=== PATIENT | female | born 1975 | race Caucasian/White ===

== ENCOUNTER → 2017-06-28 10:25 | Outpatient (CLI) | payer MEDICAID, SELFPAY ==
[2017-06-28 12:48] LABS: ALB/GLOB Ratio 0.8 RATIO (0.9-2.4); AST(SGOT) 20 U/L (15-37); Alanine Aminotransfer ALT/SGPT 25 U/L (12-78); Albumin, Serum 3.7 g/dL (3.4-5.0); Alkaline Phosphatase 152 U/L (45-117); Anion Gap 7 (5-15); BUN 11 mg/dL (7-18); BUN/Creat Ratio 14.8 RATIO (10-20); Calcium,Total 9.8 mg/dL (8.5-10.1); Chloride 100 mmol/L (98-107); Creatinine, Serum 0.74 mg/dL (0.55-1.02); EST Glomerular Filtration Rate 91 mL/min (>60); Est Glom Filt Rate - Afr Amer 110 mL/min (>60); Globulin 4.5 g/dL (2.2-4.2); Glucose 82 mg/dL (70-110); Potassium 3.6 mmol/L (3.5-5.1); Protein, Total 8.2 g/dL (6.4-8.2); Sodium Level 136 mmol/L (136-145)
[2017-06-28 19:49] LABS: T4 Free Direct 0.87 ng/dL (0.76-1.46); Thyroid Stim Hormone (TSH) 0.61 uIU/mL (0.358-3.74)
--- OUTSIDE RECORDS SUMMARY | 2017-08-31 11:10 | XMS RPT_ITS ---
:1975 Author Organization OHIP Support Name Relationship Address Phone LADRACH, LOUREE Unavailable [address] + [place] [address] [employer] Unavailable [address] + [place] [address] LADRACH, LOUREE Unavailable [address] + [place] [address] [employer] Unavailable [address] + [place] [address] LADRACH, LOUREE Unavailable [address] + [place] [address] [employer] Unavailable [address] + [place] [address] LADRACH, LOUREE Unavailable [address] + [place] [address] [employer] Unavailable [address] + [place] [address] LADRACH, LOUREE Unavailable [address] + [place] [address] [employer] Unavailable [address] + [place] [address] LADRACH, LOUREE Unavailable [address] + [place] [address] [employer] Unavailable [address] + [place] [address] LADRACH, LOUREE Unavailable [address] + [place] [address] [employer] Unavailable [address] + [place] [address] LADRACH, LOUREE Unavailable [address] + [place] [address] [employer] Unavailable [address] + [place] [address] LADRACH, LOUREE Unavailable [address] + [place] [address] [employer] Unavailable [address] + [place] [address] LADRACH, LOUREE Unavailable [address] + [place] [address] [employer] Unavailable [address] + [place] [address] LADRACH, LOUREE Unavailable [address] [facility] [facility] [address] + [place] [address] [employer] Unavailable [address] + [place] [address] LADRACH, LOUREE Unavailable [address] [facility] [facility] [facility] [address] + [place] [address] [employer] Unavailable . +. [place] [address] LADRACH, LOUREE Unavailable [address] [facility] [address] + [place] [address] [employer] Unavailable . +. [place] [address] LADRACH, LOUREE Unavailable [address] [facility] [place] [address] + [place] [address] [employer] Unavailable [address] + [place] [address] LADRACH, LOUREE Unavailable [address] [facility] [place] [address] + [place] [address] [employer] Unavailable . +. [place] [address] LADRACH, LOUREE Unavailable [address] [facility] [place] + [place] [address] [employer] Unavailable [address] + [place] [address] LADRACH, LOUREE Unavailable [address] [facility] [place] [address] [address] + [place] [address] [employer] Unavailable . +. [place] [address] CARMELO LARSENUREE Unavailable [address] + [place] [address] [employer] Unavailable . +. [place] [address] ELIRACARMELO SIDHUUREE Unavailable [address] + [place] [address] [employer] Unavailable . +. [place] [address] Care Team Providers Name Role Phone Iker Scruggs Attending Unavailable Primay Care Physicia, No Primary Care Unavailable Amos Bernardo Attending Unavailable Primay Care Physicia, No Primary Care Unavailable Primay Care Physicia, No Primary Care Unavailable White, Marcy Admitting Unavailable White, Marcy Attending Unavailable Dilip Osorio D.O. Consulting Unavailable Primay Care Physicia, No Primary Care Unavailable Italo Price Attending Unavailable White, Marcy Attending Unavailable White, Marcy Attending Unavailable Davis, Kash INSPECTOR MISSILE-C Attending Unavailable Primay Care Physicia, No Referring Unavailable Primay Care Physicia, No Primary Care Unavailable Davis, Kash INSPECTOR MISSILE-C Attending Unavailable Davis, Kash INSPECTOR MISSILE-C Primary Care Unavailable Davis, Kash INSPECTOR MISSILE-C Attending Unavailable Davis, Kash INSPECTOR MISSILE-C Referring Unavailable Davis, Kash INSPECTOR MISSILE-C Primary Care Unavailable Davis, Kash INSPECTOR MISSILE-C Attending Unavailable Davis, Kash INSPECTOR MISSILE-C Primary Care Unavailable Davis, Kash INSPECTOR MISSILE-C Attending Unavailable Davis, Kash INSPECTOR MISSILE-C Primary Care Unavailable Oswaldoghe, Efewongbe Consulting Unavailable Rachele, Efewongbe Attending Unavailable Davis, Kash INSPECTOR MISSILE-C Referring Unavailable Davis, Kash INSPECTOR MISSILE-C Primary Care Unavailable Moo [place] Attending Unavailable White, Marcy Referring Unavailable Davis, Kash INSPECTOR MISSILE-C Attending Unavailable Davis, Kash INSPECTOR MISSILE-C Referring Unavailable Davis, Kash INSPECTOR MISSILE-C Primary Care Unavailable Davis, Kash INSPECTOR MISSILE-C Primary Care Unavailable Gracie Sandoval Attending Unavailable Davis, Kash INSPECTOR MISSILE-C Attending Unavailable Davis, Kash INSPECTOR MISSILE-C Referring Unavailable Davis, Kash INSPECTOR MISSILE-C Primary Care Unavailable Davis, Kash INSPECTOR MISSILE-C Attending Unavailable Davis, Kash INSPECTOR MISSILE-C Referring Unavailable Mohinder Nye Attending Unavailable Mohinder Nye Referring Unavailable Davis, Kahs INSPECTOR MISSILE-C Primary Care Unavailable Davis, Kash INSPECTOR MISSILE-C Attending Unavailable Davis, Kash INSPECTOR MISSILE-C Referring Unavailable PROBLEMS PROBLEMS DATE TYPE CONDITION / CODE ATTENDING STATUS SOURCE 08/27/2017 Unknown M54.12 - Mohinder Nye Active [place] Radiculopathy, Community cervical region / Hospital M54.12(ICD-10) Repository 08/10/2017 Unknown H92.02 - Otalgia, left Jaime, Gracie Active [place] ear / H92.02(ICD-10) [facility] Repository 07/30/2017 Unknown L65.9 - Nonscarring Oleghe, Active [place] hair loss, unspecified [facility] / L65.9(ICD-10) Hospital Repository 07/30/2017 Unknown F41.8 - Other Oleghe, Active [place] specified anxiety [facility] disorders / Hospital F41.8(ICD-10) Repository 07/30/2017 Unknown I10 - Essential Oleghe, Active [place] (primary) hypertension [facility] / I10(ICD-10) Hospital Repository 07/30/2017 Unknown L30.9 - Dermatitis, Oleghe, Active [place] unspecified / [facility] L30.9(ICD-10) Hospital Repository 08/31/2017 Unknown R74.0 - Nonspecific Davis, Kash Active [place] elevation of levels of INSPECTOR MISSILE-C Community transaminase and Hospital lactic acid Repository dehydrogenase [LDH] / R74.0(ICD-10) 06/14/2017 Unknown J02.9 - Acute Davis, Kash Active [place] pharyngitis, [facility] MISSI[facility]-C Community unspecified / Hospital J02.9(ICD-10) Repository 06/14/2017 Unknown R68.89 - Other general Davis, Kash Active [place] symptoms and signs / INSPECTOR MISSILE-C Community R68.89(ICD-10) Hospital Repository 06/14/2017 Unknown R30.0 - Dysuria / Davis, Kash Active [place] R30.0(ICD-10) INSPECTOR MISSILE-C [facility] Repository 06/14/2017 Unknown N30.00 - Acute Davis, Kash Active [place] cystitis without INSPECTOR MISSILE-C Community hematuria / Hospital N30.00(ICD-10) Repository 07/18/2017 Unknown R94.31 - Abnormal Moodispaw, Active [place] electrocardiogram [facility] [ECG] [EKG] / Hospital R94.31(ICD-10) Repository 04/18/2017 Unknown MIGRAINE, UNSP, NOT Scruggs, Iker Active [place] INTRACTABLE, WITHOUT Community STATUS MIGRAINOSUS / Hospital G43.909(ICD-10) Repository 04/18/2017 Unknown NAUSEA WITH VOMITING, Scruggs, Iker Active [place] UNSPECIFIED / Community R11.2(ICD-10) Hospital Repository 04/18/2017 Unknown DEHYDRATION / Scruggs, Iker Active [place] E86.0(ICD-10) [facility] Repository PROCEDURES PROCEDURES No Procedure Records FoundRESULTS RESULTS CERV SPINE 4 OR 5 Observed: 08/27/2017 Status: F Source: [place] VIEWS 2:45 PM [facility] RE[facility]ITORY [place] [facility] HOSPITALImaging [id number] [place] [address]Ronj Spine 4 or 5 ViewsMR#: [id number] Acct: [id number]: NGUYEN MULLINS Rep #: [id number]: 1975 F 41 From: Murray BrasherCP: Kash Davis NP Status: REG CLIStudy: Cerv Spine 4 or 5 Views Date of Exam: 08/27/17Exam# [id number] Ordering Dr: Aidee NyeTUDY: X-RAY - CERVICAL SPINEREASON FOR EXAM: Female, 41 years old. Neck painTECHNIQUE: Lateral view(s) of the cervical spine were obtained.COMPARISON : None FINDINGS:Normal anterior atlantoaxial articulation. Normal odontoid process.Normal cervical lordosis. Normal vertebral bodies and endplates. Normaldisc space heights. Normal visualized intervertebral neuroforamina.The soft tissue structures are unremarkable. 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 INTERNAL MEDICINE Observed: 08/14/2017 Status: F Source: [place] OFFICE VISIT 5:37 PM [facility] Internal [id number] [facility] [address] [place] [address] [id number] VISITDate of Service: 08/14/17MR#: [id number] Acct: [id number]: NGUYEN MULLINS Rep #: [id number]: 1975 Provider: Kash Davis NPAge/Sex: 41/F [place] [facility] [place].BIMStatus: SignedIntakeVital Signs08/14/17 Height 5 ft 2 inIntakeVisit Reasons: Ear drum rupturedChief Complaint: left ear painIs patient in pain?: Yes (ear pain) Pain scale (1-10): 7Allergiesvalacyclovir [From Valtrex] Allergy ( Verified 08/10/17 13:09)HivesMedicationsblood pressure test kit-medium cuff See Dose Instructions .ROUTE .MEDSUPPLY #1 ea 06/01/17 [RxConfirmed 06/01/17]acyclovir 400 mg tablet 400 mg PO TID #30 tab 06/14/17 [Rx Confirmed 06/14/17]hydrocortisone 2.5 % topical ointment 1 applic TOPICAL QHS #28.35 g 06/28/17 [Rx Urigqyize79/04/18]buspirone 5 mg tablet 5 mg PO QDAY PRN #30 tab 07/27/17 [Rx Confirmed 07/27/17]sertraline 50 mg tablet 50 mg PO QDAY #90 tab 07/27/17 [Rx Confirmed 07/27/17]trazodone 50 mg tablet 50 mg PO QHS PRN #30 tab 07/27/17 [Rx Confirmed 07/27/17]Amox/Clavulanate Tablet [Augmentin Tablet] 875 mg PO Q12H # 6 tab 08/10/17 [Rx]Hydrocodone Bitart/Apap 5-325 [Mullen 5MG-325MG] 1 tab PO Q6H PRN PRN 3 Days #12 tab 08/10/17[Rx]Ofloxacin 0.3% [Floxin 0.3% Otic] 10 drp OTIC DAILY 10 Days #1 bottle 08/10/17 [Rx]amoxicillin 875 mg-potassium clavulanate 125 mg tablet 1 tab PO BID #14 tab 08/10/17 [RxConfirmed 08/10/17]fluticasone 50 mcg/actuation nasal spray,suspension 2 spray INTRANASAL QDAY #1 device 08/10/17[Rx Confirmed 08/10/17]ibuprofen 600 mg tablet 600 mg PO BID PRN #30 tab 08/10/17 [Rx Confirmed 08/10/17]tramadol 50 mg tablet 50 mg PO Q8H PRN #15 tab 08/14/17 [Rx Confirmed 08/14/17]PFSHMedical History Seasonal allergies (Chronic)UTI (urinary tract infection) (Chronic)Surgical History ( Reviewed 08/14/17 @ 17:26 by RUBIN Albright)cesarian times 2 (Acute)Family History ( Reviewed 08/14/17 @ 17:26 by RUBIN Albright)Father HypertensionAlcoholismGrandfather AlcoholismColon cancerMother HypertensionDepressionBrother DepressionGrandmother DiabetesColon cancerUncle CancerSocial HistorySmoking Status: Current some day smokerhow long ago did patient quit smokinalcohol intake: former year quit: 2017details: Is going through rehab for alcohol abuse at 89.substance use type: marijuanawhat type of physical activity do you participate in: yogafrequency: 1-2 times per weekHPIHPIChief Complaint: left ear painDetails: NGUYEN MULLINS, is a 41 F who presents to the office today for an acute visit ofleft ear pain. The pt presented to the ED after being seen last sunday and was diagnosed withperforated ear drum left side. She was also referred to ENT which she has not followed up yet.She states that her ear pain as a 10 out of 10 pain and that she has been taking ibuprofen andTylenol with no relief. She does state that she was given Mullen in the emergency departmentand this helped with her pain. She states that it is so painful she is unable to work. Shestates that is having a lot of bloody and yellow drainage from her left ear canal. She doesstate that she is using the eardrops and the Augmentin appropriately. She is requesting a workexcuse for today and tomorrow. She denies any other alleviating or aggravating symptoms.The patient otherwise denies any fever, chills, , shortness of breath, chest pain or pressure,palpitations, orthopnea, lower extremity edema, syncope or presyncopal episodes.ROSConstConstitutional: No weight change, body ache, chills, fatigue, sleep problems, fever(s), changein appetite, snoring, weakness, frequent falls, headache(s) or excessive sweatingEyesEyes: No change in vision, eye pain, light sensitivity or blurry visionENTENT: Positive for ear pain, ear discharge and ear pressure;no headache (s), abnormal hearing, tinnitus, nasal congestion, sore throat or neck painRespRespiratory: No snoring, cough, shortness of breath or wheezingCardioCardiology: No excessive sweating, chest pain at rest, chest pain with exertion, shortness ofbreath, dyspnea on exertion, palpitations, orthopnea or lightheadednessGastroGI: No abdominal pain, change in bowel habits, constipation, diarrhea, vomiting,nausea/dyspepsia or crampingMuscMusculoskeletal: No neck pain, abnormal walking, joint pain, back pain, limited range ofmotion, numbness or tinglingSkinSkin: No redness, dry skin, itching, lesions, wounds or rashNeuroNeurology: No weakness, frequent falls, headache(s), abnormal hearing, abnormal walking,numbness, tingling, abnormal speech, dizziness or memory lossPsychPsychiatric: No change in appetite, No memory loss, No anxiety, No depression, No Thoughts ofharming yourself/OthersEndoEndocrine: No fatigue, excessive sweating, cold intolerance, increased thirst/drinking, heatintolerance, flushing or increased hungerAller/ImmAllergy/Immunologic: No wheezing, itchy eyes, hives or seasonal allergy symptomsHema/LympHematologic/Lymphatic: No easy bleeding, easy bruising or enlarged lymph nodesExamConstGeneral: cooperative, no acute distress, ill appearing acutelyNutritional Appearance: thinOrientation: alert, awake, oriented [id number]: atraumatic, normocephalicEars: TM normal on the right, TM abnormal perforated with bloody discharge on the left andwith purulent discharge on the leftNose: mucous membranes and turbinates abnormal (Edematous)Face and sinus: normal facial examMouth: oral mucosae normalThroat: postnasal drainage, normal tonsilsNeckNeck mass: NoLymphatic: lymphadenopathy bilateral anterior cervical : soft and tenderRespEffort AND Inspection: normal respiratory effort, able to speak in complete sentencesAuscultation: Bilateral: Clear to AuscultationCardioRate: regular rateRhythm: regular rhythmHeart Sounds: S1 normal, S2 normalGIPalpation: soft, no hepatosplenomegalySkinRashes: rashes notedOther: Maculopapular rash extending around the anterior neck region and shoulder.NeuroGeneral: alert, awake, oriented x3, CN's II-XI intact bilaterallyExtremGeneral: no clubbing, cyanosis or edemaPsychAppearance: grossly normalMental Status: mental status grossly normalAssessment AND PlanProblems1. Acute otitis media of left ear with perforated tympanic membrane H66.92; H72.92PlanPatient to continue with ibuprofen and Tylenol for pain relief. Discussed with her that Icannot refill her Mullen. Did give her a 5 day prescription of tramadol. She will continue herAugmentin and ofloxacin eardrops. She was also referred to ENT for follow-up and management.A work excuse was given for today and tomorrow. Patient educated on red flag symptoms thatrequire urgent medical attention. Patient verbalized understanding.Emy disclaimerOrdersReferrals:MedicationsNew:CodingLevel of Care CodeOff vis,est, level 3DiagnosesAcute otitis media of left ear with perforated tympanic membrane H66.92; H72. 1737 <Electronically signed by Kash CONKLIN>Date Kash TANGCCosigner Signature: Date (if applicable)CC: EMERGENCY DEPARTMENT Observed: 08/11/2017 Status: F Source: [place] SUMMARY 12:28 AM [facility] [id number] [place] [address]Lgqkkhfni Department Sqqhcor97/16/18 1543MR#: [id number] Acct: [id number]: NGUYEN MULLINS Rep #: [id number]: 1975 41 From: Gracie Sandoval MDPCP: Kash Davis NP Status: DEP ER- ER Visit SummaryDate of Service: 08/10/17Chief Complaint: Left ear pain and bleedingHistory of Present Illness: The patient is a 41 F who presents for 1 day of left ear pain thatis now more severe and bleeding. Patient states she has had upper respiratory infectionsymptoms, including cough, left-sided sore throat and congestion for 1 week. She woke up thismorning with her left ear throbbing. She was seen by her doctor and diagnosed with an earinfection, and prescribed Augmentin. She was waiting for the prescription to be filled whenher ear suddenly started bleeding and the pain increased. She has been having drainage of hersymptoms. She denies fever. She has a history of multiple ear infections as a child.Denies any medical history.Physical Examination:Vital signs: afebrile, hemodynamically stable, no hypoxia on room airGeneral: well nourished , well developed, in no distress towel held to the left earSkin: warm, dry, no rash, no pallorHEENT: normocephalic and atraumatic; PERRL, EOMI, moist mucous membranes , no posteriororopharyngeal exudate, swelling or erythema. No oral lesions. Right TM with normalappearance. Left TM has a perforation in the superior medial region with levels behind it,small amount of serosanguineous fluid in the external canal. No pain with movement of thetragus. No mastoid tenderness. Tender periauricular and anterior cervical lymphadenopathy.No meningismus.Cardiovascular: regular rate and rhythmRespiratory: No increased work of breathingMSK: Moves all extremities, no deformities, normal strengthNeuro: Awake and alert, oriented 4. No facial droopTest Results: []Emergency Department Course and Treatment: Patient's examination is consistent with a tympanicmembrane perforation. She does have some bloody exudate in the exterior canal. She has nomastoid tenderness that would be concerning for mastoiditis. No meningeal signs. Patient willtake the Augmentin that her doctor has already prescribed. Ofloxacin eardrops were added toher regimen. Patient is only prescribed a course of 7 days of her Augmentin [facility]. She will be given a prescription for anextra 3 days in case she is unable to get her doctor to extend the prescription for free. Heis in severe pain and thus was given a Mullen while in the emergency department and wasprescribed a small prescription of Mullen for severe pain, especially at bedtime. She willcontinue the ibuprofen as prescribed by her doctor. Return precautions given. Follow-up givento an mobility specialist. Patient discharged home.Treatment Plan: []Disposition: []Impression: Left tympanic membrane perforation, left acute otitis mediaThis note was generated with [employer] dictation software. It may contain incorrect words,spelling, and punctuation that were not noted in review of the chart prior to signingED Disposition- Plan for ED Patient:Chief Complaint: Ear ProblemPrescriptions:Hydrocodone Bitart/Apap 5-325 [Mullen 5MG-325MG] 1 tab PO Q6H PRN PRN 3 Days #12 tabPRN Reason: PainAmox/Clavulanate Tablet [Augmentin Tablet] 875 mg PO Q12H #6 tabOfloxacin 0.3% [Floxin 0.3% Otic] 10 drp OTIC DAILY 10 Days #1 bottleReferrals:Kash Davis, INSPECTOR MISSILE-C [Primary Care Provider] -What to do if you have ProblemsFor any increased pain, shortness of breath, bleeding, nausea or vomiting, chest pain, or anyunexpected problems, contact your Primary Care Provider. Call [facility] ([phone])or report to the closest Emergency Room.Call 911 if necessary.08/11/17 0028 <Electronically signed by Gracie Sandoval MD>Date Gracie Sandoval MDCosigner Signature (If Indicated): Date CC: Kash Davis INSPECTOR MISSILE DISCHARGE INSTRUCTION Observed: 08/11/2017 Status: F Source: [place] 12:18 AM [facility] [id number] [place] [address]Jvybunplj Ugmidjbhthe30/16/18 1547MR#: [id number] Acct: [id number]: NGUYEN MULLINS Rep #: [id number]: 1975 41 From: Gracie Sandoval MDPCP: Kash Davis NP Status: DEP ERED Disposition- Plan for ED Patient:Disposition: Home or Assisted LivingChief Complaint: Ear ProblemInstructions: ED Otitis Media Acute Adult, ED Rupture Eardrum InfecPrescriptions:Hydrocodone Bitart/Apap 5-325 [Mullen 5MG- 325MG] 1 tab PO Q6H PRN PRN 3 Days #12 tabPRN Reason: PainAmox/Clavulanate Tablet [ Augmentin Tablet] 875 mg PO Q12H #6 tabOfloxacin 0.3% [Floxin 0.3% Otic] 10 drp OTIC DAILY 10 Days #1 bottleReferrals:Kash Davis NP-C [Primary Care Provider] -Bandar Suarez MD [STAFF PHYSICIAN] - 3-5 Days if not improvingAdditional Instructions:Please take the Augmentin for 10 days, and contact your doctor to extend your for prescription.If you are unable to do so, you have been written an additional 3 days. Please also use theeardrops as prescribed. Follow-up with the ear nose throat doctor on this paperwork,especially if you are not improving in 3 days. If you have any worsening of your condition orany new concerns, please come back to the emergency department for another evaluation.What to do if you have ProblemsFor any increased pain, shortness of breath, bleeding, nausea or vomiting, chest pain, or anyunexpected problems, contact your Primary Care Provider. Call [facility] ([phone])or report to the closest Emergency Room.Call 911 if necessary.08/11/17 0018 <Electronically signed by Gracie Sandoval MD>Date [place]acie Sandoval [facility] [place] (If Indicated): Date CC: Kash Davis NP INTERNAL MEDICINE Observed: 08/10/2017 Status: F Source: [place] OFFICE VISIT 11:42 AM [facility] Internal [address] [place] [address] [phone] VISITDate of Service: 08/10/17MR#: [id number] Acct: [id number]: NGUYEN MULLINS Rep #: [id number]: 1975 Provider: Kash Davis NPAge/Sex: 41/F Location: [facility] [place].BIMStatus: SignedIntakeVital Signs08/10/17 Height 5 ft 2 inIntakeVisit Reasons: EARACHEChief Complaint: left ear painIs patient in pain?: Yes (left ear pain) Pain scale (1-10): 8Allergiesvalacyclovir [From Valtrex] Allergy ( Verified 05/28/17 09:25)HivesMedicationsblood pressure test kit-medium cuff See Dose Instructions .ROUTE .MEDSUPPLY #1 ea 06/01/17 [RxConfirmed 06/01/17]acyclovir 400 mg tablet 400 mg PO TID #30 tab 06/14/17 [Rx Confirmed 06/14/17]hydrocortisone 2.5 % topical ointment 1 applic TOPICAL QHS #28.35 g 06/28/17 [Rx Bpxcpvwuo42/04/18]buspirone 5 mg tablet 5 mg PO QDAY PRN #30 tab 07/27/17 [Rx Confirmed 07/27/17]sertraline 50 mg tablet 50 mg PO QDAY #90 tab 07/27/17 [Rx Confirmed 07/27/17]trazodone 50 mg tablet 50 mg PO QHS PRN #30 tab 07/27/17 [Rx Confirmed 07/27/17]amoxicillin 875 mg-potassium clavulanate 125 mg tablet 1 tab PO BID #14 tab 08/10/17 [RxConfirmed 08/10/17]fluticasone 50 mcg/actuation nasal spray,suspension 2 spray INTRANASAL QDAY #1 device 08/10/17[Rx Confirmed 08/10/17]ibuprofen 600 mg tablet 600 mg PO BID PRN #30 tab 08/10/17 [Rx Confirmed 08/10/17]PFSHMedical History Seasonal allergies (Chronic)UTI (urinary tract infection) (Chronic)Surgical History ( Reviewed 08/10/17 @ 11:18 by RUBIN Albright)cesarian times 2 (Acute)Family History ( Reviewed 08/10/17 @ 11:18 by RUBIN Albright)Father HypertensionAlcoholismGrandfather AlcoholismColon cancerMother HypertensionDepressionBrother DepressionGrandmother DiabetesColon cancerUncle CancerSocial HistorySmoking Status: Never smokerhow long ago did patient quit smokinalcohol intake: former year quit: 2017details: Is going through rehab for alcohol abuse at 89.substance use type: marijuanawhat type of physical activity do you participate in: yogafrequency: 1-2 times per weekHPIHPIChief Complaint: left ear painDetails: NGUYEN BERGANAN, is a 41 F who presents to the office today for an acute visit ofleft ear pain. She states that over the past week she has been dealing with upper respiratorysymptoms of nonproductive cough, cold-like symptoms with nasal congestion and yellow nasaldischarge, and most recently developed sharp stabbing 8/10 ear pain that began this morning.She does state that her and her children have been sick recently with similar symptoms.She has tried taking some kbqm-fjo-fhewegy flu combinations with mild relief. She did takesome qtxg-whe-payuqxe Aleve which helped some with the ear pain today as well. She denies anyother alleviating or aggravating symptoms. She does note that she still has the rash that wasaddressed at her previous office visit, however has not been utilizing the hydrocortisone creamroutinely.The patient otherwise denies any fever, chills, , shortness of breath, chest pain or pressure,palpitations, orthopnea, lower extremity edema, syncope or presyncopal episodes.ROSConstConstitutional: No weight change, body ache, chills, fatigue, sleep problems, fever(s), changein appetite, snoring, weakness, frequent falls, headache(s) or excessive sweatingEyesEyes: No change in vision, eye pain, light sensitivity or blurry visionENTENT: Positive for ear pain (left ear), nasal congestion, sore throat and other (jaw pain onleft side);no headache(s), abnormal hearing, tinnitus or neck painRespRespiratory: Positive for cough Cough: Yes productive;no snoring, shortness of breath or wheezingCardioCardiology: Positive for chest pain at rest (Due to coughing);no excessive sweating, chest pain with exertion, shortness of breath, dyspnea on exertion,palpitations, orthopnea or lightheadednessGastroGI: Positive for vomiting (When ear pain became severe) and nausea/dyspepsia;no abdominal pain, change in bowel habits, constipation, diarrhea or crampingMuscMusculoskeletal: Positive for tingling (left arm chronic chronic);no neck pain, abnormal walking, joint pain , back pain, limited range of motion or numbnessSkinSkin: Positive for rash (Right and left shoulder);no redness, dry skin, itching, lesions or woundsNeuroNeurology: Positive for tingling (left arm chronic chronic);no weakness, frequent falls, headache(s ), abnormal hearing, abnormal walking, numbness,abnormal speech, dizziness or memory lossPsychPsychiatric: No change in appetite, No memory loss, No anxiety, No depression, No Thoughts ofharming yourself/OthersEndoEndocrine: Positive for other (jaw pain on left side);no fatigue, excessive sweating, cold intolerance, increased thirst/drinking, heat intolerance,flushing or increased hungerAller/ImmAllergy/Immunologic: No wheezing, itchy eyes, hives or seasonal allergy symptomsHema/LympHematologic/Lymphatic: No easy bleeding, easy bruising or enlarged lymph nodesExamConstGeneral: cooperative, no acute distress, ill appearing acutelyNutritional Appearance: thinOrientation: alert, awake, oriented [id number]: atraumatic, normocephalicEars: TM normal on the right, TM abnormal erythematous on the left, bulging on the left andwith fluid behind the TM on the left; Negative for not perforatedNose: mucous membranes and turbinates abnormal (Edematous)Face and sinus: normal facial examMouth: oral mucosae normalThroat: postnasal drainage, normal tonsilsNeckNeck mass: NoLymphatic: lymphadenopathy bilateral anterior cervical : soft and tenderRespEffort AND Inspection: normal respiratory effort, able to speak in complete sentencesAuscultation: Bilateral: Clear to AuscultationCardioRate: regular rateRhythm: regular rhythmHeart Sounds: S1 normal, S2 normalGIPalpation: soft, no hepatosplenomegalySkinRashes: rashes notedOther: Maculopapular rash extending around the anterior neck region and shoulder.NeuroGeneral: alert, awake, oriented x3, CN's II-XI intact bilaterallyExtremGeneral: no clubbing, cyanosis or edemaPsychAppearance: grossly normalMental Status: mental status grossly normalAssessment AND Plan1. Acute otitis media with effusion of left ear H65.192PlanThe patient does have obvious acute otitis media left ear on exam. Will treat with Augmentintwice daily for 7 days. Instructed patient that since she gets frequent yeast infections sheshould take a probiotic such as Culturelle will consider Diflucan if a yeast of infectiondevelops. Discussed supportive therapy as well. Discussed routinely taking her fluticasonedaily and ibuprofen Rx was called in for ear pain as well. Discussed taking this with food toprevent GI upset. Discussed red flag symptoms that require urgent medical attention.2. URI (upper respiratory infection) J06.9PlanPlan as above. On a side note the patient did bring up her rash that she has in the bilateralshoulders and has not been using her hydrocortisone cream, instructed her to use this routinelyfor a week and if no improvement will refer to dermatology.Emy disclaimerPlan DetailOther MedicationsNew:Refilled:fluticasone 50 mcg/actuation (Flonase Allergy Relief) adminis2 sprays Intranasal QDAYter into each nostrilFollow UpAs previously scheduled or sooner if neededCodingLevel of Care CodeOff vis,est,level 3DiagnosesAcute otitis media with effusion of left ear H65.192URI (upper respiratory infection) J06.902/ 1142 < Electronically signed by Kash TANGC>Date Kash Davis NP-CCosigner Signature: Date (if applicable)CC: INTERNAL MEDICINE Observed: 06/29/2017 Status: F Source: [place] OFFICE VISIT 5:19 PM [facility] Internal [address] [place] [address] [phone] VISITDate of Service: 06/28/17MR#: [id number] Acct: [id number]: NGUYEN MULLINS Rep #: [id number]: 1975 Provider: Bakari [place]/Sex: 41/F Location: [facility] [place].BIMStatus: SignedIntakeVital Signs06/28/17 Height 5 ft 2 in06/28/17 Weight: 109 lb06/28/17 Body Mass Index (BMI) 19.901 Blood Pressure 144/ Blood Pressure Location Rt brachialIntakeVisit Reasons: 4 wk f/uChief Complaint: follow-up visitIs patient in pain?: NoAllergiesvalacyclovir [From Valtrex] Allergy (Verified 05/28/17 09:25)HivesMedicationsblood pressure test kit-medium cuff See Dose Instructions .ROUTE .MEDSUPPLY #1 ea 06/01/17 [RxConfirmed 06/01/17]buspirone 5 mg tablet 5 mg PO QDAY PRN #30 tab 06/01/17 [Rx Confirmed 06/01/17]acyclovir 400 mg tablet 400 mg PO TID #30 tab 06/14/17 [Rx Confirmed 06/14/17]fluticasone 50 mcg/actuation nasal spray,suspension 2 spray INTRANASAL QDAY #1 device 06/14/17[Rx Confirmed 06/14/17]hydrocortisone 2.5 % topical ointment 1 applic TOPICAL QHS #28.35 g [Rx Akicjrxdw35/04/18]sertraline 50 mg tablet 50 mg PO QDAY #90 tab 06/28/17 [ Rx Confirmed 06/28/17]trazodone 50 mg tablet 50 mg PO QHS PRN #30 tab 06/28/17 [Rx Confirmed 06/28/17]PFSHMedical HistoryGenital herpes (Chronic)Elevated random blood glucose level (Acute)Insomnia (Chronic)Generalized anxiety disorder with panic attacks (Chronic)Anxiety and depression (Chronic)Alcohol abuse (Chronic) History of marijuana use (Chronic)Hypertension (Chronic)PTSD (post-traumatic stress disorder) (Chronic)Migraine headache (Chronic)Seasonal allergies (Chronic)UTI (urinary tract infection) (Chronic)Surgical Historycesarian times 2 (Acute)Family HistoryFather HypertensionAlcoholismGrandfather AlcoholismColon cancerMother HypertensionDepressionBrother DepressionGrandmother DiabetesColon cancerUncle CancerSocial HistorySmoking Status: Never smokerhow long ago did patient quit smokinalcohol intake: former year quit: 2017details: Is going through rehab for alcohol abuse at 89.substance use type: marijuanawhat type of physical activity do you participate in: yogafrequency: 1-2 times per weekHPI4 wk f/u:Chief Complaint: follow-up visitDetails: NGUYEN MULLINS, is a 41yo F who presents to the office today for follow up.She was seen at her last visit for management of depression and anxiety and at that time wasstarted on Zoloft 50 mg daily. Patient has done well with this dose. She reports pain muchresolution of his symptoms. She is currently also on trazodone 50 mg nightly as needed forsleep. She states that she has tried lifestyle modification alone which has not helped. Shehas had problems for several years. Taking 100 mg of trazodone at night helps her sleepbetter.Blood pressure in the office related to be elevated at 144/73 mmHg. Repeat blood pressure smg132/80 mmHg. She was noted to have elevated blood pressure at her initial visit at this timeit was thought to be due to her anxiety. She has a significant family history of hypertensionin both her parents. She has really not tried any dietary/lifestyle modification since herinitial visit however, she states that she takes her blood pressure at home and typically runswithin normal. She denies chest pain, shortness of breath or leg swelling.She is also concerned about thinning/ hair loss which has been ongoing. Stated above she deniespalpitations, change in the bowel habit, or heat/ cold intolerance. She denies any priorhistory of thyroid disease.She reports bilateral shoulder itching which has been ongoing for a couple of weeks. Shedenies any known precipitating factor however symptom is typically worse at night.ROSConstConstitutional: No weight change, body ache, chills, fatigue, sleep problems, fever(s), changein appetite, snoring, weakness, frequent falls, headache(s) or excessive sweatingEyesEyes: No change in vision, eye pain, light sensitivity or blurry visionENTENT: No headache(s), abnormal hearing, ear pain, tinnitus, nasal congestion, sore throat orneck painRespRespiratory: No snoring, cough, shortness of breath or wheezingCardioCardiology: No excessive sweating, chest pain at rest, chest pain with exertion, shortness ofbreath, dyspnea on exertion , palpitations, orthopnea or lightheadednessGastroGI: No abdominal pain, change in bowel habits, constipation, diarrhea, vomiting,nausea/dyspepsia or crampingMuscMusculoskeletal: No neck pain, abnormal walking, joint pain, back pain, limited range ofmotion, numbness or tinglingSkinSkin: No redness, dry skin, lesions, wounds or rashNeuroNeurology: No weakness, frequent falls, headache(s), abnormal hearing, abnormal walking,numbness, tingling, abnormal speech, dizziness or memory lossPsychPsychiatric: No change in appetite, No memory loss, No anxiety, No depression, No Thoughts ofharming yourself/OthersEndoEndocrine: No fatigue, excessive sweating, cold intolerance, increased thirst/drinking, heatintolerance, flushing or increased hungerAller/ImmAllergy/Immunologic: No wheezing, hives or seasonal allergy symptomsHema/LympHematologic/Lymphatic: No easy bleeding, easy bruising or enlarged lymph nodesExamConstGeneral: cooperative, no acute distressOrientation: alert, awake, oriented [id number]: atraumatic, normocephalicRespEffort AND Inspection: normal respiratory effort, able to speak in complete sentencesAuscultation: Bilateral : Clear to AuscultationCardioRate: regular rateRhythm: regular rhythmHeart Sounds: S1 normal, S2 normalGIPalpation: soft, no hepatosplenomegalySkinOther: Maculopapular rash extending around the anterior neck region and shoulder.NeuroGeneral: alert, awake, oriented x3, CN's II-XI intact bilaterallyExtremGeneral: no clubbing, cyanosis or edemaPsychAppearance: grossly normalMental Status: mental status grossly normalAssessment AND Plan1. Anxiety and depression F41.8PlanIs said to be very well controlled on Zoloft. She states that she has hardly had to use theBuSpar.Continue Zoloft 50 mg daily.Follow-up in 2 months.2. Essential hypertension W47GujmIhaxn pressure in office today was 144/73 mmHg. Repeat blood pressure of 140/80 mmHg.Patient with significant family history of hypertension in both parents.She really has not done any lifestyle modifications since initial diagnosis. Lifestylemodification again encouraged which would include exercise, low sodium and a diet rich infruits and vegetables.Continue blood pressure checks at home. Patient states that her blood pressure readings athome are within normal.Follow-up in 2 months. If blood pressure still significantly elevated, will start onpharmacological management.3. Hair loss L65.9PlanOngoing.No symptoms/history suggestive of thyroid dysfunction.We will however check a thyroid function.Continue biotin supplements.Follow-up the results.OrdersOrders:4. Dermatitis L30.9PlanPossibly contact.Advised to monitor for possible precipitating/aggravating factors.Hydrocortisone 2.5% to the anterior neck area nightly for 2 weeks.This note was generated with Your[employer] software. It may contain incorrect words,spelling, and punctuation that were not noted in checking the note before signing.Plan DetailOther MedicationsNew:Refilled:Follow Up2 MonthsCodingLevel of Care CodeOff vis,est,level 4DiagnosesAnxiety and depression F41.8Essential hypertension W41Fdgkisnwnwsl type: essential hypertensionHair loss L65.9Dermatitis L30.90 /11/09 1719 <Electronically signed by Kely Hopper MD>Date Kely Hopper MDCosigner Signature: Date (if applicable)CC: COMPREHENSIVE METABOLIC Collected: 06/28/2017 Status: F Source: [place] WISDOM 10:28 AM [facility] REPOSITORY TYPE CODE TESTS RESULT OUT OF RANGE REFERENCE UNITS LAB L501.0100 Normal 70-110 mg/dL GLU 82 LAB L501.1000 Normal 7-18 mg/dL BUN 11 LAB L501.1100 Normal 0.55-1.02 mg/dL 0.74 CREAT,SERUM Result Comment: The validity of the calculated GFR AND GFRAA in patients over70 years has not been determined. Clinical correlation isessential. LAB L501.1110 Normal >60 mL/min EST GFR 91 Result Comment: Non- GFR Calc LAB L501.1115 Normal >60 mL/min EST GFR - 110 AA Result Comment: GFR Calc LAB L501.1300 Normal 10-20 RATIO BUN/CRE 14.8 LAB L501.1500 Normal 6.4-8.2 g/dL T PROT 8.2 LAB L501.1800 Normal 3.4-5.0 g/dL ALB 3.7 Result Comment: Please note revised Albumin AND Globulin reference rangeeffective 2017. LAB L501.1950 High 2.2-4.2 g/dL GLOB 4.5 LAB L501.2000 Low 0.9-2.4 RATIO A/G 0.8 LAB L501.2200 Normal 8.5-10.1 mg/dL CA 9.8 LAB L501.4100 Normal 15-37 U/L AST 20 LAB L501.4305 High 45-117 U/L ALK P 152 LAB L501.4405 Normal 12-78 U/L ALT 25 LAB L501.4600 Normal 0.20-1.00 mg/dL T BILI 0.70 LAB L501.5300 Normal 136-145 mmol/L NA 136 LAB L501.5600 Normal 3.5-5.1 mmol/L K 3.6 LAB L501.5900 Normal 98-107 mmol/L CL 100 LAB L501.6100 Normal 21.0-32.0 mmol/L CO2 29.0 LAB L501.6200 Normal 5-15 GAP 7 Performed By: #### L500.4050, L501.9520, L506.0400 ####[facility] [address] [place], [address] THYROID STIM HORMONE Collected: 06/28/2017 Status: F Source: [place] (TSH) 10:28 AM [facility] REPOSITORY TYPE CODE TESTS RESULT OUT OF RANGE REFERENCE UNITS LAB L501.9520 Normal 0.358-3.74 uIU/mL TSH 0.61 Performed By: #### L500.4050, L501.9520, L506.0400 ####[facility] [address] [place], [address] T4 FREE DIRECT Collected: 06/28/2017 Status: F Source: [place] 10:28 AM [facility] REPOSITORY TYPE CODE TESTS RESULT OUT OF RANGE REFERENCE UNITS LAB L506.0400 Normal 0.76-1.46 ng/dL T4 FREE 0.87 DIRECT Performed By: #### L500.4050, L501.9520, L506.0400 ####[facility] [address] [place], [address] URINALYSIS, COMPLETE Collected: 06/14/2017 Status: F Source: [place] 4:07 PM [facility] REPOSITORY Order Comment: How was Urine Obtained? ASBESTOS SIDING INSTALLER TO SPECIFY TYPE CODE TESTS RESULT OUT OF RANGE REFERENCE UNITS LAB L400.3000 Normal Yellow COLOR Yellow LAB L400.3050 Normal Clear CLARITY Sl. Cloudy LAB L400.3200 Normal Normal mg/dl GLUCOSE, UR Normal LAB L400.3300 High Negative mg/dL BILIRUBIN 1 URINE Result Comment: COLOR OF URINE MAY AFFECT DIPSTICK RESULTS. LAB L400.3400 High Negative mg/dl KETONE UR 5 LAB L400.3465 Normal 1.002-1.030 SP.GR. 1.010 DIPSTX LAB L400.3550 Normal 5.0 - 8.0 pH UR 6.0 LAB L400.3600 Normal Negative mg/dl PROT DIPSTX Negative LAB L400.3700 High Normal mg/dl UROBILI 1 LAB L400.3750 Normal Negative NITRITE UR Negative LAB L400.3780 High Negative /ul OCCULT 10 BLOOD-UR LAB L400.3800 High Negative /ul LEUK 500 ESTERASE LAB L400.4050 Normal 0-5 /hpf WBC 25-50 SEEN LAB L400.4100 Normal 0-5 /hpf RBC-UA 0-5 SEEN LAB L400.4150 Normal 5-10 /hpf SQUAM EPI 5-10 SEEN LAB L400.4300 Normal None Seen /hpf BACTERIA 1+ LAB L400.4350 Normal <or=2+ /hpf MUCUS, 0 SEEN URINE LAB L400.4700 Normal <or=2+ /hpf CA OX 1+ CRYSTAL Performed By: #### L400.0001, M100.010 ####[facility] [address] [facility] [place], [place], [address] Observed: 06/14/2017 Status: F Source: YUMIKO GARCÍA, R/O STREP A 4:07 PM [facility] REPOSITORY NISH CultureNo Group A Beta Streptococcus isolated. * This cultures intended use is to screen for Beta Streptococcus A only. All other pathogens and potential pathogens will not be screened for or reported. If a complete workup of all potential pathogens is indicated an order for a routine throat culture is required. Performed By: #### L400.0001, M100.010 ####[facility] [address] [facility] [place], [place], [address] Observed: 06/14/2017 Status: F Source: [place] CULTURE, URINE 4:07 PM [facility] REPOSITORY Urine CultureORGANISM 1: Presumptive E. coliColony Count <1000 Presumptive E. coli: REACTION Amoxacillin/Clavulanic Acid $ 4 S Ampicillin $ 8 S Ampicillin/Sulbactam $ 4 S Cefazolin $ <=4 S Cefepime $ <= 1 S Ceftriaxone $ <=1 S Ciprofloxacin $ <=0.25 S ESBL - Ertapenim $$$ <=0.5 S Gentamicin $ <=1 S Imipenem *NF <=0.25 S Levofloxacin $ <=0.12 S Nitrofurantoin $ <=16 S Piperacillin/Tazobactam $$ <=4 S Tobramycin $ <=1 S Trimethoprim/Sulfametho $ <=20 S(NF) indicates non-formulary drug at [facility]. Approval by Infectious Disease Specialist required before non-formulary drugs may be ordered and/or dispensed. Performed By: #### M100.0650 ####[facility] [address] [place], [address] INTERNAL MEDICINE Observed: 06/14/2017 Status: F Source: [place] OFFICE VISIT 3:48 PM [facility] Internal [address] [place] [address] [phone] VISITDate of Service: 06/14/17MR#: [id number] Acct: [id number]: NGUYEN MULLINS Rep #: [id number]: 1975 Provider: Kash Davis NPAge/Sex: 41/F Location[place] [facility] [place].BIMStatus: SignedIntakeVital Signs06/14/17 Height 5 ft 2 in06/14/17 Weight: 107 lb06/14/17 Body Mass Index (BMI) 19.512 Blood Pressure 114/ Blood Pressure Location Lt brachialIntakeVisit Reasons: sore throat, feverChief Complaint: fever, body aches, vomiting, sore throatIs patient in pain?: Yes (sore throat) Pain scale (1-10): 5Allergiesvalacyclovir [From Valtrex] Allergy (Verified 05/28/17 09:25)HivesMedicationsblood pressure test kit-medium cuff See Dose Instructions .ROUTE .MEDSUPPLY #1 ea 06/01/17 [RxConfirmed 06/01/17]buspirone 5 mg tablet 5 mg PO QDAY PRN #30 tab 06/01/17 [Rx Confirmed 06/01/17]sertraline 50 mg tablet 50 mg PO QDAY #30 tab 06/01/17 [Rx Confirmed 06/01/17]trazodone 50 mg tablet 50 mg PO QHS PRN #30 tab 06/01/17 [Rx Confirmed 06/01/17]acyclovir 400 mg tablet 400 mg PO TID # 30 tab 06/14/17 [Rx Confirmed 06/14/17]amoxicillin 875 mg-potassium clavulanate 125 mg tablet 1 tab PO BID #10 tab 06/14/17 [RxConfirmed 06/14/17]fluticasone 50 mcg/actuation nasal spray,suspension 2 spray INTRANASAL QDAY #1 device 06/14/17 [Rx Confirmed 06/14/17]PFSHMedical History Elevated random blood glucose level (Acute)Insomnia (Chronic)Generalized anxiety disorder with panic attacks (Chronic)Anxiety and depression (Chronic) Alcohol abuse (Chronic)History of marijuana use (Chronic)Hypertension (Chronic)PTSD (post-traumatic stress disorder) (Chronic)Migraine headache (Chronic)Seasonal allergies (Chronic)UTI (urinary tract infection) (Chronic)Surgical History ( Reviewed 06/14/17 @ 10:52 by Daily Stephens)cesarian times 2 (Acute)Family History ( Reviewed 06/14/17 @ 10:52 by Daily Stephens)Father HypertensionAlcoholismGrandfather AlcoholismColon cancerMother HypertensionDepressionBrother DepressionGrandmother DiabetesColon cancerUncle CancerSocial HistorySmoking Status: Never smokerhow long ago did patient quit smokinalcohol intake: former year quit: 2017details: Is going through rehab for alcohol abuse at 89.substance use type: marijuanawhat type of physical activity do you participate in: yogafrequency: 1-2 times per weekHPIsore throat, fever:Chief Complaint: fever, sore throat, body achesDetails: NGUYEN MULLINS, is a 41 F who presents to the office today for an acute visit ofbilateral ear pain, fever, sore throat, body aches, nausea, nasal congestion , and dysuria. Rejioes have a past medical history which is significant for that of alcohol abuse, migraines,PTSD, anxiety, depression, hypertension, frequent UTIs, prior use of cannabis, and alcoholwithdrawal.The patient states that her symptoms of fever, sore throat, body aches, nausea, nasalcongestion, and ear pain began this past Sunday night. She noted chills and subjective feversand headaches as well. She states that her symptoms have been progressively worsening and thatcarola was exposed to sick contacts at home. She has tried taking Tylenol and ibuprofen for thebody aches with mild relief. She is concerned that she may have strep due to her throat beingred with white patches. She also notes that she has a flareup of her genital herpes at thistime due to her being sick and would like a refill of her acyclovir 400 mg.She notes that in regards to her recent UTI, her symptoms never really entirely resolved andshyonathan continues to have symptoms of burning with urination, urgency, and frequency. She didcomplete the entire course of Keflex and tolerated this well. She denies any other associatedor alleviating symptoms.She states that she has been doing well and remaining free from alcohol since her previoushospital stay.She otherwise denies any shortness of breath, chest pain or pressure, syncope or presyncopalepisodes.ROSConstConstitutional: Positive for body ache, chills and fever(s);no weight change, fatigue, sleep problems, change in appetite, snoring , weakness, frequentfalls, headache(s) or excessive sweatingEyesEyes: Positive for light sensitivity;no change in vision, eye pain or blurry visionENTENT: Positive for ear pain, nasal congestion and sore throat;no headache(s), abnormal hearing, tinnitus or neck painRespRespiratory: No snoring, cough, shortness of breath or wheezingCardioCardiology: No excessive sweating, chest pain at rest, chest pain with exertion, shortness ofbreath, dyspnea on exertion, palpitations, orthopnea or lightheadednessGastroGI: Positive for vomiting (x1) and nausea/dyspepsia;no abdominal pain, change in bowel habits, constipation, diarrhea or crampingGUGenitourinary-Female: Positive for urinary frequency, burning urination, urinary urgency andurinary hesitancyMuscMusculoskeletal: Positive for other ( all over boday aches);no neck pain, abnormal walking, joint pain, back pain, limited range of motion, numbness ortinglingSkinSkin: No redness, dry skin, itching, lesions, wounds or rashNeuroNeurology: No weakness, frequent falls, headache(s), abnormal hearing, abnormal walking,numbness, tingling, abnormal speech, dizziness or memory lossPsychPsychiatric: No change in appetite, No memory loss, No anxiety, No depression, No Thoughts ofharming yourself/OthersEndoEndocrine: No fatigue, excessive sweating, cold intolerance, increased thirst/drinking, heatintolerance, flushing or increased hungerAller/ImmAllergy/Immunologic: No wheezing, itchy eyes, hives or seasonal allergy symptomsHema/LympHematologic/Lymphatic: No easy bleeding, easy bruising or enlarged lymph nodesExamConstGeneral: ill appearing acutelyNutritional Appearance: thinOrientation: alert, oriented z7Wbtmjawrqov: mental status not alteredHENMTHead: normal to inspectionEars: hearing grossly normal bilaterally , TM abnormal with fluid behind the TM bilaterally,bulging bilaterally and wth effusion serous bilaterally; Negative for not erythematousNose: mucous membranes and turbinates abnormal, nasal discharge clear bilaterallyFace and sinus: normal facial exam, sinuses nontender, no tendernessThroat: posterior oropharynx abnormal erythemaEyesGeneral: appearance normal, both eyes and all related structuresNeckNeck: normal visual inspection, no lymphadenopathyRespEffort AND Inspection: normal respiratory effort, able to speak in complete sentences, normalrespiratory pattern, symmetric chest movement, no audible wheezes, no coughAuscultation: Bilateral: Clear to AuscultationCardioPalpation: normal PMIRate: regular rateHeart Sounds: S1 normal, S2 normal, normal S1 and S2, no click, no gallops, no murmurs, no rubsNeuroGeneral: alert, awake, oriented x3, CN's II-XI intact bilaterallySpeech: speech normalGait: normal gaitMotor: muscle tone normal throughoutExtremGeneral: normal to inspection, normal gait, no edema, no pedal edemaPsychAppearance: grossly normalMental Status: mental status grossly normalAffect: normal affectAttitude: cooperativeThought Process: normalResultsBMSRAPIDSTREPAOffice Rapid Strep A Negative Last Edit by RUBIN Albright on 06/14/17 13:05BMSFLUABOffice Flu A AND B Negative FLU A AND B Last Edit by RUBIN Albright on 06/14/17 13:06Assessment AND Plan1. Influenza with upper respiratory symptoms J11.1PlanThe patient's symptoms are consistent with that of influenza, though rapid strep, flu a and Btest was negative. Discussed supportive measures that would be taken and supportive measuresfor her sore throat, body aches, and nasal congestion. Placed patient back on her Flonase forher allergic rhinitis and instructed on the use of a daily antihistamine. Educated on handhygiene and increasing fluids. Educated on red flag symptoms that require urgent medicalattention.2. Acute cystitis N30.00PlanThe patient continues to have UTI -like symptoms, was previously treated with Keflex. Willtreat with Augmentin and repeat UA with culture. Discussed with patient on the Augmentin wellcover any bacteria that is causing her upper respiratory symptoms as well, though suspect thatit is viral. If symptoms persist, may need referral to urology. low suspicion forpyelonephritis at this time.OrdersOrders:3. Alcohol abuse F10.10PlanPatient is doing well abstaining from alcohol at this time per self-report.4. Genital herpes A60.00PlanThe patient does have a flareup of her genital herpes per her self-report. Will refill heracyclovir as previously prescribed.Emy disclaimerPlan DetailOther OrdersOrders:Other MedicationsNew:Follow UpAs previously scheduledCodingLevel of Care CodeOff vis,est,level 3DiagnosesInfluenza with upper respiratory symptoms J11.1Acute cystitis N30.00Alcohol abuse F10.10Genital herpes A60. 1548 <Electronically signed by Kash CONKLIN>Date Mark Davis INSPECTOR MISSILE-CCosigner Signature: Date (if applicable)CC: 12 LEAD ELECTROCARDIOGRAM Observed: 06/08/2017 Status: F Source: [place] 3:24 PM [facility] REPOSITORY [facility]ITAL[facility] Ltckpxjs[address] [place] [address] Lead EKG107/29/16 1352MR#: [id number] Acct: [id number]: NGUYEN MULLINS Rep #: [id number]: 1975 41 From: Moo Grissom MDAttending Dr: Marcy Pavon Status: DIS INOrdering Dr: Marcy Pavon L Date: 05/28/17Location: MS2 Sex: F CAdmitted: 05/28/17Test Reason : ADMISSIONBlood Pressure : / mmHGVent. Rate : 122 BPM Atrial Rate : 122 BPMP-R Int : 134 ms QRS Dur : 070 msQT Int : 326 ms P-R-T Axes : 060 078 056 degreesQTc Int : 464 msSinus tachycardiaNonspecific T wave abnormalityAbnormal ECGConfirmed by MOO GRISSOM MD ([id number]), technical editor MOISES BRAVO ([id number]) on 06/08/2017 3:23:54 PMReferred By: YISEL Confirmed By:MOO [place] MD06/08/17 1523Date Moo [place] MDCC: No Primary Care Physician Signed OFFICE VISIT REPORT Observed: 06/01/2017 Status: F Source: [place] 2:14 PM [facility] REPOSITORY [facility] [place] [place] [address]SEBTAI VISITDate of Service: 06/01/17#: [id number] Acct: [id number]: NGUYEN MULLINS Rep #: [id number]: 1975 Provider: Kash Davis NPAge/Sex: 41/F [place] [facility] [place].BIMStatus: SignedIntakeVital Signs06/01/17 Height 5 ft 2 in06/01/17 Weight: 107 lb06/01/17 Body Mass Index (BMI) 19.512 Blood Pressure 139/ Blood Pressure Location Rt brachialIntakeVisit Reasons: EST CAREChief Complaint: AnxietyIs patient in pain?: NoAllergiesvalacyclovir [From Valtrex] Allergy (Verified 05/28/17 09:25)HivesMedicationsblood pressure test kit-medium cuff See Dose Instructions .ROUTE .MEDSUPPLY #1 ea 06/01/17 [ RxConfirmed 06/01/17]buspirone 5 mg tablet 5 mg PO QDAY PRN #30 tab 06/01/17 [Rx Confirmed 06/01/17]sertraline 50 mg tablet 50 mg PO QDAY #30 tab 06/01/17 [Rx Confirmed 06/01/17]trazodone 50 mg tablet 50 mg PO QHS PRN #30 tab 06/01/17 [Rx Confirmed 06/01/17]Is last menstrual period known: Yes (05/24/2017)PFSHMedical History Elevated random blood glucose level (Acute)Insomnia (Chronic)Generalized anxiety disorder with panic attacks (Chronic)Anxiety and depression (Chronic)Alcohol abuse (Chronic)History of marijuana use (Chronic)Hypertension (Chronic)PTSD (post-traumatic stress disorder) (Chronic)Migraine headache (Chronic)Seasonal allergies (Chronic)UTI (urinary tract infection) (Chronic)Surgical History cesarian times 2 (Acute)Family History Father HypertensionAlcoholismGrandfather AlcoholismColon cancerMother HypertensionDepressionBrother DepressionGrandmother DiabetesColon cancerUncle CancerSocial HistorySmoking Status: Never smokerhow long ago did patient quit smokinalcohol intake: former year quit: 2017details: Is going through rehab for alcohol abuse at 89.substance use type: marijuanawhat type of physical activity do you participate in: yogafrequency: 1-2 times per weekQuestionnaireDepression Screen PHQ-2/9PHQ-2Over the last 2 weeks, how often have you been bothered by any of the following problems?1. Little interest or pleasure in doing things: several days2. Feeling down, depressed, or hopeless: several daysTotal score: 2If score is 2 or greater, continue3. Trouble falling or staying asleep, or sleeping too much: nearly every day4. Feeling tired or having little energy: more than half the days5. Poor appetite or overeating: nearly every day6. Feeling bad about yourself - or that you are a failure or have let yourself and your familydown: several days7. Trouble concentrating on things, such as reading the newspaper or watching television: morethan half the days8. Moving or speaking so slowly that other people could have noticed? - Or the opposite - beingso fidgety or restless that you have been moving around a lot more than usual: not at all9. Thoughts that you would be better off or of hurting yourself in some way: not at allTotal score: 13If you checked off any problems, how difficult have these problems made it for you to do yourwork, take care of things at home, or get along with other people?: very difficultSource: Developed by Drs. Rowdy De Paz, Ashtyn Olson, Josemanuel Herrera and colleagues, with an educational arian from [employer].Scoring:Total Score Depression Severity Action1-4 Minimal depression No action needed5-9 Mild depression Repeat PHQ-9 at follow up10-14 Moderate depression Make tx plan, consider counseling, fup, prescriptionHPIEST CARE:Chief Complaint: AnxietyDetails: NGUYEN MULLINS, is a 41 F who presents to the office today for a hospital follow- upand with the acute complaint of anxiety and depression. She does have a past medical historywhich is significant for that of alcohol abuse, migraines, PTSD, anxiety , depression,hypertension, frequent UTIs, prior use of cannabis, and alcohol withdrawal.The patient presented to [facility] and was admitted from 10/09 taldilu40/5/17 for EtOH withdrawal/detox. She was originally admitted on MedSurg part of the [facility] protocol and due to her worsening hallucinations was transferred to ICU in case of aneed for Precedex. She improved on the Librium and was transitioned back to [facility] on05/29/2017 where she then signed out AMA. She presents to the office today and states that carolaharicha had no alcohol consumption since 05/27/2017. She states that she has been doing well sinceleaving the hospital, however she does note that she has been very anxious. She does not wishto be on any benzodiazepine medications because she states that she was going to counselingbefore and was placed her on benzodiazepines and she became addicted to them. She notes thatshe is depressed as well but denies any thoughts of harming self or others. She scored a 12 onthe PHQ 9 which indicates moderate depression. She was treated in the past with Paxil but hasbeen off of this for quite some time. She also complains of insomnia and states that she wason trazodone as needed for this as well. She is willing to be on a daily maintenance therapyfor her anxiety and depression, however she wishes to have something for breakthrough panicattacks that she can take sparingly on a as needed basis.She does note that she usually has 3-4 UTIs a year and that she is currently having someurinary symptoms of urinary frequency. She notes that she has a history of borderlinehypertension and that there have been episodes where her blood pressure was elevated with 170ssystolic over 100s diastolic. However she states that she thinks this was due in part toanxiety. She states that she has never been on blood pressure medications in the past. Shedenies any fever, chills, nausea, vomiting, chest pain or pressure, palpitations, syncope orpresyncopal episodes.ROSConstConstitutional: Positive for sleep problems (trouble falling asleep and staying asleep);no anorexia, body ache, chills, fever(s), decreased energy, malaise, night sweats, weightchange, weakness, frequent falls, fatigue, excessive sweating, abnormal sleep pattern, changein appetite, headache(s) or snoringEyesEyes: No blurry vision, change in vision, double vision, discharge, dry eyes, bulging eyes,floaters, eye pain, light sensitivity, spots in vision, tunnel vision or visual disturbancesENTENT: Positive for nasal congestion;no ear pain, ear discharge, ear pressure, hearing loss, tinnitus, dizziness/vertigo, balanceproblems, nosebleed/epistaxis, nasal obstruction, nose pain, sinus pressure, sinus pain, nasaldischarge, post nasal drip, facial pain, dental pain, dry mouth, bad breath, hoarseness, mouthlesions, mouth pain, sore throat, abnormal hearing, headache(s ), lip swelling, throat swelling,tongue swelling, difficulty swallowing or neck painRespRespiratory: No cough, change in phlegm color, chest congestion, excessive phlegm production,hemoptysis, pain on inspiration, shortness of breath, pain with cough, stridor, snoring orwheezingCardioCardiology: No chest pain at rest, chest pain with exertion, leg pain with exertion, shortnessof breath, dyspnea on exertion, generalized swelling, irregular heart rhythm, lightheadedness,orthopnea, radiating jaw, neck or arm pain, fast heart rate, slow heart rate, palpitations orexcessive sweatingGastroGI: No abdominal pain, belching, bloating, change in bowel habits , change in stool character,coffee ground emesis, constipation, cramping, diarrhea, heartburn, feeling full early,excessive flatus, incontinent of stools, Vomiting blood/hematemesis, blood in stool, loosestools, Black,tarry stools, nausea/ dyspepsia, pain with swallowing, vomiting or difficultyswallowingGUGenitourinary: Positive for urinary urgency;no difficulty urinating, burning urination, painful urination, urinary incontinence, urinaryfrequency, urinary hesitancy, urinary retention, blood in urine, Frequent nighttime urination/nocturia, post void dribbling, suprapubic fullness, side pain, sexual problems, genitallesions, genital itching, hot flashes, abnormal periods, abnormal vaginal bleeding, absentperiod, painful periods, light periods, heavy periods, difficulty getting , painfulintercourse, pelvic pain, vaginal dryness or vaginal odorMuscMusculoskeletal: No joint pain, back pain, deformity, joint swelling, limited range of motion,loss of height, muscle cramps, decreased muscle mass, body aches, neck pain, radiating paininto limb, stiffness, muscle weakness, abnormal walking, numbness or tinglingSkinSkin: No acne, hair loss, change in hair, nail changes, boil, change in skin color, dry skin,redness, excessive hair growth, yellowing of the skin, lesions, rash, skin pain, skin ulcer,sores , skin swelling, wounds or itchingBreastBreast: No change in breast shape, breast lump , breast pain, breast skin changes, breastswelling, nipple discharge or otherNeuroNeurology: No abnormal movements, abnormal speech, unsteady gait/ balance, dizziness, lack ofcoordination, loss of vision, restless legs, fainting, tremor (s), visual disturbances,weakness, frequent falls, behavioral changes, confusion, memory loss, abnormal hearing,headache(s), abnormal walking, numbness or tinglingPsychPsychiatric: No lack of enjoyment, Positive for anxiety, Positive for depression, No difficultyconcentrating, No hopelessness, No irritability, No mood swings, Positive for panic attacks(occasionally), No paranoia, No Thoughts of harming yourself/Others, No hallucinations, Noabnormal sleep pattern, No change in appetite, No behavioral changes, No confusion, No memorylossEndoEndocrine: No change in body appearance, cold intolerance, flushing, heat intolerance,increased thirst/ drinking, increased hunger, increased urination, fatigue or excessive sweatingAller/ImmAllergy/Immunologic: No food intolerance, seasonal allergy symptoms, hives, itchy eyes, lipswelling, throat swelling, tongue swelling or wheezingHema/LympHematologic/Lymphatic: No easy bleeding, easy bruising or enlarged lymph nodesExamConstGeneral: cooperative, comfortable, no acute distress, anxiousNutritional Appearance: average body habitusOrientation: alert, oriented x3, oriented to person, oriented to place, oriented to timeLimitations: mental status not alteredHENMTHead: normal to inspection, atraumaticEars: hearing grossly normal bilaterallyNose: external nose normalFace and sinus: normal facial examMouth: oral mucosae normal, moist mucous membranesTeeth and gingiva: dentition normalThroat : posterior oropharynx normalEyesGeneral: appearance normal, both eyes and all related structuresPupils: PERRLNeckNeck: normal visual inspection, no lymphadenopathyRespEffort AND Inspection: normal respiratory effort, able to speak in complete sentences, normalrespiratory pattern, symmetric chest movement, no cough, respiratory effort not decreased, noaudible wheezesAuscultation: Bilateral: Clear to AuscultationCardioPalpation: normal PMIRhythm: regular rhythmHeart Sounds: S1 normal, S2 normalGIInspection: normal to inspectionAuscultation: normal bowel soundsPercussion: normal to percussionPalpation: soft, no hepatosplenomegalyGUGeneral: No CVA tendernessMuscMusculoskeletal: No muscle weakness, joint tenderness or decreased ROMSkinGeneral: no rashes or lesions noted, turgor normal, skin not dryLesions: lesions notedRashes: rash notedNeuroGeneral : alert, awake, oriented x3, CN's II-XI intact bilaterallyExtremGeneral: full ROM , no clubbing, cyanosis or edema, no pedal edemaPsychAppearance: grossly normalMental Status: mental status grossly normalAffect: anxious affectAttitude: cooperativeThought Process: normalAssessment AND Plan1. Generalized anxiety disorder with panic attacks F41.1; F41.0PlanThe patient does have a history of anxiety attacks and is currently not on any medicationtherapy. She does not wish to be on any benzodiazepines due to the addictive nature and herpast history. Will start patient on sertraline 50 mg daily and per her request trial of BuSparas needed. Discussed red flag symptoms specifically thoughts of harming self or others andthat this would be a need for urgent medical attention. Patient verbalized understanding.MedicationsNew:2. Anxiety and depression F41.8PlanPlan as above. No current thoughts of harming self or others, PHQ 9 score demonstratedmoderate depression. She will continue following up with her psychiatrist at the [address] [place] [address] well3. Primary insomnia F51.01; F51.01PlanEducated patient on sleep hygiene including eliminating alcohol and caffeine from her diet.She states in the past she is tolerating trazodone on an as-needed basis. Will restart patienton trazodone.4. Elevated random blood glucose level R73.09PlanShe did have an elevated random blood glucose level and ketones in her urine. May have beensecondary to her acute alcohol withdrawal. Will however check an A1c given her family historyof diabetes mellitus.OrdersOrders:5. Essential hypertension D94IrazQyunl pressure slightly elevated today at 139/98. The patient states that it is due to heruncontrolled anxiety at this time and that usually her blood pressure is normal with a fewexceptions. Prescription given for blood pressure cuff and instructed patient to check herblood pressure daily and call us with a log in 2 weeks.MedicationsNew:6. Alcohol abuse F10.107. Dysuria R30.0PlanPatient does have symptoms of dysuria. She states she has not been on any antibiotics for UTIsrecently but does note that she has frequent UTIs. If recurrence continues may need a referralto urology. If positive for nitrites, will treat with appropriate antibiotic choice.This note was generated with [employer] dictation software. It may contain incorrect words,spelling, and punctuation that were not noted in checking the note before signing.OrdersOrders:Plan DetailOther OrdersOrders:Referrals:Other MedicationsNew:Follow Up4 Weeks (october)CodingLevel of Care CodeOff vis,est,level 4DiagnosesGeneralized anxiety disorder with panic attacks F41.1; F41.0Anxiety and depression F41.8Primary insomnia F51.01; F51.01Insomnia type: primaryElevated random blood glucose level R73.09Essential hypertension E43Nmayemzpcekf type: essential hypertensionAlcohol abuse F10.10Dysuria R30.012/02/08 1414 <Electronically signed by Kash CONKLIN>Date Kash CARROLLosigner Signature: Date (if applicable)CC: HEMOGLOBIN A1C Collected: 06/01/2017 Status: F Source: [place] 11:55 AM [facility] REPOSITORY TYPE CODE TESTS RESULT OUT OF RANGE REFERENCE UNITS LAB L501.9985 Normal 4.2-6.3 % HGB 4.5 A1C Performed By: #### L501.9985, L400.0001 ####[facility] [address] [facility] [address] [place], [place], [id number] URINALYSIS, COMPLETE Collected: 06/01/2017 Status: F Source: [place] 11:55 AM [facility] REPOSITORY Order Comment: How was Urine Obtained? CLEAN CATCH TYPE CODE TESTS RESULT OUT OF RANGE REFERENCE UNITS LAB L400.3000 Normal Yellow COLOR Yellow LAB L400.3050 Normal Clear CLARITY Sl. Cloudy LAB L400.3200 Normal Normal mg/dl GLUCOSE, UR Normal LAB L400.3300 Normal Negative mg/dL BILIRUBIN Negative URINE LAB L400.3400 Normal Negative mg/dl KETONE UR Negative LAB L400.3465 Normal 1.002-1.030 SP.GR. 1.020 DIPSTX LAB L400.3550 Normal 5.0 - 8.0 pH UR 6.0 LAB L400.3600 High Negative mg/dl PROT DIPSTX 15 LAB L400.3700 High Normal mg/dl UROBILI 1 LAB L400.3750 High Negative NITRITE UR Positive LAB L400.3780 High Negative /ul OCCULT 25 BLOOD-UR LAB L400.3800 High Negative /ul LEUK 500 ESTERASE LAB L400.4050 Normal 0-5 /hpf WBC 25-50 SEEN LAB L400.4100 Normal 0-5 /hpf RBC-UA 0-5 SEEN LAB L400.4150 Normal 5-10 /hpf SQUAM EPI 0-5 SEEN LAB L400.4300 Normal None Seen /hpf BACTERIA 1+ LAB L400.4350 Normal <or=2+ /hpf MUCUS, 0 SEEN URINE LAB L400.4700 Normal <or=2+ /hpf CA OX 2+ CRYSTAL Performed By: #### L501.9985, L400.0001 ####[facility] [address] [facility] [address] [place], [place], [address] DISCHARGE SUMMARY Observed: 05/30/2017 Status: F Source: [place] 6:36 AM [facility] REPOSITORY [facility]ITALMedical Records [address] [place], [place] [address]Bgucairgz Yexissf81/05/17 2200MR#: [id number] Acct: [id number]: NGUYEN MULLINS Rep #: [id number]: 1975 41 From: Marcy CooperP: Care Physician, No Primary Status: DIS IN YLocation: MS2 [id number] Date and DiagnosisDate of Admission: 05/28/17Date of Discharge: 05/29/17- Primary Discharge Diagnosis(1) Acute EtOH Withdrawal(2) Hypertension(3) Migraine Headaches(4) Moderately Protein-Calorie Malnutrition(5) Anxiety and Depression/PTSD- Secondary Discharge DiagnosisChronic ProblemsAnxiety and depression (Chronic)Alcohol abuse (Chronic)History of marijuana use (Chronic)Hypertension (Chronic)PTSD (post- traumatic stress disorder) (Chronic)Migraine headache (Chronic)Hospital Course and TreatmentOperations: NoneProcedures: NoneSummary of Care Provided:The patient is a 41 y/o F w/ PMHx: Migraine Headaches, PTSD/Anxiety and Depression,Hypertension, Hx Frequent UTIs, EOH Abuse, Prior Hx Cannabis usage who presented to the [facility] on w/ noted acute EtOH withdrawal, onset starting 05/27/17 evening following last EtOHintake 05/27/17 3:30 pm with onset of acute EtOH withdrawal symptoms. Admitted to [facility], obtained routine labs including CBC, CMP, urine for drug screen , EtOH level, routineEKG, mag and phos with supplementation potassium, phos given levels. Patient initiated andcontinued on [facility] service protocol with taper course of ativan initially. She hadworsened withdrawal symptoms with hallucinations thus transitioned to librium off ativan, d/cseroquel regimen in case medication etiology in addition. Worsened hallucinations thus givenconcern for worsened EtOH withdrawal, discussed with Dr. Osorio, ICU and transitioned to the ICUin case of precedex needs. She however improved on continued librium and was then transitionedback to NV noted to be completely lucid and appropriate. Once she was transitioned back to [facility] then against medical advise left AMA.Home Medications:Medications to take at DischargeNK [NK] 05/27/17Primary Care Physician:Care Physician,No Primary [Primary Care Provider] -Disposition: Against Medical AdviceMinutes spent on discharge:: 35Patient Condition:: FairMeaningful Use InfoMeaningful Use Diagnoses (Choose all that apply): None applicableCode VisitInpatient E AND M: [id number] Disch Hosp05/30/17 0636 <Electronically signed by Marcy Pavon >Date Marcy Fisher WhiteCosigner Signature (if applicable): Date CC: No Primary Care Physician; Marcy Pavon Signed CBC W/DIFF, AUTOMATED Collected: 05/29/2017 Status: F Source: [place] 5:56 PM [facility] REPOSITORY TYPE CODE TESTS RESULT OUT OF RANGE REFERENCE UNITS LAB L100.1000 Low 4.4-11.0 K/mm3 WBC 3.3 LAB L100.1200 Low 4.2-5.4 M/mm3 RBC 3.55 LAB L100.1300 Normal 12.0-15.0 g/dl HGB 12.0 LAB L100.1400 Low 37-47 % HCT 36.3 LAB L100.1500 High 81-99 fL MCV 102.3 LAB L100.1600 High 27.0-32.0 pg MCH 33.8 LAB L100.1700 Normal 32-36 g/gl MCHC 33.1 LAB L100.1810 Normal 11.6-14.6 % RDW 12.4 CV LAB L100.1820 High 35.1-43.9 fl RDW 46.4 SD LAB L100.1900 Normal 150-450 K/mm3 PLT 187 LAB L100.2000 Normal 6.2-12.0 fl MPV 9.7 LAB L100.2100 Normal 47-70 % NEUT% 49.8 LAB L100.2200 Normal 19-41 % LY% 33.4 LAB L100.2300 High 0-10 % MONO% 14.4 LAB L100.2400 Normal 0-5 % EO% 1.5 LAB L100.2500 Normal 0-1 % BASO% 0.6 LAB L100.2550 Normal 0.0-0.9 % IM 0.300 GRAN % Result Comment: IG% - Immature Granulocytes (promyelocytes, myelocytes andmetamyelocytes) > 1% indicates that a LEFT SHIFT is Present. LAB L100.2620 Low 2.0-7.7 X10 3/uL Absolute Neut 1.6 LAB L100.2720 Normal 0.83-4.51 X10 3/ul Absolute Lymph 1.09 Performed By: #### L100.0100 ####[facility] [address] [place], [place], [address] COMPREHENSIVE METABOLIC Collected: 05/29/2017 Status: F Source: [facility] 5:56 PM [facility] REPOSITORY TYPE CODE TESTS RESULT OUT OF RANGE REFERENCE UNITS LAB L501.0100 High 70-110 mg/dL GLU 155 Result Comment: Fasting Glucose result greater than or equal to 126 mg/ dLsuggests DIABETES MELLITUS per A.D.A. criteria. LAB L501.1000 Normal 7-18 mg/dL BUN 8 LAB L501.1100 Normal 0.55-1.02 mg/dL CREAT,SERUM 0.78 Result Comment: The validity of the calculated GFR AND GFRAA in patients over70 years has not been determined. Clinical correlation isessential. LAB L501.1110 Normal >60 mL/min EST GFR 86 Result Comment: Non- GFR Calc LAB L501.1115 Normal >60 mL/min EST GFR - 104 AA Result Comment: GFR Calc LAB L501.1255 Normal ml/min Estimated 72.82 CRCL LAB L501.1300 Normal 10-20 RATIO BUN/CRE 10.3 LAB L501.1500 Normal 6.4-8. g/dL T PROT 7.1 2 LAB L501.1800 Low 3.4-5. g/dL ALB 3.3 0 Result Comment: Please note revised Albumin AND Globulin reference rangeeffective 2017. LAB L501.1950 Normal 2.2-4.2 g/dL GLOB 3.8 LAB L501.2000 Normal 0.9-2.4 RATIO A/G 0.9 LAB L501.2200 Normal 8.5-10.1 mg/dL CA 8.5 LAB L501.4100 High 15-37 U/L AST 73 Result Comment: Slight Hemolysis, Result may be falsely increased. LAB L501.4305 Normal 45-117 U/L ALK P 74 LAB L501.4405 Normal 12-78 U/L ALT 36 LAB L501.4600 Normal 0.20-1.00 mg/dL T BILI 0.60 LAB L501.5300 Normal 136-145 mmol/L NA 139 LAB L501.5600 Low 3.5-5.1 mmol/L K 3.4 Result Comment: Slight Hemolysis, Result may be falsely increased. LAB L501.5900 Normal 98-107 mmol/L CL 102 LAB L501.6100 Normal 21.0-32.0 mmol/L CO2 25.0 LAB L501.6200 Normal 5-15 GAP 12 Performed By: #### L500.4050 ####[facility] [address] [place], [address] M R STAPH AUREUS Collected: 05/29/2017 Status: F Source: [place] DNA BY PCR 5:50 PM [facility] REPOSITORY TYPE CODE TESTS RESULT OUT OF RANGE REFERENCE UNITS LAB L8200.1100 Normal Negative MRSA Negative RESULT Performed By: #### L8200.1000 ####[facility] [address] [place], [address] EMERGENCY DEPARTMENT Observed: 05/28/2017 Status: F Source: [place] SUMMARY 6:06 PM [facility] REPOSITORY [facility] [address] [place], [place] [address]Yjtgarobu Department Joksffr29/04/17 1047MR#: [id number] Acct: [id number]: NGUYEN MULLINS Rep #: [id number]: 1975 41 From: Ashley Fletcher MDPCP: Care Physician, No Primary Status: ADM IN- ER Visit SummaryDate of Service: 05/28/17Chief Complaint: DetoxHistory of Present Illness: The patient is a 41 F who [facility]. Reportedly her last alcohol intake was yesterday at 1 PM. Patient was broughtto the ER to start treatment while they were awaiting insurance approval. Patient does reportnausea and vomiting.Physical Examination: Blood pressure is 154/122, temperature 97.3, heart rate 137, respiratoryrate 18, pulse ox 97% on room air.Patient sitting upright in bed, alert, uncomfortable, but no acute distress.Head and neck examination is grossly unremarkable.Heart is tachycardic and regular.Lungs are clear.Abdomen is soft and nontender. She is hypoactive but present bowel sounds.Patient has a slight tremor noted to her hands. She does appear anxious.Test Results: CBC and chemistry studies are significant for potassium of 3.4 and anion gap of17. LFTs revealed direct bili of 0.34, AST 146. Lipase is normal. test isnegative.Emergency Department Course and Treatment: Patient is given IV fluids, Zofran, and Ativan. [facility] who presented to the emergency room to evaluate her. I amadvised by executive secretary the patient has been accepted and they have already spoken withhospitalist.Treatment Plan: []Disposition: AdmitImpression: Alcohol withdrawalThis note was generated with [employer] dictation software. It may contain incorrect words,spelling, and punctuation that were not noted in review of the chart prior to signingED Disposition- Plan for ED Patient:Chief Complaint: Subst AbuseReferrals:Care Physician,No Primary [Primary Care Provider] -What to do if you have ProblemsFor any increased pain, shortness of breath, bleeding, nausea or vomiting, chest pain, or anyunexpected problems, contact your Primary Care Provider. Call [facility] ([phone])or report to the closest Emergency Room.Call 911 if necessary.05/28/17 5933 <Electronically signed by Ashley Fletcher MD&gt ;Date Ashley Fletcher MDCosigner Signature (If Indicated): Date ___CC: No Primary Care Physician HISTORY AND PHYSICAL Observed: 05/28/2017 Status: F Source: [place] EXAM 1:05 PM [facility] REPOSITORY [facility] [address] [place] [address]Bpvijao and Psvetsfm22/04/17 1011MR#: [id number] Acct: [id number]: NGUYEN MULLINS Rep #: [id number]: 1975 41 From: Marcy PavonPCP: Care Physician, No Primary Status: ADM IN YLocation: MS2 [id number] List(1) Anxiety and depressionStatus: Chronic(2) Alcohol abuseStatus: Chronic(3) History of marijuana useStatus: Chronic(4) HypertensionStatus: ChronicQualifiers:Hypertension type: essential hypertension Qualified Code(s): I10 - Essential (primary) hypertension(5) PTSD (post-traumatic stress disorder)Status: Chronic(6) Migraine headacheStatus : ChronicQualifiers:Migraine type: unspecified Status migrainosus presence: without status migrainosusIntractability: not intractable Qualified Code(s): G43.909 - Migraine, unspecified, notintractable, without status migrainosusHistory of Present IllnessDate of Admission: 05/28/17Chief Complaint: Acute EtOH WithdrawalThe patient is a 41 y/o F w/ PMHx: Migraine Headaches, PTSD/Anxiety and Depression, Hypertension, Hx Frequent UTIs, EOH Abuse (normal 6-7 glasses wine/day), Prior Hx Cannabisusage who presents to the [facility] 05/28[facility] w/ noted acute EtOH withdrawal, onset starting 05/27/17evening following last EtOH intake 05/27/17 3:30 pm with onset of nausea, tremors, agitation,tactile disturbances. Patient interested in attaining sober status. She denies ever having beenin an acute alcohol withdrawal program. She denies any history of alcohol withdrawal includinghistory of delirium tremens. He currently lives with her fianc as well as her daughter. Shestates her fianc does not drink and has no history of alcohol abuse nor illicit substanceabuse. Her daughter is 6 years old.Past Medical HistoryPast Medical History (Chronic Problems):Chronic ProblemsAnxiety and depression (Chronic)Alcohol abuse (Chronic)History of marijuana use (Chronic)Hypertension (Chronic)PTSD (post- traumatic stress disorder) (Chronic)Migraine headache (Chronic)Allergiesvalacyclovir [ From Valtrex] Allergy (Verified 05/28/17 09:25)HivesHome Medications:Ambulatory OrdersMedication Instructions RecordedNK [NK] 05/27/17Surgical History: - - x 2.Psychiatric History: Anxiety, Depression, Post traumatic stressGYN History: No pertinent OLIVE GROWER historyLives: Spouse/ Significant Other - Lives with hollie and 6 year old daughter.Smoking Status: Never smokerTobacco Use: Non- smokerAlcohol: Heavy - 6-7 glasses of wine daily.Drugs: None - Notes prior hx cannabis usage.- *Family History MaternalHistory Items: Hypertension PaternalHistory Items: HypertensionReview of SystemsConstitutional: Reports: Weakness, Fatigue. Denies: Chills, Fever, Weight ChangeHEENT: Denies: Head Aches, Sinus Congestion, Sinus DrainageCardiovascular: Denies: Chest Pain, PalpitationsRespiratory: Denies: Cough, Shortness of breath at rest, Sputum productionGastrointestinal: Reports: Nausea. Denies: Abdominal Pain, VomitingGenitourinary: Denies: DysuriaMusculoskeletal: Denies: Joint Pain, Joint TendernessSkin: Denies: Rash, WoundsNeurological: Reports: Tremor. Denies: Focal weakness, Numbness, TinglingPsychiatric: Reports: Anxiety, Depression. Denies: Homicidal Ideations, Suicidal IdeationsHematologic/ Lymphatic: Denies: Easy Bruising, Easy BleedingVTE Information - Inpt OnlyVTE Present on Admission: NoVTE Mechan Device Prophylaxis: NoneVTE Pharm Prophylaxis ordered?: NoReason prophylaxis not ordered:: Treatment Not Indicated - Low risk.Subjective:Seated upright in bed, mildly agitated, tremors present.Objective:Physical Examination:General: awake, alert, oriented x 3 and cooperative, seated upright in bed, fatigued, mildlyagitated, tremors present.Skin: normal color, turgor, no icterus, cyanosis.HEENT: AT/NC, EOMI, PERRLA, dry MM, no carotid bruits or JVD noted.Lungs: CTA bilaterally, moderate effort, moderate decrease BL bases, no rales, ronchi orwheezing.Heart: Mildly tachycardic with regular rhythm; no gallop, rub audible.Abdomen: soft, thin habitus, NTTP, ND, normal BS , + HM.Extremities: no cyanosis, clubbing, or edema.Neurological: patient awake, alert, oriented x 3; cognitive function intact; pupils equallyreactive to light and accomodation; cranial nerves II-XII grossly normal, moving all 4extremities, no focal deficits, strength moderately to severely globally decreased secondary toacute presentation.Psychiatric: affect appears mildly agitated, flat, no acute evidence of depressive or anxietyfeelings.- Physical ExamVital SignsTemp Pulse Resp BP Pulse Ox97.3 F L 137 H 18 154/122 H 09:25 05/28/17 09:25 05/28/17 09:25 09:25 05/28/17 09:25Oxygen Delivery Method Room AirWeight: 98 lb 5.219 ozBody Mass Index (BMI) 17.9Laboratory Tests Past 24 HrsWBC PendingAssessment/PlanThe patient is a 41 y/o F w/ PMHx: Migraine Headaches, PTSD/Anxiety and Depression,Hypertension, Hx Frequent UTIs, EOH Abuse, Prior Hx Cannabis usage who presents to the [facility] on[facility]/28[facility]17 w/ noted acute EtOH withdrawal , onset starting 05/27/17 evening following last EtOHintake 05/27/17 3:30 pm with onset of acute EtOH withdrawal symptoms.(1) Acute EtOH Withdrawal: Will admit to [facility] on telemetry, obtain routine labs including CBC,CMP, urine for drug screen, EtOH level, routine EKG and will initiate and continue on [facility] service protocol with taper course of ativan, as needed Seroquel, Catapres, Bentyl,Vistaril, IV fluids, IV antiemetics, Tylenol as needed for pain. Once patient clinicallyimproved and completion of taper nearing will plan [facility] assistance for transition to nextlevel of rehabilitation care. Mag, phos pending. Maintain on CIWA protocol. Maintain on MVI,thiamine, folic acid.(2) Hypertension: Not on regimen, BP above goal, given age and no intent for , willadd low dose ACEI, PRN hydralazine. Plan repeat BMP within 1 week upon discharge with PCP.(3) Migraine Headaches: Stable , not on chronic regimen, PRN tylenol.(4) Moderately Protein-Calorie Malnutrition: Evidenced per habitus, BMI, poor intake history,weight loss. Will consult nutrition. Supplements added.(5) Anxiety and Depression/PTSD: Not on regimen, denies SI, eager for sobriety, has familysupport, finance without substance abuse hx. Encourage outpatient therapy and consideration ofSSRI/SNRI.(6) DVT Prophylaxis: Low risk, encouraged ambulation.Code VisitInpatient E AND M: 97489 Init Hosp L305/28/17 1305 <Electronically signed by Marcy Pavon >Date Marcy PavonCosigner Signature: Date (if applicable)CC: No Primary Care Physician; Marcy Pavon Signed MAGNESIUM Collected: 05/28/2017 Status: F Source: [place] 12:25 PM [facility] REPOSITORY TYPE CODE TESTS RESULT OUT OF RANGE REFERENCE UNITS LAB L501.5200 Normal 1.8-2.4 mg/dL MG 1.9 Performed By: #### L501.5200 ####[facility] [address] [place], [place], [id number] PHOSPHORUS Collected: 05/28/2017 Status: F Source: [place] 12:25 PM [facility] REPOSITORY TYPE CODE TESTS RESULT OUT OF RANGE REFERENCE UNITS LAB L501.2300 Low 2.5-4.9 mg/dL PHOS 2.2 Performed By: #### L501.2300 ####[facility] [address] [place], [place], [id number] ALCOHOL, BLOOD Collected: 05/28/2017 Status: F Source: [place] (MEDICAL)-SERUM 12:25 PM [facility] REPOSITORY TYPE CODE TESTS RESULT OUT OF RANGE REFERENCE UNITS LAB L501.9100 Normal mg/dL SERUM 7.0 ETOH Result Comment: The serum:whole blood ethanol ratio is approximately 1.14and varies slightly with hematocrit.Medical Alcohol reference interval and critical value innon-tolerant individuals; 50 - 100 Impairment 100 Intoxication 100 - 250 Severe Poisoning 250 - 400 Deep/possible fatal coma Performed By: #### L501.9100 ####[facility] [address] [place], [address] URINE DRUG SCREEN Collected: 05/28/2017 Status: F Source: [place] (VISTA) 10:30 AM [facility] REPOSITORY TYPE CODE TESTS RESULT OUT OF RANGE REFERENCE UNITS LAB L505.0075 Normal TO BE CONFIRMED Result Comment: CONFIRMATORY TESTING FOR ALL POSITIVE URINE DRUG SCREENRESULTS WILL ONLY BE SENT OUT UPON PHYSICIAN ORDER.VISTA Urine Drug Screen methods provide only preliminaryanalytical test results. A more specific alternate chemicalmethod must be used in order to obtain a confirmedanalytical result. Gas chromatography/mass spectrometery(GC/MS) is the preferred confirmatory method. Clinicalconsideration and professional judgement should be appliedto any drug of abuse test result, particularly whenpreliminary positive results are used.URINE TCA TESTING MUST BE ORDERED SEPARATELY. USE TESTMNEMONIC: UTCA LAB L505.5005 Normal VISTA UDS PH 6 LAB L505.5015 Normal <1000 AMPHETAMINES NEGATIVE ng/mL LAB L505.5025 Normal < 200 BARBITIURATES NEGATIVE ng/mL LAB L505.5035 Normal < 200 BENZODIAZIPINE NEGATIVE ng/mL LAB L505.5045 Normal < 300 COCAINE NEGATIVE ng/mL LAB L505.5055 Normal < 500 ECSTACY NEGATIVE ng/mL LAB L505.5065 Normal < 300 METHADONE NEGATIVE ng/mL LAB L505.5075 Normal < 300 OPIATES NEGATIVE ng/mL LAB L505.5085 Normal < 25 PCP NEGATIVE ng/mL LAB L505.5095 Normal < 50 THC NEGATIVE ng/mL Performed By: #### L505.5000 ####[facility] [address] [place], [address] CBC W/DIFF, AUTOMATED Collected: 05/28/2017 Status: F Source: [place] 10:01 AM [facility] REPOSITORY TYPE CODE TESTS RESULT OUT OF RANGE REFERENCE UNITS LAB L100.1000 Normal 4.4-11.0 K/mm3 WBC 5.1 LAB L100.1200 Low 4.2-5.4 M/mm3 RBC 4.17 LAB L100.1300 Normal 12.0-15.0 g/dl HGB 14.3 LAB L100.1400 Normal 37-47 % HCT 42.0 LAB L100.1500 High 81-99 fL MCV 100.7 LAB L100.1600 High 27.0-32.0 pg MCH 34.3 LAB L100.1700 Normal 32-36 g/gl MCHC 34.0 LAB L100.1810 Normal 11.6-14.6 % RDW 12.8 CV LAB L100.1820 High 35.1-43.9 fl RDW 46.5 SD LAB L100.1900 Normal 150-450 K/mm3 PLT 213 LAB L100.2000 Normal 6.2-12.0 fl MPV 9.0 LAB L100.2100 High 47-70 % NEUT% 77.9 LAB L100.2200 Low 19-41 % LY% 13.6 LAB L100.2300 Normal 0-10 % MONO% 7.7 LAB L100.2400 Normal 0-5 % EO% 0.0 LAB L100.2500 Normal 0-1 % BASO% 0.8 LAB L100.2550 Normal 0.0-0.9 % IM 0.000 GRAN % Result Comment: IG% - Immature Granulocytes (promyelocytes, myelocytes andmetamyelocytes) > 1% indicates that a LEFT SHIFT is Present. LAB L100.2620 Normal 2.0-7.7 X10 3/uL Absolute Neut 3.9 LAB L100.2720 Low 0.83-4.51 X10 3/ul Absolute Lymph 0.69 Performed By: #### L100.0100 ####[facility] [address] [place], [address] BASIC METABOLIC Collected: 05/28/2017 Status: F Source: [place] PROFILE (BMP) 10:01 AM [facility] REPOSITORY TYPE CODE TESTS RESULT OUT OF RANGE REFERENCE UNITS LAB L501.0100 Normal 70-110 mg/dL GLU 83 LAB L501.1000 Normal 7-18 mg/dL BUN 13 LAB L501.1100 Normal 0.55-1.02 mg/dL 0.56 CREAT,SERUM Result Comment: The validity of the calculated GFR AND GFRAA in patients over70 years has not been determined. Clinical correlation isessential. LAB L501.1110 Normal >60 mL/min EST GFR 127 Result Comment: Non- GFR Calc LAB L501.1115 Normal >60 mL/min EST GFR - 153 AA Result Comment: GFR Calc LAB L501.1255 Normal ml/min Estimated 93.08 CRCL LAB L501.1300 High 10-20 RATIO BUN/CRE 23.3 LAB L501.2200 Normal 8.5-10 mg/dL CA 8.7 .1 LAB L501.5300 Normal 136-14 mmol/L NA 138 5 LAB L501.5600 Low 3.5-5. mmol/L K 3.4 1 LAB L501.5900 Normal 98-107 mmol/L CL 101 LAB L501.6100 Low 21.0-3 mmol/L CO2 20.0 2.0 LAB L501.6200 High 5-15 GAP 17 Performed By: #### L500.2500, L500.3400, L501.2450 ####[facility] [address] [place], [place], [id number] LIVER PROFILE Collected: 05/28/2017 Status: F Source: [place] 10:01 AM [facility] REPOSITORY TYPE CODE TESTS RESULT OUT OF RANGE REFERENCE UNITS LAB L501.1500 High 6.4-8.2 g/dL T 8.4 PROT LAB L501.1800 Normal 3.4-5.0 g/dL ALB 4.1 Result Comment: Please note revised Albumin AND Globulin reference rangeeffective 2017. LAB L501.1950 High 2.2-4.2 g/dL GLOB 4.3 LAB L501.4100 High 15-37 U/L AST 146 LAB L501.4305 Normal 45-117 U/L ALK P 92 LAB L501.4405 Normal 12-78 U/L ALT 43 LAB L501.4600 Normal 0.20-1.00 mg/dL T BILI 1.00 LAB L501.4700 High 0.00-0.30 mg/dL D BILI 0.34 Performed By: #### L500.2500, L500.3400, L501.2450 ####[facility] [address] [place], [address] LIPASE Collected: 05/28/2017 Status: F Source: [place] 10:[address] [facility] TYPE CODE TESTS RESULT OUT OF RANGE REFERENCE UNITS LAB L501.2450 Normal 73-393 U/L LIPASE 146 Performed By: #### L500.2500, L500.3400, L501.2450 ####[facility] [address] [place], [address] ,SERUM,HCG QUALI. Collected: Status: F Source: [place] 05/28/2017 10:01 AM [facility] REPOSITORY TYPE CODE TESTS RESULT OUT OF REFERENCE UNITS RANGE LAB L700.6700 Normal =>Qualitati mIU/mL HCG Qual < 1 ve triggr LAB L700.7000 Normal 0-9 Nonpreg Negative HCGSQUAL NEGATIVE Performed By: #### L700.6800 ####[facility] [address] [place], [address] EMERGENCY DEPARTMENT Observed: 04/20/2017 Status: F Source: [place] SUMMARY 7:02 AM [facility] [address] [facility] [place], [place] [address]Sygpbfwks Department Xhddflr83/25/17 0847MR#: [id number] Acct: [id number]: NGUYEN MULLINS Rep #: [id number]: 1975 41 From: Amos Bernardo DOPCP: Care Physician,No Primary Status: DEP ER- ER Visit SummaryDate of Service: 04/18/17Chief Complaint: HeadacheHistory of Present Illness: The patient is a 41 F who presents with a 3 day history of amigraine. Patient states that she has a history of migraines beginning in high school whenshe used Imitrex. Her migraines went away for a while states that they seem to have come back.Typically she is able to get them to abort by taking Aleve or Excedrin. However when she getsexcessive nausea vomiting she is unable to keep the medicines down and the migraines continues.Patient states she has had decreased urination due to the vomiting and been unable to keepanything down. She states that on Sunday morning she awoke from sleep with a headache.Described as bifrontal and throbbing. This is the same description as she had in October of thisyear. The patient does not have a primary care physician. She notes that she recently gotover being sick with what sounds like a viral URI. She denies any neck pain. She denies anyarm or leg symptoms. No difficulty speaking.Physical Examination: Afebrile 97.7 triage heart rate 121 blood pressure 153/95 pulse ox 97% onroom air respirations 24Gen: Well-nourished well- developedHead: Normocephalic atraumaticEyes: Perrl EOMIENT: TMs clear rhinorrhea moist mucous membranesNeck: Supple no lymphadenopathy no JVD nontenderCVS: Regular rate rhythm no murmurs normal S1-M2Tblqvznfsqd: No distress clear to auscultation bilaterally chest nontenderAbdomen: Soft nontender nondistended normal bowel sounds no massesBack : NontenderExtremity: Nontender no edemaSkin: Normal color no rashNeuro: alert orientated 3 CN II-XII intact normal strength sensation reflexes gait cerebellarPsych: Normal affect normal moodTest Results: []Emergency Department Course and Treatment: IV was established and the patient received IVfluids. She also received Toradol, Benadryl, and Compazine. Patient was reassessed at 0950hours. She states that she is feeling significantly better. Heart rate is down to 97. We aregoing to give a second liter of fluids as the patient has not had much intake over thepreceding 2 days. Patient will have Phenergan as a prescription for home use.Disposition: HomeImpression:1. Migraine headaches2. DehydrationED Disposition- Plan for ED Patient:Disposition: Home or Assisted LivingChief Complaint: HeadacheInstructions: ED Headache MigrainePrescriptions:ProMETHAzine [ Phenergan] 25 mg PO Q6H PRN PRN #15 tabletPRN Reason: NauseaReferrals:Kely Hopper MD [ STAFF PHYSICIAN] - (call to establish primary care physician)NOT,DEFINED [NON-STAFF ] -What to do if you have ProblemsFor any increased pain, shortness of breath, bleeding , nausea or vomiting, chest pain, or anyunexpected problems, contact your Primary Care Provider. Call [facility] ([phone])or report to the closest Emergency Room.Call 911 if necessary.04/20/17 0702 <Electronically signed by Amos Bernardo DO>Date Amos Bernardo DOCosigner Signature (If Indicated): Date CC: No Primary Care Physician EMERGENCY DEPARTMENT Observed: 11/18/2016 Status: F Source: [place] SUMMARY 2:11 PM [facility] REPOSITORY [facility] [address] [place], [place] [address]Murheaijl Department SummaryMR#: [id number] Acct: [id number]: NGUYEN MULLINS Rep #: [id number]: 1975 41 From: Iker Scruggs MDPCP: Care Physician,No Primary Status: DEP ERDATE OF SERVICE: 11/18/2016HISTORY OF PRESENT ILLNESS:A 41-year-old woman with history of migraine headaches. She was on Imitrex. She is nolonger on Imitrex. She presents with bilateral throbbing headache with visual disturbanceand nausea. She denies any fever, chills, night sweats. She denies any trouble withspeech or swallowing. She denies any paresthesia, anesthesia, or motor weakness. Shedenies trouble with balance. She has no other complaints. Please read written note.PAST MEDICAL HISTORY:Migraine headaches.PHYSICAL EXAMINATION:GENERAL: The patient has a depressed affect.HEENT: Unremarkable. Funduscopic exam reveals normal cup to disk ratio and nopapilledema. Venous pulsations are noted bilateral.NECK: Supple. There are no carotid bruits.LUNGS: Clear to auscultation.HEART: Regular without murmur, gallop or rub.ABDOMEN: Soft, nontender.NEUROLOGIC: She is alert and oriented x3. Motor is 5/5. Sensation is intact. DTRs aresymmetric with no clonus or Babinski sign. Cranial nerves II-XII are intact. Cerebellartesting is normal. Gait was observed and normal.EMERGENCY DEPARTMENT COURSE:The patient was medicated with 10 mg of Reglan, 25 mg of Benadryl and 30 mg of Toradol.She also received 1 liter of normal saline wide open because of the amount of emesis shehad. She was reassessed at 2041. She states she feels markedly better.IMPRESSION:1. Acute migraine headache.2. Nausea and vomiting with dehydration, mild.TALIA Noble C: Jazmín .T: NTSJOB: [id number]/27/17 1411 <Electronically signed by Iker Scruggs MD> Date Iker MELGARosigner Signature (If Indicated): Date CC: No Primary Care Physician Date Dictated: 11/18/16 1246Date Transcribed: 11/18/16 1246Transcriptionist:Signed DISCHARGE INSTRUCTION Observed: 11/18/2016 Status: F Source: [place] 12:47 PM [facility] REPOSITORY [facility] [address] [place], [place] [address]Iyxbygoqn Eyzgcpbtmqi69/27/17 1247MR#: [id number] Acct: [id number]: NGUYEN MULLINS Rep #: [id number]: 1975 41 From: Iker Scruggs MDPCP: Status: PRE ERED Disposition- Plan for ED Patient:Disposition: Home or Assisted LivingChief Complaint: HeadacheInstructions: ED Headache MigraineReferrals:Marifer Noyola [NON-STAFF] - As NeededWhat to do if you have ProblemsFor any increased pain, shortness of breath, bleeding, nausea or vomiting, chest pain, or anyunexpected problems, contact your Primary Care Provider. Call [facility] ([phone])or report to the closest Emergency Room.Call 911 if necessary.11/18/16 1667 <Electronically signed by Iker Scruggs MD>Date Iker Scruggs MDCosigner Signature (If Indicated): Date CC: ALLERGIES ALLERGIES DATE TYPE / CODE NAME / CODE REACTION SEVERITY SOURCE 08/10/2017 Drug valacyclovir Hives Unknown [facility] Allergy/4160 /[id number]( [place] [address](SNOMED RXNORM) Repository CT) 04/18/2017 Drug valacyclovir Hives [facility] Allergy/4160 /[id number]( [place] [address](SNOMED RXNORM) Repository [place]) ENCOUNTERS ENCOUNTERS ADMIT/DISCHARGE ACCOUNT ADMITTING ENCOUNTER LOCATION SOURCE NUMBER CLASS 08/31/2017 [id number] Ambulatory BMSBuilding:B [place] 5 MS.[facility] Repository 08/27/2017 [id number] Ambulatory [place] 1 [facility] ing:RAD Repository 08/14/2017 [id number] Ambulatory BMSBuilding:B [place] 9 MS.[facility] Repository 08/14/2017/ [id number] Ambulatory BMSBuilding:B [place] 8 9 MS.[facility] Repository 08/10/2017/ [id number] Emergency [place] 8 1 [facility] ing:ED Repository 08/10/2017/ [id number] Ambulatory BMSBuilding:B [place] 8 3 MS.[facility] Repository 06/28/2017/ [id number] Ambulatory BMSBuilding:B [place] 8 3 MS.[facility] Repository 06/28/2017 [id number] Ambulatory [place] 4 [facility] ing:MTLAB Repository 06/14/2017 [id number] Ambulatory [place] 4 [facility] ing:LABSPEC Repository 06/14/2017/ [id number] Ambulatory BMSBuilding:B [place] 7 2 MS.[facility] Repository 06/01/2017 [id number] Ambulatory [place] 2 [facility] ing:MTLAB Repository 06/01/2017/ [id number] Ambulatory BMSBuilding:B [place] 7 8 MS.[facility] Repository 05/28/2017/ [id number] Marcy Pavon Inpatient [place] 7 1 Encounter [facility] ing:LP8Rafb: Repository [id number]: 1 05/28/2017 [id number] Ambulatory BMSBuilding:B [place] 4 [facility] Repository 05/28/2017 [id number] Ambulatory BMSBuilding:B [place] 5 [facility] Repository 05/28/2017/ [id number] Ambulatory BMSBuilding:W [place] 7 1 [facility] Repository 05/27/2017/ [id number] Emergency [place] 7 3 [facility] ing:ED Repository 04/18/2017/ [id number] Emergency [place] 3 [facility] ing:ED Repository 11/18/2016/ [id number] Emergency [place] 7 2 [facility] ing:ED Repository PAYERS PAYERS ENCOUNTER GUARANTOR PAYER SUBSCRIBER SOURCE 08/31/2017 NGUYEN J Primary NGUYEN J [place] [id number] [facility] BUCHANANDOB: [facility] Number: [id number] [place] [id number] Repository 33538Qpl: (330) Date:2017-06-28 [phone] () 08/31/2017 Secondary NOT GIVENUNK [place] Insurance:SELF PAY [facility] Number: Effective Repository Date:2017-06-28 08/27/2017 NGUYEN J Primary NGUYEN J [place] [id number] Insurance:CARESOURCEP BUCHANANDOB: [facility] Number: [id number] [place], [place] [id number] Repository [address]Xel: (330) Date:2017-08-27P O [phone] () [address]ATTN: [place] [address]BS: 08/27/2017 Secondary NOT GIVENUNK [place] Insurance:SELF PAY [facility] Number: Effective Repository Date:2017-08-27 08/14/2017 NGUYEN J Primary NGUYEN J [place] [id number] Insurance:CARESOURCEP BUCHANANDOB: [facility] Number: [id number] [place] [id number] Repository [address]Rsc: (330) Date:2017-08-13P O [phone] () [address]ATTN: [place] [address]BS: 08/14/2017 Secondary NOT GIVENUNK [place] Insurance:SELF PAY [facility] Number: Effective Repository Date:2017-08-13 08/14/2017 NGUYEN J Primary NGUYEN J [place] [id number] Insurance:CARESOURCEP [facility]: [facility] Number: [id number] [place], [place] [id number] Repository [address]Lfo: (330) Date:2017-08-14P O [phone] () [address]ATTN: [place] [address]GT: 08/14/2017 Secondary NOT GIVENUNK [place] Insurance:SELF PAY [facility] Number: Effective Repository Date:2017-08-14 08/10/2017 NGUYEN J Primary NGUYEN J [place] [id number] Insurance:CARESOURCPENDING SALE TO NOV[facility] HEALTHNDOB: [facility] Number: [id number] [place], [place] [id number] Repository [address]Lvo: (330) Date:2017-08-10P O [phone] () [address]ATTN: [place] [address]HD: 08/10/2017 Secondary NOT GIVENUNK [place] Insurance:SELF PAY [facility] Number: Effective Repository Date:2017-08-10 08/10/2017 NGUYEN J Primary NGUYEN J [place] [id number] Insurance:MEDICAIDPol BUCHANANDOB: [facility] Number: [id number] [place] [id number] Repository [address]Yns: (330) Date:2017-08-10 [phone] () 08/10/2017 Secondary NOT GIVENUNK [place] Insurance:SELF PAY [facility] Number: Effective Repository Date:2017-08-10 06/28/2017 NGUYEN J Primary NGUYEN J [place] [id number] Insurance:CARESOURCEP [facility]: [facility] Number: [id number] [place], [place] [id number] Repository [address]Xwj: (330) Date:2017-06-08P O [phone] () [address]ATTN: [place] [address]EG: 06/28/2017 Secondary NOT GIVENUNK [place] Insurance:SELF PAY [facility] Number: Effective Repository Date:2017-06-08 06/28/2017 NGUYEN J Primary NGUYEN J [place] [id number] Insurance:[facility]: [facility] Number: [id number] [place] [id number] Repository [address]Nyk: (330) Date:2017-06-28P O [phone] () [address]ATTN: [place] [address]WD: 06/28/2017 Secondary NOT GIVENUNK [place] Insurance:SELF PAY [facility] Number: Effective Repository Date:2017-06-28 06/14/2017 NGUYEN J Primary NGUYEN J [place] [id number] [facility] Number: [id number] [place] [id number] Repository [address]Dpq: (330) Date:2017-06-14 [phone] () 06/14/2017 Secondary NOT GIVENUNK [place] Insurance:SELF PAY [facility] Number: Effective Repository Date:2017-06-14 06/14/2017 NGUYEN J Primary NGUYEN J [place] [id number] Insurance:[facility]: [facility] Number: [id number] [place] [id number] Repository [address]Xdz: (330) Date:2017-06-14 [phone] () 06/14/2017 Secondary NOT GIVENUNK [place] Insurance:SELF PAY [facility] Number: Effective Repository Date:2017-06-14 06/01/2017 NGUYEN J Primary GNUYEN J [place] [id number] Insurance:[facility]: [facility] Number: [id number] [place], [place] [id number] Repository [address]Szf: (330) Date:2017-06-01 [phone] () 06/01/2017 Secondary NOT GIVENUNK [place] Insurance:SELF PAY [facility] Number: Effective Repository Date:2017-06-01 06/01/2017 NGUYEN J Primary NGUYEN J [place] [id number] Insurance:[facility]: [facility] Number: [id number] [place], [place] [id number] Repository 33[address]Phq: (330) Date:2017-05-30 [phone] () 06/01/2017 Secondary NOT GIVENUNK [place] Insurance:SELF PAY [facility] Number: Effective Repository Date:2017-05-30 05/28/2017 NGUYEN J Primary NGUYEN J [place] [id number] Insurance:MEDICAIDPol [facility]: [facility] ic Number: [id number] [place], [place] [id number] Repository [address]Efc: (330) Date:2017-05-28 [phone] () 05/28/2017 Secondary NOT GIVENUNK [place] Insurance:SELF PAY [facility] Number: Effective Repository Date:2017-05-28 05/28/2017 NGUYEN J Primary NGUYEN J [place] [id number] Insurance:[facility]ID[facility]: [facility] Number: [id number] [place] [id number] Repository [address]Cwo: (330) Date:2017-05-28 [phone] () 05/28/2017 Secondary NOT GIVENUNK [place] Insurance:SELF PAY [facility] Number: Effective Repository Date:2017-05-28 05/28/2017 NGUYEN J Primary NGUYEN J [place] [id number] Insurance:MEDICAIDPol [facility]: [facility] ic Number: [id number] [place] [id number] Repository [address]Atv: (330) Date:2017-05-28 [phone] () 05/28/2017 Secondary NOT GIVENUNK [place] Insurance:SELF PAY [facility] Number: Effective Repository Date:2017-05-28 05/28/2017 NGUYEN J Primary NGUYEN J [place] [id number] Insurance:MEDICAIDPol [facility]: [facility] ic Number: [id number] [place], [place] [id number] Repository [address]Wnw: (330) Date:2017-05-28 [phone] () 05/28/2017 Secondary NOT GIVENUNK [place] Insurance:SELF PAY [facility] Number: Effective Repository Date:2017-05-28 05/27/2017 Nguyen J Primary NOT GIVENUNK [place] [id number] Insurance:SELF [place] [facility] [place] Number: Effective Repository [address]Erd: (330) Date:2017-05-27 [phone] (HP) 04/18/2017 NGUYEN J Primary NGUYEN J [place] [id number] Insurance:SELF PAY BUCHANANDOB: [facility] [id number] [place] Number: Repository [address]Eym: 330 [id number] [phone] () Date: 11/18/2016 NGUYEN J Primary NGUYEN J [place] [id number] Insurance:SELF PAY BUCHANANDOB: [facility] [id number] [facility] Hospital, [place] Number: Repository [address]Wdm: ([phone]) [id number] [phone] () Date:
== END ==
PROVIDERS: Family Provider Nurse Practitioner Family; PCP Nurse Practitioner Family; Visit Provider Nurse Practitioner Family
DX: L65.9 Nonscarring hair loss, unspecified (principal)
CPT/HCPCS: 36415; 80053; 84439; 84443

== ENCOUNTER 2017-08-10 13:07 | Emergency (ER) | payer MEDICAID, SELFPAY ==
[2017-08-10 13:09] VITALS: BP 132/72; PULSE 92; RESP 18; TEMP 37.1; BMI 21.0
--- NOTE | 2017-08-10 15:43 | ED.VISSUMM ---
- ER Visit Summary Date of Service: 08/10/17 Chief Complaint: Left ear pain and bleeding History of Present Illness: The patient is a 41 F who presents for 1 day of left ear pain that is now more severe and bleeding. Patient states she has had upper respiratory infection symptoms, including cough, left-sided sore throat and congestion for 1 week. She woke up this morning with her left ear throbbing. She was seen by her doctor and diagnosed with an ear infection, and prescribed Augmentin. She was waiting for the prescription to be filled when her ear suddenly started bleeding and the pain increased. She has been having drainage of her symptoms. She denies fever. She has a history of multiple ear infections as a child. Denies any medical history. Physical Examination: Vital signs: afebrile, hemodynamically stable, no hypoxia on room air General: well nourished, well developed, in no distress towel held to the left ear Skin: warm, dry, no rash, no pallor HEENT: normocephalic and atraumatic; PERRL, EOMI, moist mucous membranes, no posterior oropharyngeal exudate, swelling or erythema. No oral lesions. Right TM with normal appearance. Left TM has a perforation in the superior medial region with levels behind it, small amount of serosanguineous fluid in the external canal. No pain with movement of the tragus. No mastoid tenderness. Tender periauricular and anterior cervical lymphadenopathy. No meningismus. Cardiovascular: regular rate and rhythm Respiratory: No increased work of breathing MSK: Moves all extremities, no deformities, normal strength Neuro: Awake and alert, oriented ?4. No facial droop Test Results: [] Emergency Department Course and Treatment: Patient's examination is consistent with a tympanic membrane perforation. She does have some bloody exudate in the exterior canal. She has no mastoid tenderness that would be concerning for mastoiditis. No meningeal signs. Patient will take the Augmentin that her doctor has already prescribed. Ofloxacin eardrops were added to her regimen. Patient is only prescribed a course of 7 days of her Augmentin and will call her doctor to see if the prescription can be extended. She will be given a prescription for an extra 3 days in case she is unable to get her doctor to extend the prescription for free. He is in severe pain and thus was given a [place] while in the emergency department and was prescribed a small prescription of [place] for severe pain, especially at bedtime. She will continue the ibuprofen as prescribed by her doctor. Return precautions given. Follow-up given to an video conference specialist. Patient discharged home. Treatment Plan: [] Disposition: [] Impression: Left tympanic membrane perforation, left acute otitis media This note was generated with pic5 dictation software. It may contain incorrect words, spelling, and punctuation that were not noted in review of the chart prior to signing ED Disposition - Plan for ED Patient: Chief Complaint: Ear Problem Prescriptions: Hydrocodone Bitart/Apap 5-325 [[place] 5MG-325MG] 1 tab PO Q6H PRN PRN 3 Days #12 tab PRN Reason: Pain Amox/Clavulanate Tablet [Augmentin Tablet] 875 mg PO Q12H #6 tab Ofloxacin 0.3% [Floxin 0.3% Otic] 10 drp OTIC DAILY 10 Days #1 bottle Referrals: Kash Davis, INTERNAL CONTROL SPECIALIST-C [Primary Care Provider] -
--- NOTE | 2017-08-10 15:47 | ED.DCSUM_ITS ---
- ER Visit Summary Date of Service: 08/10/17 Chief Complaint: Left ear pain and bleeding History of Present Illness: The patient is a 41 F who presents for 1 day of left ear pain that is now more severe and bleeding. Patient states she has had upper respiratory infection symptoms, including cough, left-sided sore throat and congestion for 1 week. She woke up this morning with her left ear throbbing. She was seen by her doctor and diagnosed with an ear infection, and prescribed Augmentin. She was waiting for the prescription to be filled when her ear suddenly started bleeding and the pain increased. She has been having drainage of her symptoms. She denies fever. She has a history of multiple ear infections as a child. Denies any medical history. Physical Examination: Vital signs: afebrile, hemodynamically stable, no hypoxia on room air General: well nourished, well developed, in no distress towel held to the left ear Skin: warm, dry, no rash, no pallor HEENT: normocephalic and atraumatic; PERRL, EOMI, moist mucous membranes, no posterior oropharyngeal exudate, swelling or erythema. No oral lesions. Right TM with normal appearance. Left TM has a perforation in the superior medial region with levels behind it, small amount of serosanguineous fluid in the external canal. No pain with movement of the tragus. No mastoid tenderness. Tender periauricular and anterior cervical lymphadenopathy. No meningismus. Cardiovascular: regular rate and rhythm Respiratory: No increased work of breathing MSK: Moves all extremities, no deformities, normal strength Neuro: Awake and alert, oriented ?4. No facial droop Test Results: [] Emergency Department Course and Treatment: Patient's examination is consistent with a tympanic membrane perforation. She does have some bloody exudate in the exterior canal. She has no mastoid tenderness that would be concerning for mastoiditis. No meningeal signs. Patient will take the Augmentin that her doctor has already prescribed. Ofloxacin eardrops were added to her regimen. Patient is only prescribed a course of 7 days of her Augmentin and will call her doctor to see if the prescription can be extended. She will be given a prescription for an extra 3 days in case she is unable to get her doctor to extend the prescription for free. He is in severe pain and thus was given a [place] while in the emergency department and was prescribed a small prescription of [place] for severe pain, especially at bedtime. She will continue the ibuprofen as prescribed by her doctor. Return precautions given. Follow-up given to an perinatal instructor. Patient discharged home. Treatment Plan: [] Disposition: [] Impression: Left tympanic membrane perforation, left acute otitis media This note was generated with Weblance dictation software. It may contain incorrect words, spelling, and punctuation that were not noted in review of the chart prior to signing ED Disposition - Plan for ED Patient: Chief Complaint: Ear Problem Prescriptions: Hydrocodone Bitart/Apap 5-325 [[place] 5MG-325MG] 1 tab PO Q6H PRN PRN 3 Days #12 tab PRN Reason: Pain Amox/Clavulanate Tablet [Augmentin Tablet] 875 mg PO Q12H #6 tab Ofloxacin 0.3% [Floxin 0.3% Otic] 10 drp OTIC DAILY 10 Days #1 bottle Referrals: Kash Davis, TRANSITION OF CARE SPECIALIST-C [Primary Care Provider] -
--- NOTE | 2017-08-10 15:47 | ED.DEP ---
ED Disposition - Plan for ED Patient: Disposition: Home or Assisted Living Chief Complaint: Ear Problem Instructions: ED Otitis Media Acute Adult, ED Rupture Eardrum Infec Prescriptions: Hydrocodone Bitart/Apap 5-325 [[place] 5MG-325MG] 1 tab PO Q6H PRN PRN 3 Days #12 tab PRN Reason: Pain Amox/Clavulanate Tablet [Augmentin Tablet] 875 mg PO Q12H #6 tab Ofloxacin 0.3% [Floxin 0.3% Otic] 10 drp OTIC DAILY 10 Days #1 bottle Referrals: Kash Davis, HOLLOW HANDLE BENCH WORKER-C [Primary Care Provider] - Bandar Suarez MD [STAFF PHYSICIAN] - 3-5 Days if not improving Additional Instructions: Please take the Augmentin for 10 days, and contact your doctor to extend your for prescription. If you are unable to do so, you have been written an additional 3 days. Please also use the eardrops as prescribed. Follow-up with the ear nose throat doctor on this paperwork, especially if you are not improving in 3 days. If you have any worsening of your condition or any new concerns, please come back to the emergency department for another evaluation.
--- NOTE | 2017-08-10 15:50 | DCINST.ED_ITS ---
ED Disposition - Plan for ED Patient: Disposition: Home or Assisted Living Chief Complaint: Ear Problem Instructions: ED Otitis Media Acute Adult, ED Rupture Eardrum Infec Prescriptions: Hydrocodone Bitart/Apap 5-325 [[place] 5MG-325MG] 1 tab PO Q6H PRN PRN 3 Days #12 tab PRN Reason: Pain Amox/Clavulanate Tablet [Augmentin Tablet] 875 mg PO Q12H #6 tab Ofloxacin 0.3% [Floxin 0.3% Otic] 10 drp OTIC DAILY 10 Days #1 bottle Referrals: Kash Davis, BUSINESS TECHNOLOGY ANALYST-C [Primary Care Provider] - Bandar Suarez MD [STAFF PHYSICIAN] - 3-5 Days if not improving Additional Instructions: Please take the Augmentin for 10 days, and contact your doctor to extend your for prescription. If you are unable to do so, you have been written an additional 3 days. Please also use the eardrops as prescribed. Follow-up with the ear nose throat doctor on this paperwork, especially if you are not improving in 3 days. If you have any worsening of your condition or any new concerns, please come back to the emergency department for another evaluation.
[2017-08-10] MEDS: HYDROcodone Bitartrate/Apap 5/325 Tablet PO (15:57)
[2017-08-10 16:05] VITALS: PULSE 65; RESP 17
== END 2017-08-10 16:06 | disposition home or self-care (01) ==
PROVIDERS: Emergency Provider Emergency Medicine; Family Provider Nurse Practitioner Family; PCP Nurse Practitioner Family
DX: H72.92 Unspecified perforation of tympanic membrane, left ear (principal); H66.92 Otitis media, unspecified, left ear
CPT/HCPCS: 99282

== ENCOUNTER → 2017-08-27 14:43 | Outpatient (CLI) | payer MEDICAID, SELFPAY ==
--- NOTE | 2017-08-27 14:45 | RAD_ITS ---
STUDY: X-RAY - CERVICAL SPINE REASON FOR EXAM: Female, 41 years old. Neck pain TECHNIQUE: Lateral view(s) of the cervical spine were obtained. COMPARISON: None FINDINGS: Normal anterior atlantoaxial articulation. Normal odontoid process. Normal cervical lordosis. Normal vertebral bodies and endplates. Normal disc space heights. Normal visualized intervertebral neuroforamina. The soft tissue structures are unremarkable. RAD/Cerv Spine 4 or 5 Views IMPRESSION: Unremarkable lateral view cervical spine. Electronically Signed: Murray De DO at 23:51 EST , Service support ,
== END ==
PROVIDERS: Family Provider Nurse Practitioner Family; PCP Nurse Practitioner Family; Visit Provider Chiropractor
DX: M54.12 Radiculopathy, cervical region (principal)
CPT/HCPCS: 72050

== ENCOUNTER → 2017-10-04 09:50 | Outpatient (CLI) | payer MEDICAID, SELFPAY ==
[2017-10-04 13:02] LABS: Estradiol 121.4 pg/mL; Follicle Stimulating Hormone 32.9 mIU/mL
== END ==
PROVIDERS: Family Provider Nurse Practitioner Family; PCP Nurse Practitioner Family; Visit Provider Nurse Practitioner Women's Health
DX: Z12.4 Encounter for screening for malignant neoplasm of cervix (principal)
CPT/HCPCS: 36415; 82670; 83001; 88175; 97161; G0145

== ENCOUNTER 2017-10-04 13:00 | Outpatient (RCR) | payer MEDICAID, SELFPAY ==
--- NOTE | 2017-10-04 14:06 | HP.PTEVAL_ITS ---
Patient's Visit Information YVONNE MULLINS is a 42 year old F referred to Physical Therapy by Mohinder Nye with a diagnosis of Neck pain with radiculopathy. Date of Evaluation: 10/04/17 Physical Therapist: Jeronimo Roman, PT, - Visit Plan Frequency: 2-3x /Week Duration: 3 Weeks Plan: Postural edu, c/s retractions, DTR, mobs and distractions, MH, and HEP. May trial Tx if needed. - Subjective Subjective: Pt reports she has had pain and numbness in L UE for several months now. Pt reports she wakes up with a stiff and sore neck ofter. Pt reports she has diff with driving at times secondary to pain. Pt notes she gets headaches too as a result of her pain. Pt notes she has a Hx of migraines as well. Pt reports her L hand will fall asleep on occasion. No PMHx of L arm discomfort over the years. Pt reports she is just getting really tired of waking up in the morning feeling like she is 80 years old. Pt reports sleep diff secondary to pain. Pt reports she only uses one pillow to sleep with. Pt reports she might need an MRI, but has PT first. 4/10 at rest, 8/10 at worst (waking up in the morning - Pain neck pain Pain Intensity (Out of 10): 4 Pain Intensity Range: 8 - Objective Neuro: B UE sensation is WNL to light touch. B Bicepital reflex= 2/3. MMT: B UE 's 5/5 throughout. C/S ROM: Pt is very limited with R rot, L SB, retraction, and extension. all other movements WNL. repeated movements: repeated protraction in sitting 10x3 decreased PT's pain; repeated retraction in sitting 3x10 made pt feel better overall. Special testing: pos compression and distraction test. - Goals Goal 1:: Decrease neck pain x 50% to aid with sleep Goal Time Frame: 4-6 Weeks Goal 2:: Increase C/s ROM x 1 grade to aid with driving Goal Time Frame: 4-6 Weeks Goal 3:: Decrease F and I of L UE radiculopathy x 50% to aid with IADL's Goal Time Frame: 4-6 Weeks Goal 4:: I with HEP Goal Time Frame: 4-6 Weeks - Rehabilitation Potential Physical Therapy Diagnosis: Neck pain, L UE radiculopathy, and limited c/s ROM secondary cervical spine disc derangement Rehabilitation Potential: Good - Anticipated Interventions Patient/Client Instruction: Educate patient on: Condition, Plan of Care For the Purpose of:: To improve self management Therapeutic Exercise to Include: Strength training, Endurance training, Body mechanics, Postural training, Active ROM, Scapular Strength/Stabilization For the Purpose of:: To decrease pain, To increase ROM, To improve muscle performance and motor function Manual Therapy Techniques to Include: Soft tissue mobilization For the Purpose of:: To decrease pain Thank you for the opportunity to evaluate your patient. For Medicare and Medicare HMO plans, please review the plan of care and approve it. It will need to be FAXED BACK to us at [phone] for Medicare purposes. Please let me know if there are questions or concerns regarding this plan of care. Physician Signature: Date:
--- NOTE | 2017-11-12 14:45 | HP.PT.NRP ---
HP - Discharge Summary (1) - Patient Information YVONNE MULLINS was seen in my office for initial evaluation on 10/04/17. The following Plan of Care was established for this patient: Initial Frequency: 2-3x /Week Initial Duration: 3 Weeks - Anticipated Interventions Patient/Client Instruction: Educate patient on: Condition, Plan of Care For the Purpose of:: To improve self management Therapeutic Exercise to Include: Strength training, Endurance training, Body mechanics, Postural training, Active ROM, Scapular Strength/Stabilization For the Purpose of:: To decrease pain, To increase ROM, To improve muscle performance and motor function Manual Therapy Techniques to Include: Soft tissue mobilization For the Purpose of:: To decrease pain This patient was last seen in our office . Pertinent comments regarding their Physical therapy will appear below: Pt was last scheduled for PT on the date of 10/12/17. Pt did not return after that visit through todays date, and is therefore discontinued at this time At this point I will be discontinuing this patient from physical therapy. I would be happy to see this patient again in the future if found appropriate by the physician. Thank you! Jeronimo Roman, PT,
== END 2017-10-04 19:00 | disposition home or self-care (01) ==
LOC: PT 13:00
PROVIDERS: Family Provider Nurse Practitioner Family; PCP Nurse Practitioner Family; Visit Provider Chiropractor
DX: M54.12 Radiculopathy, cervical region (principal)
CPT/HCPCS: 97161

== ENCOUNTER → 2017-10-04 18:45 | Outpatient (CLI) | payer MEDICAID, SELFPAY ==
[2017-10-10 18:28] LABS: HPV APTIMA, High Risk Negative (Negative)
== END ==
PROVIDERS: Visit Provider Nurse Practitioner Women's Health
DX: Z12.4 Encounter for screening for malignant neoplasm of cervix (principal)
CPT/HCPCS: 88175; G0145

== ENCOUNTER → 2017-10-12 12:37 | Outpatient (CLI) | payer MEDICAID, SELFPAY ==
--- NOTE | 2017-10-12 12:38 | US_ITS ---
STUDY: ULTRASOUND OF THE FEMALE PELVIS - COMPLETE REASON FOR EXAM: Female, 42 years old. Enlarged uterus. Oligomenorrhea. LMP: September 28, 2017. TECHNIQUE: Transvaginal TECHNICAL QUALITY: Adequate. COMPARISON: None. FINDINGS: The uterus is anteverted and is in a midline position. The uterus measures 9.0 cm x 4.9 cm x 4.4 cm. Normal uterine cervix. The endometrium measures 6.0 mm in thickness, and is hyperechoic. There is no demonstrated endometrial mass. 2 fibroids are seen. The larger measures 1.4 size by 1.9 cm x 1.8 cm. I.U.D. - The patient does not have an I.U.D. The right ovary is visualized. The right ovary measures 2.8 cm x 2.6 cm x 1.7 cm. There is no right ovarian cyst or ovarian mass. There is no visualized right adnexal mass or complex lesion. There is normal arterial and normal venous vascularity. The left ovary is visualized. The left ovary measures 2.2 cm x 2.3 cm x 1.6 cm. A dominant follicle measuring 1.1 cm x 1.1 cm x 1.2 cm seen within the left ovary. There is no visualized left adnexal mass or complex lesion. There is normal arterial and normal venous vascularity. There is no fluid in the cul-de-sac. The pre void volume of the bladder was 98 ml. Polycystic ovary disease: No. US/Transvaginal Non- IMPRESSION: Fibroid uterus. Dominant follicle in the left ovary. Electronically Signed: Ole Thrasher MD at 14:09 EDT Tel [phone], Service support ,
--- NOTE | 2017-10-12 12:38 | US_ITS ---
STUDY: ULTRASOUND OF THE FEMALE PELVIS - COMPLETE REASON FOR EXAM: Female, 42 years old. Enlarged uterus. Oligomenorrhea. LMP: September 28, 2017. TECHNIQUE: Transvaginal TECHNICAL QUALITY: Adequate. COMPARISON: None. FINDINGS: The uterus is anteverted and is in a midline position. The uterus measures 9.0 cm x 4.9 cm x 4.4 cm. Normal uterine cervix. The endometrium measures 6.0 mm in thickness, and is hyperechoic. There is no demonstrated endometrial mass. 2 fibroids are seen. The larger measures 1.4 size by 1.9 cm x 1.8 cm. I.U.D. - The patient does not have an I.U.D. The right ovary is visualized. The right ovary measures 2.8 cm x 2.6 cm x 1.7 cm. There is no right ovarian cyst or ovarian mass. There is no visualized right adnexal mass or complex lesion. There is normal arterial and normal venous vascularity. The left ovary is visualized. The left ovary measures 2.2 cm x 2.3 cm x 1.6 cm. A dominant follicle measuring 1.1 cm x 1.1 cm x 1.2 cm seen within the left ovary. There is no visualized left adnexal mass or complex lesion. There is normal arterial and normal venous vascularity. There is no fluid in the cul-de-sac. The pre void volume of the bladder was 98 ml. Polycystic ovary disease: No. US/Pelvic (Non ) IMPRESSION: Fibroid uterus. Dominant follicle in the left ovary. Electronically Signed: Ole Thrasher MD at 14:09 EDT Tel [phone], Service support ,
== END ==
PROVIDERS: Family Provider Nurse Practitioner Family; PCP Nurse Practitioner Family; Visit Provider Nurse Practitioner Women's Health
DX: N91.5 Oligomenorrhea, unspecified (principal); N85.2 Hypertrophy of uterus
CPT/HCPCS: 76830; 76856; 93976

== ENCOUNTER → 2018-06-21 14:27 | Outpatient (CLI) | payer MEDICAID, SELFPAY ==
[2018-06-21 12:33] VITALS: BMI 21.0
[2018-06-21 15:05] LABS: Mucous, Urine 0 SEEN /hpf (<or=2+); Red Blood Cells-Urine 0 SEEN /hpf (0-5)
[2018-06-21 15:53] LABS: Color, Urine Yellow (Yellow); Glucose, Dipstick Normal (Normal); Ketone-Dipstick Negative (Negative); Leukocyte Esterase-Dipstick 100 /ul (Negative); Nitrite-Dipstick Negative (Negative); Occult Blood-Urine Negative /ul (Negative); Protein-Dipstick Negative (Negative); Urine Bilirubin Dipstick Negative (Negative); Urine Clarity Clear (Clear); Urine Urobilinogen Normal (Normal)
[2018-06-21 16:26] LABS: Bacteria RARE /hpf (None Seen); Squamous Epithelial Cells - UA 0-5 SEEN /hpf (5-10); White Blood Cells 5-10 SEEN /hpf (0-5)
== END ==
PROVIDERS: Family Provider Internal Medicine; PCP Internal Medicine; Referring Provider Physician Assistant Surgical; Visit Provider Physician Assistant Surgical
DX: R30.0 Dysuria (principal)
CPT/HCPCS: 81001; 87086; 87088; 87186

== ENCOUNTER → 2018-07-12 15:37 | Outpatient (CLI) | payer MEDICAID, SELFPAY ==
[2018-07-11 15:56] VITALS: BMI 21.0
[2018-07-12 15:53] LABS: Mucous, Urine 0 SEEN /hpf (<or=2+)
[2018-07-12 16:28] LABS: Color, Urine Yellow (Yellow); Glucose, Dipstick Normal (Normal); Ketone-Dipstick 15 mg/dl (Negative); Leukocyte Esterase-Dipstick 500 /ul (Negative); Nitrite-Dipstick Positive (Negative); Occult Blood-Urine 50 /ul (Negative); Protein-Dipstick 15 mg/dl (Negative); Urine Bilirubin Dipstick Negative (Negative); Urine Clarity Cloudy (Clear); Urine Urobilinogen Normal (Normal)
[2018-07-12 16:57] LABS: Bacteria 4+ /hpf (None Seen); Red Blood Cells-Urine 5-10 SEEN /hpf (0-5); Squamous Epithelial Cells - UA 5-10 SEEN /hpf (5-10); White Blood Cells 25-50 SEEN /hpf (0-5)
[2018-07-12 16:59] LABS: Calcium Oxalate Crystals Ur 2+ /hpf (<or=2+)
--- OUTSIDE RECORDS SUMMARY | 2018-09-16 05:31 | XMS RPT_ITS ---
:1975 Author Organization OHIP Support Name Relationship Address Phone DICKS Unavailable [address] [phone] [address] [place] [address] LADRACH, LOUREE Unavailable [address] + [place] [address] DICKS Unavailable [address] [phone] [address] [place] [address] LADRACH, LOUREE Unavailable [address] + [place] [address] DICKS Unavailable [address] [phone] [address] [place] [address] LADRACH, LOUREE Unavailable [address] + [place] [address] DICKS Unavailable [address] [phone] [address] [place] [address] LADRACH, LOUREE Unavailable [address] [facility] + [place] [address] DICKS Unavailable [address] [phone] [address] [place] [address] LADRACH, LOUREE Unavailable [address] + [place] [address] DICKS Unavailable [address] [phone] [address] [place] [address] LADRACH, LOUREE Unavailable [address] + [place] [address] DICKS Unavailable [address] [phone] [address] [place] [address] LADRACH, LOUREE Unavailable [address] + [place] [address] DICKS Unavailable [address] [phone] [address] [place] [address] LADRACH, LOUREE Unavailable [address] + [place] [address] DICKS Unavailable [address] [phone] [address] [place] [address] LADRACH, LOUREE Unavailable [address] + [place] [address] DICKS Unavailable [address] [phone] [address] [place] [address] LADRACH, LOUREE Unavailable [address] + [place] [address] DICKS Unavailable [address] [phone] [address] [place] [address] LADRACH, LOUREE Unavailable [address] + [place] [address] DICKS Unavailable [address] [phone] [address] [place] [address] LADRACH, LOUREE Unavailable [address] + [place] [address] DICKS Unavailable [address] [phone] [address] [place] [address] LADRACH, LOUREE Unavailable [address] + [place] [address] DICKS Unavailable [address] [phone] [address] [place] [address] LADRACH, LOUREE Unavailable [address] + [place] [address] DICKS Unavailable [address] [phone] [address] [place] [address] LADRACH, LOUREE Unavailable [address] + [place] [address] DICKS Unavailable [address] [phone] [address] [place] [address] LADRACH, LOUREE Unavailable [address] + [place] [address] DICKS Unavailable [address] [phone] [address] [place] [address] LADRACH, LOUREE Unavailable [address] + [place] [address] DICKS Unavailable [address] [phone] [address] [place] [address] LADRACH, LOUREE Unavailable [address] [facility] + [place] [address] DICKS Unavailable [address] [phone] [address] [place] [address] LADRACH, LOUREE Unavailable [address] [facility] + [place] [address] LADRACH, LOUREE Unavailable [address] + [place] [address] [employer] Unavailable [address] + [place] [address] LADRACH, LOUREE Unavailable [address] + [place] [address] [employer] Unavailable [address] + [place] [address] LADRACH, LOUREE Unavailable [address] + [place] [address] [employer] Unavailable [address] + [place] [address] LADRACH, LOUREE Unavailable [address] + [place] [address] [employer] Unavailable [address] + [place] [address] LADRACH, LOUREE Unavailable [address] [address] + [place] [address] [employer] Unavailable [address] + [place] [address] LADRACH, LOUREE Unavailable [address] + [place] [address] [employer] Unavailable [address] + [place] [address] LADRACH, LOUREE Unavailable [address] + [place] [address] [employer] Unavailable [address] + [place] [address] SUZIE LOUREE Unavailable [address] + [place] [address] [employer] Unavailable [address] + [place] [address] Care Team Providers Name Role Phone Jose Wolf Attending Unavailable Oleghe, Efewongbe Referring Unavailable Jose Wolf Attending Unavailable Jose Wolf Referring Unavailable Oleghe, Efewongbe Primary Care Unavailable DavisKash [employer] Consulting Unavailable Robi Chamberlain Attending Unavailable Oleghe, Efewongbe Referring Unavailable Robi Chamberlain Attending Unavailable Robi Chamberlain Referring Unavailable Oleghe, Efewongbe Primary Care Unavailable Oleghe, Efewongbe Primary Care Unavailable White, Marcy Admitting Unavailable White, Marcy Referring Unavailable Paintsil, Kent Attending Unavailable White, Marcy Admitting Unavailable White, Marcy Attending Unavailable White, Marcy Referring Unavailable Oleghe, Efewongbe Primary Care Unavailable White, Marcy Consulting Unavailable White, Marcy Admitting Unavailable Paintsil, Kent Attending Unavailable White, Marcy Referring Unavailable Oleghe, Efewongbe Primary Care Unavailable Paintsil, Kent Consulting Unavailable White, Marcy Admitting Unavailable Paintsil, Kent Attending Unavailable White, Marcy Referring Unavailable Oleghe, Efewongbe Primary Care Unavailable Paintsil, Kent Consulting Unavailable DavisKash [employer] Attending Unavailable DavisKash [employer] Referring Unavailable Davis, Kash [employer] Primary Care Unavailable DavisKash [employer] Primary Care Unavailable Gracie Sandoval Attending Unavailable Davis, Kash [employer] Attending Unavailable Davis, Kash [employer] Referring Unavailable Davis, Kash [employer] Primary Care Unavailable Davis, Kash [employer] Attending Unavailable Davis, Kash [employer] Referring Unavailable Mohinder Nye Attending Unavailable Mohinder Nye Referring Unavailable Davis, Kash [employer] Primary Care Unavailable Davis, Kash [employer] Attending Unavailable Davis, Kash [employer] Referring Unavailable Davis, Kash [employer] Attending Unavailable Davis, Kash [employer] Referring Unavailable Davis, Kash [employer] Primary Care Unavailable Mohinder Nye Attending Unavailable Parris, Davionward Referring Unavailable Davis, Kash [employer] Primary Care Unavailable Melany, Gina Attending Unavailable Davis, Kash [employer] Referring Unavailable Davis, Kash [employer] Primary Care Unavailable Davis, Kash [employer] Primary Care Unavailable Melany, Gina Attending Unavailable RafanthonyMontserrat Referring Unavailable Melany, Gina Attending Unavailable Melany, Gina Attending Unavailable Davis, Kash [employer] Primary Care Unavailable Davis, Kash [employer] Attending Unavailable Davis, Kash [employer] Primary Care Unavailable Oleghe, Efewongbe Referring Unavailable Davis, Kash [employer] Attending Unavailable Oleghe, Efewongbe Referring Unavailable Davis, Kash [employer] Primary Care Unavailable Vasquez Peres Attending Unavailable Davis, Kash [employer] Referring Unavailable Davis, Kash [employer] Primary Care Unavailable Davis, Kash [employer] Attending Unavailable Oleghe, Efewongbe Referring Unavailable Davis, Kash [employer] Primary Care Unavailable Oleghe, Efewongbe Attending Unavailable Oleghe, Efewongbe Referring Unavailable Robi Chamberlain Attending Unavailable Oleghe, Efewongbe Referring Unavailable Davis, Kash [employer] Primary Care Unavailable Davis, Kash [employer] Attending Unavailable Oleghe, Efewongbe Referring Unavailable Davis, Kash [employer] Primary Care Unavailable PROBLEMS PROBLEMS DATE TYPE CONDITION / CODE ATTENDING STATUS SOURCE 07/11/2018 Unknown R30.0 - Dysuria / Robi Chamberlain Active [facility] R30.0(ICD-10) [facility] Repository 06/21/2018 Unknown A60.00 - Herpesviral Luciano, Jose Active [place] infection of Community urogenital system, Hospital unspecified / Repository A60.00(ICD-10) 03/13/2018 Unknown 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, Kash Active [facility] postherpetic nervous [employer] Community system involvement / Hospital B02.29(ICD-10) Repository 01/17/2018 Unknown 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, Kash Active [facility] bowel syndrome with [employer] [facility] Community diarrhea / Hospital K58.0(ICD-10) Repository 12/04/2017 Unknown F41.1 - Generalized Davis, Kash Active [place] anxiety disorder / [facility] [facility] Community F41.1(ICD-10) Hospital Repository 10/05/2017 Unknown N91.5 - [place], Molly Active [facility] Oligomenorrhea, Community unspecified / Hospital N91.5(ICD-10) Repository 10/05/2017 Unknown Z12.4 - Encounter Silver CreekGina douglass Active [facility] for screening for Community malignant neoplasm Hospital of cervix / Repository Z12.4(ICD-10) 2017 Unknown Z12.31 - Encounter Silver CreekGina Active [facility] for screening Community mammogram for Hospital malignant neoplasm Repository of breast / Z12.31(ICD-10) 2017 Unknown N85.2 - Hypertrophy Melany, Gina Active [facility] of uterus / Community N85.2(ICD-10) Hospital Repository 09/07/2017 Unknown L30.9 - Dermatitis, Kash Davis Active [facility] unspecified / [facility] [facility] Community L30.9(ICD-10) Hospital Repository 08/27/2017 Unknown M54.12 - Parris, Edward Active [facility] Radiculopathy, Community cervical region / Hospital M54.12(ICD-10) Repository 08/10/2017 Unknown H92.02 - Otalgia, Jaime, Gracie Active [facility] left ear / Community H92.02(ICD-10) Hospital Repository 09/04/2017 Unknown H65.192 - Other Davis, Kash Active [place] acute nonsuppurative [employer] Community otitis media, left Hospital ear / Repository H65.192(ICD-10) 09/04/2017 Unknown J06.9 - Acute upper DavisKash Active [place] respiratory [employer] Community infection, Hospital unspecified / Repository J06.9(ICD-10) PROCEDURES PROCEDURES No Procedure Records FoundRESULTS RESULTS DISCHARGE SUMMARY Observed: 07/16/2018 Status: F Source: [place] 9:49 AM [facility] Medical Records Department [address] [place] [address] Discharge Summary 07/16/18817 MR#: [id number] Acct: [id number] Name: NGUYEN MULLINS Rep #: [id number] : 1975 42 From: Juli Jimenez MD PCP: Kely Hopper MD Status: ADM IN Y Location: MS3 [id number] Discharge Date and Diagnosis - Problem List Patient Problems: Active and Suspected Problems (Last Reviewed 07/11/18 @ 15:56 by Maryanne Menezes) Gastroenteritis (Acute) Date of Admission: 07/14/18 Date of Discharge: 07/16/18 - Primary Discharge Diagnosis Active and Suspected Problems (Last Reviewed 07/11/18 @ 15:56 by Maryanne Menezes) Acute E. coli UTI, failed outpatient therapy Gastroenteritis (Acute), resolved Hypokalemia - Secondary Discharge Diagnosis Chronic Problems (Last Reviewed 07/11/18 @ 15:56 by Maryanne Menezes) Genital herpes (Chronic) Insomnia (Chronic) Generalized anxiety disorder with panic attacks (Chronic) Anxiety and depression (Chronic) Alcohol abuse (Chronic) History of marijuana use (Chronic) Hypertension (Chronic) PTSD (post-traumatic stress disorder) (Chronic) Migraine headache (Chronic) Hospital Course and Treatment Imaging Results: Clinical Impression(s) from Imaging Studies Gallbladder Ultrasound 07/14/18 17:06 IMPRESSION: There is a 5 mm nonobstructing stone in the lower pole of the right kidney. Otherwise, unremarkable study. Electronically Signed: Kristie Landa MD at 20:17 EST Tel , Service support , Abdomen/Pelvis CT 07/14/18 17:10 IMPRESSION: 1. Trace free fluid, otherwise no acute process. 2. A 2 cm uterine fibroid. Electronically Signed: Kristie Landa MD at 18:56 EST Tel , Service support , Renal Ultrasound 07/15/18 12:39 IMPRESSION: 1. Nonobstructing bilateral nephrolithiasis. No hydronephrosis. 2. Incompletely distended, but unremarkable urinary bladder. 3. Incidental note of 1.5 cm cystic structure along the endometrium of the uterus as well as 2.8 cm left ovarian cyst or pair of cysts. Electronically Signed: Richmond Munguia MD at 15:54 EST , Service support , None Operations: None Procedures: None Summary of Care Provided: 42 y/o female with h/o E. coli UTI, former alcoholic, nicotine dependence, anxiety/depression who comes in with complains of dysuria and flank pain. Patient had recently treated for E. coli at urgent care. 1. Acute E. coli UTI, failed outpatient therapy, no signs of sepsis on admission, managed on IV ceftriaxone, discharged on cefdinir. 2. Acute gastroenteritis, resolved. 3. Elevated LFTs, acute on chronic, repeat blood work showed improvement, hepatitis panel was pending at discharge 4. Anxiety/depression/PTSD, on trazodone 5. History of alcohol abuse, sober, advised to abstain 6. Nicotine dependence, advised to quit, managed on replacement here. [] Patient Problems: Active and Suspected Problems (Last Reviewed 07/11/18 @ 15:56 by Maryanne Menezes) Gastroenteritis (Acute) Subjective: Patient was seen and examined. [place] improved. Dysuria is improved. No more abdominal pain, dizziness, SOB. - Physical Exam Vital Signs Temp Pulse Resp BP Pulse Ox 97.5 F L 62 14 96/58 L 99 07/16/18 04:37 07/16/18 04:37 07/16/18 04:37 07/16/18 04:37 07/16/18 04:37 Oxygen Delivery Method Room Air Weight: 50.6 kg Body Mass Index (BMI) 20.4 Intake and Output for Last 24 Hours Intake Total 2588 / 2588 2067 / 2067 Output Total 2475 / 2475 4200 / 4200 Balance 113 / 113 -2133 / -2133 Microbiology Past 72 Hours 07/14/18 22:40 Respiratory Panel (PCR) - Final Mucosa - Nasopharyngeal Laboratory Tests Past 24 Hrs WBC 4.1 L RBC 4.26 Hgb 12.8 Hct 37.5 MCV 88.0 MCH 30.0 MCHC 34.1 RDW 13.1 RDW Differential 41.3 Discharge Diet: No Restrictions Discharge Activity: Return to Normal Activity Home Medications: Medications to take at Discharge trazodone 50 mg tablet 50 mg PO QHS PRN #90 tab 12/04/17 Acetaminophen [Tylenol Tablet] 650 mg PO Q6H PRN PRN tablet 07/16/18 Cefdinir [Omnicef [equiv]] 300 mg PO Q12H #14 capsule 07/16/18 Phenazopyridine HCl [Pyridium] 200 mg PO TID #6 tablet 07/16/18 Following Prescrptions Were Given to Patient: Cefdinir [Omnicef [equiv]] 300 mg PO Q12H #14 capsule Phenazopyridine HCl [Pyridium] 200 mg PO TID #6 tablet Primary Care Physician: Kely Hopper MD [Primary Care Provider] - Please follow up with your Primary Care Physician in: within 1-2 weeks Disposition: Home Minutes spent on discharge:: 40 Patient Condition:: Stable Medical Necessity - Tobacco Use Smoking Status: Former smoker Tobacco Use: Non-smoker, Vapor Meaningful Use Info Meaningful Use Diagnoses (Choose all that apply): None applicable Code Visit Inpatient E AND M: 51932 Disch Hosp 07/16/18 0949 <Electronically signed by Juli Jimenez MD> Date Juli Jimenez MD Cosigner Signature (if applicable): Date CC: Juli Jimenez MD; Kely Hopper MD Signed DISCHARGE INSTRUCTION Observed: 07/16/2018 Status: F Source: [place] 8:42 [facility] Medical Records Department [address] [place] [address] Instructions for Home/Discharge Instructions 07/16/18 0812 MR#: [id number] Acct: [id number] Name: NGUYEN MULLINS Rep #: [id number] : 1975 42 From: Juli Jimenez MD PCP: Kely Hopper MD Status: ADM IN ADDENDUM by Juli Jimenez MD on 07/16/18 at 0842 Follow-up with your primary care doctor within 3 days for repeat kidney function test to follow-up on low blood potassium in the hospital. 07/16/18 0842 Date Juli Jimenez MD cc: Kely Hopper MD * Signed - Discharge Diagnoses Current Active Problems: Current Active and Chronic Problems (Last Reviewed 07/11/18 @ 15:56 by Maryanne Menezes) Gastroenteritis (Acute) Reason(s) for Visit for Discharge Instructions: Abdominal pain You will use the following diet at home:: Regular Your food should be the consistency of: Regular Your liquids should be the consistency of: Regular/Thin Discharge Activity: Return to Normal Activity Additional Instructions: Continue to hydrate yourself. Complete your antibiotics. Follow-up with your PCP within 1-2 weeks. Allergies/Adverse Reactions: Allergies valacyclovir [From Valtrex] Allergy (Verified 07/11/18 15:56) Hives Medications to take at Discharge trazodone 50 mg tablet 50 mg PO QHS PRN #90 tab 12/04/17 Acetaminophen [Tylenol Tablet] 650 mg PO Q6H PRN PRN tablet 07/16/18 Cefdinir [Omnicef [equiv]] 300 mg PO Q12H #14 capsule 07/16/18 Phenazopyridine HCl [Pyridium] 200 mg PO TID #6 tablet 07/16/18 The following prescriptions were given: Cefdinir [Omnicef [equiv]] 300 mg PO Q12H #14 capsule Phenazopyridine HCl [Pyridium] 200 mg PO TID #6 tablet Primary Care Physician: Kely Hopper MD [Primary Care Provider] - Please follow up with your Primary Care Physician in: within 1-2 weeks Test Results: Test results from this visit will be discussed in further detail at your follow-up appointment, if applicable. Proposed Discharge Date: 07/16/18 07/16/18813 <Electronically signed by Juli Jimenez MD> Date Juli Jimenez MD CC: Kely Hopper MD Signed CBC W/DIFF, AUTOMATED Collected: 07/16/2018 Status: F Source: [place] 5:06 AM [facility] REPOSITORY TYPE CODE TESTS RESULT OUT OF RANGE REFERENCE UNITS LAB L100.1000 4.4-11.0 K/mm3 Low WBC 4.1 LAB L100.1200 4.2-5.4 M/mm3 Normal RBC 4.26 LAB L100.1300 12.0-15.0 g/dl Normal HGB 12.8 LAB L100.1400 37-47 % Normal HCT 37.5 LAB L100.1500 81-99 fL Normal MCV 88.0 LAB L100.1600 27.0-32.0 pg Normal MCH 30.0 LAB L100.1700 32-36 g/gl Normal MCHC 34.1 LAB L100.1810 11.6-14.6 % Normal RDW CV 13.1 LAB L100.1820 35.1-43.9 fl Normal RDW SD 41.3 LAB L100.1900 150-450 K/mm3 Normal PLT 181 LAB L100.2000 6.2-12.0 fl Normal MPV 11.1 LAB L100.2100 47-70 % Low NEUT% 36.7 LAB L100.2200 19-41 % High LY% 43.6 LAB L100.2300 0-10 % High MONO% 15.3 LAB L100.2400 0-5 % Normal EO% 3.9 LAB L100.2500 0-1 % Normal BASO% 0.5 LAB L100.2550 0.0-0.9 % Normal IM GRAN % 0.000 Result Comment: IG% - Immature Granulocytes (promyelocytes, myelocytes and metamyelocytes) > 1% indicates that a LEFT SHIFT is Present. LAB L100.2620 2.0-7.7 X10 3/uL Low Absolute Neut 1.5 LAB L100.2720 0.83-4.51 X10 3/ul Normal Absolute Lymph 1.80 Performed By: #### L100.0100 #### [facility] [address] [place], [place], [id number] BASIC METABOLIC Collected: 07/16/2018 Status: F Source: [place] PROFILE (BMP) 5:06 AM [facility] REPOSITORY TYPE CODE TESTS RESULT OUT OF RANGE REFERENCE UNITS LAB L501.0100 74-106 mg/dL Normal GLU 90 Result Comment: Please note revised GLUCOSE reference range effective 2017. LAB L501.1000 7-18 mg/dL Low BUN 3 LAB L501.1100 0.55-1.02 mg/dL Low CREAT,SERUM 0.46 Result Comment: The validity of the calculated GFR AND GFRAA in patients over 70 years has not been determined. Clinical correlation is essential. LAB L501.1110 >60 mL/min Normal EST GFR 158 Result Comment: Non- GFR Calc LAB L501.1115 >60 mL/min Normal EST GFR - AA 191 Result Comment: GFR Calc LAB L501.1255 ml/min Normal Estimated CRCL 126.01 LAB L501.1300 10-20 RATIO Low BUN/CRE 6.5 LAB L501.2200 8.5-10 mg/dL Low .1 CA 8.0 LAB L501.5300 136-14 mmol/L 5 NA Normal 142 LAB L501.5600 3.5-5. mmol/L Low 1 K 3.2 LAB L501.5900 98-107 mmol/L High CL 109 LAB L501.6100 21.0-3 mmol/L 2.0 CO2 Normal 25.0 LAB L501.6200 5-15 GAP Normal 8 Performed By: #### L500.2500 #### [facility] [address] [place], [place], [address] LIVER PROFILE Collected: 07/16/2018 Status: F Source: [place] 5:06 AM [facility] REPOSITORY Order Comment: Comments: as add on test Comments: as add on test TYPE CODE TESTS RESULT OUT OF RANGE REFERENCE UNITS LAB L501.1500 6.4-8.2 g/dL Low T PROT 5.8 LAB L501.1800 3.2-5.0 g/dL Low ALB 2.5 LAB L501.1950 2.2-4.2 g/dL Normal GLOB 3.3 LAB L501.4100 15-37 U/L High AST 85 LAB L501.4305 45-117 U/L High ALK P 193 LAB L501.4405 13-56 U/L High ALT 215 LAB L501.4600 0.20-1.00 mg/dL Normal T BILI 0.40 LAB L501.4700 0.00-0.30 mg/dL Normal D BILI 0.22 Performed By: #### L500.3400, L501.5200 #### [facility] [address] [place], [address] MAGNESIUM Collected: 07/16/2018 Status: F Source: [place] 5:06 AM [facility] REPOSITORY Order Comment: Comments: as add on test Comments: as add on test TYPE CODE TESTS RESULT OUT OF RANGE REFERENCE UNITS LAB L501.5200 1.6-2.6 mg/dL Low MG 1.5 Performed By: #### L500.3400, L501.5200 #### [facility] [address] [place], [address] KIDNEY AND BLADDER Observed: 07/15/2018 Status: F Source: [place] 12:40 PM [facility] REPOSITORY [facility] Imaging Services [address] [place] [address] Kidney and Bladder MR#: [id number] Acct: [id number] Name: NGUYEN MULLINS Rep #: [id number] : 1975 F 42 From: Kenroy Munguia MD PCP: Kely Hopper MD Status: ADM IN Study: Kidney and Bladder Date of Exam: 07/15/18 Exam# [id number] Ordering Dr: Juli Jimenez MD STUDY: RENAL ULTRASOUND - COMPLETE REASON FOR EXAM: Female, 42 years old. Recurrent UTIs. History of nephrolithiasis. TECHNIQUE: Ultrasound evaluation of the kidneys was performed with real-time and static gross-scale imaging. COMPARISON: Right upper quadrant ultrasound and CT abdomen pelvis July 14, 2018. FINDINGS: RIGHT KIDNEY: Normal location of the right kidney, which is normal in size. The right kidney measures 11.7 x 6.1 x 4.9 cm. There is a normal cortex of the right kidney. The renal cortex measures 1.7 cm. There is no right renal mass or cyst. 3 nonobstructing 3 mm stones were noted, one at the upper pole and 2 at the lower pole. There is no right hydronephrosis. DISTAL RIGHT URETER: There is non-visualization of the distal right ureter. There is no demonstrated right ureterovesical junction calculus. There is a visualized right ureteral jet. LEFT KIDNEY: Normal location of the left kidney, which is normal in size. The left kidney measures 10.8 x 5.4 x 5.9 cm. There is a normal cortex of the left kidney. The renal cortex measures 1.7 cm. There is no left renal mass or cyst. A pair of nonobstructing stones are identified. One of the mid pole is 4 mm, while one at the lower pole a 6 mm. There is no left hydronephrosis. DISTAL LEFT URETER: There is non-visualization of the distal left ureter. There is no demonstrated left ureterovesical junction calculus. There is a visualized left ureteral jet. BLADDER: The distended urinary bladder has a volume of 80 ml. The empty urinary bladder has a volume of 4.8 ml. There is a normal 2 mm wall thickness of the distended urinary bladder. There is no demonstrated mass within the urinary bladder. There are no demonstrated bladder calculi. UTERUS AND ADNEXA: 1.1 x 1.5 x 1.2 cm cystic lesion noted on the posterior endometrial margin of the uterus. A 1.6 x 2.8 x 1.8 cm bilobed, partially septated cyst or pair of cysts also seen in the left ovary. US/Kidney and Bladder IMPRESSION: 1. Nonobstructing bilateral nephrolithiasis. No hydronephrosis. 2. Incompletely distended, but unremarkable urinary bladder. 3. Incidental note of 1.5 cm cystic structure along the endometrium of the uterus as well as 2.8 cm left ovarian cyst or pair of cysts. Electronically Signed: Richmond Munguia MD at 15:54 EST , Service support , CC: Juli Jimenez MD; Kely Hopper MD Infant Babysitter: Signed COMPREHENSIVE METABOLIC Collected: 07/15/2018 Status: F Source: [place] PROFIL 5:16 AM [facility] REPOSITORY TYPE CODE TESTS RESULT OUT OF RANGE REFERENCE UNITS LAB L501.0100 74-106 mg/dL Normal GLU 83 Result Comment: Please note revised GLUCOSE reference range effective 2017. LAB L501.1000 7-18 mg/dL Low BUN 6 LAB L501.1100 0.55-1.02 mg/dL Low CREAT,SERUM 0.39 Result Comment: The validity of the calculated GFR AND GFRAA in patients over 70 years has not been determined. Clinical correlation is essential. LAB L501.1110 >60 mL/min Normal EST GFR 189 Result Comment: Non- GFR Calc LAB L501.1115 >60 mL/min Normal EST GFR - AA 228 Result Comment: GFR Calc LAB L501.1255 ml/min Normal Estimated CRCL 148.62 LAB L501.1300 10-20 RATIO BUN/CRE Normal 15.2 LAB L501.1500 6.4-8. g/dL Low 2 T PROT 5.6 LAB L501.1800 3.2-5. g/dL Low 0 ALB 2.5 LAB L501.1950 2.2-4. g/dL 2 GLOB Normal 3.1 LAB L501.2000 0.9-2. RATIO Low 4 A/G 0.8 LAB L501.2200 8.5-10 mg/dL Low .1 CA 7.7 LAB L501.4100 15-37 U/L High AST 149 LAB L501.4305 45-117 U/L High ALK P 139 LAB L501.4405 13-56 U/L High ALT 289 LAB L501.4600 0.20-1 mg/dL .00 T BILI Normal 0.80 LAB L501.5300 136-14 mmol/L 5 NA Normal 139 LAB L501.5600 3.5-5. mmol/L Low 1 K 3.2 LAB L501.5900 98-107 mmol/L CL Normal 106 LAB L501.6100 21.0-3 mmol/L 2.0 CO2 Normal 24.0 LAB L501.6200 5-15 GAP Normal 9 Performed By: #### L500.4050 #### [facility] [address] [place], [address] CBC W/DIFF, AUTOMATED Collected: 07/15/2018 Status: F Source: [place] 5:16 AM [facility] REPOSITORY TYPE CODE TESTS RESULT OUT OF RANGE REFERENCE UNITS LAB L100.1000 4.4-11.0 K/mm3 Low WBC 3.8 LAB L100.1200 4.2-5.4 M/mm3 Low RBC 3.98 LAB L100.1300 12.0-15.0 g/dl Normal HGB 12.0 LAB L100.1400 37-47 % Low HCT 35.2 LAB L100.1500 81-99 fL Normal MCV 88.4 LAB L100.1600 27.0-32.0 pg Normal MCH 30.2 LAB L100.1700 32-36 g/gl Normal MCHC 34.1 LAB L100.1810 11.6-14.6 % Normal RDW CV 12.9 LAB L100.1820 35.1-43.9 fl Normal RDW SD 40.5 LAB L100.1900 150-450 K/mm3 Low PLT 128 LAB L100.2000 6.2-12.0 fl Normal MPV 11.1 LAB L100.2100 47-70 % High NEUT% 81.7 LAB L100.2200 19-41 % Low LY% 10.3 LAB L100.2300 0-10 % Normal MONO% 6.1 LAB L100.2400 0-5 % Normal EO% 1.3 LAB L100.2500 0-1 % Normal BASO% 0.3 LAB L100.2550 0.0-0.9 % Normal IM GRAN % 0.300 Result Comment: IG% - Immature Granulocytes (promyelocytes, myelocytes and metamyelocytes) > 1% indicates that a LEFT SHIFT is Present. LAB L100.2620 2.0-7.7 X10 3/uL Normal Absolute Neut 3.1 LAB L100.2720 0.83-4.51 X10 3/ul Low Absolute Lymph 0.39 Performed By: #### L100.0100 #### [facility] [address] [place], [place], [id number] HEPATITIS ABC PROFILE Collected: 07/15/2018 Status: F Source: [place] 5:16 AM [facility] REPOSITORY TYPE CODE TESTS RESULT OUT OF RANGE REFERENCE UNITS LAB L3100.0200 Negative Normal HEP A Negative IgM 6734 LAB L3100.0300 Negative Normal HEP A Negative AB,T.6726 LAB L3100.0400 Negative Normal HB Negative SURF AG LAB L3100.0440 Negative Normal HB Negative CORE [id number] LAB L3100.0460 Negative Normal HEP B Negative CORE,TOT LAB L3100.0510 . Normal Hep B Non Reactive Fernanda AB Result Comment: Non Reactive: Inconsistent with immunity, less than 10 mIU/mL Reactive: Consistent with immunity, greater than 9.9 mIU/mL LAB L3100.0750 0.0-0.9 s/co ratio Normal HCV Ab 0.1 LAB L3100.0765 . Normal COMMENT Comment Result Comment: Non reactive HCV antibody screen is consistent with no HCV infection, unless recent infection is suspected or other evidence exists to indicate HCV infection. Performed at: [facility] [id number] Data Communications Engineer: Ilan Choi PhD, Phone: [phone] Performed By: #### L3000.0700 #### [facility] (refer to report for specific site) refer to report for address and phone number Observed: 07/14/2018 Status: F Source: [place] RESPIRATORY PANEL 10:40 PM [facility] MOLECULAR REPOSITORY RP PANEL ADENOVIRUS Not Detected HUMAN METAPHNEUMO Not Detected INFLUENZA A Not Detected INFLUENZA A (SUBTYPE H1) Not Detected INFLUENZA A (SUBTYPE H3) Not Detected INFLUENZA B Not Detected PARAINFLUENZA 1 Not Detected PARAINFLUENZA 2 Not Detected PARAINFLUENZA 3 Not Detected PARAINFLUENZA 4 Not Detected RHINOVIRUS Not Detected RSV A Not Detected RSV B Not Detected NAAT METHOD Testing was performed using nucleic acid amplification Performed By: #### M100.638 #### [facility] [place], [place], [address] MAGNESIUM Collected: 07/14/2018 Status: F Source: [place] 9:50 PM [facility] REPOSITORY TYPE CODE TESTS RESULT OUT OF RANGE REFERENCE UNITS LAB L501.5200 1.6-2.6 mg/dL Normal MG 1.8 Performed By: #### L501.5200 #### [facility] [address] [place], [place], [address] PROTHROMBIN TIME W/INR Collected: 07/14/2018 Status: F Source: [place] 9:50 PM [facility] REPOSITORY TYPE CODE TESTS RESULT OUT OF RANGE REFERENCE UNITS LAB L300.4150 11.7-14.9 SECONDS High PROTIME 15.5 LAB L300.4200 Normal INR 1.2 Performed By: #### L300.3900, L300.4310 #### [facility] [address] [facility] [place], [address] PARTIAL THROMBOPLAST Collected: 07/14/2018 Status: F Source: [place] TIME 9:50 PM [facility] REPOSITORY TYPE CODE TESTS RESULT OUT OF RANGE REFERENCE UNITS LAB L300.4310 24.1-36.2 Seconds Normal PTT 34.6 Performed By: #### L300.3900, L300.4310 #### [facility] [address] [facility] [place], [address] EMERGENCY DEPARTMENT Observed: 07/14/2018 Status: F Source: [place] SUMMARY 9:21 PM [facility] REPOSITORY [facility] Medical Records Department [address] [place] [address] Emergency Department Summary 07/14/18 1616 MR#: [id number] Acct: [id number] Name: NGUYEN MULLINS Rep #: [id number] : 1975 42 From: Cuate Naranjo MD PCP: Kely Hopper MD Status: ADM IN - ER Visit Summary Date of Service: 07/14/18 Chief Complaint: Dysuria, fever, back pain History of Present Illness: The patient is a 42 F presents to the emergency department symptoms of pyelonephritis. Patient states she started with urinary frequency and urgency about 5 days ago. 3 days ago, she went to urgent care. She was diagnosed with urinary tract infection. She was started on Macrobid. She states that she was taking it, he began to have worsening right-sided back pain, fever, chills, and vomiting. States her symptoms had improved yesterday, but then returned again today. She does describe some generalized malaise. She has no history of immunosuppression. She denies any vaginal bleeding or discharge. She is otherwise been in her normal state of health. Physical Examination: Vital signs reviewed General: Well-nourished, well-developed Head: Normocephalic, atraumatic Eyes: Pupils equal and reactive, extraocular muscles intact Neck, supple, no lymphadenopathy Heart: Regular rate and rhythm Respiratory: No distress, clear bilaterally Abdomen: Soft, nontender, nondistended, no peritoneal signs Back: Mild right CVA tenderness Extremities: Nontender, no edema, no cords Skin: Normal color no rash Neuro: Alert and oriented, no focal or lateralizing deficits Test Results: [] Emergency Department Course and Treatment: The patient symptoms did seem most consistent with pyelonephritis. She was having back pain, nausea, vomiting, and fever. I did review her culture and it was E. coli that was pansensitive. My suspicion is that this may been partially treated by the Macrobid if she was already having symptoms of pyelonephritis. IV was established. Patient given fluids, antiemetics, and Rocephin. Blood counts were unremarkable. However, the patient's LFTs are markedly elevated. She really does not have any significant abdominal tenderness. I obtained a CT which shows no evidence of obstruction. I obtained right after quadrant ultrasound. This is also unremarkable. I am unsure of the acute etiology of her elevation of LFTs. The patient does have a history of alcohol abuse, but she been sober for a year now. With her pyelonephritis, I am going to admit her for IV antibiotics and symptom control. I do feel that her LFTs will likely monitor and if not improving, potentially proceed with a HIDA scan. The patient is comfortable with this plan of care. Treatment Plan: [] Disposition: Admission Impression: 1. Pyelonephritis 2. Elevation of the LFTs. This note was generated with Friend[employer] dictation software. It may contain incorrect words, spelling, and punctuation that were not noted in review of the chart prior to signing ED Disposition - Plan for ED Patient: Chief Complaint: Complaint Referrals: Kely Hopper MD [Primary Care Provider] - What to do if you have Problems For any increased pain, shortness of breath, bleeding, nausea or vomiting, chest pain, or any unexpected problems, contact your Primary Care Provider. Call [facility] ([phone]) or report to the closest Emergency Room. Call 911 if necessary. 07/14/182120 <Electronically signed by uCate Naranjo MD> Date Cuate Forresterignleticia Signature (If Indicated): Date CC: Kely Hopper MD HISTORY AND PHYSICAL Observed: 07/14/2018 Status: F Source: [place] EXAM 9:19 PM [facility] REPOSITORY [facility] Medical Records Department [address] [place] [address] History and Physical 07/14/182039 MR#: [id number] Acct: [id number] Name: NGUYEN MULLINS Rep #: [id number] : 1975 42 From: Marcy Pavon PCP: Kely Hopper MD Status: ADM IN Location: [facility] NG246-1 Problem List (1) Urinary tract infection with hematuria Status: Acute Qualifiers: Urinary tract infection type: acute cystitis Qualified Code(s): N30.01 - Acute cystitis with hematuria (2) Gastroenteritis Status: Acute (3) Left flank pain Status: Acute (4) Genital herpes Status: Chronic Qualifiers: Herpes simplex infection site: unspecified site of urogenital system Qualified Code(s): A60.00 - Herpesviral infection of urogenital system, unspecified (5) Generalized anxiety disorder with panic attacks Status: Chronic (6) Anxiety and depression Status: Chronic (7) Alcohol abuse Status: Chronic (8) History of marijuana use Status: Chronic (9) Hypertension Status: Chronic Qualifiers: Hypertension type: essential hypertension Qualified Code(s): I10 - Essential (primary) hypertension (10) PTSD (post-traumatic stress disorder) Status: Chronic (11) Migraine headache Status: Chronic Qualifiers: Migraine type: unspecified Status migrainosus presence: without status migrainosus Intractability: not intractable Qualified Code(s): G43.909 - Migraine, unspecified, not intractable, without status migrainosus History of Present Illness Date of Admission: 07/14/18 Chief Complaint: Recent UTI, Flank Pain, N/V/D/F/C The patient is a 42 y/o F w/ PMHx: Recovering Alcoholic (Sober x 1 year), History of Tobacco use now Vaping usage, History prior Elevated LFTs, Anxiety and Depression, Gential Herpes who presents to the [facility] ED on 07/14/18 with history of onset dysuria and mild R flank discomfort as well as suprapubic TTP on the prior Sunday with evaluation at the next day with initiation on Macrobid w/ UCx w/ >100,000 E. Coli with then onset starting on Sunday nausea, emesis, fever, chills, abdominal generalized cramping as well as diarrhea with ill contact (children with GI 24 hour illness with similar symptoms) noting that diarrhea on day of ED presentation improved w/ only 2 episodes in addition to generalized headache, throbbing and ongoing worsening BL, R>L flank pain prompting ED evaluation. Work-up in the ED included T 99.3, heart rate 82, BP 121/74, respiratory rate 17, 99% on room air, CBC with W BC 4, hemoglobin 15.2, platelet 161 without marked shift, CMP with glucose 109, total bili 1.30, AST/ALT 1 483/563, alk phos 207, lipase 67, urinalysis with specific gravity 1.020, protein 100, ketones 15, occult blood 50, nitrite negative, leukocyte esterase 100, RBC 5-10, WBC 5-10, squamous epithelial cells 5-10, 0 bacteria, CT abdomen pelvis with trace free fluid otherwise no acute process with a 2 cm uterine fibroid, gallbladder ultrasound with a 5 mm nonobstructing stone in the lower pole of the right kidney otherwise unremarkable study including a normal distended gallbladder with the wall measuring 2 mm with negative sonographic Hart sign and no pericholecystic fluid or gallstones present with common bile duct 4 mm. In the ED patient administered normal saline, Zofran, morphine, Toradol, Rocephin. Past Medical History Past Medical History (Chronic Problems): Chronic Problems (Last Reviewed 07/11/18 @ 15:56 by Maryanne Menezes) Genital herpes (Chronic) Insomnia (Chronic) Generalized anxiety disorder with panic attacks (Chronic) Anxiety and depression (Chronic) Alcohol abuse (Chronic) History of marijuana use (Chronic) Hypertension (Chronic) PTSD (post-traumatic stress disorder) (Chronic) Migraine headache (Chronic) Medical History: Medical History (Last Reviewed 07/11/18 @ 15:56 by Maryanne Menezes) Shingles (Acute) B02.9 History of marijuana use (Chronic) Z87.898 Anxiety F41.9 Back pain M54.9 Depression F32.9 Genital herpes A60.00 History of alcohol abuse Z87.898 History of marijuana use Z87.898 Insomnia G47.00 Migraine G43.909 PTSD (post-traumatic stress disorder) F43.10 history marijuana abuse Hypertension I10 Seasonal allergies J30.2 UTI (urinary tract infection) N39.0 Allergies valacyclovir [From Valtrex] Allergy (Verified 07/11/18 15:56) Hives Home Medications: Ambulatory Orders Medication Instructions Recorded trazodone 50 mg tablet 50 mg PO QHS PRN #90 tab 18 Surgical History: Surgical History (Last Reviewed 07/11/18 @ 15:56 by Maryanne Menezes) History of exploratory laparotomy Z98.890 cesarian times 2 Surgical History: - - Ex Lap, x 2. Psychiatric History: Anxiety, Depression, Post traumatic stress REWRITER History: No pertinent REWRITER history Lives: Spouse/ Significant Other Smoking Status: Former smoker Tobacco Use: Vapor - Uses vapor now, prior cigarette tobacco usage with 1 pack/day cigarettes until 8 years ago at which point patient discontinued this and transition to vapor she notes is amenable, mild. Alcohol: Sober - Sober x 1 year, notes prior was heavy wine drinker. Drugs: Marijuana - *Family History Maternal Family History: Family History (Last Reviewed 07/11/18 @ 15:56 by Maryanne Menezes) Father Hypertension Alcoholism Grandfather Alcoholism Colon cancer Mother Hypertension Depression Brother Depression Grandmother Diabetes Colon cancer Uncle Cancer History Items: Hypertension Paternal Family History: Family History (Last Reviewed 07/11/18 @ 15:56 by Maryanne Menezes) Father Hypertension Alcoholism Grandfather Alcoholism Colon cancer Mother Hypertension Depression Brother Depression Grandmother Diabetes Colon cancer Uncle Cancer History Items: Hypertension Review of Systems Constitutional: Reports: Anorexia, Chills, Fever, Malaise, Weakness, Fatigue. Denies: Weight Change HEENT: Reports: Head Aches. Denies: Sinus Congestion, Sinus Drainage Cardiovascular: Denies: Chest Pain, Palpitations Respiratory: Denies: Cough, Shortness of breath at rest, Sputum production Gastrointestinal: Reports: Abdominal Pain, Diarrhea, Nausea, Vomiting Genitourinary: Reports: Dysuria Musculoskeletal: Reports: Joint Pain, Muscle pain. Denies: Joint Tenderness Skin: Denies: Rash, Wounds Neurological: Denies: Numbness, Tingling, Focal weakness Psychiatric: Reports: Anxiety, Depression. Denies: Homicidal Ideations, Suicidal Ideations Hematologic/ Lymphatic: Denies: Easy Bruising, Easy Bleeding VTE Information - Inpt Only VTE Present on Admission: No VTE Mechan Device Prophylaxis: SCD's VTE Pharm Prophylaxis ordered?: Yes Patient Problems: Active and Suspected Problems (Last Reviewed 07/11/18 @ 15:56 by Maryanne Menezes) Gastroenteritis (Acute) Subjective: Seated upright in the ED bed, fatigued, NAD. Objective: Physical Examination: General: awake, alert, oriented x 3 and cooperative, seated upright in the ED bed in no apparent distress. Skin: normal color, turgor, no icterus, cyanosis. HEENT: AT/NC, EOMI, PERRLA, dry MM, no carotid bruits or JVD noted. Lungs: CTA bilaterally, moderate effort, mild decrease BL bases, no rales, ronchi or wheezing. Heart: Regular rate and rhythm; no gallop, rub audible. Abdomen: soft, mild generalized discomfort, no rebound or guarding including RUQ, mildly distended, hyperactive BS, R>L flank discomfort w/ palpation, no HSM. Extremities: no cyanosis, clubbing, or edema. Neurological: patient awake, alert, oriented x 3; cognitive function intact; pupils equally reactive to light and accomodation; cranial nerves II-XII grossly normal, moving all 4 extremities, no focal deficits, strength moderately globally decreased secondary to acute presentation. Psychiatric: affect appears fatigued, no acute evidence of depressive or anxiety feelings. - Physical Exam Vital Signs Temp Pulse Resp BP Pulse Ox 99.3 F H 79 16 127/73 H 98 07/14/18 18:21 07/14/18 18:21 07/14/18 18:21 07/14/18 18:21 07/14/18 18:21 Oxygen Delivery Method Room Air Weight: 112 lb Body Mass Index (BMI) 20.5 Laboratory Tests Past 24 Hrs WBC 4.0 L RBC 5.02 Hgb 15.2 H WBC RBC Hgb Hct MCV MCH MCHC Assessment/Plan All Active Problems (Last Reviewed 07/11/18 @ 15:56 by Maryanne Menezes) Gastroenteritis (Acute) Urinary tract infection with hematuria (Acute) Left flank pain (Acute) Shingles (Acute) Shingles (Acute) Elevated random blood glucose level (Acute) The patient is a 42 y/o F w/ PMHx: Recovering Alcoholic (Sober x 1 year), History of Tobacco use now Vaping usage, History prior Elevated LFTs, Anxiety and Depression, Gential Herpes who presents to the [facility] ED on 07/14/18 with history of onset dysuria and mild R flank discomfort as well as suprapubic TTP on the prior Sunday with evaluation at the next day with initiation on Macrobid w/ UCx w/ >100,000 E. Coli with then onset starting on Sunday nausea, emesis, fever, chills, abdominal generalized cramping as well as diarrhea, generalized headache, throbbing and ongoing worsening BL, R>L flank pain. (1) Acute Suspected E. Coli Pyelonephritis: Will admit to [facility] UA upon ED evaluation not severe appearing but recent UA notable with E. Coli > 100,000 CFU from 3 days prior from UC evaluation, continue IVFs, monitor I/Os, continue IV Rocephin. (2) N/V/D, ? Viral Gastroenteritis versus sxs associated w/ #1: Will continue aggressive hydration, maintained on IV rocephin for noted concurrent suspected early pyelonephritis that was treated outpatient w/ macrobid as noted, if recurrent loose stools would obtain stool cultures, anti-emetics, pain regimen PRN. (3) Elevated LFTs, Acute on Chronic: GBUS not severe appearing, will obtain hepatitis panel, hydrate aggressively, likely elevation acute on chronic secondary to acute viral illness #2, repeat CMP in AM. (4) Anxiety and Depression/PTSD: Continue home regimen trazodone, denies being on sertraline any longer, would benefit from SSRI/SNRI re-addition if sxs ongoing. (5) History of EtOH Abuse: Sober x 1 year, denies any concurrent IVDA history, does use cannabis. (6) Tobacco Abuse: Encouraged cessation, inpatient consultation per RT, NR if desired. (7) GERD: PPI. (8) DVT Prophylaxis: SCDs, lovenox. Code Visit Inpatient E AND M: [id number] Init Hosp L3 07/14/182118 <Electronically signed by Marcy Pavon > Date Marcy Pavon Cosigner Signature: Date (if applicable) CC: Marcy Pavon; Kely Hopper MD Signed ABDOMEN/PELVIS W IV CONT Observed: 07/14/2018 Status: F Source: [facility] 5:11 PM [facility] REPOSITORY [facility] Imaging Services [address] [place] [address] Abdomen/Pelvis W IV Cont ONLY MR#: [id number] Acct: [id number] Name: NGUYEN MULLINS Rep #: [id number] : 1975 F 42 From: Kristie Landa MD PCP: Kely Hopper MD Status: REG ER Study: Abdomen/Pelvis W IV Cont ONLY Date of Exam: 07/14/18 Exam# [id number] Ordering Dr: Cuate Naranjo MD STUDY: CT ABDOMEN AND PELVIS WITH CONTRAST REASON FOR EXAM: Female, 42 years old. UTI, abdominal pain. RADIATION DOSAGE (If Supplied By Facility): CTDIvol = ( 10.02 ) mGy, DLP = ( 311.11 ) mGycm TECHNIQUE: Transaxial images were obtained from the dome of the diaphragm to the symphysis pubis without oral contrast. 100ML ml of Isovue 300 contrast was administered. Sagittal and coronal images were reconstructed. Individualized dose optimization techniques were used for this CT. COMPARISON: None. FINDINGS: Lung bases are clear. Visualized heart is normal. The liver is unremarkable. The gallbladder is unremarkable. The spleen and pancreas are unremarkable. The adrenal glands are normal. The kidneys are unremarkable. No stones or hydronephrosis. The aorta is normal in caliber. There is trace free fluid in the cul-de-sac. There is no free air or organized collection. No bowel obstruction or inflammatory change. Normal appendix. Urinary bladder is unremarkable. The uterus is anteverted. There is a 2 cm lesion in the posterior fundus, probable fibroid. There is a 2.7 cm septated left ovarian cyst versus 2 adjacent cysts. Normal abdominal wall. Normal osseous structures. CT/Abdomen/Pelvis W IV Cont ONLY IMPRESSION: 1. Trace free fluid, otherwise no acute process. 2. A 2 cm uterine fibroid. Electronically Signed: Kristie Landa MD at 18:56 EST Tel , Service support , CC: Kely Hopper MD; Cuate Naranjo MD Infant Babysitter: Signed GALLBLADDER Observed: 07/14/2018 Status: F Source: [place] 5:06 PM [facility] REPOSITORY [facility] Imaging Services [address] [place] [address] Gallbladder MR#: [id number] Acct: [id number] Name: NGUYEN MULLINS Rep #: [id number] : 1975 F 42 From: Kristie Landa MD PCP: Kely Hopper MD Status: REG ER Study: Gallbladder Date of Exam: 07/14/18 Exam# [id number] Ordering Dr: Cuate Naranjo MD STUDY: ABDOMINAL ULTRASOUND - RIGHT UPPER QUADRANT REASON FOR VISIT: Female, 42 years old. Right upper quadrant pain, chronic UTIs. TECHNIQUE: Ultrasound evaluation of the right upper quadrant was performed with real-time and static jose-scale imaging. TECHNICAL QUALITY: Adequate. COMPARISON: CT abdomen 07/14/2018. FINDINGS: Liver: The liver measures 17.5 cm. There is normal echogenicity of the liver. The bile ducts are within normal limits. There is hepatic color flow. The direction of portal flow is hepatopetal. There is no demonstrated mass lesion. Gallbladder: Normal distended gallbladder. The gallbladder wall measures 2 mm. There is a negative sonographic Hart's sign. There is no pericholecystic fluid. There are no gallstones. Common Bile Duct (C.B.D.): The common bile duct measures 4 mm. Pancreas: Normal size of the head, body and tail of the pancreas. There is normal echogenicity of the pancreas. There is no demonstrated pancreatic mass or cyst. Right Kidney: Normal size of the right kidney. The right kidney measures 11.6 x 4.2 x 4.8 cm. Normal renal cortex. The right cortex measures 1.2 cm. There is no demonstrated renal mass or cyst. There is no right hydronephrosis. There is a 5 x 2 mm shadowing stone in the lower pole of the right kidney. US/Gallbladder IMPRESSION: There is a 5 mm nonobstructing stone in the lower pole of the right kidney. Otherwise, unremarkable study. Electronically Signed: Kristie Landa MD at 20:17 EST Tel , Service support , CC: Kely Hopper MD; Cuate Naranjo MD Infant Babysitter: Signed CBC W/DIFF, AUTOMATED Collected: 07/14/2018 Status: F Source: [place] 4:35 PM [facility] REPOSITORY TYPE CODE TESTS RESULT OUT OF RANGE REFERENCE UNITS LAB L100.1000 4.4-11.0 K/mm3 Low WBC 4.0 LAB L100.1200 4.2-5.4 M/mm3 Normal RBC 5.02 LAB L100.1300 12.0-15.0 g/dl High HGB 15.2 LAB L100.1400 37-47 % Normal HCT 44.9 LAB L100.1500 81-99 fL Normal MCV 89.4 LAB L100.1600 27.0-32.0 pg Normal MCH 30.3 LAB L100.1700 32-36 g/gl Normal MCHC 33.9 LAB L100.1810 11.6-14.6 % Normal RDW CV 13.1 LAB L100.1820 35.1-43.9 fl Normal RDW SD 43.2 LAB L100.1900 150-450 K/mm3 Normal PLT 161 LAB L100.2000 6.2-12.0 fl Normal MPV 10.8 LAB L100.2100 47-70 % High NEUT% 85.4 LAB L100.2200 19-41 % Low LY% 7.0 LAB L100.2300 0-10 % Normal MONO% 7.0 LAB L100.2400 0-5 % Normal EO% 0.3 LAB L100.2500 0-1 % Normal BASO% 0.0 LAB L100.2550 0.0-0.9 % Normal IM GRAN % 0.300 Result Comment: IG% - Immature Granulocytes (promyelocytes, myelocytes and metamyelocytes) > 1% indicates that a LEFT SHIFT is Present. LAB L100.2620 2.0-7.7 X10 3/uL Normal Absolute Neut 3.4 LAB L100.2720 0.83-4.51 X10 3/ul Low Absolute Lymph 0.28 LAB L100.4500 Normal SMEAR COMMENT SCANNED Result Comment: LYMPHOPENIA NOTED Performed By: #### L100.0100 #### [facility] [address] [place], [place], [address] COMPREHENSIVE METABOLIC Collected: 07/14/2018 Status: F Source: [facility] 4:35 PM [facility] REPOSITORY TYPE CODE TESTS RESULT OUT OF RANGE REFERENCE UNITS LAB L501.0100 74-106 mg/dL High GLU 109 Result Comment: Fasting Glucose result from 100 to 125 mg/dL suggests IMPAIRED HOMEOSTASIS per A.D.A. criteria. Please note revised GLUCOSE reference range effective 2017. LAB L501.1000 7-18 mg/dL Normal BUN 9 LAB L501.1100 0.55-1.02 mg/dL Normal CREAT,SERUM 0.70 Result Comment: The validity of the calculated GFR AND GFRAA in patients over 70 years has not been determined. Clinical correlation is essential. LAB L501.1110 >60 mL/min Normal EST GFR 97 Result Comment: Non- GFR Calc LAB L501.1115 >60 mL/min Normal EST GFR - AA 117 Result Comment: GFR Calc LAB L501.1255 ml/min Normal Estimated CRCL 82.80 LAB L501.1300 10-20 RATIO Normal BUN/CRE 12.8 LAB L501.1500 6.4-8. g/dL Normal 2 T PROT 7.4 LAB L501.1800 3.2-5. g/dL Normal 0 ALB 3.5 LAB L501.1950 2.2-4. g/dL Normal 2 GLOB 3.9 LAB L501.2000 0.9-2. RATIO Normal 4 A/G 0.9 LAB L501.2200 8.5-10 mg/dL Normal .1 CA 8.9 LAB L501.4100 15-37 U/L High AST 483 LAB L501.4305 45-117 U/L High ALK P 207 LAB L501.4405 13-56 U/L High ALT 563 LAB L501.4600 0.20-1 mg/dL High .00 T BILI 1.30 LAB L501.5300 136-14 mmol/L Normal 5 NA 139 LAB L501.5600 3.5-5. mmol/L Normal 1 K 3.7 LAB L501.5900 98-107 mmol/L Normal CL 103 LAB L501.6100 21.0-3 mmol/L Normal 2.0 CO2 28.0 LAB L501.6200 5-15 Normal GAP 8 Performed By: #### L500.4050 #### [facility] [address] [place], [place], [address] URINALYSIS, COMPLETE Collected: 07/14/2018 Status: F Source: [facility] 4:35 PM [facility] REPOSITORY Order Comment: Order Date: 07/14/18 COLOR OF URINE MAY AFFECT DIPSTICK RESULTS. How was Urine Obtained? CLEAN CATCH TYPE CODE TESTS RESULT OUT OF RANGE REFERENCE UNITS LAB L400.3000 Yellow COLOR Normal Lisa LAB L400.3050 Clear Normal CLARITY Sl. Cloudy LAB L400.3200 Normal mg/dl Normal GLUCOSE, UR Normal LAB L400.3300 Negative mg/dL High BILIRUBIN URINE 3 Result Comment: COLOR OF URINE MAY AFFECT DIPSTICK RESULTS. LAB L400.3400 Negative mg/dl High KETONE UR 15 LAB L400.3465 1.002-1.030 Normal SP.GR. DIPSTX 1.020 LAB L400.3550 5.0 - 8.0 pH Normal UR 5.0 LAB L400.3600 Negative mg/dl High PROT DIPSTX 100 LAB L400.3700 Normal mg/dl High UROBILI 8 LAB L400.3750 Negative Normal NITRITE UR Negative LAB L400.3780 Negative /ul High OCCULT 50 BLOOD-UR LAB L400.3800 Negative /ul High LEUK ESTERASE 100 LAB L400.4050 0-5 /hpf Normal WBC 5-10 SEEN LAB L400.4100 0-5 /hpf Normal RBC-UA 5-10 SEEN LAB L400.4150 5-10 /hpf Normal SQUAM EPI 5-10 SEEN LAB L400.4300 None Seen /hpf Normal BACTERIA 0 SEEN LAB L400.4350 <or=2+ /hpf Normal MUCUS, URINE 1+ Performed By: #### L400.0001 #### [facility] [address] [place], [address] LIPASE Collected: 07/14/2018 Status: F Source: [place] 4:35 PM [facility] REPOSITORY TYPE CODE TESTS RESULT OUT OF REFERENCE UNITS RANGE LAB L501.2450 73-393 U/L Low LIPASE 67 Performed By: #### L501.2450 #### [facility] [address] [place], [address] ,URINE Collected: 07/14/2018 Status: F Source: [place] 4:35 PM [facility] REPOSITORY Order Comment: Order Date: 07/14/18 TYPE CODE TESTS RESULT OUT OF REFERENCE UNITS RANGE LAB L400.8000 Negative Normal HCGUQUAL Negative Result Comment: Very dilute urine specimens, as indicated by a low specific gravity, may not contain indirect sales representative levels of hCG. If is still suspected, a first morning urine specimen should be collected 48 hours later and tested. Performed By: #### L400.7600 #### [facility] [address] [place], [address] Observed: 07/14/2018 Status: F Source: [facility] URINE CULTURE 4:02 PM [facility] REPOSITORY Sp. Request/Comment: - Specimen received in preservative Culture Result - No growth (<1,000 CFU/ml) Performed By: #### URCUL #### [facility] [address] [place], [place] [address] PROGRESS Observed: 07/14/2018 Status: COMPLETED Source: [facility] 4:01 PM [facility] REPOSITORY HNO ID: [id number] Author: Diaz (Parts Administrator) Service: (none) Author Type: Nurse Practitioner Type: Progress Notes Filed: 07/14/2018 4:05 PM Note Text: Subjective HPI HPI Nguyen Mullins is a 42 year old female who presents today for CC of nausea, vomiting, fever, urinary frequency/burning. This started 2 days ago. Has tried otc medication without relief. Risk factors hx of pyelonephritis with hospital admission. .Patient presents with: UTI Vomiting Fever PAST MEDICAL HISTORY Diagnosis Date - Adjustment disorder with depressed mood - Headache(784.0) tension vs migraine PAST SURGICAL HISTORY Procedure Laterality Date - DELIVERY ONLY , low cervical - DELIVERY ONLY 05/12/11 , low transverse - L'SCOPE DX W/WO BRUSHINGS/WASHINGS Laparoscopy ALLERGIES Maxalt [Rizatriptan Benzoate]; Valtrex [Valacyclovir Hcl] MEDICATIONS traZODone (DESYREL) 50 mg tablet Take 50 mg by mouth daily at bedtime. etonogestrel/ethinyl estradiol (NUVARING VAGINAL) Use vaginally. acyclovir (ZOVIRAX) 400 mg tablet Take 1 tablet by mouth three times daily. For 5 days as needed for symptoms of an outbreak ivermectin (STROMECTOL) 3 mg tab 9mg by mouth now, then repeat 9 mg in 14 days ALPRAZolam (XANAX) 0.5 mg tablet Take 1 tablet by mouth at bedtime as needed. methylPREDNISolone (MEDROL, BRONWYN,) 4 mg Dose-Pack Take as directed cyclobenzaprine (FLEXERIL) 10 mg tablet Take 1 tablet by mouth every 8 hours as needed for Muscle Spasm. HYDROcodone-acetaminophen (NORCO) 5-325 mg per tablet Take 1 tablet by mouth every 6 hours as needed. FAMILY HISTORY Problem Relation Age of Onset - Alcohol/Drug Maternal Grandfather - Alcohol/Drug Paternal Grandfather - Colon Cancer Maternal Grandmother Maternal Greatgrandmother - Alzheimer's Disease Maternal Grandmother - Psychiatry Maternal Grandfather SCHIZOPHRENIA - Heart Maternal Grandfather Social History Substance Use Topics - Smoking status: Former Smoker Packs/day: 0.50 Years: 10.00 Types: Cigarettes Quit date: 07/04/2008 - Smokeless tobacco: Never Used Comment: one ciagrette every couple of days - Alcohol use Yes Comment: couple of drinks on weekends,NOT WHILE Review of Systems Constitutional: Positive for fever and malaise/fatigue. Gastrointestinal: Negative for abdominal pain, blood in stool, constipation, diarrhea, heartburn, melena, nausea and vomiting. Genitourinary: Positive for dysuria, frequency and urgency. Negative for flank pain and hematuria. Objective Blood pressure 130/80, pulse 74, temperature 37.3 ?C (99.1 ?F), temperature source Tympanic, resp. rate 14, weight 50.8 kg (112 lb). Physical Exam Constitutional: She is oriented to person, place, and time. Non-toxic appearance. She has a sickly appearance. She appears distressed (d/t feeling ill. is tearful). HENT: Head: Normocephalic and atraumatic. Pulmonary/Chest: Effort normal. No accessory muscle usage. No respiratory distress. Neurological: She is alert and oriented to person, place, and time. Skin: She is not diaphoretic. ASSESSMENT/PLAN: 1. Dysuria - ICD9: 788.1, ICD10: R30.0 (primary diagnosis) acute - UA positive for daphney esterase, hematuria and proteinuria - Send urine for culture - Patient education for prevention given - UA DIP, URINE (POC) - URINE CULTURE 2. Vomiting without nausea, intractability of vomiting not specified, unspecified vomiting type - ICD9: 787.03, ICD10: R11.11 Concerns for pyelonephritis I recommend ER evaluation/treatment Report called to [facility] Patient spouse to drive pov ZEINA Li Observed: 07/14/2018 Status: COMPLETED Source: [facility] 3:45 PM [facility] REPOSITORY Office Visit (WSTR) NGUYEN MULLINS ([id number]) 1975 F Date Time Provider Department 07/14/18 3:45 PM DIAZ HUDSON (FRED) [facility] During your visit today, we recorded the following information about you: Temperature Pulse Respiration Blood pressure 99.1 degrees 74/minute 14/minute 130/80 Weight 50.8 kg Diaz Hudson APRN.FRED 07/14/2018 4:05 PM Signed Subjective HPI HPI Nguyen Mullins is a 42 year old female who presents today for CC of nausea, vomiting, fever, urinary frequency/burning. This started 2 days ago. Has tried otc medication without relief. Risk factors hx of pyelonephritis with hospital admission. .Patient presents with: UTI Vomiting Fever PAST MEDICAL HISTORY Diagnosis Date - Adjustment disorder with depressed mood - Headache(784.0) tension vs migraine PAST SURGICAL HISTORY Procedure Laterality Date - DELIVERY ONLY , low cervical - DELIVERY ONLY 05/12/11 , low transverse - L'SCOPE DX W/WO BRUSHINGS/WASHINGS Laparoscopy ALLERGIES Maxalt [Rizatriptan Benzoate]; Valtrex [Valacyclovir Hcl] MEDICATIONS traZODone (DESYREL) 50 mg tablet Take 50 mg by mouth daily at bedtime. etonogestrel/ethinyl estradiol (NUVARING VAGINAL) Use vaginally. acyclovir (ZOVIRAX) 400 mg tablet Take 1 tablet by mouth three times daily. For 5 days as needed for symptoms of an outbreak ivermectin (STROMECTOL) 3 mg tab 9mg by mouth now, then repeat 9 mg in 14 days ALPRAZolam (XANAX) 0.5 mg tablet Take 1 tablet by mouth at bedtime as needed. methylPREDNISolone (MEDROL, BRONWYN,) 4 mg Dose-Pack Take as directed cyclobenzaprine (FLEXERIL) 10 mg tablet Take 1 tablet by mouth every 8 hours as needed for Muscle Spasm. HYDROcodone-acetaminophen (NORCO) 5-325 mg per tablet Take 1 tablet by mouth every 6 hours as needed. FAMILY HISTORY Problem Relation Age of Onset - Alcohol/Drug Maternal Grandfather - Alcohol/Drug Paternal Grandfather - Colon Cancer Maternal Grandmother Maternal Greatgrandmother - Alzheimer's Disease Maternal Grandmother - Psychiatry Maternal Grandfather SCHIZOPHRENIA - Heart Maternal Grandfather Social History Substance Use Topics - Smoking status: Former Smoker Packs/day: 0.50 Years: 10.00 Types: Cigarettes Quit date: 07/04/2008 - Smokeless tobacco: Never Used Comment: one ciagrette every couple of days - Alcohol use Yes Comment: couple of drinks on weekends,NOT WHILE Review of Systems Constitutional: Positive for fever and malaise/fatigue. Gastrointestinal: Negative for abdominal pain, blood in stool, constipation, diarrhea, heartburn, melena, nausea and vomiting. Genitourinary: Positive for dysuria, frequency and urgency. Negative for flank pain and hematuria. Objective Blood pressure 130/80, pulse 74, temperature 37.3 ?C (99.1 ?F), temperature source Tympanic, resp. rate 14, weight 50.8 kg (112 lb). Physical Exam Constitutional: She is oriented to person, place, and time. Non-toxic appearance. She has a sickly appearance. She appears distressed (d/t feeling ill. is tearful). HENT: Head: Normocephalic and atraumatic. Pulmonary/Chest: Effort normal. No accessory muscle usage. No respiratory distress. Neurological: She is alert and oriented to person, place, and time. Skin: She is not diaphoretic. ASSESSMENT/PLAN: 1. Dysuria - ICD9: 788.1, ICD10: R30.0 (primary diagnosis) acute - UA positive for daphney esterase, hematuria and proteinuria - Send urine for culture - Patient education for prevention given - UA DIP, URINE (POC) - URINE CULTURE 2. Vomiting without nausea, intractability of vomiting not specified, unspecified vomiting type - ICD9: 787.03, ICD10: R11.11 Concerns for pyelonephritis I recommend ER evaluation/treatment Report called to [facility] Patient spouse to drive pov Diaz Hudson APRN.NURSE STAFF Referring Provider: SELF [200] Allergies As of Date: 07/14/2018 Noted Allergy Reaction MAXALT (RIZATRIPTAN BENZOATE) 02/15/2011 12 - Shortness of Breath Comments: Like panic attack VALTREX (VALACYCLOVIR HCL) 04/03/2005 4 - Hives Date Reviewed: 07/14/2018 Reviewed by: Diaz (Fred) - Fully Assessed Reason for Visit: UTI [116] Vomiting [120] Fever [47] Primary Visit Diagnosis:Dysuria [R30.0] Other Visit Diagnosis:Vomiting without nausea, intractability of vomiting not specified, unspecified vomiting type [R11.11] Order(s):UA DIP, URINE (POC) [[id number]] Order #: [id number]. #:[id number] URINE CULTURE [SQURCUL] Order #: [id number] Prescriptions as of 07/14/2018 Sig: TRAZODONE 50 MG TABLET Take 50 mg by mouth daily at * NUVARING VAGINAL Use vaginally. ACYCLOVIR 400 MG TABLET Take 1 tablet by mouth three * IVERMECTIN 3 MG TABLET 9mg by mouth now, then repeat* Patient not taking: Reported on 07/14/2018 ALPRAZOLAM 0.5 MG TABLET Take 1 tablet by mouth at bed* Patient not taking: Reported on 07/14/2018 METHYLPREDNISOLONE 4 MG TABLE* Take as directed Patient not taking: Reported on 07/14/2018 CYCLOBENZAPRINE 10 MG TABLET Take 1 tablet by mouth every * Patient not taking: Reported on 07/14/2018 HYDROCODONE 5 MG-ACETAMINOPHE* Take 1 tablet by mouth every * Patient not taking: Reported on 07/14/2018 Problem List As Of Date 07/14/2018 Noted Resolved NONSUPP OTITIS MEDIA NOS [H65.90] INVALID FOR*07/02/2007 PANIC DISORDER WITHOUT AGORAPHOBIA [F41.0] INVALID FOR* FLU W RESP MANIFEST NEC [J11.1] INVALID FOR* MIGRAINE NOS INTRACTABLE [G43.919] INVALID FOR* ADJUSTMENT DISORDER WITH DEPRESSED MOOD [F43.21]INVALID FOR* NONSUPP OTITIS MEDIA NOS [H65.90] INVALID FOR* ADVANCED MATERNAL AGE:MULTIPARA[659.63] [O09.52*INVALID FOR* Supervision of other high-risk [O09.8*INVALID FOR* Previous section [Z98.891] INVALID FOR* Encounter Status:Closed by DIAZ HUDSON CNP on 07/14/18 URINALYSIS, COMPLETE Collected: 07/12/2018 Status: F Source: [facility] 3:52 PM [facility] REPOSITORY Order Comment: How was Urine Obtained? CLEAN CATCH TYPE CODE TESTS RESULT OUT OF RANGE REFERENCE UNITS LAB L400.3000 Yellow COLOR Normal Yellow LAB L400.3050 Clear Normal CLARITY Cloudy LAB L400.3200 Normal mg/dl Normal GLUCOSE, UR Normal LAB L400.3300 Negative mg/dL Normal BILIRUBIN URINE Negative LAB L400.3400 Negative mg/dl High 15 KETONE UR LAB L400.3465 1.002-1.030 Normal SP.GR. DIPSTX 1.020 LAB L400.3550 5.0 - 8.0 pH UR Normal 6.0 LAB L400.3600 Negative mg/dl High PROT 15 DIPSTX LAB L400.3700 Normal mg/dl Normal UROBILI Normal LAB L400.3750 Negative High NITRITE UR Positive LAB L400.3780 Negative /ul High 50 OCCULT BLOOD-UR LAB L400.3800 Negative /ul High LEUK ESTERASE 500 LAB L400.4050 0-5 /hpf WBC Normal 25-50 SEEN LAB L400.4100 0-5 /hpf Normal RBC-UA 5-10 SEEN LAB L400.4150 5-10 /hpf SQUAM Normal EPI 5-10 SEEN LAB L400.4300 None Seen /hpf 4+ Normal BACTERIA LAB L400.4350 <or=2+ /hpf 0 Normal MUCUS, URINE SEEN LAB L400.4700 <or=2+ /hpf CA OX 2+ Normal CRYSTAL Performed By: #### L400.0001 #### [facility] [address] [place], [address] Observed: 07/12/2018 Status: F Source: [place] CULTURE, URINE 3:52 PM [facility] REPOSITORY Urine Culture ORGANISM 1: Presumptive E. coli [place] Count >100,000 Presumptive E. coli: REACTION Ampicillin $ 8 S Ampicillin/Sulbactam $ 4 S Cefazolin $ <=4 S Cefepime $ <=0.12 S Ceftazidime *NF <=1 S Ceftriaxone $ <=0.25 S Ciprofloxacin $ <=0.25 S Ertapenim $$$ <=0.12 S ESBL NEG Gentamicin $ <=1 S Imipenem *NF <=0.25 S Levofloxacin $ <=0.12 S Nitrofurantoin $ <=16 S Piperacillin/Tazobactam $$ <=4 S Tobramycin $ <=1 S Trimethoprim/Sulfametho $ <=20 S (NF) indicates non-formulary drug at [facility]. Approval by Infectious Disease Specialist required before non-formulary drugs may be ordered and/or dispensed. Performed By: #### M100.0650 #### [facility] [address] [place] [place], [address] URGENT CARE VISIT Observed: 07/11/2018 Status: F Source: [facility] REPORT 4:25 PM [facility] REPOSITORY [facility] [address] [place] [address] [address] [place] [address] OFFICE VISIT Date of Service: 07/11/18 MR#: [id number] Acct: [id number] Name: MULLINSNGUYEN PETERSON Scooter Rep #: [id number] : 1975 Provider: Robi FUNG Age/Sex: 42/F Location: [facility] Status: Signed Intake Vital Signs07/11/18 Body Mass Index (BMI) 21.0 07/11/18 Height 5 ft 2 in 07/11/18 Weight: 115 lb 07/11/18 Body Mass Index (BMI) 21.0 07/11/18 Blood Pressure 118/74 Intake Visit Reasons: BLADDER INFECTION Chief Complaint: dysuria Accompanied by: SELF Is patient in pain?: No Allergies valacyclovir [From Valtrex] Allergy (Verified 07/11/18 15:56) Hives Medications fluticasone 50 mcg/actuation nasal spray,suspension 2 spray INTRANASAL QDAY #1 device 11/08/17 [Rx Confirmed 07/11/18] loratadine 10 mg tablet 10 mg PO QDAY PRN #90 tab 11/08/17 [Rx Confirmed 07/11/18] sertraline 100 mg tablet 100 mg PO QDAY #90 tab 11/08/17 [Rx Confirmed 07/11/18] buspirone 5 mg tablet 5 mg PO QDAY PRN #90 tab 12/04/17 [Rx Confirmed 07/11/18] omeprazole 20 mg tablet,delayed release 20 mg PO QDAY #30 tab 12/04/17 [Rx Confirmed 07/11/18] trazodone 50 mg tablet 50 mg PO QHS PRN #90 tab 12/04/17 [Rx Confirmed 07/11/18] dicyclomine 20 mg tablet 20 mg PO TID #90 tab 01/17/18 [Rx Confirmed 07/11/18] gabapentin 100 mg capsule 100 mg PO TID cap 03/13/18 [History Confirmed 07/11/18] gabapentin 300 mg capsule 300 mg PO TID #90 cap 03/13/18 [Rx Confirmed 07/11/18] acyclovir 800 mg tablet 800 mg PO Q4H #30 tab 06/21/18 [Rx Confirmed 07/11/18] sumatriptan 25 mg tablet 25 mg PO Q2H PRN #7 tab 06/28/18 [Rx Confirmed 07/11/18] nitrofurantoin monohydrate/macrocrystals 100 mg capsule 100 mg PO BID #10 cap 07/11/18 [Rx Confirmed 07/11/18] PFSH Medical History Shingles (Acute) History of marijuana use (Chronic) Anxiety (Acute) Back pain (Acute) Depression (Acute) Genital herpes (Acute) History of alcohol abuse (Acute) History of marijuana use (Acute) Insomnia (Acute) Migraine (Acute) PTSD (post-traumatic stress disorder) (Acute) history marijuana abuse (Acute) Hypertension (Chronic) Seasonal allergies (Chronic) UTI (urinary tract infection) (Chronic) Surgical History History of exploratory laparotomy (Acute) cesarian times 2 (Acute) Family History Father Hypertension Alcoholism Grandfather Alcoholism Colon cancer Mother Hypertension Depression Brother Depression Grandmother Diabetes Colon cancer Uncle Cancer Social History Smoking Status: Former smoker how long ago did patient quit smokin alcohol intake: former year quit: 2016 details: Currently in outpatient counseling substance use type: marijuana caffeine: Yes what type of physical activity do you participate in: yoga frequency: 1-2 times per week seatbelt use: always do you feel safe at home: Yes additional social history: Patient is engaged- [employer] Patient works at [employer] [facility] [employer] [facility] HPI Chief Complaint: dysuria Details: NGUYEN MULLINS, is a 42 F who presents to the office today for evaluation of recurring dysuria and lower abdominal discomfort and mild low back pain. No complaints of fever, chills, nausea/vomiting, sweats, vaginal/urethral discharge, changes in bowel color or character, chest pressure/shortness of breath. No hdud-qay-qchehif products tried to assist with symptoms. No other associated symptoms and no other alleviating or aggravating factors. ROS Const Constitutional: No other (ROS negative x10 other than as noted above) Exam Const General: cooperative, healthy appearing, no acute distress, comfortable Nutritional Appearance: average body habitus Orientation: alert, awake, oriented x3 HENMT Head: normal to inspection Ears: hearing grossly normal bilaterally, external ears normal Nose: external nose normal Eyes General: appearance normal, both eyes and all related structures Neck Neck: normal visual inspection, full ROM Lymphatic: no lymphadenopathy noted Chest Chest palpation AND inspection: normal inspection of the chest Resp Effort AND Inspection: normal respiratory effort, able to speak in complete sentences, symmetric chest movement, no cough Auscultation: Bilateral: Clear to Auscultation Cardio Palpation: normal PMI Rate: regular rate Rhythm: regular rhythm Heart Sounds: S1 normal, S2 normal, no gallops, no murmurs, no rubs Pulses: radial pulses present GI Inspection: normal to inspection Palpation: soft, no hepatosplenomegaly, not firm, no guarding, tender suprapubicly; Negative for not at McBurney's point, Hart's sign negative, with no rebound tenderness or not in the epigastrum General: No CVA tenderness, other (See urinalysis dip and urine hCG results) Skin General: no rashes or lesions noted Extrem General: normal to inspection Psych Appearance: grossly normal Mental Status: mental status grossly normal Mood: congruent mood Affect: normal affect Speech and Movement: speech and movement normal Attitude: cooperative Thought Process: normal Thought Content: normal Judgment: judgment good Results BMSUA Office Urine Color YELLOW Last Edit by Maryanne Menezes on 07/11/18 15:59 Assessment AND Plan Plan Macrobid as prescribed today; patient notes she is prone to vaginal Lisa and was informed she may call in for prescription to address such symptoms should they develop without being reevaluated. Urine dip and urine hCG results reviewed with patient in office today; urine sent out for culture and sensitivity. Appropriate hygiene care reinforced. Clear fluid, rest, Advil/Tylenol as needed for symptomatic relief. Follow-up with PCP or obstetrics/director of dance in 3-5 days should symptoms not improve, emergency department sooner should symptoms worsen or any other concerns develop. Patient states acknowledging understanding all the above. This note was generated with Friend[employer] dictation software. It may contain incorrect words, spelling, and punctuation that were not noted in checking the note before signing. Orders Orders: Medications New: nitrofurantoin monohyd/m-cryst 100 mg (Macrobid) must [id number] mg PO BID 10 caps 0RF ster with a meal/food Coding Level of Care Code Off vis,est,level 3 07/11/18 7885 <Electronically signed by Robi FUNG> Date Robi FUNG Cosigner Signature: Date (if applicable) CC: URGENT CARE VISIT Observed: 06/21/2018 Status: F Source: [place] REPORT 6:32 PM [facility] REPOSITORY [facility] [address] [place] [address] OFFICE VISIT Date of Service: 06/21/18 MR#: [id number] Acct: [id number] Name: NGUYEN MULLINS Rep #: [id number] : 1975 Provider: Jose FUNG Age/Sex: 42/F Location: [facility] Status: Signed Intake Vital Signs06/21/18 Height 5 ft 2 in Intake Visit Reasons: KIDNEY INFECTION Chief Complaint: Kidney pain Rapid Outsole Stitcher Required: No Accompanied by: Self Is patient in pain?: Yes Allergies valacyclovir [From Valtrex] Allergy (Verified 06/21/18 12:33) Hives Medications fluticasone 50 mcg/actuation nasal spray,suspension 2 spray INTRANASAL QDAY #1 device 11/08/17 [Rx Confirmed 03/13/18] loratadine 10 mg tablet 10 mg PO QDAY PRN #90 tab 11/08/17 [Rx Confirmed 03/13/18] sertraline 100 mg tablet 100 mg PO QDAY #90 tab 11/08/17 [Rx Confirmed 03/13/18] buspirone 5 mg tablet 5 mg PO QDAY PRN #90 tab 12/04/17 [Rx Confirmed 03/13/18] omeprazole 20 mg tablet,delayed release 20 mg PO QDAY #30 tab 12/04/17 [Rx Confirmed 03/13/18] trazodone 50 mg tablet 50 mg PO QHS PRN #90 tab 12/04/17 [Rx Confirmed 03/07/18] dicyclomine 20 mg tablet 20 mg PO TID #90 tab 01/17/18 [Rx Confirmed 03/13/18] sumatriptan 25 mg tablet 25 mg PO Q2H PRN #7 tab 01/17/18 [Rx Confirmed 03/07/18] gabapentin 100 mg capsule 100 mg PO TID cap 03/13/18 [History] gabapentin 300 mg capsule 300 mg PO TID #90 cap 03/13/18 [Rx Confirmed 03/13/18] acyclovir 800 mg tablet 800 mg PO Q4H #30 tab 06/21/18 [Rx Confirmed 06/21/18] PFSH Medical History Shingles (Acute) History of marijuana use (Chronic) Anxiety (Acute) Back pain (Acute) Depression (Acute) Genital herpes (Acute) History of alcohol abuse (Acute) History of marijuana use (Acute) Insomnia (Acute) Migraine (Acute) PTSD (post-traumatic stress disorder) (Acute) history marijuana abuse (Acute) Hypertension (Chronic) Seasonal allergies (Chronic) UTI (urinary tract infection) (Chronic) Surgical History History of exploratory laparotomy (Acute) cesarian times 2 (Acute) Family History Father Hypertension Alcoholism Grandfather Alcoholism Colon cancer Mother Hypertension Depression Brother Depression Grandmother Diabetes Colon cancer Uncle Cancer Social History Smoking Status: Former smoker how long ago did patient quit smokin alcohol intake: former year quit: 2016 details: Currently in outpatient counseling substance use type: marijuana caffeine: Yes what type of physical activity do you participate in: yoga frequency: 1-2 times per week seatbelt use: always do you feel safe at home: Yes additional social history: Patient is engaged- [employer] over [employer] Patient works at [employer] [facility] HPI Chief Complaint: Kidney pain Details: NGUYEN MULLINS, is a 42 F who presents to the office today for complaint of intermittent left-sided flank pain for the past 24 hours. Patient states that last night while at work she noticed an immediate sharp left-sided pain which did eventually subside and then this morning she had return of the pain but it had moved lower down her left flank. She states that the pain as to the point that has caused some nausea however denies vomiting. Patient does states she has a history of UTIs and is concerned for 1 currently although she denies any dysuria or urinary frequency. She also states a history of kidney stones on the same side. Secondarily she is complaining of genital herpes outbreak and currently has no acyclovir which she has used in the past with good results. She states that the infection always started around the same time as the flank pain. She has had no hematuria or loss of bowel/bladder control. No fever, chills, sweats. No vomiting, diarrhea. No other associated symptoms or alleviating/aggravating factors. ROS Const Constitutional: No body ache, chills or fever(s) Resp Respiratory: No shortness of breath Cardio Cardiology: No lightheadedness, palpitations or irregular heart rhythm Gastro GI: No abdominal pain Genitourinary-Female: Positive for genital lesions and side pain; no burning urination, painful urination, pelvic pain, painful intercourse, urinary frequency, blood in urine or urinary incontinence Neuro Neurology: No confusion or behavioral changes Psych Psychiatric: No confusion, No behavioral changes Exam Const General: cooperative, healthy appearing Resp Effort AND Inspection: normal respiratory effort Auscultation: Bilateral: Clear to Auscultation Cardio Rate: regular rate Rhythm: regular rhythm GI Inspection: normal to inspection Auscultation: normal bowel sounds Palpation: soft, no hepatosplenomegaly General: No CVA tenderness Psych Appearance: grossly normal Mental Status: mental status grossly normal Results [facility] Office Urine Color Yellow Last Edit by Narcisa Ricks on 06/21/18 12:39 Office Urine Clarity Clear Last Edit by Narcisa Ricks on 06/21/18 12:39 Assessment AND Plan Problems 1. Herpes simplex infection of genitourinary system A60.00 2. Left flank pain R10.9 Status Acute Plan Acyclovir as prescribed today for HSV outbreak. Patient advised her left sided flank pain is likely due to recurrence of kidney stone as her UA is unremarkable with no signs of potential UTI. Advised patient we will send the urine off for culture and advise her of any positive findings. Encouraged to get plenty of rest, drink lots of clear liquids, and use Tylenol or Ibuprofen (unless contraindicated) for fever and comfort. Patient also educated on other symptomatic management techniques. To be seen in 7-10 days if no improvement; sooner if worsening of symptoms. Patient advised of potential red flags including but not limited to signs of infection and when appropriate to report to the ED. Patient verbalized understanding and agreement with all the above. 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 CLEAN CATCH TYPE CODE TESTS RESULT OUT OF RANGE REFERENCE UNITS LAB L400.3000 Yellow COLOR Normal Yellow LAB L400.3050 Clear Normal CLARITY Clear LAB L400.3200 Normal mg/dl Normal GLUCOSE, UR Normal LAB L400.3300 Negative mg/dL Normal BILIRUBIN URINE Negative LAB L400.3400 Negative mg/dl Normal KETONE UR Negative LAB L400.3465 1.002-1.030 Normal SP.GR. DIPSTX 1.010 LAB L400.3550 5.0 - 8.0 pH UR Normal 7.0 LAB L400.3600 Negative mg/dl PROT Normal DIPSTX Negative LAB L400.3700 Normal mg/dl Normal UROBILI Normal LAB L400.3750 Negative Normal NITRITE UR Negative LAB L400.3780 Negative /ul Normal OCCULT BLOOD-UR Negative LAB L400.3800 Negative /ul High LEUK ESTERASE 100 LAB L400.4050 0-5 /hpf WBC Normal 5-10 SEEN LAB L400.4100 0-5 /hpf 0 Normal RBC-UA SEEN LAB L400.4150 5-10 /hpf SQUAM Normal EPI 0-5 SEEN LAB L400.4300 None Seen /hpf Normal BACTERIA RARE LAB L400.4350 <or=2+ /hpf 0 Normal MUCUS, URINE SEEN Performed By: #### L400.0001 #### [facility] [address] [place], [place], [id number] Observed: 06/21/2018 Status: F Source: DARDEN CULTURE, URINE 3:03 PM [facility] REPOSITORY Urine Culture ORGANISM 1: Presumptive E. coli Milton Count >100,000 Presumptive E. coli: REACTION Amoxacillin/Clavulanic Acid $ <=2 S Ampicillin $ 4 S Ampicillin/Sulbactam $ <=2 S Cefazolin $ <=4 S Cefepime $ <=1 S Ceftriaxone $ <=1 S Ciprofloxacin $ <=0.25 S ESBL - Ertapenim $$$ <=0.5 S Gentamicin $ <=1 S Imipenem *NF <=0.25 S Levofloxacin $ <=0.12 S Nitrofurantoin $ <=16 S Piperacillin/Tazobactam $$ <=4 S Tobramycin $ <=1 S Trimethoprim/Sulfametho $ <=20 S (NF) indicates non-formulary drug at [facility]. Approval by Infectious Disease Specialist required before non-formulary drugs may be ordered and/or dispensed. Performed By: #### M100.0650 #### [facility] [address] [place], [place], [id number] [employer] OFFICE VISIT Observed: 06/12/2018 Status: F Source: YUMIKO REPORT 3:06 PM [facility] REPOSITORY [facility] [address] [place] [address] OFFICE VISIT Date of Service: 10/04/17 MR#: [id number] Acct: [id number] Name: NGUYEN MULLINS Rep #: [id number] : 1975 Provider: LYNN Mosley Age/Sex: 42/F Location: [facility] Status: Signed with Addenda ADDENDUM by LYNN Mosley on 06/12/18 at 1506 Addendum entered and electronically signed by RUBIN Mccray 06/12/18 15:06: Rectal exam was deferred. No masses palpated Assessment AND Plan Problems 1. Encounter for gynecological examination with abnormal finding Z01.411 2. Secondary oligomenorrhea N91.4 3. Pap smear for cervical cancer screening Z12.4 4. Encounter for screening mammogram for malignant neoplasm of breast Z12.31 Plan - RUBIN Mccray Completed breast and pelvic exam Reviewed diet and exercise Pap thin prep pap with HPV Mammogram ordered Contraception Discussed use, benefits, risks and side effects of nuvaring. Instruct on start with next menses and reviewed use of condoms. Written information given. 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 Required: No Is patient in pain?: Yes Pain scale (1-10): 4 Allergies valacyclovir [From Valtrex] Allergy (Verified 10/04/17 09:03) Hives Medications blood pressure test kit-medium cuff See Dose Instructions .ROUTE .MEDSUPPLY #1 ea 06/01/17 [Rx Confirmed 10/04/17] acyclovir 400 mg tablet 400 mg PO TID #30 tab 06/14/17 [Rx Confirmed 10/04/17] buspirone 5 mg tablet 5 mg PO QDAY PRN #30 tab 07/27/17 [Rx Confirmed 10/04/17] sertraline 50 mg tablet 50 mg PO QDAY #90 tab 07/27/17 [Rx Confirmed 10/04/17] trazodone 50 mg tablet 50 mg PO QHS PRN #30 tab 07/27/17 [Rx Confirmed 10/04/17] fluticasone 50 mcg/actuation nasal spray,suspension 2 spray INTRANASAL QDAY #1 device 08/10/17 [Rx Confirmed 10/04/17] meloxicam 7.5 mg tablet 7.5 mg PO QDAY #30 tab 09/07/17 [Rx Confirmed 10/04/17] sumatriptan 25 mg tablet 25 mg PO Q2H PRN #7 tab 09/07/17 [Rx Confirmed 10/04/17] etonogestrel-ethinyl estradiol 0.12 mg -0.015 mg/24 hr vaginal ring 1 vag ring VAGINAL ONCE 21 Days #1 ea 10/04/17 [Rx Confirmed 10/04/17] Is last menstrual period known: No Post menopausal: No Patient : No : No PFSH Medical History Anxiety (Acute) Back pain (Acute) Depression (Acute) Genital herpes (Acute) Insomnia (Acute) Seasonal allergies (Chronic) UTI (urinary tract infection) (Chronic) Surgical History History of exploratory laparotomy (Acute) cesarian times 2 (Acute) Family History Father Hypertension Alcoholism Grandfather Alcoholism Colon cancer Mother Hypertension Depression Brother Depression Grandmother Diabetes Colon cancer Uncle Cancer Social History Smoking Status: Current some day smoker how long ago did patient quit smokin alcohol intake: former year quit: 2016 details: Currently in outpatient counseling substance use type: marijuana caffeine: Yes what type of physical activity do you participate in: yoga frequency: 1-2 times per week seatbelt use: always do you feel safe at home: Yes additional social history: Patient is engaged- [employer]Work over [employer] Patient works at [employer] Pregancy History 4 Elective abortions Hx Para 2 Spontaneous abortions Past Pregnancies Del. DatName GA/WeeksOutcome Route [facility] LgAnesthesDel LocaProviderFOB e ht en ia tn Unknown [place]- 1996 Unknown Tasha- 2010 HPI Annual (REWRITER): Details: NGUYEN MULLINS is a 42 year old who presents for annual exam. Menses irregular and light. Requesting labs since only has menses every 2-3 months and spotting only for 2 days. Had spotting last week. Same sexual partner X 10 years. Would like to restart Nuvaring Last PAP: unsure History of abnormal PAP: no Last mammogram: none ROS Const Constitutional: Reports fatigue GI GI: Denies abdominal pain, change in bowel habits or change in stools : Reports as per HPI Exam Const General: cooperative, healthy appearing, no acute distress, well developed Orientation: alert, oriented to person, oriented to place HENMT Head: normal to inspection Neck Neck: normal visual inspection Thyroid: thyroid normal Lymphatic: no lymphadenopathy noted Chest Breast inspection: normal inspection of the breasts, normal inspection of the axillae Breast palpation: normal palpation of the breasts, normal palpation of the axillae, no axillary lymphadenopathy Resp Effort AND Inspection: normal respiratory effort GI Palpation: soft, nontender, no masses Rectal Exam: mass, deferred External Female Exam: normal external appearance, normal appearance of the urethra Urethra: normal appearance of the urethra, normal palpation Speculum Exam - Vagina: normal appearance of the vagina, normal vaginal discharge Speculum Exam - Cervix: normal appearance of the cervix, other (pap collected) Bimanual Exam- Vagina AND Uterus: normal bimanual exam, uterine shape normal, uterus non-tender, uterus enlarged (upper normal limits) Bimanual Exam- Adnexa, other: normal adnexae, no adnexal masses, adnexae non-tender, pelvic support normal Pelvic Support: normal Neuro General: alert, oriented x3 Psych Affect: normal affect Assessment AND Plan Problems 1. Encounter for gynecological examination with abnormal finding Z01.411 2. Secondary oligomenorrhea N91.4 3. Pap smear for cervical cancer screening Z12.4 4. Encounter for screening mammogram for malignant neoplasm of breast Z12.31 Plan Completed breast and pelvic exam Reviewed diet and exercise Pap thin prep pap with HPV Mammogram ordered Contraception Discussed use, benefits, risks and side effects of nuvaring. Instruct on start with next menses and reviewed use of condoms. Written information given. Ultrasound Labs Call results RTO 1 year, prn with problems Gina Mosley NURSE STAFF Orders Orders: Medications New: etonogestrel-ethinyl estradiol 0.12-0.015 mg/24 hr (NuvaR1 vag ring Vaginal ONCE 3 weeks ing) Coding Level of Care Code Off vis,est,prev 40-64yrs Diagnoses Encounter for gynecological examination with abnormal finding Z01.411 Gynecological examination findings: abnormal findings PRESENT Secondary oligomenorrhea N91.4 Oligomenorrhea type: secondary Pap smear for cervical cancer screening Z12.4 Encounter for screening mammogram for malignant neoplasm of breast Z12.31 10/04/17 1054 <Electronically signed by Gina CONKLIN> Date Gina CONKLIN Cosigner Signature: Date (if applicable) CC: URGENT CARE VISIT Observed: 03/20/2018 Status: F Source: YUMIKO REPORT 5:49 PM [facility] REPOSITORY [facility] [address] [place] [address] [address] [place] [address] OFFICE VISIT Date of Service: 03/07/18 MR#: [id number] Acct: [id number] Name: NGUYEN MULLINS Rep #: [id number] : 1975 Provider: Robi FUNG Age/Sex: 42/F Location: [facility] Status: Signed with Addenda ADDENDUM by Robi FUNG on 03/20/18 at 9188 Addendum entered and electronically signed by [employer]ON [employer] 03/20/18 17:49: Dx - shingles HPI Details: NGUYEN MULLINS, is a 42 F who presents to the office today for Assessment AND Plan Plan - [employer] Acyclovir as prescribed today. Advil/Tylenol as needed for symptomatic relief. Twice daily wound care as instructed today strongly reinforced appropriate handwashing keeping site covered to prevent exposure to others. Follow-up with PCP in 5-7 days should symptoms not improved, sooner should symptoms worsen or any other concerns develop. Patient states acknowledging understanding all the above. This note was generated with [employer] software. It may contain incorrect words, spelling, and punctuation that were not noted in checking the note before signing. Medications New: 03/20/18 1749 <Electronically signed by Robi FUNG> Date Robi Chamberlain cc: * Signed Intake Vital Signs03/07/18 Height 5 ft 2 in 03/07/18 Weight: 112 lb 03/07/18 Body Mass Index (BMI) 20.5 03/07/18 Blood Pressure 116/70 Intake Visit Reasons: RASH ON BACK Chief Complaint: ? shingles Accompanied by: self Is patient in pain?: Yes Pain scale (1-10): 5 Allergies valacyclovir [From Valtrex] Allergy (Verified 01/17/18 10:08) Hives Medications blood pressure test kit-medium cuff See Dose Instructions .ROUTE .MEDSUPPLY #1 ea 06/01/17 [Rx Confirmed 03/07/18] etonogestrel-ethinyl estradiol 0.12 mg -0.015 mg/24 hr vaginal ring 1 vag ring VAGINAL ONCE 21 Days #1 ea 10/04/17 [Rx Confirmed 03/07/18] fluticasone 50 mcg/actuation nasal spray,suspension 2 spray INTRANASAL QDAY #1 device 11/08/17 [Rx Confirmed 03/07/18] loratadine 10 mg tablet 10 mg PO QDAY PRN #90 tab 11/08/17 [Rx Confirmed 03/07/18] meloxicam 7.5 mg tablet 7.5 mg PO QDAY #30 tab 11/08/17 [Rx Confirmed 03/07/18] sertraline 100 mg tablet 100 mg PO QDAY #90 tab 11/08/17 [Rx Confirmed 03/07/18] buspirone 5 mg tablet 5 mg PO QDAY PRN #90 tab 12/04/17 [Rx Confirmed 03/07/18] omeprazole 20 mg tablet,delayed release 20 mg PO QDAY #30 tab 12/04/17 [Rx Confirmed 03/07/18] trazodone 50 mg tablet 50 mg PO QHS PRN #90 tab 12/04/17 [Rx Confirmed 03/07/18] dicyclomine 20 mg tablet 20 mg PO TID #90 tab 01/17/18 [Rx Confirmed 03/07/18] sumatriptan 25 mg tablet 25 mg PO Q2H PRN #7 tab 01/17/18 [Rx Confirmed 03/07/18] acyclovir 800 mg tablet 800 mg PO Q4H 7 Days #35 tab 03/07/18 [Rx Confirmed 03/07/18] PFSH Medical History History of marijuana use (Chronic) Anxiety (Acute) Back pain (Acute) Depression (Acute) Genital herpes (Acute) History of alcohol abuse (Acute) History of marijuana use (Acute) Insomnia (Acute) Migraine (Acute) PTSD (post-traumatic stress disorder) (Acute) history marijuana abuse (Acute) Hypertension (Chronic) Seasonal allergies (Chronic) UTI (urinary tract infection) (Chronic) Surgical History History of exploratory laparotomy (Acute) cesarian times 2 (Acute) Family History Father Hypertension Alcoholism Grandfather Alcoholism Colon cancer Mother Hypertension Depression Brother Depression Grandmother Diabetes Colon cancer Uncle Cancer Social History Smoking Status: Former smoker how long ago did patient quit smokin alcohol intake: former year quit: 2016 details: Currently in outpatient counseling substance use type: marijuana caffeine: Yes what type of physical activity do you participate in: yoga frequency: 1-2 times per week seatbelt use: always do you feel safe at home: Yes additional social history: Patient is engaged- [employer] over [employer] Patient works at [employer] HPI HPI Chief Complaint: ? shingles Details: NGUYEN MULLINS, is a 42 F who presents to the office today for initial evaluation painful rash just left of lumbar spine. Patient notes symptoms began approximately 5-6 days ago stating noticing pain beginning around the same time as the rash develop. She has been top applying topical Neosporin and Band-Aids the same without improvement symptoms. Patient is concerned she may have obtained shingles, noting she had had chickenpox as a child. Patient describes her pain as 5 6/10 aching burning pain to the same region. She knows having been under a lot of emotional stress over the last several weeks, more so than usual. Past medical history is significant for oral history of genital herpes for which she has had treated on occasion with acyclovir; she cannot safely take valacyclovir as she has had allergic response to this in the past. ROS Const Constitutional: No other (ROS negative 10 other than as noted above.) Exam Const General: cooperative, healthy appearing, no acute distress Nutritional Appearance: average body habitus Orientation: alert, awake, oriented x3 HENMT Head: normal to inspection Ears: hearing grossly normal bilaterally, external ears normal Nose: external nose normal Neck Neck: normal visual inspection, full ROM, no lymphadenopathy, no meningeal signs, supple Neck mass: No Thyroid: thyroid normal Lymphatic: no lymphadenopathy noted Chest Chest palpation AND inspection: normal inspection of the chest Resp Effort AND Inspection: normal respiratory effort, able to speak in complete sentences, symmetric chest movement, no cough Auscultation: Bilateral: Clear to Auscultation Cardio Palpation: normal PMI Rate: regular rate Rhythm: regular rhythm Heart Sounds: S1 normal, S2 normal, no gallops, no murmurs, no rubs Pulses: radial pulses present GI Inspection: normal to inspection Skin Lesions: no lesions Rashes: rashes noted (Vesicular rash in cluster formation left of lumbar spine) Neuro General: alert, awake, oriented x3, gait normal Cognition: normal cognition Speech: speech normal Gait: normal gait Motor: muscle tone normal throughout Sensory Exam: no sensory deficits noted Psych Appearance: grossly normal Mental Status: mental status grossly normal Mood: congruent mood Affect: normal affect Speech and Movement: speech and movement normal Attitude: cooperative Thought Process: normal Thought Content: normal Judgment: judgment good Assessment AND Plan Plan Acyclovir as prescribed today. Advil/Tylenol as needed for symptomatic relief. Twice daily wound care as instructed today strongly reinforced appropriate handwashing keeping site covered to prevent exposure to others. Follow-up with PCP in 5-7 days should symptoms not improved, sooner should symptoms worsen or any other concerns develop. Patient states acknowledging understanding all the above. This note was generated with FriendFeed dictation software. It may contain incorrect words, spelling, and punctuation that were not noted in checking the note before signing. Medications New: Coding Level of Care Code Off vis,est,level 3 03/07/18 1505 <Electronically signed by Robi FUNG> Date Robi FUNG Cosigner Signature: Date (if applicable) CC: INTERNAL MEDICINE Observed: 03/14/2018 Status: F Source: YUMIKO OFFICE VISIT 11:18 AM [facility] [address] [place] [address] [address] [place] [address] OFFICE VISIT Date of Service: 03/13/18 MR#: [id number] Acct: [id number] Name: NGUYEN MULLINS Rep #: [id number] : 1975 Provider: Kash Davis NP Age/Sex: 42/F Location: [facility] Status: Signed Intake Vital Signs03/13/18 Height 5 ft 2 in 03/13/18 Weight: 115 lb 03/13/18 Body Mass Index (BMI) 21.0 03/13/18 Blood Pressure 127/79 Intake Visit Reasons: 6 WK FU Chief Complaint: 6 WK FU - shingles Is patient in pain?: Yes (Shingles - back AND Lt side) Pain scale (1-10): 8 Allergies valacyclovir [From Valtrex] Allergy (Verified 03/13/18 11:15) Hives Medications etonogestrel-ethinyl estradiol 0.12 mg -0.015 mg/24 hr vaginal ring 1 vag ring VAGINAL ONCE 21 Days #1 ea 10/04/17 [Rx Confirmed 03/13/18] fluticasone 50 mcg/actuation nasal spray,suspension 2 spray INTRANASAL QDAY #1 device 11/08/17 [Rx Confirmed 03/13/18] loratadine 10 mg tablet 10 mg PO QDAY PRN #90 tab 11/08/17 [Rx Confirmed 03/13/18] sertraline 100 mg tablet 100 mg PO QDAY #90 tab 11/08/17 [Rx Confirmed 03/13/18] buspirone 5 mg tablet 5 mg PO QDAY PRN #90 tab 12/04/17 [Rx Confirmed 03/13/18] omeprazole 20 mg tablet,delayed release 20 mg PO QDAY #30 tab 12/04/17 [Rx Confirmed 03/13/18] trazodone 50 mg tablet 50 mg PO QHS PRN #90 tab 12/04/17 [Rx Confirmed 03/07/18] dicyclomine 20 mg tablet 20 mg PO TID #90 tab 01/17/18 [Rx Confirmed 03/13/18] sumatriptan 25 mg tablet 25 mg PO Q2H PRN #7 tab 01/17/18 [Rx Confirmed 03/07/18] acyclovir 800 mg tablet 800 mg PO Q4H 3 Days #18 tab 03/13/18 [Rx Confirmed 03/13/18] gabapentin 100 mg capsule 100 mg PO TID cap 03/13/18 [History] gabapentin 300 mg capsule 300 mg PO TID #90 cap 03/13/18 [Rx Confirmed 03/13/18] PFS Medical History Shingles (Acute) History of marijuana use (Chronic) Anxiety (Acute) Back pain (Acute) Depression (Acute) Genital herpes (Acute) History of alcohol abuse (Acute) History of marijuana use (Acute) Insomnia (Acute) Migraine (Acute) PTSD (post-traumatic stress disorder) (Acute) history marijuana abuse (Acute) Hypertension (Chronic) Seasonal allergies (Chronic) UTI (urinary tract infection) (Chronic) Surgical History History of exploratory laparotomy (Acute) cesarian times 2 (Acute) Family History Father Hypertension Alcoholism Grandfather Alcoholism Colon cancer Mother Hypertension Depression Brother Depression Grandmother Diabetes Colon cancer Uncle Cancer Social History Smoking Status: Former smoker how long ago did patient quit smokin alcohol intake: former year quit: 2016 details: Currently in outpatient counseling substance use type: marijuana caffeine: Yes what type of physical activity do you participate in: yoga frequency: 1-2 times per week seatbelt use: always do you feel safe at home: Yes additional social history: Patient is engaged- [employer]Work over [employer] Patient works at [employer] [facility] HPI Chief Complaint: 6 WK FU - shingles Details: NGUYEN MULLINS, is a 42 F who presents to the office today for a follow-up of her shingles. She has a past medical history as listed above. The patient was seen last week in the urgent care and was diagnosed with shingles. She was started on acyclovir 5 times a day times 7 days. She states since then her pain from the shingles has been increasingly worsening. She was placed on 100 mg of gabapentin and self adjusted herself to taking 300 mg daily and states that it is still not providing much relief. She has been taking Tylenol and ibuprofen as well and has been using calamine lotion and covering the blisters on her left lower back. She does state that the blisters have just now started to dry up. She denies any signs of secondary infection at this time. She is requesting a work excuse as well. He otherwise denies any fever, chills, nausea, vomiting, shortness of breath, chest pain or pressure, syncope or presyncopal episodes. ROS Const Constitutional: Positive for headache(s) (Since started with shingles); no chills, fatigue, fever(s), frequent falls, malaise, weakness, sleep problems or change in appetite Eyes Eyes: No blurry vision, change in vision, double vision, discharge or visual disturbances ENT ENT: Positive for headache(s) (Since started with shingles); no abnormal hearing, ear pain, ear pressure, tinnitus or dizziness/vertigo Resp Respiratory: No cough, shortness of breath or wheezing Cardio Cardiology: No chest pain at rest, chest pain with exertion, shortness of breath, dyspnea on exertion, generalized swelling, irregular heart rhythm, lightheadedness, orthopnea, fast heart rate or palpitations Gastro GI: No abdominal pain, change in bowel habits, constipation, diarrhea, nausea/dyspepsia or vomiting Genitourinary-Female: No difficulty urinating, burning urination, painful urination, urinary incontinence, urinary frequency, urinary urgency, urinary hesitancy, urinary retention, Frequent nighttime urination/ nocturia, sexual problems, genital lesions, abnormal vaginal bleeding, pelvic pain, vaginal dryness, vaginal odor or Vaginal Itching Musc Musculoskeletal: Positive for back pain (Due to shingles); no joint pain, joint swelling, limited range of motion, muscle weakness, numbness or tingling Skin Skin: Positive for rash; no change in skin color, itching or wounds Breast Breast: No breast lump or breast pain Neuro Neurology: Positive for headache(s) (Since started with shingles); no frequent falls, weakness, abnormal hearing, numbness, tingling, unsteady gait/balance, dizziness, loss of vision, memory loss or visual disturbances Psych Psychiatric: No memory loss, No anxiety, No change in appetite, No depression, No Thoughts of harming yourself/Others Endo Endocrine: No fatigue, heat intolerance, increased thirst/drinking, increased hunger or increased urination Aller/Imm Allergy/Immunologic: No wheezing, itchy eyes or seasonal allergy symptoms Aldair/Lymp Hematologic/Lymphatic: No easy bleeding, easy bruising or enlarged lymph nodes Exam Const General: cooperative, comfortable, no acute distress Nutritional Appearance: average body habitus, well nourished Orientation: alert, oriented x3 Limitations: mental status not altered Resp Effort AND Inspection: normal respiratory effort, able to speak in complete sentences, normal respiratory pattern, symmetric chest movement, no audible wheezes, no cough Auscultation: Bilateral: Clear to Auscultation Cardio Palpation: normal PMI Rate: regular rate Heart Sounds: S1 normal, S2 normal, normal S1 and S2, no click, no gallops, no murmurs, no rubs Musc Musculoskeletal: No muscle weakness Skin Other: Vesicular clustered rash on left mid to left lower back in different stages of healing, most areas are dried up, no signs of surrounding infection, no purulent drainage, erythema, or warmth. Neuro General: alert, awake, oriented x3, CN's II-XI intact bilaterally Speech: speech normal Gait: normal gait Motor: muscle tone normal throughout Extrem General: normal to inspection, normal gait, no edema, no pedal edema Psych Appearance: grossly normal Mental Status: mental status grossly normal Affect: normal affect Attitude: cooperative Thought Process: normal Assessment AND Plan Problems 1. Shingles B02.9 Plan Patient is having postherpetic pain from her shingles. Will add 3 more days of acyclovir and will increase her gabapentin to 300 mg 3 times a day to see if this helps with her postherpetic pain. Discussed red flag symptoms requiring urgent medical attention. Patient to reschedule her routine appointment to 4 weeks from now. WOrk note given. Medications New: gabapentin After two weeks taper to twice a day for a week then [id number] mg PO TID B02.9 e nightly afterwards then stop Changed: Plan Detail Follow Up 4 Weeks Coding Level of Care Code Off vis,est,level 3 Diagnoses Shingles B02.9 Herpes zoster complications: with nervous system involvement 03/14/18 1118 <Electronically signed by Kash CONKLIN> Date Kash CONKLIN Cosigner Signature: Date (if applicable) CC: INTERNAL MEDICINE Observed: 01/17/2018 Status: F Source: [facility] OFFICE VISIT 11:45 AM [facility] [address] [place] [address] OFFICE VISIT Date of Service: 01/17/18 MR#: [id number] Acct: [id number] Name: NGUYEN MULLINS Rep #: [id number] : 1975 Provider: Kash Davis NP Age/Sex: 42/F Location: [facility] Status: Signed Intake Vital Signs01/17/18 Height 5 ft 2 in 01/17/18 Weight: 112 lb Intake Visit Reasons: Irritable bowel syndrome Chief Complaint: stomach problems Rapid Outsole Stitcher Required: No Is patient in pain?: No Allergies valacyclovir [From Valtrex] Allergy (Verified 01/17/18 10:08) Hives Medications blood pressure test kit-medium cuff See Dose Instructions .ROUTE .MEDSUPPLY #1 ea 06/01/17 [Rx Confirmed 01/17/18] acyclovir 400 mg tablet 400 mg PO TID #30 tab 06/14/17 [Rx Confirmed 01/17/18] etonogestrel-ethinyl estradiol 0.12 mg -0.015 mg/24 hr vaginal ring 1 vag ring VAGINAL ONCE 21 Days #1 ea 10/04/17 [Rx Confirmed 01/17/18] fluticasone 50 mcg/actuation nasal spray,suspension 2 spray INTRANASAL QDAY #1 device 11/08/17 [Rx Confirmed 01/17/18] loratadine 10 mg tablet 10 mg PO QDAY PRN #90 tab 11/08/17 [Rx Confirmed 01/17/18] meloxicam 7.5 mg tablet 7.5 mg PO QDAY #30 tab 11/08/17 [Rx Confirmed 01/17/18] sertraline 100 mg tablet 100 mg PO QDAY #90 tab 11/08/17 [Rx Confirmed 01/17/18] buspirone 5 mg tablet 5 mg PO QDAY PRN #90 tab 12/04/17 [Rx Confirmed 01/17/18] omeprazole 20 mg tablet,delayed release 20 mg PO QDAY #30 tab 12/04/17 [Rx Confirmed 01/17/18] trazodone 50 mg tablet 50 mg PO QHS PRN #90 tab 12/04/17 [Rx Confirmed 01/17/18] dicyclomine 20 mg tablet 20 mg PO TID #90 tab 01/17/18 [Rx Confirmed 01/17/18] sumatriptan 25 mg tablet 25 mg PO Q2H PRN #7 tab 01/17/18 [Rx Confirmed 01/17/18] Nurse's Note: pt. states she believes she is experiencing symptoms of IBS. She says it gets worse with stress and is constantly having liquid stools.She says her body feels wore out from it. [facility] Medical History History of marijuana use (Chronic) Anxiety (Acute) Back pain (Acute) Depression (Acute) Genital herpes (Acute) History of alcohol abuse (Acute) History of marijuana use (Acute) Insomnia (Acute) Migraine (Acute) PTSD (post-traumatic stress disorder) (Acute) history marijuana abuse (Acute) Hypertension (Chronic) Seasonal allergies (Chronic) UTI (urinary tract infection) (Chronic) Surgical History History of exploratory laparotomy (Acute) cesarian times 2 (Acute) Family History Father Hypertension Alcoholism Grandfather Alcoholism Colon cancer Mother Hypertension Depression Brother Depression Grandmother Diabetes Colon cancer Uncle Cancer Social History Smoking Status: Former smoker how long ago did patient quit smokin alcohol intake: former year quit: 2016 details: Currently in outpatient counseling substance use type: marijuana caffeine: Yes what type of physical activity do you participate in: yoga frequency: 1-2 times per week seatbelt use: always do you feel safe at home: Yes additional social history: Patient is engaged- [employer]-Work over [employer] Patient works at [employer] [facility] Chief Complaint: stomach problems Details: NGUYEN MULLINS, is a 42 F who presents to the office today for an acute visit of ongoing stomach problems. She has a past medical history is also above. The patient states that her epigastric pain and burning in her throat has entirely resolved since starting the PPI. She was seen by general surgery who recommended an EGD if this problem persists and also recommended a colonoscopy to assess for IBD if her lower abdominal cramping and diarrhea continued. The patient states that her main complaint right now is her continuous diarrhea and abdominal bloating and cramping. She states that she has 3-4 episodes of diarrhea per day and that stress makes it worse. She associates cramping and bloating with this as well. She denies any other aggravating or alleviating symptoms. The patient otherwise denies any fever, chills, nausea, vomiting, shortness of breath, chest pain or pressure, palpitations, orthopnea, lower extremity edema, syncope or presyncopal episodes. ROS Const Constitutional: No excessive sweating, fatigue, weakness, frequent falls or change in appetite Eyes Eyes: No blurry vision, change in vision, double vision or discharge ENT ENT: No difficulty swallowing, other or abnormal hearing Resp Respiratory: No cough, wheezing or shortness of breath Cardio Cardiology: No excessive sweating, chest pain at rest, chest pain with exertion or shortness of breath Gastro GI: Positive for loose stools (liquid and frequent), change in bowel habits, abdominal pain, change in stool character (liquid once), constipation, cramping, diarrhea and bloating; no belching, coffee ground emesis, heartburn, difficulty swallowing, feeling full early, excessive flatus, incontinent of stools, Vomiting blood/hematemesis, blood in stool, Black,tarry stools, nausea/dyspepsia, pain with swallowing, vomiting or other Musc Musculoskeletal: No joint pain, back pain, limited range of motion, joint swelling, muscle weakness, tingling or numbness Skin Skin: No change in skin color, wounds, rash or itching Neuro Neurology: No tingling, numbness, weakness, abnormal hearing, unsteady gait/balance, dizziness, frequent falls, loss of vision or memory loss Psych Psychiatric: No memory loss, No change in appetite, No anxiety, No depression, No Thoughts of harming yourself/Others Endo Endocrine: Positive for increased thirst/drinking; no change in body appearance, cold intolerance, excessive sweating, fatigue, flushing, heat intolerance, increased hunger, increased urination or other Aller/Imm Allergy/Immunologic: No wheezing, itchy eyes or seasonal allergy symptoms Aldair/Lymp Hematologic/Lymphatic: No easy bleeding, easy bruising or enlarged lymph nodes Exam Const General: cooperative, comfortable, no acute distress Nutritional Appearance: average body habitus, well nourished Orientation: alert, oriented x3 Limitations: mental status not altered [facility] Head: normal to inspection Ears: hearing grossly normal bilaterally Nose: external nose normal Resp Effort AND Inspection: normal respiratory effort, able to speak in complete sentences, normal respiratory pattern, symmetric chest movement, no audible wheezes, no cough Auscultation: Bilateral: Clear to Auscultation Cardio Palpation: normal PMI Rate: regular rate Heart Sounds: S1 normal, S2 normal, normal S1 and S2, no click, no gallops, no murmurs, no rubs GI Inspection: distended (slightly softly distended) Auscultation: normal bowel sounds Percussion: normal to percussion Palpation: soft, no hepatosplenomegaly, nontender Musc Musculoskeletal: No muscle weakness Skin General: no rashes or lesions noted, elasticity normal, turgor normal Lesions: no lesions Rashes: no rashes Neuro General: alert, awake, oriented x3, CN's II-XI intact bilaterally Speech: speech normal Gait: normal gait Motor: muscle tone normal throughout Extrem General: normal to inspection, normal gait, no edema, no pedal edema Psych Appearance: grossly normal Mental Status: mental status grossly normal Affect: normal affect Attitude: cooperative Thought Process: normal Assessment AND Plan 1. Irritable bowel syndrome with diarrhea K58.0 Plan Patient symptoms are consistent with irritable bowel syndrome with diarrhea. Will treat conservatively at this time and discussed increasing her fiber intake to help with the loose stools and diarrhea. Discussed the possibility of utilizing fiber supplementation and discussed how to properly introduce fiber into the diet. Patient verbalized understanding. Even the patient's amount of cramping and abdominal pain, will treat with dicyclomine 20 mg 3 times daily. Instructed on the use and potential side effects. I did also review general surgeon's note who recommended colonoscopy if GI symptoms continue, instructed patient to follow-up with general surgery at this time. Patient to follow- up in 6 weeks or sooner if needed. Dragon disclaimer Plan Detail Other Medications New: Refilled: Follow Up 6 Weeks Coding Level of Care Code Off vis,est,level 3 Diagnoses Irritable bowel syndrome with diarrhea K58.0 Irritable bowel syndrome type: with diarrhea 01/17/18 1145 <Electronically signed by Kash CONKLIN> Date Kash CONKLIN Cosigner Signature: Date (if applicable) CC: SURGERY VISIT REPORT Observed: 12/25/2017 Status: F Source: [facility] 10:31 AM [facility] REPOSITORY [facility] [address] [place] [address] [address] [place] [address] OFFICE VISIT Date of Service: 12/24/17 MR#: [id number] Acct: [id number] Name: NGUYEN MULLINS Rep #: [id number] : 1975 Provider: Vasquez Peres MD Age/Sex: 42/F Location: [facility] Status: Signed Intake Vital Signs12/24/17 Height 5 ft 2 in 12/24/17 Weight: 114 lb Intake Visit Reasons: Gastroesophageal reflux disease (GERD) Chief Complaint: stomach problems Rapid Outsole Stitcher Required: No Is patient in pain?: No Allergies valacyclovir [From Valtrex] Allergy (Verified 12/24/17 11:22) Hives Medications blood pressure test kit-medium cuff See Dose Instructions .ROUTE .MEDSUPPLY #1 ea 06/01/17 [Rx Confirmed 12/24/17] acyclovir 400 mg tablet 400 mg PO TID #30 tab 06/14/17 [Rx Confirmed 12/24/17] etonogestrel-ethinyl estradiol 0.12 mg -0.015 mg/24 hr vaginal ring 1 vag ring VAGINAL ONCE 21 Days #1 ea 10/04/17 [Rx Confirmed 12/24/17] fluticasone 50 mcg/actuation nasal spray,suspension 2 spray INTRANASAL QDAY #1 device 11/08/17 [Rx Confirmed 12/24/17] loratadine 10 mg tablet 10 mg PO QDAY PRN #90 tab 11/08/17 [Rx Confirmed 12/24/17] meloxicam 7.5 mg tablet 7.5 mg PO QDAY #30 tab 11/08/17 [Rx Confirmed 12/24/17] sertraline 100 mg tablet 100 mg PO QDAY #90 tab 11/08/17 [Rx Confirmed 12/24/17] sumatriptan 25 mg tablet 25 mg PO Q2H PRN #7 tab 11/08/17 [Rx Confirmed 12/24/17] buspirone 5 mg tablet 5 mg PO QDAY PRN #90 tab 12/04/17 [Rx Confirmed 12/24/17] omeprazole 20 mg tablet,delayed release 20 mg PO QDAY #30 tab 12/04/17 [Rx Confirmed 12/24/17] trazodone 50 mg tablet 50 mg PO QHS PRN #90 tab 12/04/17 [Rx Confirmed 12/24/17] PFSH Medical History History of marijuana use (Chronic) Anxiety (Acute) Back pain (Acute) Depression (Acute) Genital herpes (Acute) History of alcohol abuse (Acute) History of marijuana use (Acute) Insomnia (Acute) Migraine (Acute) PTSD (post-traumatic stress disorder) (Acute) history marijuana abuse (Acute) Hypertension (Chronic) Seasonal allergies (Chronic) UTI (urinary tract infection) (Chronic) Surgical History History of exploratory laparotomy (Acute) cesarian times 2 (Acute) Family History Father Hypertension Alcoholism Grandfather Alcoholism Colon cancer Mother Hypertension Depression Brother Depression Grandmother Diabetes Colon cancer Uncle Cancer Social History Smoking Status: Former smoker how long ago did patient quit smokin alcohol intake: former year quit: 2016 details: Currently in outpatient counseling substance use type: marijuana caffeine: Yes what type of physical activity do you participate in: yoga frequency: 1-2 times per week seatbelt use: always do you feel safe at home: Yes additional social history: Patient is engaged- [employer]-Work over [employer] Patient works at [employer] HPI HPI HPI: NGUYEN MULLINS, is a 42 F who presents to the office today for epigastric pain and diarrhea. She reports the pain in the epigastric region that radiates up her esophagus. The patient reports that she has been on a PPI for 2 weeks and it is improving. She has a history of chronic drinking and reports that she has had diarrhea for years. She says there is no blood in her diarrhea. She does have some abdominal bloating. She has decreased her use of Mobic since this is occurred. ROS General General: No weight change, appetite, fatigue, colon cancer, breast cancer or weakness HEENT HEENT: No difficulty swallowing, eye injury, eye surgery, swollen glands or hoarseness Endo Endocrine: No thyroid disease, diabetes mellitus, thyroid cancer, Hair loss, heat intolerance or cold intolerance Skin Skin: No rash or changing moles Breast Breast: No left breast lump, right breast lump, nipple discharge, breast pain, abnormal mammogram, abnormal US or breast enlargement Musc Musculoskeletal: Yes back problems; no arthritis, rheumatoid arthritis, gout or joint pain Cardio Cardiovascular: No murmur, pacemaker, heart disease, atrial fibrillation, high blood pressure, heart attack, heart stent, palpitations, shortness of breat with exertion or chest pain Psych Psychiatric: Yes anxiety; no depression or hearing voices Resp Respiratory: No shortness of breath, No sleep apnea, No cough, No COPD, No asthma, No emphysema, No wheezing Gastro Gastrointestinal: Yes abdominal pain, Yes nausea or vomiting, Yes diarrhea, No constipation, No blood in stool, Yes acid reflux, No hemorrhoids, Yes ulcers, No gallbladder problem, No black,tarry stools Aldair Hematologic: No blood thinners, No blood disorders, No bleeding, No anemia, No blood clots Neuro Neurologic: No system reviewed and no additional complaints, except as docu, No as per HPI, No abnormal walking, No abnormal hearing, No abnormal movements, No abnormal speech, No behavioral changes, No burning sensations, No confusion, No seizure-like activity, No unsteadiness, No dizziness, No localized weakness, No frequent falls, No headache(s), No lack of coordination, No loss of vision, No memory loss, Yes numbness, No other visual disturbances, No radiating pain, No restless legs, No sensory deficit, No fainting, Yes tingling, No tremor(s), No weakness, No other Exam Const General: cooperative, comfortable Orientation: alert, oriented x3 Chest Chest palpation AND inspection: normal inspection of the chest Breast Palpation: No nipple discharge Resp Effort AND Inspection: normal respiratory effort Auscultation: clear to auscultation bilaterally Cardio Rate: regular rate Rhythm: regular rhythm Heart Sounds: no murmurs GI Inspection: non-distended, normal to inspection Palpation: soft, nontender Assessment AND Plan 1. Gastroesophageal reflux disease, esophagitis presence not specified K21.9 Plan 1. The patient has been having GERD. I recommend that she continue PPI therapy for at least 6 weeks. If this does not resolve and improve the epigastric pain I will perform an EGD to check for peptic ulcer disease. 2. Diarrhea, unspecified type R19.7 Plan 1. The patient also has chronic diarrhea and abdominal pain and bloating. There is a possibility of inflammatory bowel disease. If this also continues past the 6 week point I will offer her a colonoscopy to check for inflammation. 2. I explained endoscopy in detail to the patient. I explained the risks including but not limited to stroke or heart attack with anesthesia, perforation of the GI tract, bleeding, infection. I explained that any of these could necessitate further emergency surgery. The patient understands and all questions were answered sufficiently. The patient wishes to proceed with procedure. Vasquez Peres MD Pager: [facility] [address] [place] [address], [address] [place] [address] Office: Coding Level of Care Code Off vis,new,level 3 Diagnoses Gastroesophageal reflux disease, esophagitis presence not specified K21.9 Esophagitis presence: esophagitis presence not specified Diarrhea, unspecified type R19.7 Diarrhea type: unspecified type 12/25/17 1031 <Electronically signed by Vasquez Peres MD> Date Vasquez Peres MD Cosigner Signature: Date (if applicable) CC: Kash Davis NP INTERNAL MEDICINE Observed: 12/04/2017 Status: F Source: [facility] OFFICE VISIT 3:46 PM [facility] [address] [place] [address] [address] [place] [address] OFFICE VISIT Date of Service: 12/04/17 MR#: [id number] Acct: [id number] Name: NGUYEN MULLINS Rep #: [id number] : 1975 Provider: Kash Davis NP Age/Sex: 42/F Location: [facility] Status: Signed Intake Vital Signs12/04/17 Height 5 ft 2 in 12/04/17 Weight: 116 lb 12/04/17 Body Mass Index (BMI) 21.2 12/04/17 Blood Pressure 106/66 Intake Visit Reasons: stomach prob Chief Complaint: stomach problems Is patient in pain?: Yes (5) Allergies valacyclovir [From Valtrex] Allergy (Verified 12/04/17 14:39) Hives Medications blood pressure test kit-medium cuff See Dose Instructions .ROUTE .MEDSUPPLY #1 ea 06/01/17 [Rx Confirmed 12/04/17] acyclovir 400 mg tablet 400 mg PO TID #30 tab 06/14/17 [Rx Confirmed 12/04/17] etonogestrel-ethinyl estradiol 0.12 mg -0.015 mg/24 hr vaginal ring 1 vag ring VAGINAL ONCE 21 Days #1 ea 10/04/17 [Rx Confirmed 12/04/17] fluticasone 50 mcg/actuation nasal spray,suspension 2 spray INTRANASAL QDAY #1 device 11/08/17 [Rx Confirmed 12/04/17] loratadine 10 mg tablet 10 mg PO QDAY PRN #90 tab 11/08/17 [Rx Confirmed 12/04/17] meloxicam 7.5 mg tablet 7.5 mg PO QDAY #30 tab 11/08/17 [Rx Confirmed 12/04/17] sertraline 100 mg tablet 100 mg PO QDAY #90 tab 11/08/17 [Rx Confirmed 12/04/17] sumatriptan 25 mg tablet 25 mg PO Q2H PRN #7 tab 11/08/17 [Rx Confirmed 12/04/17] buspirone 5 mg tablet 5 mg PO QDAY PRN #90 tab 12/04/17 [Rx Confirmed 12/04/17] omeprazole 20 mg tablet,delayed release 20 mg PO QDAY #30 tab 12/04/17 [Rx Confirmed 12/04/17] trazodone 50 mg tablet 50 mg PO QHS PRN #90 tab 12/04/17 [Rx Confirmed 12/04/17] PFSH Medical History Anxiety (Acute) Back pain (Acute) Depression (Acute) Genital herpes (Acute) Insomnia (Acute) Seasonal allergies (Chronic) UTI (urinary tract infection) (Chronic) Surgical History History of exploratory laparotomy (Acute) cesarian times 2 (Acute) Family History Father Hypertension Alcoholism Grandfather Alcoholism Colon cancer Mother Hypertension Depression Brother Depression Grandmother Diabetes Colon cancer Uncle Cancer Social History Smoking Status: Former smoker how long ago did patient quit smokin alcohol intake: former year quit: 2017 details: Currently in outpatient counseling substance use type: marijuana caffeine: Yes what type of physical activity do you participate in: yoga frequency: 1-2 times per week seatbelt use: always do you feel safe at home: Yes additional social history: Patient is engaged- [employer]Work over [employer] Patient works at [employer] [facility] Chief Complaint: stomach problems Details: NGUYEN MULLINS, is a 42 F who presents to the office today for an acute complaint of stomach problems. She has a past medical history as listed above. The patient states that she has had worsening stomach problems in the past couple weeks. She states that her abdominal pain worsens after eating and after drinking coffee. She does state that she has a history of blood in her stool that occurred when she is dealing with her problems from her alcoholism. However the patient notes that she continues to refrain from alcohol at this time. She states that she has occasional abdominal pain and bloating and nausea as well. She does note intermittent diarrhea also. She states that she has taken [id number] Zantac without relief much relief. She currently denies any blood in the urine, hematemesis, blood in the stool, or black tarry stool. She wonders if she should get an EGD done given her previous history of alcohol abuse. She denies any other aggravating or relieving symptoms. The patient otherwise denies any fever, chills, vomiting, shortness of breath, chest pain or pressure, palpitations, orthopnea, lower extremity edema, syncope or presyncopal episodes. ROS Const Constitutional: No chills, fatigue, fever(s), frequent falls, malaise, weakness, sleep problems or change in appetite Eyes Eyes: No blurry vision, change in vision, double vision, discharge or visual disturbances ENT ENT: No abnormal hearing, ear pain, ear pressure, tinnitus or dizziness/vertigo Resp Respiratory: No cough, shortness of breath or wheezing Cardio Cardiology: No chest pain at rest, chest pain with exertion, shortness of breath, dyspnea on exertion, generalized swelling, irregular heart rhythm, lightheadedness, orthopnea, fast heart rate or palpitations Gastro GI: Positive for abdominal pain, diarrhea, nausea/dyspepsia, bloating and cramping; no change in bowel habits, constipation or vomiting Genitourinary-Female: No difficulty urinating, burning urination, painful urination, urinary incontinence, urinary frequency, urinary urgency, urinary hesitancy, urinary retention, Frequent nighttime urination/ nocturia, sexual problems, genital lesions, abnormal vaginal bleeding, pelvic pain, vaginal dryness, vaginal odor or Vaginal Itching Musc Musculoskeletal: No joint pain, back pain, joint swelling, limited range of motion, muscle weakness, numbness or tingling Skin Skin: No change in skin color, itching, rash or wounds Breast Breast: No breast lump or breast pain Neuro Neurology: No frequent falls, weakness, abnormal hearing, numbness, tingling, unsteady gait/balance, dizziness, loss of vision, memory loss or visual disturbances Psych Psychiatric: No memory loss, No anxiety, No change in appetite, No depression, No Thoughts of harming yourself/Others Endo Endocrine: No fatigue, heat intolerance, increased thirst/drinking, increased hunger or increased urination Aller/Imm Allergy/Immunologic: No wheezing, itchy eyes or seasonal allergy symptoms Aldair/Lymp Hematologic/Lymphatic: No easy bleeding, easy bruising or enlarged lymph nodes Exam Const General: cooperative, comfortable, no acute distress Nutritional Appearance: average body habitus, well nourished Orientation: alert, oriented x3 Limitations: mental status not altered Resp Effort AND Inspection: normal respiratory effort, able to speak in complete sentences, normal respiratory pattern, symmetric chest movement, no audible wheezes, no cough Auscultation: Bilateral: Clear to Auscultation Cardio Palpation: normal PMI Rate: regular rate Heart Sounds: S1 normal, S2 normal, normal S1 and S2, no click, no gallops, no murmurs, no rubs GI Inspection: normal to inspection Auscultation: normal bowel sounds Percussion: normal to percussion Palpation: soft, no hepatosplenomegaly, tender in the epigastrum and in the LUQ Musc Musculoskeletal: No muscle weakness Skin General: no rashes or lesions noted, elasticity normal, turgor normal Lesions: no lesions Rashes: no rashes Neuro General: alert, awake, oriented x3, CN's II-XI intact bilaterally Speech: speech normal Gait: normal gait Motor: muscle tone normal throughout Extrem General: normal to inspection, normal gait, no edema, no pedal edema Psych Appearance: grossly normal Mental Status: mental status grossly normal Affect: normal affect Attitude: cooperative Thought Process: normal Assessment AND Plan Problems 1. Epigastric pain R10.13 2. GERD (gastroesophageal reflux disease) K21.9 Plan Patient symptoms are somewhat consistent with that of GERD, however given her variety of symptoms including abdominal bloating and occasional diarrhea differentials to consider include IBS as well. Patient is concerned about the potential for stomach ulcers given her history of alcoholism. Will trial the patient on omeprazole 20 mg daily. Currently denies any blood in her stool. Does have epigastric tenderness on exam. Will refer to general surgery for evaluation. Discussed red flag symptoms that require urgent medical attention. Patient to follow-up with our office as previously scheduled or sooner if needed. Dragon disclaimer Orders Referrals: Medications New: Refilled: Plan Detail Follow Up As previously scheduled or sooner if needed Coding Level of Care Code Off vis,est,level 3 Diagnoses Epigastric pain R10.13 GERD (gastroesophageal reflux disease) K21.9 12/04/17 1546 <Electronically signed by Kash CONKLIN> Date Kash CONKLIN Cosigner Signature: Date (if applicable) CC: INTERNAL MEDICINE Observed: 11/13/2017 Status: F Source: [place] OFFICE VISIT 9:12 AM [facility] [address] [place] [address] [address] [place] [address] OFFICE VISIT Date of Service: 11/08/17 MR#: [id number] Acct: [id number] Name: NGUYEN MULLINS Rep #: [id number] : 1975 Provider: Kash Davis NP Age/Sex: 42/F Location: [facility] [place] Status: Signed Intake Vital Signs11/08/17 Height 5 ft 2 in 11/08/17 Weight: 113 lb 11/08/17 Body Mass Index (BMI) 20.6 11/08/17 Blood Pressure 110/72 Intake Visit Reasons: 2 MO F/U Chief Complaint: 2 mo F/U - Migraine meds Is patient in pain?: No Allergies valacyclovir [From Valtrex] Allergy (Verified 11/08/17 09:19) Hives Medications blood pressure test kit-medium cuff See Dose Instructions .ROUTE .MEDSUPPLY #1 ea 06/01/17 [Rx Confirmed 10/04/17] acyclovir 400 mg tablet 400 mg PO TID #30 tab 06/14/17 [Rx Confirmed 11/08/17] buspirone 5 mg tablet 5 mg PO QDAY PRN #30 tab 07/27/17 [Rx Confirmed 11/08/17] etonogestrel-ethinyl estradiol 0.12 mg -0.015 mg/24 hr vaginal ring 1 vag ring VAGINAL ONCE 21 Days #1 ea 10/04/17 [Rx Confirmed 11/08/17] fluticasone 50 mcg/actuation nasal spray,suspension 2 spray INTRANASAL QDAY #1 device 11/08/17 [Rx Confirmed 11/08/17] loratadine 10 mg tablet 10 mg PO QDAY PRN #90 tab 11/08/17 [Rx Confirmed 11/08/17] meloxicam 7.5 mg tablet 7.5 mg PO QDAY #30 tab 11/08/17 [Rx Confirmed 11/08/17] sertraline 100 mg tablet 100 mg PO QDAY #90 tab 11/08/17 [Rx Confirmed 11/08/17] sumatriptan 25 mg tablet 25 mg PO Q2H PRN #7 tab 11/08/17 [Rx Confirmed 11/08/17] trazodone 50 mg tablet 50 mg PO QHS PRN #30 tab 11/08/17 [Rx Confirmed 11/08/17] PFSH Medical History Anxiety (Acute) Back pain (Acute) Depression (Acute) Genital herpes (Acute) Insomnia (Acute) Seasonal allergies (Chronic) UTI (urinary tract infection) (Chronic) Surgical History History of exploratory laparotomy (Acute) cesarian times 2 (Acute) Family History Father Hypertension Alcoholism Grandfather Alcoholism Colon cancer Mother Hypertension Depression Brother Depression Grandmother Diabetes Colon cancer Uncle Cancer Social History Smoking Status: Current some day smoker how long ago did patient quit smokin alcohol intake: former year quit: 2017 details: Currently in outpatient counseling substance use type: marijuana caffeine: Yes what type of physical activity do you participate in: yoga frequency: 1-2 times per week seatbelt use: always do you feel safe at home: Yes additional social history: Patient is engaged- [employer]-Work over [employer] Patient works at [employer] [facility] HPI Chief Complaint: 2 mo F/U - Migraine meds Details: NGUYEN MULLINS, is a 42 F who presents to the office today for follow-up of her migraines and neck pain. She has a past medical history as listed above. The patient is also requesting medication refills. She states that she takes Imitrex for her migraines and that the 7 that was prescribed to her in August have lasted her until now. She states that her migraines have not increased in frequency and that the Imitrex does well for her. Regarding her neck pain. She states that she has seen physical therapy, however needs to schedule a follow-up with them. She states that the physical therapy is helping her neck pain. She does note that she will be following up with ENT regarding her deviated septum. She does state that due to home stressors, she has felt more anxious and overwhelmed lately and wonders if an increase in sertraline would be appropriate. The patient otherwise denies any fever, chills, nausea, vomiting, shortness of breath, chest pain or pressure, palpitations, orthopnea, lower extremity edema, syncope or presyncopal episodes. ROS Const Constitutional: Positive for headache(s) (Migraines - really bad); no chills, fatigue, fever(s), frequent falls, malaise, weakness, sleep problems or change in appetite Eyes Eyes: No blurry vision, change in vision, double vision, discharge or visual disturbances ENT ENT: Positive for headache(s) (Migraines - really bad); no abnormal hearing, ear pain, ear pressure, tinnitus or dizziness/vertigo Resp Respiratory: No cough, shortness of breath or wheezing Cardio Cardiology: No chest pain at rest, chest pain with exertion, shortness of breath, dyspnea on exertion, generalized swelling, irregular heart rhythm, lightheadedness, orthopnea, fast heart rate or palpitations Gastro GI: No abdominal pain, change in bowel habits, constipation, diarrhea, nausea/dyspepsia or vomiting Genitourinary-Female: No difficulty urinating, burning urination, painful urination, urinary incontinence, urinary frequency, urinary urgency, urinary hesitancy, urinary retention, Frequent nighttime urination/ nocturia, sexual problems, genital lesions, abnormal vaginal bleeding, pelvic pain, vaginal dryness, vaginal odor or Vaginal Itching Musc Musculoskeletal: No joint pain, back pain, joint swelling, limited range of motion, muscle weakness, numbness or tingling Skin Skin: No change in skin color, itching, rash or wounds Breast Breast: No breast lump or breast pain Neuro Neurology: Positive for headache(s) (Migraines - really bad); no frequent falls, weakness, abnormal hearing, numbness, tingling, unsteady gait/balance, dizziness, loss of vision, memory loss or visual disturbances Psych Psychiatric: No memory loss, No anxiety, No change in appetite, No depression, No Thoughts of harming yourself/Others Endo Endocrine: No fatigue, heat intolerance, increased thirst/drinking, increased hunger or increased urination Aller/Imm Allergy/Immunologic: Positive for seasonal allergy symptoms; no wheezing or itchy eyes Aldair/Lymp Hematologic/Lymphatic: No easy bleeding, easy bruising or enlarged lymph nodes Exam Const General: cooperative, comfortable, no acute distress Nutritional Appearance: average body habitus, well nourished Orientation: alert, oriented x3 Limitations: mental status not altered HENFL Ears: hearing grossly normal bilaterally, TM normal on the right, TM normal on the left, other (Small amount of clear fluid bilaterally) Resp Effort AND Inspection: normal respiratory effort, able to speak in complete sentences, normal respiratory pattern, symmetric chest movement, no audible wheezes, no cough Auscultation: Bilateral: Clear to Auscultation Cardio Palpation: normal PMI Rate: regular rate Heart Sounds: S1 normal, S2 normal, normal S1 and S2, no click, no gallops, no murmurs, no rubs Musc Musculoskeletal: No muscle weakness Skin General: no rashes or lesions noted, elasticity normal, turgor normal Lesions: no lesions Rashes: no rashes Neuro General: alert, awake, oriented x3, CN's II-XI intact bilaterally Speech: speech normal Gait: normal gait Motor: muscle tone normal throughout Extrem General: normal to inspection, normal gait, no edema, no pedal edema Psych Appearance: grossly normal Mental Status: mental status grossly normal Affect: normal affect Attitude: cooperative Thought Process: normal Assessment AND Plan 1. Anxiety and depression F41.9; F32.9 Plan Patient's anxiety is not well controlled due to her current stressors. Will increase her sertraline from 50 mg to 100 mg daily. Discussed red leg symptoms that require urgent medical attention. Patient currently denies any thoughts of harming self or others. Patient will follow-up in 4-6 weeks due to medication adjustments. 2. Alcohol abuse F10.10 Plan Patient continues to do well refraining from alcohol, will continue with total abstinence at this time. 3. Migraine without status migrainosus, not intractable, unspecified migraine type G43.909 Plan Patient's migraines are being treated with her Imitrex and [id number] Tylenol and ibuprofen. We will continue to follow in the future. If worsens, may need a referral to neurology 4. Seasonal allergies J30.2 Plan Patient does have seasonal allergies, following up with ENT for deviated septum. Will continue with her Flonase therapy and will also call in [facility] for her to take on a as needed basis. 5. Cervical radiculopathy, chronic M54.12 Plan Patient will continue following up with physical therapy and seeing the chiropractor on an as-needed basis. Patient notes improvement since previous office visit. Dragon disclaimer Plan Detail Other Medications New: Refilled: Discontinued: Follow Up 6 weeks follow-up anxiety Coding Level of Care Code Off vis,est,level 3 Diagnoses Anxiety and depression F41.9; F32.9 Alcohol abuse F10.10 Migraine without status migrainosus, not intractable, unspecified migraine type G43.909 Intractability: not intractable Migraine type: unspecified Status migrainosus presence: without status migrainosus Seasonal allergies J30.2 Cervical radiculopathy, chronic M54.12 11/13/17 0912 <Electronically signed by Kash CONKLIN> Date Kash CONKLIN Cosigner Signature: Date (if applicable) CC: TRANSVAGINAL Observed: 10/12/2017 Status: F Source: [place] NON- 12:38 PM [facility] REPOSITORY [facility] Imaging Services [address] [place] [address] Transvaginal Non- MR#: [id number] Acct: [id number] Name: NGUYEN MULLINS Rep #: [id number] : 1975 F 42 From: Ole Thrasher MD PCP: Kash Davis NP Status: REG CLI Study: Transvaginal Non- Date of Exam: 10/12/17 Exam# [id number] Ordering Dr: Gina Mosley STUDY: ULTRASOUND OF THE FEMALE PELVIS - COMPLETE REASON FOR EXAM: Female, 42 years old. Enlarged uterus. Oligomenorrhea. LMP: September 28, 2017. TECHNIQUE: Transvaginal TECHNICAL QUALITY: Adequate. COMPARISON: None. FINDINGS: The uterus is anteverted and is in a midline position. The uterus measures 9.0 cm x 4.9 cm x 4.4 cm. Normal uterine cervix. The endometrium measures 6.0 mm in thickness, and is hyperechoic. There is no demonstrated endometrial mass. 2 fibroids are seen. The larger measures 1.4 size by 1.9 cm x 1.8 cm. I.U.D. - The patient does not have an I.U.D. The right ovary is visualized. The right ovary measures 2.8 cm x 2.6 cm x 1.7 cm. There is no right ovarian cyst or ovarian mass. There is no visualized right adnexal mass or complex lesion. There is normal arterial and normal venous vascularity. The left ovary is visualized. The left ovary measures 2.2 cm x 2.3 cm x 1.6 cm. A dominant follicle measuring 1.1 cm x 1.1 cm x 1.2 cm seen within the left ovary. There is no visualized left adnexal mass or complex lesion. There is normal arterial and normal venous vascularity. There is no fluid in the cul-de-sac. The pre void volume of the bladder was 98 ml. Polycystic ovary disease: No. US/Transvaginal Non- IMPRESSION: Fibroid uterus. Dominant follicle in the left ovary. Electronically Signed: Ole Thrasher MD at 14:09 EDT Tel [phone], Service support , CC: LYNN Mosley; Kash Davis NP Infant Babysitter: Signed PELVIC (NON ) Observed: 10/12/2017 Status: F Source: [place] 12:38 PM [facility] REPOSITORY [facility] Imaging Services [address] [place] [id number] Pelvic (Non ) MR#: [id number] Acct: [id number] Name: NGUYEN MULLINS Rep #: [id number] : 1975 F 42 From: Ole Thrasher MD PCP: Kash Davis NP Status: REG CLI Study: Pelvic (Non ) Date of Exam: 10/12/17 Exam# [id number] Ordering Dr: Gina Mosley [employer] HELPER-C STUDY: ULTRASOUND OF THE FEMALE PELVIS - COMPLETE REASON FOR EXAM: Female, 42 years old. Enlarged uterus. Oligomenorrhea. LMP: September 28, 2017. TECHNIQUE: Transvaginal TECHNICAL QUALITY: Adequate. COMPARISON: None. FINDINGS: The uterus is anteverted and is in a midline position. The uterus measures 9.0 cm x 4.9 cm x 4.4 cm. Normal uterine cervix. The endometrium measures 6.0 mm in thickness, and is hyperechoic. There is no demonstrated endometrial mass. 2 fibroids are seen. The larger measures 1.4 size by 1.9 cm x 1.8 cm. I.U.D. - The patient does not have an I.U.D. The right ovary is visualized. The right ovary measures 2.8 cm x 2.6 cm x 1.7 cm. There is no right ovarian cyst or ovarian mass. There is no visualized right adnexal mass or complex lesion. There is normal arterial and normal venous vascularity. The left ovary is visualized. The left ovary measures 2.2 cm x 2.3 cm x 1.6 cm. A dominant follicle measuring 1.1 cm x 1.1 cm x 1.2 cm seen within the left ovary. There is no visualized left adnexal mass or complex lesion. There is normal arterial and normal venous vascularity. There is no fluid in the cul-de-sac. The pre void volume of the bladder was 98 ml. Polycystic ovary disease: No. US/Pelvic (Non ) IMPRESSION: Fibroid uterus. Dominant follicle in the left ovary. Electronically Signed: Ole Thrasher MD at 14:09 EDT Tel [phone], Service support , CC: LYNN Mosley; Kash Davis NP Infant Babysitter: Signed INITAL EVALUATION (1) Observed: 2017 Status: F Source: [place] - PT 2:06 PM [facility] REPOSITORY [facility] [place], [place] [address] Fax REHABILITATION SERVICES INITIAL EVALUATION MR#: [id number] Acct: [id number] Name: NGUYEN MULLINS Rep #: [id number] : 1975 42 From: Jeronimo Roman PT, ATC Referring DrMargie: Mohinder Nye Status: REG R Insurance: [facility] SELF PAY INSURANCE Patient's Visit Information NGUYEN MULLINS is a 42 year old F referred to Physical Therapy by Mohinder Nye with a diagnosis of Neck pain with radiculopathy. Date of Evaluation: 10/04/17 Physical Therapist: Jeronimo Roman, PT, - Visit Plan Frequency: 2-3x /Week Duration: 3 Weeks Plan: Postural edu, c/s retractions, DTR, mobs and distractions, MH, and HEP. May trial Tx if needed. - Subjective Subjective: Pt reports she has had pain and numbness in L UE for several months now. Pt reports she wakes up with a stiff and sore neck ofter. Pt reports she has diff with driving at times secondary to pain. Pt notes she gets headaches too as a result of her pain. Pt notes she has a Hx of migraines as well. Pt reports her L hand will fall asleep on occasion. No PMHx of L arm discomfort over the years. Pt reports she is just getting really tired of waking up in the morning feeling like she is 80 years old. Pt reports sleep diff secondary to pain. Pt reports she only uses one pillow to sleep with. Pt reports she might need an MRI, but has PT first. 4/10 at rest, 8/10 at worst (waking up in the morning - Pain neck pain Pain Intensity (Out of 10): 4 Pain Intensity Range: 8 - Objective Neuro: B UE sensation is WNL to light touch. B Bicepital reflex= 2/3. MMT: B UE's 5/5 throughout. C/S ROM: Pt is very limited with R rot, L SB, retraction, and extension. all other movements WNL. repeated movements: repeated protraction in sitting 10x3 decreased PT's pain; repeated retraction in sitting 3x10 made pt feel better overall. Special testing: pos compression and distraction test. - Goals Goal 1:: Decrease neck pain x 50% to aid with sleep Goal Time Frame: 4-6 Weeks Goal 2:: Increase C/s ROM x 1 grade to aid with driving Goal Time Frame: 4-6 Weeks Goal 3:: Decrease F and I of L UE radiculopathy x 50% to aid with IADL's Goal Time Frame: 4-6 Weeks Goal 4:: I with HEP Goal Time Frame: 4-6 Weeks - Rehabilitation Potential Physical Therapy Diagnosis: Neck pain, L UE radiculopathy, and limited c/s ROM secondary cervical spine disc derangement Rehabilitation Potential: Good - Anticipated Interventions Patient/Client Instruction: Educate patient on: Condition, Plan of Care For the Purpose of:: To improve self management Therapeutic Exercise to Include: Strength training, Endurance training, Body mechanics, Postural training, Active ROM, Scapular Strength/Stabilization For the Purpose of:: To decrease pain, To increase ROM, To improve muscle performance and motor function Manual Therapy Techniques to Include: Soft tissue mobilization For the Purpose of:: To decrease pain Thank you for the opportunity to evaluate your patient. For Medicare and Medicare HMO plans, please review the plan of care and approve it. It will need to be FAXED BACK to us at [phone] for Medicare purposes. Please let me know if there are questions or concerns regarding this plan of care. Physician Signature: Date: <Electronically signed by Jeronimo Roman PT, ATC> 10/04/17 1406 CC: Mohinder Nye; Kash Davis [employer] Signed For Medicare only, by signing this I certify the plan of care. Physicians Signature Date FOLLICLE STIMULATING Collected: 2017 Status: F Source: [place] HORMONE 9:52 AM [facility] REPOSITORY TYPE CODE TESTS RESULT OUT OF RANGE REFERENCE UNITS LAB L3100.5125 mIU/mL Normal FSH 32.9 Result Comment: NORMAL REFERENCE RANGES FEMALE FOLLICULAR 2.3 - 12.6 mIU/mL MID-CYCLE PEAK 5.2 - 17.5 mIU/mL LUTEAL 1.7 - 12.9 mIU/mL POST-MENOPAUSAL ON MHT 5.9 - 72.8 mIU/mL NOT ON MHT 12.7 - 132.2 mlU/mL MALE 0.7 - 10.8 mIU/mL NEW TEST METHOD AND REFERENCE RANGES NOVEMBER 13, 2011 Performed By: #### L3100.5125, L3300.1750 #### [facility] [address] [place], [address] ESTRADIOL Collected: 2017 Status: F Source: [place] 9:52 AM [facility] REPOSITORY TYPE CODE TESTS RESULT OUT OF RANGE REFERENCE UNITS LAB L3300.1750 pg/mL Normal ESTRADIOL 121.4 Result Comment: NORMAL REFERENCE RANGES FEMALE FOLLICULAR 21.4 - 164.8 pg/mL MID-CYCLE PEAK 49.9 - 367.2 pg/mL LUTEAL 40.2 - 259.0 pg/mL POST-MENOPAUSAL ON MHT <11.0 - 462.1 pg/mL NOT ON MHT <11.0 - 58.3 pg/mL MALE <11.0 - 52.5 pg/mL NOTE: [facility] HAS CONFIRMED THE DRUG FULVETRANT (FASLODEX) MAY CAUSE FALSELY ELEVATED ESTRADIOL RESULTS WHEN USING THIS TEST METHOD. IF PATIENT IS TAKING FULVESTRANT AN ALTERNATIVE METHOD SHOULD BE USED TO DETERMINE ESTRADIOL CONCENTRATION. Performed By: #### L3100.5125, L3300.1750 #### [facility] [address] [place], [address] PAP IG HPV 16/18,45 Collected: 2017 Status: F Source: [place] 8:20 AM [facility] REPOSITORY Order Comment: CYTOLOGY INFORMATION: - CLINICAL INFORMATION: HYSTERECTOMY - DATE LMP/MENOPAUSE: LMP - COLLECTION VIAL: Thin Prep Vial - REWRITER SOURCE: CERVICAL - COLLECTION TECHNIQUE: BRUSH/SPATULA Specimen Comment: [id number] Specimen Comment: No. of containers..01 ThinPrep Vial TYPE CODE TESTS RESULT OUT OF RANGE REFERENCE UNITS LAB L7400.0800 . Normal DIAGN Comment Result Comment: NEGATIVE FOR INTRAEPITHELIAL LESION AND MALIGNANCY. LAB L7400.0900 . Normal ADEQ Comment Result Comment: Satisfactory for evaluation. No endocervical cells are present. This is consistent with a history of hysterectomy. LAB L7400.1400 . Normal PERFORM Comment Result Comment: Sosa Adair, High Lift Driver (ASCP) LAB L7400.2575 . Normal TEST METHOD Comment Result Comment: This liquid based ThinPrep(R) pap test was screened with the use of an image guided system. LAB L7400.2600 . Normal . COMM LAB L7400.2700 . Normal PAPSMR Comment Result Comment: The Pap smear is a screening test designed to aid in the detection of premalignant and malignant conditions of the uterine cervix. It is not a diagnostic procedure and should not be used as the sole means of detecting cervical cancer. Both false-positive and false-negative reports do occur. LAB L7400.2760 Negative Normal HPV APTIMA, Negative HR Result Comment: This test detects fourteen high-risk HPV types (16/18/31/33/35/39/45/ 51/52/56/58/59/66/68) without differentiation. Performed at: - [facility] [id number] Data Communications Engineer: Christina Faust MD, Phone: [phone] Performed at: = - [facility] [address] [id number] Data Communications Engineer: Christina Faust MD, Phone: [phone] Performed By: #### L7400.0280 #### [facility] (refer to report for specific site) refer to report for address and phone number INTERNAL MEDICINE Observed: 09/07/2017 Status: F Source: [place] OFFICE VISIT 6:00 PM [facility] [address] [place] [address] [address] [place] [address] OFFICE VISIT Date of Service: 09/07/17 MR#: [id number] Acct: [id number] Name: NGUYEN MULLINS Rep #: [id number] : 1975 Provider: Kash Davis NP Age/Sex: 41/F Location: [facility] [place] Status: Signed Intake Vital Signs09/07/17 Height 5 ft 2 in Intake Visit Reasons: FU Chief Complaint: left ear pain Rapid Outsole Stitcher Required: No Accompanied by: Self Is patient in pain?: No Allergies valacyclovir [From Valtrex] Allergy (Verified 09/07/17 13:21) Hives Medications blood pressure test kit-medium cuff See Dose Instructions .ROUTE .MEDSUPPLY #1 ea 06/01/17 [Rx Confirmed 06/01/17] acyclovir 400 mg tablet 400 mg PO TID #30 tab 06/14/17 [Rx Confirmed 06/14/17] hydrocortisone 2.5 % topical ointment 1 applic TOPICAL QHS #28.35 g 06/28/17 [Rx Confirmed 06/28/17] buspirone 5 mg tablet 5 mg PO QDAY PRN #30 tab 07/27/17 [Rx Confirmed 07/27/17] sertraline 50 mg tablet 50 mg PO QDAY #90 tab 07/27/17 [Rx Confirmed 07/27/17] trazodone 50 mg tablet 50 mg PO QHS PRN #30 tab 07/27/17 [Rx Confirmed 07/27/17] Ofloxacin 0.3% [Floxin 0.3% Otic] 10 drp OTIC DAILY 10 Days #1 bottle 08/10/17 [Rx] fluticasone 50 mcg/actuation nasal spray,suspension 2 spray INTRANASAL QDAY #1 device 08/10/17 [Rx Confirmed 08/10/17] cyclobenzaprine 10 mg tablet 5 mg PO HS PRN #30 tab 09/07/17 [Rx Confirmed 09/07/17] meloxicam 7.5 mg tablet 7.5 mg PO QDAY #30 tab 09/07/17 [Rx Confirmed 09/07/17] sumatriptan 25 mg tablet 25 mg PO Q2H PRN #7 tab 09/07/17 [Rx Confirmed 09/07/17] PFSH Medical History Seasonal allergies (Chronic) UTI (urinary tract infection) (Chronic) Surgical History cesarian times 2 (Acute) Family History Father Hypertension Alcoholism Grandfather Alcoholism Colon cancer Mother Hypertension Depression Brother Depression Grandmother Diabetes Colon cancer Uncle Cancer Social History Smoking Status: Current some day smoker how long ago did patient quit smokin alcohol intake: former year quit: 2017 details: Is going through rehab for alcohol abuse at 89. substance use type: marijuana what type of physical activity do you participate in: yoga frequency: 1-2 times per week HPI HPI Chief Complaint: left ear pain Details: NGUYEN MULLINS, is a 41 F who presents to the office today for a follow-up of her left ruptured eardrum. She also has some acute complaints as well. The patient states that regarding her ruptured left eardrum, she has followed up with Dr. Suarez and this has improved and is almost entirely resolved. The patient states that she has been seen [facility] Dr. Kenney for chronic neck pain with radiculopathy down to the left arm. He has been doing adjustments and did cervical x-rays which were negative. He suspects she needs an MRI and per patient she states that he thought she may benefit from a muscle relaxant and/or anti-inflammatory. She is referred to physical therapy as well. patient also brings up her history of migraine, she states in the past she treated her migraines with Imitrex, however has not had this in quite some time. She states that she only has about one migraine to 2 migraines per month, no auras associated with it. She also complains of ongoing dermatitis and is requesting a referral to a beauty therapist. She was previously treated in our office with a steroid cream which did not help much with her dermatitis symptoms. The patient otherwise denies any fever, chills, nausea, vomiting, shortness of breath, chest pain or pressure, palpitations, orthopnea, lower extremity edema, syncope or presyncopal episodes. ROS Const Constitutional: No anorexia, body ache, chills, fever(s), decreased energy, malaise, night sweats, weight change, sleep problems, other, snoring, weakness, frequent falls, headache(s), abnormal sleep pattern, change in appetite, excessive sweating or fatigue Eyes Eyes: No blurry vision, change in vision, double vision, discharge, dry eyes, bulging eyes, floaters, eye pain, light sensitivity, spots in vision, tunnel vision, other or visual disturbances ENT ENT: Positive for ear pain (slight but improved ); no ear discharge, ear pressure, hearing loss, tinnitus, dizziness/vertigo, balance problems, nosebleed/epistaxis, nasal congestion, nasal obstruction, nose pain, sinus pressure, sinus pain, nasal discharge, post nasal drip, facial pain, dental pain, dry mouth, bad breath, hoarseness, mouth lesions, mouth pain, sore throat, difficulty swallowing, neck pain, abnormal hearing, headache(s), other, lip swelling, throat swelling or tongue swelling Resp Respiratory: No cough, change in phlegm color, chest congestion, excessive phlegm production, hemoptysis, pain on inspiration, shortness of breath, pain with cough, snoring, stridor, other or wheezing Cardio Cardiology: No chest pain at rest, chest pain with exertion, leg pain with exertion, shortness of breath, dyspnea on exertion, generalized swelling, irregular heart rhythm, lightheadedness, orthopnea, radiating jaw, neck or arm pain, fast heart rate, slow heart rate, palpitations, other or excessive sweating Gastro GI: No abdominal pain, belching, bloating, change in bowel habits, change in stool character, coffee ground emesis, constipation, cramping, diarrhea, heartburn, difficulty swallowing, feeling full early, excessive flatus, incontinent of stools, Vomiting blood/hematemesis, blood in stool, loose stools, Black,tarry stools, nausea/dyspepsia, pain with swallowing, vomiting or other Genitourinary-Female: No difficulty urinating, burning urination, painful urination, urinary incontinence, urinary frequency, urinary urgency, urinary hesitancy, urinary retention, blood in urine, Frequent nighttime urination/ nocturia, post void dribbling, suprapubic fullness, side pain, sexual problems, genital lesions, genital itching, hot flashes, abnormal periods, abnormal vaginal bleeding, absent period, painful periods, light periods, heavy periods, difficulty getting , painful intercourse, pelvic pain, vaginal dryness, vaginal odor, Vaginal Itching or other Musc Musculoskeletal: No joint pain, back pain, deformity, joint swelling, limited range of motion, loss of height, muscle cramps, muscle weakness, decreased muscle mass, body aches, neck pain, radiating pain into limb, stiffness, other, abnormal walking, numbness or tingling Skin Skin: No acne, hair loss, change in hair, nail changes, boil, change in skin color, dry skin, redness, excessive hair growth, yellowing of the skin, lesions, rash, skin pain, skin ulcer, sores, skin swelling, wounds, other or itching Breast Breast: No change in breast shape, breast lump, breast pain, breast skin changes, breast swelling, nipple discharge or other Neuro Neurology: No abnormal walking, abnormal hearing, abnormal movements, abnormal speech, unsteady gait/balance, dizziness, weakness, frequent falls, headache(s), lack of coordination, loss of vision, numbness, tingling, visual disturbances, restless legs, fainting, tremor(s), other, behavioral changes, confusion or memory loss Psych Psychiatric: No abnormal sleep pattern, No lack of enjoyment, No anxiety, No behavioral changes, No change in appetite, No confusion, No depression, No difficulty concentrating, No hopelessness, No irritability, No memory loss, No mood swings, No panic attacks, No paranoia, No Thoughts of harming yourself/Others, No hallucinations, No other Endo Endocrine: No change in body appearance, cold intolerance, excessive sweating, fatigue, flushing, heat intolerance, increased thirst/drinking, increased hunger, increased urination or other Aller/Imm Allergy/Immunologic: No food intolerance, itchy eyes, lip swelling, seasonal allergy symptoms, throat swelling, tongue swelling, hives, wheezing or other Aldair/Lymp Hematologic/Lymphatic: No easy bleeding, easy bruising, enlarged lymph nodes or other Exam Const General: cooperative, comfortable, no acute distress Nutritional Appearance: average body habitus, well nourished Orientation: alert, oriented x3 Limitations: mental status not altered Resp Effort AND Inspection: normal respiratory effort, able to speak in complete sentences, normal respiratory pattern, symmetric chest movement, no audible wheezes, no cough Auscultation: Bilateral: Clear to Auscultation Cardio Palpation: normal PMI Rate: regular rate Heart Sounds: S1 normal, S2 normal, normal S1 and S2, no click, no gallops, no murmurs, no rubs Musc Musculoskeletal: No muscle weakness or decreased ROM Cervical Spine: pain with cervical ROM and cervical spinal tenderness; no Spurling sign Skin General: elasticity normal, turgor normal Lesions: no lesions Rashes: rashes noted (Bilateral upper shoulders) Neuro General: alert, awake, oriented x3 Cranial Nerves: CN's II-XI intact bilaterally Motor: strength 5/5 throughout Sensory Exam: no sensory deficits noted Psych Appearance: grossly normal Mental Status: mental status grossly normal Affect: normal affect Attitude: cooperative Thought Process: normal Assessment AND Plan 1. Cervical radiculopathy, chronic M54.12 Plan Patient to continue following with chiropractor and to continue with physical therapy, cervical x-rays reviewed and with her were within normal limits. Trial of Flexeril and anti-inflammatories, instructed on their use and potential red flag symptoms that would require urgent medical attention. Patient may be needing a MRI in the future.. 2. Migraine without status migrainosus, not intractable, unspecified migraine type G43.909 Plan Patient was previously on Imitrex for her migraines occur once or twice a month. A prescription of Imitrex was given for the patient. We will continue to monitor in the feet 3. Dermatitis L30.9 Plan Patient continues to have dermatitis complaints on the upper shoulder areas, referral made to dermatology and patient to continue with steroid cream. Patient to follow-up in 2 months or sooner if needed. Dragon disclaimer Orders Referrals: Plan Detail Other Medications New: sumatriptan (Imitrex) may repeat once in >=2 25 mg PO Q2H PRN migraine headache hours Discontinued: Follow Up 2 months or sooner if needed Coding Level of Care Code Off vis,est,level 3 Diagnoses Cervical radiculopathy, chronic M54.12 Migraine without status migrainosus, not intractable, unspecified migraine type G43.909 Migraine type: unspecified Status migrainosus presence: without status migrainosus Intractability: not intractable Dermatitis L30.9 09/07/17 1800 <Electronically signed by Kash CONKLIN> Date Kash CONKLIN Cosigner Signature: Date (if applicable) CC: CERV SPINE 4 OR 5 Observed: 08/27/2017 Status: F Source: [place] VIEWS 2:45 PM [facility] REPOSITORY [facility] Imaging Services [address] [place] [address] Cerv Spine 4 or 5 Views MR#: [id number] Acct: [id number] Name: NGUYEN MULLINS Rep #: [id number] : 1975 F 41 From: Murray De PCP: Kash Davis NP Status: REG CLI Study: Cerv Spine 4 or 5 Views Date of Exam: 08/27/17 Exam# [id number] Ordering Dr: Mohinder Nye STUDY: X-RAY - CERVICAL SPINE REASON FOR EXAM: Female, 41 years old. Neck pain TECHNIQUE: Lateral view(s) of the cervical spine were obtained. COMPARISON: None FINDINGS: Normal anterior atlantoaxial articulation. Normal odontoid process. Normal cervical lordosis. Normal vertebral bodies and endplates. Normal disc space heights. Normal visualized intervertebral neuroforamina. The soft tissue structures are unremarkable. RAD/Cerv Spine 4 or 5 Views IMPRESSION: Unremarkable lateral view cervical spine. Electronically Signed: Murray De DO at 23:51 EST , Service support , CC: Mohinder Nye; Kash Davis NP Infant Babysitter: Signed INTERNAL MEDICINE Observed: 08/14/2017 Status: F Source: [place] OFFICE VISIT 5:37 PM [facility] [address] [place] [address] OFFICE VISIT Date of Service: 08/14/17 MR#: [id number] Acct: [id number] Name: NGUYEN MULLINS Rep #: [id number] : 1975 Provider: Kash Davis NP Age/Sex: 41/F Location: [facility] Status: Signed Intake Vital Signs08/14/17 Height 5 ft 2 in Intake Visit Reasons: Ear drum ruptured Chief Complaint: left ear pain Is patient in pain?: Yes (ear pain) Pain scale (1-10): 7 Allergies valacyclovir [From Valtrex] Allergy (Verified 08/10/17 13:09) Hives Medications blood pressure test kit-medium cuff See Dose Instructions .ROUTE .MEDSUPPLY #1 ea 06/01/17 [Rx Confirmed 06/01/17] acyclovir 400 mg tablet 400 mg PO TID #30 tab 06/14/17 [Rx Confirmed 06/14/17] hydrocortisone 2.5 % topical ointment 1 applic TOPICAL QHS #28.35 g 06/28/17 [Rx Confirmed 06/28/17] buspirone 5 mg tablet 5 mg PO QDAY PRN #30 tab 07/27/17 [Rx Confirmed 07/27/17] sertraline 50 mg tablet 50 mg PO QDAY #90 tab 07/27/17 [Rx Confirmed 07/27/17] trazodone 50 mg tablet 50 mg PO QHS PRN #30 tab 07/27/17 [Rx Confirmed 07/27/17] Amox/Clavulanate Tablet [Augmentin Tablet] 875 mg PO Q12H #6 tab 08/10/17 [Rx] Hydrocodone Bitart/Apap 5-325 [Pacific 5MG-325MG] 1 tab PO Q6H PRN PRN 3 Days #12 tab 08/10/17 [Rx] Ofloxacin 0.3% [Floxin 0.3% Otic] 10 drp OTIC DAILY 10 Days #1 bottle 08/10/17 [Rx] amoxicillin 875 mg-potassium clavulanate 125 mg tablet 1 tab PO BID #14 tab 08/10/17 [Rx Confirmed 08/10/17] fluticasone 50 mcg/actuation nasal spray,suspension 2 spray INTRANASAL QDAY #1 device 08/10/17 [Rx Confirmed 08/10/17] ibuprofen 600 mg tablet 600 mg PO BID PRN #30 tab 08/10/17 [Rx Confirmed 08/10/17] tramadol 50 mg tablet 50 mg PO Q8H PRN #15 tab 08/14/17 [Rx Confirmed 08/14/17] PFSH Medical History Seasonal allergies (Chronic) UTI (urinary tract infection) (Chronic) Surgical History cesarian times 2 (Acute) Family History Father Hypertension Alcoholism Grandfather Alcoholism Colon cancer Mother Hypertension Depression Brother Depression Grandmother Diabetes Colon cancer Uncle Cancer Social History Smoking Status: Current some day smoker how long ago did patient quit smokin alcohol intake: former year quit: 2016 details: Is going through rehab for alcohol abuse at 89. substance use type: marijuana what type of physical activity do you participate in: yoga frequency: 1-2 times per week HPI HPI Chief Complaint: left ear pain Details: NGUYEN MULLINS, is a 41 F who presents to the office today for an acute visit of left ear pain. The pt presented to the ED after being seen last sunday and was diagnosed with perforated ear drum left side. She was also referred to ENT which she has not followed up yet. She states that her ear pain as a 10 out of 10 pain and that she has been taking ibuprofen and Tylenol with no relief. She does state that she was given Pacific in the emergency department and this helped with her pain. She states that it is so painful she is unable to work. She states that is having a lot of bloody and yellow drainage from her left ear canal. She does state that she is using the eardrops and the Augmentin appropriately. She is requesting a work excuse for today and tomorrow. She denies any other alleviating or aggravating symptoms. The patient otherwise denies any fever, chills, , shortness of breath, chest pain or pressure, palpitations, orthopnea, lower extremity edema, syncope or presyncopal episodes. ROS Const Constitutional: No weight change, body ache, chills, fatigue, sleep problems, fever(s), change in appetite, snoring, weakness, frequent falls, headache(s) or excessive sweating Eyes Eyes: No change in vision, eye pain, light sensitivity or blurry vision ENT ENT: Positive for ear pain, ear discharge and ear pressure; no headache(s), abnormal hearing, tinnitus, nasal congestion, sore throat or neck pain Resp Respiratory: No snoring, cough, shortness of breath or wheezing Cardio Cardiology: No excessive sweating, chest pain at rest, chest pain with exertion, shortness of breath, dyspnea on exertion, palpitations, orthopnea or lightheadedness Gastro GI: No abdominal pain, change in bowel habits, constipation, diarrhea, vomiting, nausea/dyspepsia or cramping Musc Musculoskeletal: No neck pain, abnormal walking, joint pain, back pain, limited range of motion, numbness or tingling Skin Skin: No redness, dry skin, itching, lesions, wounds or rash Neuro Neurology: No weakness, frequent falls, headache(s), abnormal hearing, abnormal walking, numbness, tingling, abnormal speech, dizziness or memory loss Psych Psychiatric: No change in appetite, No memory loss, No anxiety, No depression, No Thoughts of harming yourself/Others Endo Endocrine: No fatigue, excessive sweating, cold intolerance, increased thirst/drinking, heat intolerance, flushing or increased hunger Aller/Imm Allergy/Immunologic: No wheezing, itchy eyes, hives or seasonal allergy symptoms Aldair/Lymp Hematologic/Lymphatic: No easy bleeding, easy bruising or enlarged lymph nodes Exam Const General: cooperative, no acute distress, ill appearing acutely Nutritional Appearance: thin Orientation: alert, awake, oriented x3 HENMT Head: atraumatic, normocephalic Ears: TM normal on the right, TM abnormal perforated with bloody discharge on the left and with purulent discharge on the left Nose: mucous membranes and turbinates abnormal (Edematous) Face and sinus: normal facial exam Mouth: oral mucosae normal Throat: postnasal drainage, normal tonsils Neck Neck mass: No Lymphatic: lymphadenopathy bilateral anterior cervical: soft and tender Resp Effort AND Inspection: normal respiratory effort, able to speak in complete sentences Auscultation: Bilateral: Clear to Auscultation Cardio Rate: regular rate Rhythm: regular rhythm Heart Sounds: S1 normal, S2 normal GI Palpation: soft, no hepatosplenomegaly Skin Rashes: rashes noted Other: Maculopapular rash extending around the anterior neck region and shoulder. Neuro General: alert, awake, oriented x3, CN's II-XI intact bilaterally Extrem General: no clubbing, cyanosis or edema Psych Appearance: grossly normal Mental Status: mental status grossly normal Assessment AND Plan Problems 1. Acute otitis media of left ear with perforated tympanic membrane H66.92; H72.92 Plan Patient to continue with ibuprofen and Tylenol for pain relief. Discussed with her that I cannot refill her Pacific. Did give her a 5 day prescription of tramadol. She will continue her Augmentin and ofloxacin eardrops. She was also referred to ENT for follow-up and management. A work excuse was given for today and tomorrow. Patient educated on red flag symptoms that require urgent medical attention. Patient verbalized understanding. Emy disclaimer Orders Referrals: Medications New: Coding Level of Care Code Off vis,est,level 3 Diagnoses Acute otitis media of left ear with perforated tympanic membrane H66.92; H72.92 08/14/17 1737 <Electronically signed by Kash CONKLIN> Date Kash CONKLIN Cosigner Signature: Date (if applicable) CC: EMERGENCY DEPARTMENT Observed: 08/11/2017 Status: F Source: [place] SUMMARY 12:28 AM [facility] REPOSITORY [facility] Medical Records Department [address] [place] [address] Emergency Department Summary 08/10/17 1543 MR#: [id number] Acct: [id number] Name: NGUYEN MULLINS Rep #: [id number] : 1975 41 From: Gracie Sandoval MD PCP: Kash Davis NP Status: DEP ER - ER Visit Summary Date of Service: 08/10/17 Chief Complaint: Left ear pain and bleeding History of Present Illness: The patient is a 41 F who presents for 1 day of left ear pain that is now more severe and bleeding. Patient states she has had upper respiratory infection symptoms, including cough, left-sided sore throat and congestion for 1 week. She woke up this morning with her left ear throbbing. She was seen by her doctor and diagnosed with an ear infection, and prescribed Augmentin. She was waiting for the prescription to be filled when her ear suddenly started bleeding and the pain increased. She has been having drainage of her symptoms. She denies fever. She has a history of multiple ear infections as a child. Denies any medical history. Physical Examination: Vital signs: afebrile, hemodynamically stable, no hypoxia on room air General: well nourished, well developed, in no distress towel held to the left ear Skin: warm, dry, no rash, no pallor HEENT: normocephalic and atraumatic; PERRL, EOMI, moist mucous membranes, no posterior oropharyngeal exudate, swelling or erythema. No oral lesions. Right TM with normal appearance. Left TM has a perforation in the superior medial region with levels behind it, small amount of serosanguineous fluid in the external canal. No pain with movement of the tragus. No mastoid tenderness. Tender periauricular and anterior cervical lymphadenopathy. No meningismus. Cardiovascular: regular rate and rhythm Respiratory: No increased work of breathing MSK: Moves all extremities, no deformities, normal strength Neuro: Awake and alert, oriented 4. No facial droop Test Results: [] Emergency Department Course and Treatment: Patient's examination is consistent with a tympanic membrane perforation. She does have some bloody exudate in the exterior canal. She has no mastoid tenderness that would be concerning for mastoiditis. No meningeal signs. Patient will take the Augmentin that her doctor has already prescribed. Ofloxacin eardrops were added to her regimen. Patient is only prescribed a course of 7 days of her Augmentin and will call her doctor to see if the prescription can be extended. She will be given a prescription for an extra 3 days in case she is unable to get her doctor to extend the prescription for free. He is in severe pain and thus was given a Pacific while in the emergency department and was prescribed a small prescription of Pacific for severe pain, especially at bedtime. She will continue the ibuprofen as prescribed by her doctor. Return precautions given. Follow-up given to an maintenance coordinator. Patient discharged home. Treatment Plan: [] Disposition: [] Impression: Left tympanic membrane perforation, left acute otitis media This note was generated with FriendFeed dictation software. It may contain incorrect words, spelling, and punctuation that were not noted in review of the chart prior to signing ED Disposition - Plan for ED Patient: Chief Complaint: Ear Problem Prescriptions: Hydrocodone Bitart/Apap 5-325 [Pacific 5MG-325MG] 1 tab PO Q6H PRN PRN 3 Days #12 tab PRN Reason: Pain Amox/Clavulanate Tablet [Augmentin Tablet] 875 mg PO Q12H #6 tab Ofloxacin 0.3% [Floxin 0.3% Otic] 10 drp OTIC DAILY 10 Days #1 bottle Referrals: Kash Davis NP-C [Primary Care Provider] - What to do if you have Problems For any increased pain, shortness of breath, bleeding, nausea or vomiting, chest pain, or any unexpected problems, contact your Primary Care Provider. Call [facility] ([phone]) or report to the closest Emergency Room. Call 911 if necessary. 08/11/17 0028 <Electronically signed by Gracie Sandoval MD> Date Gracie Sandoval MD Cosigner Signature (If Indicated): Date CC: Kash Davis NP DISCHARGE INSTRUCTION Observed: 08/11/2017 Status: Source: [place] 12:18 AM [facility] Medical Records Department [address] [place] [address] Discharge Instruction 08/10/17 1547 MR#: [id number] Acct: [id number] Name: NGUYEN MULLINS Rep #: [id number] : 1975 41 From: Gracie Sandoval MD PCP: Kash Davis NP Status: DEP ER ED Disposition - Plan for ED Patient: Disposition: Home or Assisted Living Chief Complaint: Ear Problem Instructions: ED Otitis Media Acute Adult, ED Rupture Eardrum Infec Prescriptions: Hydrocodone Bitart/Apap 5-325 [Pacific 5MG-325MG] 1 tab PO Q6H PRN PRN 3 Days #12 tab PRN Reason: Pain Amox/Clavulanate Tablet [Augmentin Tablet] 875 mg PO Q12H #6 tab Ofloxacin 0.3% [Floxin 0.3% Otic] 10 drp OTIC DAILY 10 Days #1 bottle Referrals: Kash Davis NP-C [Primary Care Provider] - Bandar Suarez MD [STAFF PHYSICIAN] - 3-5 Days if not improving Additional Instructions: Please take the Augmentin for 10 days, and contact your doctor to extend your for prescription. If you are unable to do so, you have been written an additional 3 days. Please also use the eardrops as prescribed. Follow-up with the ear nose throat doctor on this paperwork, especially if you are not improving in 3 days. If you have any worsening of your condition or any new concerns, please come back to the emergency department for another evaluation. What to do if you have Problems For any increased pain, shortness of breath, bleeding, nausea or vomiting, chest pain, or any unexpected problems, contact your Primary Care Provider. Call [facility] ([phone]) or report to the closest Emergency Room. Call 911 if necessary. 08/11/17 0018 <Electronically signed by Gracie Sandoval MD> Date Gracie Sandoval MD Cosigner Signature (If Indicated): Date CC: Kash Davis NP INTERNAL MEDICINE Observed: 08/10/2017 Status: F Source: [facility] OFFICE VISIT 11:42 AM [facility] [address] [place] [address] OFFICE VISIT Date of Service: 08/10/17 MR#: [id number] Acct: [id number] Name: NGUYEN MULLINS Rep #: [id number] : 1975 Provider: Kash Davis NP Age/Sex: 41/F Location: [facility] Status: Signed Intake Vital Signs08/10/17 Height 5 ft 2 in Intake Visit Reasons: EARACHE Chief Complaint: left ear pain Is patient in pain?: Yes (left ear pain) Pain scale (1-10): 8 Allergies valacyclovir [From Valtrex] Allergy (Verified 05/28/17 09:25) Hives Medications blood pressure test kit-medium cuff See Dose Instructions .ROUTE .MEDSUPPLY #1 ea 06/01/17 [Rx Confirmed 06/01/17] acyclovir 400 mg tablet 400 mg PO TID #30 tab 06/14/17 [Rx Confirmed 06/14/17] hydrocortisone 2.5 % topical ointment 1 applic TOPICAL QHS #28.35 g 06/28/17 [Rx Confirmed 06/28/17] buspirone 5 mg tablet 5 mg PO QDAY PRN #30 tab 07/27/17 [Rx Confirmed 07/27/17] sertraline 50 mg tablet 50 mg PO QDAY #90 tab 07/27/17 [Rx Confirmed 07/27/17] trazodone 50 mg tablet 50 mg PO QHS PRN #30 tab 07/27/17 [Rx Confirmed 07/27/17] amoxicillin 875 mg-potassium clavulanate 125 mg tablet 1 tab PO BID #14 tab 08/10/17 [Rx Confirmed 08/10/17] fluticasone 50 mcg/actuation nasal spray,suspension 2 spray INTRANASAL QDAY #1 device 08/10/17 [Rx Confirmed 08/10/17] ibuprofen 600 mg tablet 600 mg PO BID PRN #30 tab 08/10/17 [Rx Confirmed 08/10/17] PFSH Medical History Seasonal allergies (Chronic) UTI (urinary tract infection) (Chronic) Surgical History cesarian times 2 (Acute) Family History Father Hypertension Alcoholism Grandfather Alcoholism Colon cancer Mother Hypertension Depression Brother Depression Grandmother Diabetes Colon cancer Uncle Cancer Social History Smoking Status: Never smoker how long ago did patient quit smokin alcohol intake: former year quit: 2017 details: Is going through rehab for alcohol abuse at 89. substance use type: marijuana what type of physical activity do you participate in: yoga frequency: 1-2 times per week HPI HPI Chief Complaint: left ear pain Details: NGUYEN MULLINS, is a 41 F who presents to the office today for an acute visit of left ear pain. She states that over the past week she has been dealing with upper respiratory symptoms of nonproductive cough, cold-like symptoms with nasal congestion and yellow nasal discharge, and most recently developed sharp stabbing 8/10 ear pain that began this morning. She does state that her and her children have been sick recently with similar symptoms. She has tried taking some jbgg-ewo-texsenf flu combinations with mild relief. She did take some peov-hwb-tjshduw Aleve which helped some with the ear pain today as well. She denies any other alleviating or aggravating symptoms. She does note that she still has the rash that was addressed at her previous office visit, however has not been utilizing the hydrocortisone cream routinely. The patient otherwise denies any fever, chills, , shortness of breath, chest pain or pressure, palpitations, orthopnea, lower extremity edema, syncope or presyncopal episodes. ROS Const Constitutional: No weight change, body ache, chills, fatigue, sleep problems, fever(s), change in appetite, snoring, weakness, frequent falls, headache(s) or excessive sweating Eyes Eyes: No change in vision, eye pain, light sensitivity or blurry vision ENT ENT: Positive for ear pain (left ear), nasal congestion, sore throat and other (jaw pain on left side); no headache(s), abnormal hearing, tinnitus or neck pain Resp Respiratory: Positive for cough Cough: Yes productive; no snoring, shortness of breath or wheezing Cardio Cardiology: Positive for chest pain at rest (Due to coughing); no excessive sweating, chest pain with exertion, shortness of breath, dyspnea on exertion, palpitations, orthopnea or lightheadedness Gastro GI: Positive for vomiting (When ear pain became severe) and nausea/dyspepsia; no abdominal pain, change in bowel habits, constipation, diarrhea or cramping Musc Musculoskeletal: Positive for tingling (left arm chronic chronic); no neck pain, abnormal walking, joint pain, back pain, limited range of motion or numbness Skin Skin: Positive for rash (Right and left shoulder); no redness, dry skin, itching, lesions or wounds Neuro Neurology: Positive for tingling (left arm chronic chronic); no weakness, frequent falls, headache(s), abnormal hearing, abnormal walking, numbness, abnormal speech, dizziness or memory loss Psych Psychiatric: No change in appetite, No memory loss, No anxiety, No depression, No Thoughts of harming yourself/Others Endo Endocrine: Positive for other (jaw pain on left side); no fatigue, excessive sweating, cold intolerance, increased thirst/drinking, heat intolerance, flushing or increased hunger Aller/Imm Allergy/Immunologic: No wheezing, itchy eyes, hives or seasonal allergy symptoms Aldair/Lymp Hematologic/Lymphatic: No easy bleeding, easy bruising or enlarged lymph nodes Exam Const General: cooperative, no acute distress, ill appearing acutely Nutritional Appearance: thin Orientation: alert, awake, oriented x3 [facility] Head: atraumatic, normocephalic Ears: TM normal on the right, TM abnormal erythematous on the left, bulging on the left and with fluid behind the TM on the left; Negative for not perforated Nose: mucous membranes and turbinates abnormal (Edematous) Face and sinus: normal facial exam Mouth: oral mucosae normal Throat: postnasal drainage, normal tonsils Neck Neck mass: No Lymphatic: lymphadenopathy bilateral anterior cervical: soft and tender Resp Effort AND Inspection: normal respiratory effort, able to speak in complete sentences Auscultation: Bilateral: Clear to Auscultation Cardio Rate: regular rate Rhythm: regular rhythm Heart Sounds: S1 normal, S2 normal GI Palpation: soft, no hepatosplenomegaly Skin Rashes: rashes noted Other: Maculopapular rash extending around the anterior neck region and shoulder. Neuro General: alert, awake, oriented x3, CN's II-XI intact bilaterally Extrem General: no clubbing, cyanosis or edema Psych Appearance: grossly normal Mental Status: mental status grossly normal Assessment AND Plan 1. Acute otitis media with effusion of left ear H65.192 Plan The patient does have obvious acute otitis media left ear on exam. Will treat with Augmentin twice daily for 7 days. Instructed patient that since she gets frequent yeast infections she should take a probiotic such as Culturelle will consider Diflucan if a yeast of infection develops. Discussed supportive therapy as well. Discussed routinely taking her fluticasone daily and ibuprofen Rx was called in for ear pain as well. Discussed taking this with food to prevent GI upset. Discussed red flag symptoms that require urgent medical attention. 2. URI (upper respiratory infection) J06.9 Plan Plan as above. On a side note the patient did bring up her rash that she has in the bilateral shoulders and has not been using her hydrocortisone cream, instructed her to use this routinely for a week and if no improvement will refer to dermatology. Emy disclaimer Plan Detail Other Medications New: Refilled: fluticasone 50 mcg/actuation (Flonase Allergy Relief) adminis2 sprays Intranasal QDAY ter into each nostril Follow Up As previously scheduled or sooner if needed Coding Level of Care Code Off vis,est,level 3 Diagnoses Acute otitis media with effusion of left ear H65.192 URI (upper respiratory infection) J06.9 08/10/17 1142 <Electronically signed by Kash CONKLIN> Date Kash Davis NP-C Cosigner Signature: Date (if applicable) CC: ALLERGIES ALLERGIES DATE TYPE / CODE NAME / CODE REACTION SEVERITY SOURCE 07/11/2018 Drug valacyclovir/F0060 Hives Unknown [place] Allergy/416 03556(RXNORM) [facility] 327018([facility] ED CT) Repository 02/15/2011 DRUG RIZATRIPTAN SHORTNESS OF [facility] INGREDI/419 BENZOATE [facility] 166370([facility] Repository ED CT) 04/03/2005 DRUG VALACYCLOVIR HCL HIVES [facility]/419 [facility] 953547([facility] Repository ED CT) ENCOUNTERS ENCOUNTERS ADMIT/DISCHARGE ACCOUNT ADMITTING ENCOUNTER LOCATION SOURCE NUMBER CLASS 07/14/2018/07/16/19 [id number] Marcy Pavon Inpatient [address] ing:MN1Xemq: Repository CW885Mhi: 1 07/14/2018 [id number] Marcy Pavon Ambulatory BMSBuilding:Manolo Calderon MS.[facility] Repository 07/14/2018 [id number] Marcy Pavon Ambulatory BMSBuilding:Manolo Calderon MS.[facility] Repository 07/14/2018 [id number] Marcy Pavon Ambulatory BMSBuilding:Manolo Calderon MS.[facility] Repository 07/14/2018/07/15/19 [id number] Ambulatory [address] [place] Repository 07/12/2018 [id number] Ambulatory [facility] ing:LABSPEC Repository 07/11/2018/07/11/19 [id number] Ambulatory BMSBuilding:B [place] [address] [place].[facility] Repository 06/21/2018 [id number] Ambulatory [facility] ing:LABSPEC Repository 06/21/2018/06/21/20 [id number] Ambulatory BMSBuilding:B [place] [facility] [place].[facility] Repository 03/13/2018/03/13/20 [id number] Ambulatory BMSBuilding:B [place] 18 [place].[facility] Repository 03/07/2018 [id number] Ambulatory BMSBuilding:B [place].[facility] Repository 03/07/2018/03/07/20 [id number] Ambulatory BMSBuilding:B [place] 18 [place].[facility] Repository 01/17/2018/01/18/20 [id number] Ambulatory BMSBuilding:B [place] [facility] [place] [place] 12/24/2017/12/25/19 [id number] Ambulatory BMSBuilding:B [place] 18 [facility] Repository 12/04/2017/12/05/19 [id number] Ambulatory BMSBuilding:B [place] 18 [place].[facility] Repository 11/08/2017/11/09/19 [id number] Ambulatory BMSBuilding:B [place] 18 [place].[facility] Repository 10/12/2017 [id number] Ambulatory [facility] ing:OPUS Repository 2017 [id number] Amb[facility] ing:LABSPEC Repository 10/04/2017/10/05/19 [id number] Ambulatory [place] [address] [facility] ing:PT Repository 2017 [id number] Ambulatory [facility] ing:POLAB3 Repository 10/04/2017/10/05/19 [id number] Ambulatory BMSBuilding:B [place] [facility] Repository 09/07/2017/09/08/19 [id number] Ambulatory BMSBuilding:B [place] 18 [place].[facility] Repository 08/31/2017 [id number] Ambulatory BMSBuilding:[place] [place] 08/27/2017 [id number] [facility] 08/14/2017 [id number] Ambulatory BMSBuilding:B [place] [place] 08/14/2017/08/14/19 [id number] Ambulatory BMSBuilding:B [place] 18 [place] [place] 08/10/2017/08/10/19 [id number] Emergency [place] ing:ED Repository 08/10/2017/08/10/19 [id number] Ambulatory BMSBuilding:B [place] 18 [place] [place] PAYERS PAYERS ENCOUNTER GUARANTOR PAYER SUBSCRIBER SOURCE 07/14/2018 NGUYEN J Primary NGUYEN J [place] [id number] Insurance:[facility]: [facility] Number: [id number] [id number] Repository 75[address]Xyf: (330) Date:2018-07-14P [phone] () [address]ATTN: [place] [address]FI: 07/14/2018 Secondary NOT GIVENUNK [place] Insurance:SELF PAY [facility] Number: Effective Repository Date:2018-07-14 07/14/2018 NGUYEN J Primary NGUYEN J [place] [id number] [facility] Number: [id number], [place] [id number] Repository 23589Mdf: (330) Date:2018-07-14P O [phone] () [address]ATTN: [place] [address]DY: 07/14/2018 Secondary NOT GIVENUNK [place] Insurance:SELF PAY [facility] Number: Effective Repository Date:2018-07-14 07/14/2018 NGUYEN J Primary NGUYEN J [place] [id number] Insurance:[facility]: [facility] Number: [id number], [place] [id number] Repository 83339Lfq: (330) Date:2018-07-14P O [phone] (HP) [address]ATTN: [place] [address]KQ: 07/14/2018 Secondary NOT GIVENUNK [place] Insurance:SELF PAY [facility] Number: Effective Repository Date:2018-07-14 07/14/2018 NGUYEN J Primary NGUYEN J [place] [id number] Insurance:[facility]OURCEP [facility] Number: [id number], [place] [id number] Repository [address]Byk: (330) Date:2018-07-14P O [phone] () [address]ATTN: [place] [address]QN: 07/14/2018 Secondary NOT GIVENUNK [place] Insurance:SELF PAY [facility] Number: Effective Repository Date:2018-07-14 07/12/2018 NGUYEN J Primary NGUYEN J [place] [id number] Insurance:CARESOURCEP [facility]: [facility] Number: [id number], [place] [id number] Repository [address]Bnh: (330) Date:2018-07-12P O [phone] () [address]ATTN: [place] [address]SV: 07/12/2018 Secondary NOT GIVENUNK [place] Insurance:SELF PAY [facility] Number: Effective Repository Date:2018-07-12 07/11/2018 NGUYEN J Primary NGUYEN J [place] [id number] Insurance:CARESOURCEP [facility] Number: [id number], [place] [id number] Repository 317[address]Hsb: (330) Date:2018-07-11P O [phone] () [address]ATTN: [place] [address]KK: 07/11/2018 Secondary NOT GIVENUNK [place] Insurance:SELF PAY [facility] Number: Effective Repository Date:2018-07-11 06/21/2018 NGUYEN J Primary NGUYEN J [place] [id number] Insurance:CARESOURCEP [facility] Number: [id number], [place] [id number] Repository [address]1127Sip: (330) Date:2018-06-21P O [phone] () [address]ATTN: [place] [address]GH: 06/21/2018 Secondary NOT GIVENUNK [place] Insurance:SELF PAY [facility] Number: Effective Repository Date:2018-06-21 06/21/2018 NGUYEN J Primary NGUYEN J [place] [id number] Insurance:CARESOURCEP [facility]: [facility] Number: [id number], [place] [id number] Repository 915[address]Dld: (330) Date:2018-06-21P O [phone] () [address]ATTN: [place] [address]YI: 06/21/2018 Secondary NOT GIVENUNK [place] Insurance:SELF PAY [facility] Number: Effective Repository Date:2018-06-21 03/13/2018 NGUYEN J Primary NGUYEN J [place] [id number] Insurance:CAR[employer]P [facility]: [facility] Number: [id number], [place] [id number] Repository [address]Fhj: (330) Date:2018-01-17P O [phone] () [address]ATTN: [place] [address]HH: 03/13/2018 Secondary NOT GIVENUNK [place] Insurance:SELF PAY [facility] Number: Effective Repository Date:2018-03-11 03/07/2018 NGUYEN J Primary NGUYEN J [place] [id number] Insurance:CARESOURCEP [facility]: [facility] Number: [id number], [place] [id number] Repository 864[address]Kbh: (330) Date:2018-03-07P O [phone] () [address]ATTN: [place] [address]RM: 03/07/2018 Secondary NOT GIVENUNK [place] Insurance:SELF PAY [facility] Number: Effective Repository Date:2018-03-07 03/07/2018 NGUYEN J Primary NGUYEN J [place] [id number] Insurance:CARESOURCEP [facility] Number: [id number], [place] [id number] Repository [address]Nkn: (330) Date:2018-03-07P O [phone] () [address]ATTN: [place] [address]SE: 03/07/2018 Secondary NOT GIVENUNK [place] Insurance:SELF PAY [facility] Number: Effective Repository Date:2018-03-07 01/17/2018 NGUYEN J Primary NGUYEN J [place] [id number] Insurance:CARESOURCEP [place]: [facility] Number: [id number], [place] [id number] Repository 577[address]Yyz: (330) Date:2018-01-15P O [phone] () [address]ATTN: [place] [address]HL: 01/17/2018 Secondary NOT GIVENUNK [place] Insurance:SELF PAY [facility] Number: Effective Repository Date:2018-01-17 12/24/2017 NGUYEN J Primary NGUYEN J [place] [id number] Insurance:CARESOURCEP [facility] Number: [id number], [place] [id number] Repository [address]Vaq: (330) Date:2017-12-07P O [phone] () [address]ATTN: [place] [address]MO: 12/24/2017 Secondary NOT GIVENUNK [place] Insurance:SELF PAY [facility] Number: Effective Repository Date:2017-12-07 12/04/2017 NGUYEN J Primary NGUYEN J [place] [id number] Insurance:CARESOURCEP [facility]: [facility] Number: [id number], [place] [id number] Repository 39593Zva: (330) Date:2017-12-04 O [phone] () [address]ATTN: [place] [address]CY: 12/04/2017 Secondary NOT GIVENUNK [place] Insurance:SELF PAY [facility] Number: Effective Repository Date:2017-12-04 11/08/2017 NGUYEN J Primary NGUYEN J [place] [id number] Insurance:CARESOURCEP [facility] Number: [id number], [place] [id number] Repository 435[address]Rqt: (330) Date:2017-09-07P O [phone] () [address]ATTN: [place] [address]SM: 11/08/2017 Secondary NOT GIVENUNK [place] Insurance:SELF PAY [facility] Number: Effective Repository Date:2017-11-08 10/12/2017 NGUYEN J Primary NGUYEN J [place] [id number] Insurance:CARESOURCEP [facility] Number: [id number], [place] [id number] Repository 02[address]Qsm: (330) Date:2017-10-08P O [phone] () [address]ATTN: CLAIMS [facility] [place] [address]KA: 10/12/2017 Secondary NOT GIVENUNK [place] Insurance:SELF PAY [facility] Number: Effective Repository Date:2017-10-08 2017 NGUYEN J Primary NGUYEN J [place] [id number] Insurance:CARESOURCEP [facility]: [facility] Number: [id number], [place] [id number] Repository 34[address]Mjq: (330) Date:2017 O [phone] () [address]ATTN: [place] [address]NO: 2017 Secondary NOT GIVENUNK [place] Insurance:SELF PAY [facility] Number: Effective Repository Date:2017 2017 NGUYEN J Primary NGUYEN J [place] [id number] Insurance:[facility]: [facility] Number: [id number], [place] [id number] Repository 12547Uqs: (330) Date:2017-06-25 O [phone] () [address]ATTN: [place] [address]TS: 2017 Secondary NOT GIVENUNK [place] Insurance:SELF PAY [facility] Number: Effective Repository Date:2017-09-12 2017 NGUYEN J Primary NGUYEN J [place] [id number] Insurance:CARESOURCEP [facility] Number: [id number], [place] [id number] Repository 64795Cal: (330) Date:2017 O [phone] () [address]ATTN: [place] [address]DK: 2017 Secondary NOT GIVENUNK [place] Insurance:SELF PAY [facility] Number: Effective Repository Date:2017 2017 NGUYEN J Primary NGUYEN J [place] [id number] Insurance:CARESOURCEP [facility]: [facility] Number: [id number], [place] [id number] Repository 088[address]Dle: (330) Date:2017-10-01P O [phone] () [address]ATTN: [place] [address]YW: 2017 Secondary NOT GIVENUNK [place] Insurance:SELF PAY [facility] Number: Effective Repository Date:2017 09/07/2017 NGUYEN J Primary NGUYEN J [place] [id number] Insurance:CARESOURCEP [place]: [facility] Number: [id number], [place] [id number] Repository 19821Img: (330) Date:2017-08-24P O [phone] () [address]ATTN: [place] [address]HS: 09/07/2017 Secondary NOT GIVENUNK [place] Insurance:SELF PAY [facility] Number: Effective Repository Date:2017-08-24 08/31/2017 NGUYEN J Primary NGUYEN J [place] [id number] Insurance:MEDICAIDPol [place]NDOB: [facility] Number: [id number], [place] [id number] Repository 305[address]Jcs: (330) Date:2017-06-28 [phone] () 08/31/2017 Secondary NOT GIVENUNK [place] Insurance:SELF PAY [facility] Number: Effective Repository Date:2017-06-28 08/27/2017 NGUYEN J Primary NGUYEN J [place] [id number] Insurance:[facility]UN[facility]: [facility] Number: [id number], [place] [id number] Repository 32[address]Myw: (330) Date:2017-08-27P O [phone] () [address]ATTN: [place] [address]JX: 08/27/2017 Secondary NOT GIVENUNK [place] Insurance:SELF PAY [facility] Number: Effective Repository Date:2017-08-27 08/14/2017 NGUYEN J Primary NGUYEN J [place] [id number] Insurance:CARESOURCEP [facility] Number: [id number], [place] [id number] Repository 16[address]Uta: (330) Date:2017-08-13P O [phone] () [address]ATTN: [place] [address]OO: 08/14/2017 Secondary NOT GIVENUNK [place] Insurance:SELF PAY [facility] Number: Effective Repository Date:2017-08-13 08/14/2017 NGUYEN J Primary NGUYEN J [place] [id number] Insurance:[facility]: [facility] Number: [id number], [place] [id number] Repository 640[address]Ywm: (330) Date:2017-08-14P O [phone] () [address]ATTN: [place] [address]ZP: 08/14/2017 Secondary NOT GIVENUNK [place] Insurance:SELF PAY [facility] Number: Effective Repository Date:2017-08-14 08/10/2017 NGUYEN J Primary NGUYEN J [place] [id number] Insurance:CAREURCEP [facility] Number: [id number], [place] [id number] Repository 68380Zsf: (330) Date:2017-08-10P O [phone] () [address]ATTN: [place] [address]EZ: 08/10/2017 Secondary NOT GIVENUNK [place] Insurance:SELF PAY [facility] Number: Effective Repository Date:2017-08-10 08/10/2017 NGUYEN J Primary NGUYEN J [place] [id number] Insurance:CARESOURCEP [facility]: [facility] Number: [id number] [place] [address] [id number] Repository 20[address]Cmt: (330) Date:2017-08-10P O [phone] () [address]ATTN: [place] [address]AQ: 08/10/2017 Secondary NOT GIVENUNK Yumiko Insurance:SELF PAY Community [facility]: Effective Repository Date:2017-08-10
== END ==
PROVIDERS: Family Provider Internal Medicine; PCP Internal Medicine; Referring Provider Physician Assistant; Visit Provider Physician Assistant
DX: R30.0 Dysuria (principal)
CPT/HCPCS: 81001; 87086; 87088; 87186

== ENCOUNTER 2018-07-14 16:04 | Inpatient (IN) | payer MEDICAID, SELFPAY ==
[2018-07-11 15:56] VITALS: BMI 21.0
[2018-07-14 16:04] VITALS: BP 121/74; PULSE 82; RESP 17; TEMP 36.5; O2SAT 99; BMI 20.5
--- NOTE | 2018-07-14 16:17 | ED.DCSUM_ITS ---
- ER Visit Summary Date of Service: 07/14/18 Chief Complaint: Dysuria, fever, back pain History of Present Illness: The patient is a 42 F presents to the emergency department symptoms of pyelonephritis. Patient states she started with urinary frequency and urgency about 5 days ago. 3 days ago, she went to urgent care. She was diagnosed with urinary tract infection. She was started on Macrobid. She states that she was taking it, he began to have worsening right-sided back pain, fever, chills, and vomiting. States her symptoms had improved yesterday, but then returned again today. She does describe some generalized malaise. She has no history of immunosuppression. She denies any vaginal bleeding or discharge. She is otherwise been in her normal state of health. Physical Examination: Vital signs reviewed General: Well-nourished, well-developed Head: Normocephalic, atraumatic Eyes: Pupils equal and reactive, extraocular muscles intact Neck, supple, no lymphadenopathy Heart: Regular rate and rhythm Respiratory: No distress, clear bilaterally Abdomen: Soft, nontender, nondistended, no peritoneal signs Back: Mild right CVA tenderness Extremities: Nontender, no edema, no cords Skin: Normal color no rash Neuro: Alert and oriented, no focal or lateralizing deficits Test Results: [] Emergency Department Course and Treatment: The patient symptoms did seem most consistent with pyelonephritis. She was having back pain, nausea, vomiting, and fever. I did review her culture and it was E. coli that was pansensitive. My suspicion is that this may been partially treated by the Macrobid if she was alr nataly having symptoms of pyelonephritis. IV was established. Patient given fluids, antiemetics, and Rocephin. Blood counts were unremarkable. However, the patient's LFTs are markedly elevated. She really does not have any significant abdominal tenderness. I obtained a CT which shows no evidence of obstruction. I obtained right after quadrant ultrasound. This is also unremarkable. I am unsure of the acute etiology of her elevation of LFTs. The patient does have a history of alcohol abuse, but she been sober for a year now. With her pyelonephritis, I am going to admit her for IV antibiotics and symptom control. I do feel that her LFTs will likely monitor and if not improving, potentially proceed with a HIDA scan. The patient is comfortable with this plan of care. Treatment Plan: [] Disposition: Admission Impression: 1. Pyelonephritis 2. Elevation of the LFTs. This note was generated with [employer] dictation software. It may contain incorrect words, spelling, and punctuation that were not noted in review of the chart prior to signing ED Disposition - Plan for ED Patient: Chief Complaint: Complaint Referrals: Kely Hopper MD [Primary Care Provider] -
[2018-07-14] MEDS: Ondansetron 4 MG/2 ML Vial IV (16:27)
[2018-07-14] MEDS: 0.9% Normal Saline 1,000 ML 1000 ML IV (16:27)
[2018-07-14] MEDS: Ceftriaxone 1 GM/50 ML BAG IV (16:27)
[2018-07-14] MEDS: Ketorolac 15 MG/ML Vial IV (16:27)
[2018-07-14 16:41] LABS: Bacteria 0 SEEN /hpf (None Seen)
[2018-07-14 16:47] LABS: Absolute Lymphocyte Count 0.28 X10^3/ul (0.83-4.51); Absolute Neutrophil Count 3.4 X10^3/uL (2.0-7.7); Eosinophil# 0.01 X10^3/uL; Eosinophils% 0.3 % (0-5); Hematocrit 44.9 % (37-47); Hemoglobin 15.2 g/dl (12.0-15.0); Lymphocyte # 0.28 X10^3/ul (4.0); Mean Corp Hgb Conc 33.9 g/gl (32-36); Mean Corpuscular Hgb 30.3 pg (27.0-32.0); Mean Corpuscular Volume 89.4 fL (81-99); Mean Platelet Vol. 10.8 fl (6.2-12.0); Monocyte# 0.28 X10^3/uL; Neutrophil # 3.41 X10^3/uL (2.7-7.7); Neutrophil % 85.4 % (47-70); Platelet Count 161 K/mm3 (150-450); RBC Distribution Width CV 13.1 % (11.6-14.6); RBC Distribution Width SD 43.2 fl (35.1-43.9); Red Blood Count 5.02 M/mm3 (4.2-5.4)
[2018-07-14 16:48] LABS: Differential Indicated SCAN CRITERIA MET; POSITIVE COUNT NO; POSITIVE DIFFERENTIAL YES; POSITIVE MORPHOLOGY NO
[2018-07-14 16:59] LABS: ALB/GLOB Ratio 0.9 RATIO (0.9-2.4); AST(SGOT) 483 U/L (15-37); Alanine Aminotransfer ALT/SGPT 563 U/L (13-56); Albumin, Serum 3.5 g/dL (3.2-5.0); Alkaline Phosphatase 207 U/L (45-117); Anion Gap 8 (5-15); BUN 9 mg/dL (7-18); BUN/Creat Ratio 12.8 RATIO (10-20); Calcium,Total 8.9 mg/dL (8.5-10.1); Chloride 103 mmol/L (98-107); Color, Urine Amber (Yellow); EST Glomerular Filtration Rate 97 mL/min (>60); Est Glom Filt Rate - Afr Amer 117 mL/min (>60); Globulin 3.9 g/dL (2.2-4.2); Glucose 109 mg/dL (74-106); Glucose, Dipstick Normal (Normal); Ketone-Dipstick 15 mg/dl (Negative); Leukocyte Esterase-Dipstick 100 /ul (Negative); Nitrite-Dipstick Negative (Negative); Occult Blood-Urine 50 /ul (Negative); Potassium 3.7 mmol/L (3.5-5.1); Protein, Total 7.4 g/dL (6.4-8.2); Protein-Dipstick 100 mg/dl (Negative); Sodium Level 139 mmol/L (136-145); Urine Clarity Sl. Cloudy (Clear); Urine Urobilinogen 8 mg/dl (Normal)
[2018-07-14 17:00] LABS: Urine Bilirubin Dipstick 3 mg/dL (Negative)
[2018-07-14 17:01] LABS: Mucous, Urine 1+ /hpf (<or=2+); Red Blood Cells-Urine 5-10 SEEN /hpf (0-5); Squamous Epithelial Cells - UA 5-10 SEEN /hpf (5-10); White Blood Cells 5-10 SEEN /hpf (0-5)
[2018-07-14 17:04] LABS: Differential Comment SCANNED
--- NOTE | 2018-07-14 17:06 | US_ITS ---
STUDY: ABDOMINAL ULTRASOUND - RIGHT UPPER QUADRANT REASON FOR VISIT: Female, 42 years old. Right upper quadrant pain, chronic UTIs. TECHNIQUE: Ultrasound evaluation of the right upper quadrant was performed with real-time and static jose-scale imaging. TECHNICAL QUALITY: Adequate. COMPARISON: CT abdomen 07/14/2018. FINDINGS: Liver: The liver measures 17.5 cm. There is normal echogenicity of the liver. The bile ducts are within normal limits. There is hepatic color flow. The direction of portal flow is hepatopetal. There is no demonstrated mass lesion. Gallbladder: Normal distended gallbladder. The gallbladder wall measures 2 mm. There is a negative sonographic Hart's sign. There is no pericholecystic fluid. There are no gallstones. Common Bile Duct (C.B.D.): The common bile duct measures 4 mm. Pancreas: Normal size of the head, body and tail of the pancreas. There is normal echogenicity of the pancreas. There is no demonstrated pancreatic mass or cyst. Right Kidney: Normal size of the right kidney. The right kidney measures 11.6 x 4.2 x 4.8 cm. Normal renal cortex. The right cortex measures 1.2 cm. There is no demonstrated renal mass or cyst. There is no right hydronephrosis. There is a 5 x 2 mm shadowing stone in the lower pole of the right kidney. US/Gallbladder IMPRESSION: There is a 5 mm nonobstructing stone in the lower pole of the right kidney. Otherwise, unremarkable study. Electronically Signed: Kristie Landa MD at 20:17 EST Tel , Service support ,
--- NOTE | 2018-07-14 17:10 | CT_ITS ---
STUDY: CT ABDOMEN AND PELVIS WITH CONTRAST REASON FOR EXAM: Female, 42 years old. UTI, abdominal pain. RADIATION DOSAGE (If Supplied By Facility): CTDIvol = ( 10.02 ) mGy, DLP = ( 311.11 ) mGycm TECHNIQUE: Transaxial images were obtained from the dome of the diaphragm to the symphysis pubis without oral contrast. 100ML ml of Isovue 300 contrast was administered. Sagittal and coronal images were reconstructed. Individualized dose optimization techniques were used for this CT. COMPARISON: None. FINDINGS: Lung bases are clear. Visualized heart is normal. The liver is unremarkable. The gallbladder is unremarkable. The spleen and pancreas are unremarkable. The adrenal glands are normal. The kidneys are unremarkable. No stones or hydronephrosis. The aorta is normal in caliber. There is trace free fluid in the cul-de-sac. There is no free air or organized collection. No bowel obstruction or inflammatory change. Normal appendix. Urinary bladder is unremarkable. The uterus is anteverted. There is a 2 cm lesion in the posterior fundus, probable fibroid. There is a 2.7 cm septated left ovarian cyst versus 2 adjacent cysts. Normal abdominal wall. Normal osseous structures. CT/Abdomen/Pelvis W IV Cont ONLY IMPRESSION: 1. Trace free fluid, otherwise no acute process. 2. A 2 cm uterine fibroid. Electronically Signed: Kristie Landa MD at 18:56 EST Tel , Service support ,
[2018-07-14 17:21] LABS: Lipase 67 U/L (73-393)
[2018-07-14 17:26] LABS: Internal QC Validated? YES +Cl - CLEAR BKGD; Pregnancy, Urine Negative Negative
[2018-07-14 17:37] VITALS: TEMP 36.5
[2018-07-14 18:21] VITALS: BP 127/73; PULSE 79; RESP 16; TEMP 37.4; O2SAT 98
[2018-07-14] MEDS: Morphine 4 MG/ML Syringe IV (18:49)
--- NOTE | 2018-07-14 20:40 | PCM.HP.STD ---
Problem List (1) Urinary tract infection with hematuria Status: Acute Qualifiers: Urinary tract infection type: acute cystitis Qualified Code(s): N30.01 - Acute cystitis with hematuria (2) Gastroenteritis Status: Acute (3) Left flank pain Status: Acute (4) Genital herpes Status: Chronic Qualifiers: Herpes simplex infection site: unspecified site of urogenital system Qualified Code(s): A60.00 - Herpesviral infection of urogenital system, unspecified (5) Generalized anxiety disorder with panic attacks Status: Chronic (6) Anxiety and depression Status: Chronic (7) Alcohol abuse Status: Chronic (8) History of marijuana use Status: Chronic (9) Hypertension Status: Chronic Qualifiers: Hypertension type: essential hypertension Qualified Code(s): I10 - Essential (primary) hypertension (10) PTSD (post-traumatic stress disorder) Status: Chronic (11) Migraine headache Status: Chronic Qualifiers: Migraine type: unspecified Status migrainosus presence: without status migrainosus Intractability: not intractable Qualified Code(s): G43.909 - Migraine, unspecified, not intractable, without status migrainosus History of Present Illness Date of Admission: 07/14/18 Chief Complaint: Recent UTI, Flank Pain, N/V/D/F/C The patient is a 42 y/o F w/ PMHx: Recovering Alcoholic (Sober x 1 year), History of Tobacco use now Vaping usage, History prior Elevated LFTs, Anxiety and Depression, Gential Herpes who presents to the [facility] ED on 07/14/18 with history of onset dysuria and mild R flank discomfort as well as suprapubic TTP on the prior Sunday with evaluation at the next day with initiation on Macrobid w/ UCx w/ >100,000 E. Coli with then onset starting on Sunday nausea, emesis, fever, chills, abdominal generalized cramping as well as diarrhea with ill contact (children with GI 24 hour illness with similar symptoms) noting that diarrhea on day of ED presentation improved w/ only 2 episodes in addition to generalized headache, throbbing and ongoing worsening BL, R>L flank pain prompting ED evaluation. Work-up in the ED included T 99.3, heart rate 82, BP 121/74, respiratory rate 17, 99% on room air, CBC with W BC 4, hemoglobin 15.2, platelet 161 without marked shift, CMP with glucose 109, total bili 1.30, AST/ALT 1 483/563, alk phos 207, lipase 67, urinalysis with specific gravity 1.020, protein 100, ketones 15, occult blood 50, nitrite negative, leukocyte esterase 100, RBC 5-10, WBC 5-10, squamous epithelial cells 5-10, 0 bacteria, CT abdomen pelvis with trace free fluid otherwise no acute process with a 2 cm uterine fibroid, gallbladder ultrasound with a 5 mm nonobstructing stone in the lower pole of the right kidney otherwise unremarkable study including a normal distended gallbladder with the wall measuring 2 mm with negative sonographic Hart sign and no pericholecystic fluid or gallstones present with common bile duct 4 mm. In the ED patient administered normal saline, Zofran, morphine, Toradol, Rocephin. Past Medical History Past Medical History (Chronic Problems): Chronic Problems (Last Reviewed 07/11/18 @ 15:56 by Maryanne Menezes) Genital herpes (Chronic) Insomnia (Chronic) Generalized anxiety disorder with panic attacks (Chronic) Anxiety and depression (Chronic) Alcohol abuse (Chronic) History of marijuana use (Chronic) Hypertension (Chronic) PTSD (post-traumatic stress disorder) (Chronic) Migraine headache (Chronic) Medical History: Medical History (Last Reviewed 07/11/18 @ 15:56 by Maryanne Menezes) Shingles (Acute) B02.9 History of marijuana use (Chronic) Z87.898 Anxiety F41.9 Back pain M54.9 Depression F32.9 Genital herpes A60.00 History of alcohol abuse Z87.898 History of marijuana use Z87.898 Insomnia G47.00 Migraine G43.909 PTSD (post-traumatic stress disorder) F43.10 history marijuana abuse Hypertension I10 Seasonal allergies J30.2 UTI (urinary tract infection) N39.0 Allergies valacyclovir [From Valtrex] Allergy (Verified 07/11/18 15:56) Hives Home Medications: Ambulatory Orders Medication Instructions Recorded trazodone 50 mg tablet 50 mg PO QHS PRN #90 tab 12/04/17 Surgical History: Surgical History (Last Reviewed 07/11/18 @ 15:56 by Maryanne Menezes) History of exploratory laparotomy Z98.890 cesarian times 2 Surgical History: - - Ex Lap, x 2. Psychiatric History: Anxiety, Depression, Post traumatic stress [employer]OR History: No pertinent [employer]OR history Lives: Spouse/ Significant Other Smoking Status: Former smoker Tobacco Use: Vapor - Uses vapor now, prior cigarette tobacco usage with 1 pack/day cigarettes until 8 years ago at which point patient discontinued this and transition to vapor she notes is amenable, mild. Alcohol: Sober - Sober x 1 year, notes prior was heavy wine drinker. Drugs: Marijuana - *Family History Maternal Family History: Family History (Last Reviewed 07/11/18 @ 15:56 by Maryanne Menezes) Father Hypertension Alcoholism Grandfather Alcoholism Colon cancer Mother Hypertension Depression Brother Depression Grandmother Diabetes Colon cancer Uncle Cancer History Items: Hypertension Paternal Family History: Family History (Last Reviewed 07/11/18 @ 15:56 by Maryanne Menezes) Father Hypertension Alcoholism Grandfather Alcoholism Colon cancer Mother Hypertension Depression Brother Depression Grandmother Diabetes Colon cancer Uncle Cancer History Items: Hypertension Review of Systems Constitutional: Reports: Anorexia, Chills, Fever, Malaise, Weakness, Fatigue. Denies: Weight Change HEENT: Reports: Head Aches. Denies: Sinus Congestion, Sinus Drainage Cardiovascular: Denies: Chest Pain, Palpitations Respiratory: Denies: Cough, Shortness of breath at rest, Sputum production Gastrointestinal: Reports: Abdominal Pain, Diarrhea, Nausea, Vomiting Genitourinary: Reports: Dysuria Musculoskeletal: Reports: Joint Pain, Muscle pain. Denies: Joint Tenderness Skin: Denies: Rash, Wounds Neurological: Denies: Numbness, Tingling, Focal weakness Psychiatric: Reports: Anxiety, Depression. Denies: Homicidal Ideations, Suicidal Ideations Hematologic/ Lymphatic: Denies: Easy Bruising, Easy Bleeding VTE Information - Inpt Only VTE Present on Admission: No VTE Mechan Device Prophylaxis: SCD's VTE Pharm Prophylaxis ordered?: Yes Patient Problems: Active and Suspected Problems (Last Reviewed 07/11/18 @ 15:56 by Maryanne Menezes) Gastroenteritis (Acute) Subjective: Seated upright in the ED bed, fatigued, NAD. Objective: Physical Examination: General: awake, alert, oriented x 3 and cooperative, seated upright in the ED bed in no apparent distress. Skin: normal color, turgor, no icterus, cyanosis. HEENT: AT/NC, EOMI, PERRLA, dry MM, no carotid bruits or JVD noted. Lungs: CTA bilaterally, moderate effort, mild decrease BL bases, no rales, ronchi or wheezing. Heart: Regular rate and rhythm; no gallop, rub audible. Abdomen: soft, mild generalized discomfort, no rebound or guarding including RUQ, mildly distended, hyperactive BS, R>L flank discomfort w/ palpation, no HSM. Extremities: no cyanosis, clubbing, or edema. Neurological: patient awake, alert, oriented x 3; cognitive function intact; pupils equally reactive to light and accomodation; cranial nerves II-XII grossly normal, moving all 4 extremities, no focal deficits, strength moderately globally decreased secondary to acute presentation. Psychiatric: affect appears fatigued, no acute evidence of depressive or anxiety feelings. - Physical Exam Vital Signs Temp Pulse Resp BP Pulse Ox 99.3 F H 79 16 127/73 H 98 07/14/18 18:21 07/14/18 18:21 07/14/18 18:21 07/14/18 18:21 07/14/18 18:21 Oxygen Delivery Method Room Air Weight: 112 lb Body Mass Index (BMI) 20.5 Laboratory Tests Past 24 Hrs 07/14/18 07/14/18 07/14/18 16:35 16:35 16:35 WBC 4.0 L RBC 5.02 Hgb 15.2 H Hct 44.9 MCV 89.4 MCH 30.3 MCHC 33.9 RDW 13.1 RDW Differential 43.2 Plt Count 161 MPV 10.8 Immature Gran % (Auto) 0.300 Neut % (Auto) 85.4 H Lymph % (Auto) 7.[address] [facility] % (Auto) 7.0 Eos % (Auto) 0.3 Baso % (Auto) 0.0 Absolute Neuts (auto) 3.4 Absolute Lymphs (auto) 0.28 L Total Counted Not Reportable Differential Comment SCANNED Sodium 139 Potassium 3.7 Chloride 103 Carbon Dioxide 28.0 Anion Gap 8 BUN 9 Creatinine 0.70 Estim Creat Clear Calc 82.80 Est GFR (MDRD) Af Amer 117 Est GFR (MDRD) Non-Af 97 BUN/Creatinine Ratio 12.8 Glucose 109 H Calcium 8.9 Total Bilirubin 1.30 H AST 483 H ALT 563 H Alkaline Phosphatase 207 H Total Protein 7.4 Albumin 3.5 Globulin 3.9 Albumin/Globulin Ratio 0.9 Lipase Urine Color Lisa Urine Clarity Sl. Cloudy Urine pH 5.0 Ur Specific [place] 1.020 Urine Protein 100 H Urine Glucose (UA) Normal Urine Ketones 15 H Urine Occult Blood 50 H Urine Nitrite Negative Urine Bilirubin 3 H Urine Urobilinogen 8 H Ur Leukocyte Esterase 100 H Urine RBC 5-10 SEEN Urine WBC 5-10 SEEN Ur Squamous Epith Cells 5-10 SEEN Urine Bacteria 0 SEEN Urine Mucus 1+ Urine Test 07/14/18 07/14/18 16:35 16:35 WBC RBC Hgb Hct MCV MCH MCHC RDW RDW Differential Plt Count MPV Immature Gran % (Auto) Neut % (Auto) Lymph % (Auto) [facility] % (Auto) Eos % (Auto) Baso % (Auto) Absolute Neuts (auto) Absolute Lymphs (auto) Total Counted Differential Comment Sodium Potassium Chloride Carbon Dioxide Anion Gap BUN Creatinine Estim Creat Clear Calc Est GFR (MDRD) Af Amer Est GFR (MDRD) Non-Af BUN/Creatinine Ratio Glucose Calcium Total Bilirubin AST ALT Alkaline Phosphatase Total Protein Albumin Globulin Albumin/Globulin Ratio Lipase 67 L Urine Color Urine Clarity Urine pH Ur Specific [place] Urine Protein Urine Glucose (UA) Urine Ketones Urine Occult Blood Urine Nitrite Urine Bilirubin Urine Urobilinogen Ur Leukocyte Esterase Urine RBC Urine WBC Ur Squamous Epith Cells Urine Bacteria Urine Mucus Urine Test Negative Assessment/Plan All Active Problems (Last Reviewed 07/11/18 @ 15:56 by Maryanne Menezes) Gastroenteritis (Acute) Urinary tract infection with hematuria (Acute) Left flank pain (Acute) Shingles (Acute) Shingles (Acute) Elevated random blood glucose level (Acute) The patient is a 42 y/o F w/ PMHx: Recovering Alcoholic (Sober x 1 year), History of Tobacco use now Vaping usage, History prior Elevated LFTs, Anxiety and Depression, Gential Herpes who presents to the [facility] ED on 07/14/18 with history of onset dysuria and mild R flank discomfort as well as suprapubic TTP on the prior Sunday with evaluation at the next day with initiation on Macrobid w/ UCx w/ >100,000 E. Coli with then onset starting on Sunday nausea, emesis, fever, chills, abdominal generalized cramping as well as diarrhea, generalized headache, throbbing and ongoing worsening BL, R>L flank pain. (1) Acute Suspected E. Coli Pyelonephritis: Will admit to [facility], UA upon ED evaluation not severe appearing but recent UA notable with E. Coli > 100,000 CFU from 3 days prior from UC evaluation, continue IVFs, monitor I/Os, continue IV Rocephin. (2) N/V/D, ? Viral Gastroenteritis versus sxs associated w/ #1: Will continue aggressive hydration, maintained on IV rocephin for noted concurrent suspected early pyelonephritis that was treated outpatient w/ macrobid as noted, if recurrent loose stools would obtain stool cultures, anti-emetics, pain regimen PRN. (3) Elevated LFTs, Acute on Chronic: GBUS not severe appearing, will obtain hepatitis panel, hydrate aggressively, likely elevation acute on chronic secondary to acute viral illness #2, repeat CMP in AM. (4) Anxiety and Depression/PTSD: Continue home regimen trazodone, denies being on sertraline any longer, would benefit from SSRI/SNRI re-addition if sxs ongoing. (5) History of EtOH Abuse: Sober x 1 year, denies any concurrent IVDA history, does use cannabis. (6) Tobacco Abuse: Encouraged cessation, inpatient consultation per RT, NR if desired. (7) GERD: PPI. (8) DVT Prophylaxis: SCDs, lovenox. Code Visit Inpatient E&M: 67520 Init Hosp L3
[2018-07-14 21:40] VITALS: BMI 20.4
[2018-07-14 21:45] VITALS: BP 114/76; PULSE 83; RESP 16; TEMP 37.4; O2SAT 98
[2018-07-14 22:16] LABS: Magnesium 1.8 mg/dL (1.6-2.6)
[2018-07-14] MEDS: 0.9% Normal Saline 1,000 ML 150 ML IV (22:30)
[2018-07-14] MEDS: Morphine 2 MG/ML Syringe IV (22:30)
[2018-07-14 22:39] LABS: International Normalized Ratio 1.2; Partial Thromboplast Time 34.6 Seconds (24.1-36.2); Prothrombin Time (Protime)PT. 15.5 SECONDS (11.7-14.9)
[2018-07-15] MEDS: traZODone 50 MG Tablet PO ×3 (00:12→23:32)
[2018-07-15] MEDS: oxyCODONE 5 MG Tablet PO ×3 (03:15→16:01)
[2018-07-15 03:59] VITALS: BP 110/69; PULSE 87; RESP 16; TEMP 37.2; O2SAT 98
[2018-07-15] MEDS: 0.9% Normal Saline 1,000 ML 150 ML IV ×2 (04:09→10:02)
[2018-07-15] MEDS: Acetaminophen 325 MG Tablet 650 MG PO ×2 (04:11→14:27)
[2018-07-15 06:04] LABS: ALB/GLOB Ratio 0.8 RATIO (0.9-2.4); AST(SGOT) 149 U/L (15-37); Alanine Aminotransfer ALT/SGPT 289 U/L (13-56); Albumin, Serum 2.5 g/dL (3.2-5.0); Alkaline Phosphatase 139 U/L (45-117); Anion Gap 9 (5-15); BUN 6 mg/dL (7-18); BUN/Creat Ratio 15.2 RATIO (10-20); Calcium,Total 7.7 mg/dL (8.5-10.1); Chloride 106 mmol/L (98-107); Creatinine, Serum 0.39 mg/dL (0.55-1.02); EST Glomerular Filtration Rate 189 mL/min (>60); Est Glom Filt Rate - Afr Amer 228 mL/min (>60); Estimated Creatinine Clearance 148.62 ml/min; Globulin 3.1 g/dL (2.2-4.2); Glucose 83 mg/dL (74-106); Potassium 3.2 mmol/L (3.5-5.1); Protein, Total 5.6 g/dL (6.4-8.2); Sodium Level 139 mmol/L (136-145)
[2018-07-15 06:48] LABS: Absolute Lymphocyte Count 0.39 X10^3/ul (0.83-4.51); Absolute Neutrophil Count 3.1 X10^3/uL (2.0-7.7); Basophil# 0.01 X10^3/uL; Basophil% 0.3 % (0-1); Eosinophil# 0.05 X10^3/uL; Eosinophils% 1.3 % (0-5); Hematocrit 35.2 % (37-47); Lymphocyte # 0.39 X10^3/ul (4.0); Lymphocyte % 10.3 % (19-41); Mean Corp Hgb Conc 34.1 g/gl (32-36); Mean Corpuscular Hgb 30.2 pg (27.0-32.0); Mean Corpuscular Volume 88.4 fL (81-99); Mean Platelet Vol. 11.1 fl (6.2-12.0); Monocyte# 0.23 X10^3/uL; Monocyte% 6.1 % (0-10); Neutrophil # 3.08 X10^3/uL (2.7-7.7); Neutrophil % 81.7 % (47-70); Platelet Count 128 K/mm3 (150-450); RBC Distribution Width CV 12.9 % (11.6-14.6); RBC Distribution Width SD 40.5 fl (35.1-43.9); Red Blood Count 3.98 M/mm3 (4.2-5.4); White Blood Count 3.8 K/mm3 (4.4-11.0)
[2018-07-15 06:50] LABS: Differential Indicated SCAN CRITERIA MET; POSITIVE COUNT NO; POSITIVE DIFFERENTIAL YES; POSITIVE MORPHOLOGY NO
[2018-07-15 07:30] VITALS: O2SAT 96
--- NOTE | 2018-07-15 08:51 | PCM.PN.HOSP ---
Patient Problems: Active and Suspected Problems (Last Reviewed 07/11/18 @ 15:56 by Maryanne Menezes) Gastroenteritis (Acute) Subjective: Patient was seen and examined. Feels slightly better. Nauseaos yesterday. Pain is better controlled. Denies fever or chills or SOB. Vitals/I&O's: Vital Signs Temp Pulse Resp BP Pulse Ox 98.9 F 87 16 110/69 96 07/15/18 03:59 07/15/18 03:59 07/15/18 03:59 07/15/18 03:59 07/15/18 07:30 Oxygen Delivery Method Room Air Weight: 50.6 kg Body Mass Index (BMI) 20.4 Intake and Output for Last 24 Hours 07/13/18 07/14/18 07/15/18 23:59 23:59 23:59 Intake Total 1900 / 1900 Output Total 1575 / 1575 Balance 325 / 325 General: Alert, Oriented x3, Cooperative, No apparent distress HEENT: Atraumatic, PERRLA, EOMI, Normocephalic Neck: Supple, No JVD, Negative Carotid Bruits Lungs: Clear to auscultation, Normal air movement Cardiovascular: Regular rate, Regular Rhythm, Normal S1, Normal S2, No murmurs Abdomen: Bowel Sounds Present, Soft, Non Tender, No Hepato-splenomegaly, Tender - suprapubic and left lower quadrant tenderness Extremities: No edema, Capillary Refill Less than 3 Seconds Skin: No rashes, No breakdown Musculoskeletal: No Tenderness to Palpation of Joints or Extremities Lymphatic: No Cervical, Supraclavicular, or Inguinal Adenopathy Neurological: Cranial nerves II-XII grossly intact Psych/Mental Status: Normal Affect, Appropriate Laboratory Results 07/14/18 16:35: WBC 4.0 L, RBC 5.02, Hgb 15.2 H, Hct 44.9, MCV 89.4, MCH 30.3, MCHC 33.9, RDW 13.1, RDW Differential 43.2, Plt Count 161, MPV 10.8, Immature Gran % (Auto) 0.300, Neut % (Auto) 85.4 H, Lymph % (Auto) 7.0 L, [place] % (Auto) 7.0, Eos % (Auto) 0.3, Baso % (Auto) 0.0, Absolute Neuts (auto) 3.4, Absolute Lymphs (auto) 0.28 L, Total Counted Not Reportable, Differential Comment SCANNED 07/14/18 16:35: Sodium 139, Potassium 3.7, Chloride 103, Carbon Dioxide 28.0, Anion Gap 8, BUN 9, Creatinine 0.70, Estim Creat Clear Calc 82.80, Est GFR (MDRD) Af Amer 117, Est GFR (MDRD) Non-Af 97, BUN/Creatinine Ratio 12.8, Glucose 109 H, Calcium 8.9, Total Bilirubin 1.30 H, AST 483 H, ALT 563 H, Alkaline Phosphatase 207 H, Total Protein 7.4, Albumin 3.5, Globulin 3.9, Albumin/Globulin Ratio 0.9 07/14/18 16:35: Urine Color Lisa, Urine Clarity Sl. Cloudy, Urine pH 5.0, Ur Specific [place] 1.020, Urine Protein 100 H, Urine Glucose (UA) Normal, Urine Ketones 15 H, Urine Occult Blood 50 H, Urine Nitrite Negative, Urine Bilirubin 3 H, Urine Urobilinogen 8 H, Ur Leukocyte Esterase 100 H, Urine RBC 5-10 SEEN, Urine WBC 5-10 SEEN, Ur Squamous Epith Cells 5-10 SEEN, Urine Bacteria 0 SEEN, Urine Mucus 1+ 07/14/18 16:35: Lipase 67 L 07/14/18 16:35: Urine Test Negative 07/14/18 21:50: PT 15.5 H, INR 1.2, APTT 34.6 07/14/18 21:50: Magnesium 1.8 07/15/18 05:16: Hepatitis A IgM Ab Pending, Hepatitis A Ab Total Pending, Hep Bs Antigen Pending, Hep B Core Total Ab Pending, Hep B Core IgM Ab Pending 07/15/18 05:16: WBC 3.8 L, RBC 3.98 L, Hgb 12.0, Hct 35.2 L, MCV 88.4, MCH 30.2, MCHC 34.1, RDW 12.9, RDW Differential 40.5, Plt Count 128 L, MPV 11.1, Immature Gran % (Auto) 0.300, Neut % (Auto) 81.7 H, Lymph % (Auto) 10.3 L, [place] % (Auto) 6.1, Eos % (Auto) 1.3, Baso % (Auto) 0.3, Absolute Neuts (auto) 3.1, Absolute Lymphs (auto) 0.39 L, Total Counted Not Reportable 07/15/18 05:16: Sodium 139, Potassium 3.2 L, Chloride 106, Carbon Dioxide 24.0, Anion Gap 9, BUN 6 L, Creatinine 0.39 L, Estim Creat Clear Calc 148.62, Est GFR (MDRD) Af Amer 228, Est GFR (MDRD) Non-Af 189, BUN/Creatinine Ratio 15.2, Glucose 83, Calcium 7.7 L, Total Bilirubin 0.80, AST 149 H, ALT 289 H, Alkaline Phosphatase 139 H, Total Protein 5.6 L, Albumin 2.5 L, Globulin 3.1, Albumin/Globulin Ratio 0.8 L Current Medications Acetaminophen (Tylenol) 650 mg PO Q6H PRN PRN PRN Reason: Mild Pain (scale 0-3)/T>100.7 Last Admin: 07/15/18 04:11 Dose: 650 mg Al Hydroxide/Mg Hydroxide (Mylanta Ii) 30 ml PO Q6H PRN PRN PRN Reason: Gastric burning Enoxaparin Sodium (Lovenox) 40 mg SC DAILY@1000 LAURA Sodium Chloride () 1,000 mls @ 150 mls/hr IV .Q6H40M LAURA Last Admin: 07/15/18 04:09 Dose: 150 mls/hr Ceftriaxone Sodium (Rocephin) 1 gm in 50 mls @ 100 mls/hr IV Q24H LAURA Magnesium Hydroxide (Milk Of Magnesia) 30 ml PO DAILY PRN PRN PRN Reason: Constipation Morphine Sulfate () 2 - 4 mg IV Q3H PRN PRN PRN Reason: Severe Pain (pain scale 6-10) Last Admin: 07/14/18 22:30 Dose: 4 mg Morphine Sulfate () 1 - 2 mg IV Q4H PRN PRN PRN Reason: Moderate Pain (pain scale 4-5) Nutritional Formula (Lactose Free) (Ensure Clear) 120 ml PO 4X/DAY LAURA Ondansetron HCl (Zofran) 4 mg IV Q8H PRN PRN PRN Reason: NAUSEA Oxycodone HCl (Oxyir) 5 mg PO Q4H PRN PRN PRN Reason: Moderate Pain (pain scale 4-5) Last Admin: 07/15/18 03:15 Dose: 5 mg Pantoprazole Sodium (Protonix) 20 mg PO DAILY LAURA Sodium Chloride () 5 - 15 ml IV UD PRN PRN Reason: SALINE FLUSH Trazodone HCl (Desyrel) 50 mg PO QHS PRN PRN Reason: insomnia Last Admin: 07/15/18 00:12 Dose: 50 mg Zolpidem Tartrate (Ambien (Generic)) 5 mg PO QHS PRN PRN PRN Reason: INSOMNIA Medical Necessity - Tobacco Use Smoking Status: Former smoker Tobacco Use: Vapor Assessment/Plan All Active Problems (Last Reviewed 07/11/18 @ 15:56 by Maryanne Menezes) Gastroenteritis (Acute) Urinary tract infection with hematuria (Acute) Left flank pain (Acute) Shingles (Acute) Shingles (Acute) Elevated random blood glucose level (Acute) 42 y/o female with h/o E. coli UTI, former alcoholic, nicotine dependence, anxiety/depression who comes in with complains of dysuria and flank pain. Patient had recently treated for E. coli at urgent care. 1. Acute E. coli UTI, failed outpatient therapy, no signs of sepsis on admission, on IV ceftriaxone( day 2), will continue same 2. Acute gastroenteritis, resolved, likely related UTI, will continue to return treat symptomatically. 3. Elevated LFTs, acute on chronic, Monty lab work this morning shows improvement, no related to gallstones, hepatitis profile pending, continue to monitor 4. Anxiety/depression/PTSD, on trazodone 5. History of alcohol abuse, sober 6. Nicotine dependence, advised to quit 7. GERD, on PPI 8. DVT PPx- Lovenox SC Code Visit Inpatient E&M: 48169 Subs Hosp L2
[2018-07-15 09:57] VITALS: BP 121/82; PULSE 82; RESP 18; TEMP 36.6; O2SAT 98
[2018-07-15] MEDS: Ceftriaxone 1 GM/50 ML BAG IV (10:01)
[2018-07-15] MEDS: Enoxaparin 40 MG/0.4 ML Syringe SC (10:06)
[2018-07-15] MEDS: Pantoprazole Sodium 20 MG Tablet PO (10:06)
--- NOTE | 2018-07-15 11:25 | CASEMGMT ---
RN ALFRED Face to Face with patient for initial transition planning/care coordination assessment. RN CM introduced self and role at [facility]. Patient lying in bed, alert and oriented. Patient willing to participate in assessment and is able to answer all questions appropriately. Care providers, pharmacy, and demographics verified. Patient wishes to discharge home, denies need for home health at this time. Patient states she has no further needs or concerns at this time. CM to follow for discharge planning needs that may arise. PCP: Ruchi Specialists: None Preferred Pharmacy: [facility] Insurance: [employer] Prescription Benefit: Yes Living Will/HPOA: None LNOK: , children Living Arrangements: Patient lives with family in 2 story home, independent at home. Transportation: Self/ DME/HHC: None Disposition Plan: Patient to discharge home with family support and follow-up plans in place. Stacie WHEELER, RN, CM
--- NOTE | 2018-07-15 12:39 | US_ITS ---
STUDY: RENAL ULTRASOUND - COMPLETE REASON FOR EXAM: Female, 42 years old. Recurrent UTIs. History of nephrolithiasis. TECHNIQUE: Ultrasound evaluation of the kidneys was performed with real-time and static gross-scale imaging. COMPARISON: Right upper quadrant ultrasound and CT abdomen pelvis July 14, 2018. FINDINGS: RIGHT KIDNEY: Normal location of the right kidney, which is normal in size. The right kidney measures 11.7 x 6.1 x 4.9 cm. There is a normal cortex of the right kidney. The renal cortex measures 1.7 cm. There is no right renal mass or cyst. 3 nonobstructing 3 mm stones were noted, one at the upper pole and 2 at the lower pole. There is no right hydronephrosis. DISTAL RIGHT URETER: There is non-visualization of the distal right ureter. There is no demonstrated right ureterovesical junction calculus. There is a visualized right ureteral jet. LEFT KIDNEY: Normal location of the left kidney, which is normal in size. The left kidney measures 10.8 x 5.4 x 5.9 cm. There is a normal cortex of the left kidney. The renal cortex measures 1.7 cm. There is no left renal mass or cyst. A pair of nonobstructing stones are identified. One of the mid pole is 4 mm, while one at the lower pole a 6 mm. There is no left hydronephrosis. DISTAL LEFT URETER: There is non-visualization of the distal left ureter. There is no demonstrated left ureterovesical junction calculus. There is a visualized left ureteral jet. BLADDER: The distended urinary bladder has a volume of 80 ml. The empty urinary bladder has a volume of 4.8 ml. There is a normal 2 mm wall thickness of the distended urinary bladder. There is no demonstrated mass within the urinary bladder. There are no demonstrated bladder calculi. UTERUS AND ADNEXA: 1.1 x 1.5 x 1.2 cm cystic lesion noted on the posterior endometrial margin of the uterus. A 1.6 x 2.8 x 1.8 cm bilobed, partially septated cyst or pair of cysts also seen in the left ovary. US/Kidney and Bladder IMPRESSION: 1. Nonobstructing bilateral nephrolithiasis. No hydronephrosis. 2. Incompletely distended, but unremarkable urinary bladder. 3. Incidental note of 1.5 cm cystic structure along the endometrium of the uterus as well as 2.8 cm left ovarian cyst or pair of cysts. Electronically Signed: Richmond Munguia MD at 15:54 EST , Service support ,
[2018-07-15] MEDS: Phenazopyridine 95 MG Tablet PO ×2 (14:28→22:03)
[2018-07-15 14:31] VITALS: BP 115/82; PULSE 80; RESP 18; TEMP 36.8; O2SAT 96
[2018-07-15] MEDS: Ondansetron 4 MG/2 ML Vial IV (18:30)
[2018-07-15] MEDS: 0.9% Normal Saline 1,000 ML 75 ML IV (20:50)
[2018-07-15 21:55] VITALS: BP 121/81; PULSE 79; RESP 14; TEMP 37.1; O2SAT 100
[2018-07-16 04:37] VITALS: BP 96/58; PULSE 62; RESP 14; TEMP 36.4; O2SAT 99
[2018-07-16 06:07] LABS: HEPATITIS B SURFACE AG Negative (Negative); Hepatitis A AB, Total Negative (Negative); Hepatitis A IgM Antibody Negative (Negative); Hepatitis B Core AB IgM Negative (Negative); Hepatitis B Core Ab Total Negative (Negative); Hepatitis C Ab 0.1 s/co ratio (0.0-0.9)
[2018-07-16] MEDS: Phenazopyridine 95 MG Tablet PO (06:15)
[2018-07-16 06:18] LABS: Absolute Neutrophil Count 1.5 X10^3/uL (2.0-7.7); Basophil# 0.02 X10^3/uL; Basophil% 0.5 % (0-1); Eosinophil# 0.16 X10^3/uL; Eosinophils% 3.9 % (0-5); Hematocrit 37.5 % (37-47); Hemoglobin 12.8 g/dl (12.0-15.0); Lymphocyte % 43.6 % (19-41); Mean Corp Hgb Conc 34.1 g/gl (32-36); Mean Platelet Vol. 11.1 fl (6.2-12.0); Monocyte# 0.63 X10^3/uL; Monocyte% 15.3 % (0-10); Neutrophil # 1.52 X10^3/uL (2.7-7.7); Neutrophil % 36.7 % (47-70); Platelet Count 181 K/mm3 (150-450); RBC Distribution Width CV 13.1 % (11.6-14.6); RBC Distribution Width SD 41.3 fl (35.1-43.9); Red Blood Count 4.26 M/mm3 (4.2-5.4); White Blood Count 4.1 K/mm3 (4.4-11.0)
[2018-07-16 06:19] LABS: Differential Indicated SCAN CRITERIA MET; POSITIVE COUNT NO; POSITIVE DIFFERENTIAL NO; POSITIVE MORPHOLOGY YES
[2018-07-16 06:22] LABS: Anion Gap 8 (5-15); BUN 3 mg/dL (7-18); BUN/Creat Ratio 6.5 RATIO (10-20); Chloride 109 mmol/L (98-107); Creatinine, Serum 0.46 mg/dL (0.55-1.02); EST Glomerular Filtration Rate 158 mL/min (>60); Est Glom Filt Rate - Afr Amer 191 mL/min (>60); Estimated Creatinine Clearance 126.01 ml/min; Glucose 90 mg/dL (74-106); Potassium 3.2 mmol/L (3.5-5.1); Sodium Level 142 mmol/L (136-145)
[2018-07-16 07:55] LABS: AST(SGOT) 85 U/L (15-37); Alanine Aminotransfer ALT/SGPT 215 U/L (13-56); Albumin, Serum 2.5 g/dL (3.2-5.0); Alkaline Phosphatase 193 U/L (45-117); Bilirubin, Direct 0.22 mg/dL (0.00-0.30); Globulin 3.3 g/dL (2.2-4.2); Magnesium 1.5 mg/dL (1.6-2.6); Protein, Total 5.8 g/dL (6.4-8.2)
--- NOTE | 2018-07-16 08:14 | DCINST_ITS ---
- Discharge Diagnoses Current Active Problems: Current Active and Chronic Problems (Last Reviewed 07/11/18 @ 15:56 by Maryanne Menezes) Gastroenteritis (Acute) Reason(s) for Visit for Discharge Instructions: Abdominal pain You will use the following diet at home:: Regular Your food should be the consistency of: Regular Your liquids should be the consistency of: Regular/Thin Discharge Activity: Return to Normal Activity Additional Instructions: Continue to hydrate yourself. Complete your antibiotics. Follow-up with your PCP within 1-2 weeks. Allergies/Adverse Reactions: Allergies valacyclovir [From Valtrex] Allergy (Verified 07/11/18 15:56) Hives Medications to take at Discharge trazodone 50 mg tablet 50 mg PO QHS PRN #90 tab 12/04/17 Acetaminophen [Tylenol Tablet] 650 mg PO Q6H PRN PRN tablet 07/16/18 Cefdinir [Omnicef [equiv]] 300 mg PO Q12H #14 capsule 07/16/18 Phenazopyridine HCl [Pyridium] 200 mg PO TID #6 tablet 07/16/18 The following prescriptions were given: Cefdinir [Omnicef [equiv]] 300 mg PO Q12H #14 capsule Phenazopyridine HCl [Pyridium] 200 mg PO TID #6 tablet Primary Care Physician: Kely Hopper MD [Primary Care Provider] - Please follow up with your Primary Care Physician in: within 1-2 weeks Test Results: Test results from this visit will be discussed in further detail at your follow- up appointment, if applicable. Proposed Discharge Date: 07/16/18
--- NOTE | 2018-07-16 08:18 | DS.PCM_ITS ---
Discharge Date and Diagnosis - Problem List Patient Problems: Active and Suspected Problems (Last Reviewed 07/11/18 @ 15:56 by Maryanne Menezes) Gastroenteritis (Acute) Date of Admission: 07/14/18 Date of Discharge: 07/16/18 - Primary Discharge Diagnosis Active and Suspected Problems (Last Reviewed 07/11/18 @ 15:56 by Maryanne Menezes) Acute E. coli UTI, failed outpatient therapy Gastroenteritis (Acute), resolved Hypokalemia - Secondary Discharge Diagnosis Chronic Problems (Last Reviewed 07/11/18 @ 15:56 by Maryanne Menezes) Genital herpes (Chronic) Insomnia (Chronic) Generalized anxiety disorder with panic attacks (Chronic) Anxiety and depression (Chronic) Alcohol abuse (Chronic) History of marijuana use (Chronic) Hypertension (Chronic) PTSD (post-traumatic stress disorder) (Chronic) Migraine headache (Chronic) Hospital Course and Treatment Imaging Results: Clinical Impression(s) from Imaging Studies Gallbladder Ultrasound 07/14/18 17:06 IMPRESSION: There is a 5 mm nonobstructing stone in the lower pole of the right kidney. Otherwise, unremarkable study. Electronically Signed: Kristie Landa MD at 20:17 EST Tel , Service support , Abdomen/Pelvis CT 07/14/18 17:10 IMPRESSION: 1. Trace free fluid, otherwise no acute process. 2. A 2 cm uterine fibroid. Electronically Signed: Kristie Landa MD at 18:56 EST Tel , Service support , Renal Ultrasound 07/15/18 12:39 IMPRESSION: 1. Nonobstructing bilateral nephrolithiasis. No hydronephrosis. 2. Incompletely distended, but unremarkable urinary bladder. 3. Incidental note of 1.5 cm cystic structure along the endometrium of the uterus as well as 2.8 cm left ovarian cyst or pair of cysts. Electronically Signed: Richmond Munguia MD at 15:54 EST , Service support , None Operations: None Procedures: None Summary of Care Provided: 42 y/o female with h/o E. coli UTI, former alcoholic, nicotine dependence, anxiety/depression who comes in with complains of dysuria and flank pain. Patient had recently treated for E. coli at urgent care. 1. Acute E. coli UTI, failed outpatient therapy, no signs of sepsis on admission, managed on IV ceftriaxone, discharged on cefdinir. 2. Acute gastroenteritis, resolved. 3. Elevated LFTs, acute on chronic, repeat blood work showed improvement, hepatitis panel was pending at discharge 4. Anxiety/depression/PTSD, on trazodone 5. History of alcohol abuse, sober, advised to abstain 6. Nicotine dependence, advised to quit, managed on replacement here. [] Patient Problems: Active and Suspected Problems (Last Reviewed 07/11/18 @ 15:56 by Maryanne Menezes) Gastroenteritis (Acute) Subjective: Patient was seen and examined. [place] improved. Dysuria is improved. No more abdominal pain, dizziness, SOB. - Physical Exam Vital Signs Temp Pulse Resp BP Pulse Ox 97.5 F L 62 14 96/58 L 99 07/16/18 04:37 07/16/18 04:37 07/16/18 04:37 07/16/18 04:37 07/16/18 04:37 Oxygen Delivery Method Room Air Weight: 50.6 kg Body Mass Index (BMI) 20.4 Intake and Output for Last 24 Hours 07/14/18 07/15/18 07/16/18 23:59 23:59 23:59 Intake Total 2588 / 2588 2067 / 2067 Output Total 2475 / 2475 4200 / 4200 Balance 113 / 113 -2133 / -2133 Microbiology Past 72 Hours 07/14/18 22:40 Respiratory Panel (PCR) - Final Mucosa - Nasopharyngeal Laboratory Tests Past 24 Hrs 07/16/18 07/16/18 07/16/18 05:06 05:06 05:06 WBC 4.1 L RBC 4.26 Hgb 12.8 Hct 37.5 MCV 88.0 MCH 30.0 MCHC 34.1 RDW 13.1 RDW Differential 41.3 Plt Count 181 MPV 11.1 Immature Gran % (Auto) 0.000 Neut % (Auto) 36.7 L Lymph % (Auto) 43.6 H [place] % (Auto) 15.3 H Eos % (Auto) 3.9 Baso % (Auto) 0.5 Absolute Neuts (auto) 1.5 L Absolute Lymphs (auto) 1.80 Total Counted Not Reportable Sodium 142 Potassium 3.2 L Chloride 109 H Carbon Dioxide 25.0 Anion Gap 8 BUN 3 L Creatinine 0.46 L Estim Creat Clear Calc 126.01 Est GFR (MDRD) Af Amer 191 Est GFR (MDRD) Non-Af 158 BUN/Creatinine Ratio 6.5 L Glucose 90 Calcium 8.0 L Magnesium 1.5 L Total Bilirubin 0.40 Direct Bilirubin 0.22 AST 85 H ALT 215 H Alkaline Phosphatase 193 H Total Protein 5.8 L Albumin 2.5 L Globulin 3.3 Discharge Diet: No Restrictions Discharge Activity: Return to Normal Activity Home Medications: Medications to take at Discharge trazodone 50 mg tablet 50 mg PO QHS PRN #90 tab 12/04/17 Acetaminophen [Tylenol Tablet] 650 mg PO Q6H PRN PRN tablet 07/16/18 Cefdinir [Omnicef [equiv]] 300 mg PO Q12H #14 capsule 07/16/18 Phenazopyridine HCl [Pyridium] 200 mg PO TID #6 tablet 07/16/18 Following Prescrptions Were Given to Patient: Cefdinir [Omnicef [equiv]] 300 mg PO Q12H #14 capsule Phenazopyridine HCl [Pyridium] 200 mg PO TID #6 tablet Primary Care Physician: Kely Hopper MD [Primary Care Provider] - Please follow up with your Primary Care Physician in: within 1-2 weeks Disposition: Home Minutes spent on discharge:: 40 Patient Condition:: Stable Medical Necessity - Tobacco Use Smoking Status: Former smoker Tobacco Use: Non-smoker, Vapor Meaningful Use Info Meaningful Use Diagnoses (Choose all that apply): None applicable Code Visit Inpatient E&M: 72523 Disch Hosp
[2018-07-16 08:28] VITALS: BP 108/63; PULSE 77; RESP 16; TEMP 36.7; O2SAT 98
[2018-07-16] MEDS: Pantoprazole Sodium 20 MG Tablet PO (08:36)
[2018-07-16] MEDS: Ceftriaxone 1 GM/50 ML BAG IV (09:12)
[2018-07-17 16:32] LABS: Hep B Surface Antibodies Non Reactive (.)
--- OUTSIDE RECORDS SUMMARY | 2018-09-16 12:03 | XMS RPT_ITS ---
:1975 Author Organization OHIP Support Name Relationship Address Phone DICKS Unavailable [address] [phone] [address] [place] [address] LADRACH, LOUREE Unavailable [address] + [place] [address] DICKS Unavailable [address] [phone] [address] [place] [address] LADRACH, LOUREE Unavailable [address] + [place] [address] DICKS Unavailable [address] [phone] [address] [place] [address] LADRACH, LOUREE Unavailable [address] + [place] [address] DICKS Unavailable [address] [phone] [address] [place] [address] LADRACH, LOUREE Unavailable [address] + [place] [address] DICKS Unavailable [address] [phone] [address] [place] [address] LADRACH, LOUREE Unavailable [address] + [place] [address] DICKS Unavailable [address] [phone] [address] [place] [address] LADRACH, LOUREE Unavailable [address] + [place] [address] DICKS Unavailable [address] [phone] [address] [place] [address] LADRACH, LOUREE Unavailable [address] + [place] [address] DICKS Unavailable [address] [phone] [address] [place] [address] LADRACH, LOUREE Unavailable [address] + [place] [address] DICKS Unavailable [address] [phone] [address] [place] [address] LADRACH, LOUREE Unavailable [address] + [place] [address] DICKS Unavailable [address] [phone] [address] [place] [address] LADRACH, LOUREE Unavailable [address] + [place] [address] DICKS Unavailable [address] [phone] [address] [place] [address] LADRACH, LOUREE Unavailable [address] + [place] [address] DICKS Unavailable [address] [phone] [address] [place] [address] LADRACH, LOUREE Unavailable [address] + [place] [address] DICKS Unavailable [address] [phone] [address] [place] [address] LADRACH, LOUREE Unavailable [address] + [place] [address] DICKS Unavailable [address] [phone] [address] [place] [address] LADRACH, LOUREE Unavailable [address] + [place] [address] DICKS Unavailable [address] [phone] [address] [place] [address] LADRACH, LOUREE Unavailable [address] + [place] [address] DICKS Unavailable [address] [phone] [address] [place] [address] LADRACH, LOUREE Unavailable [address] + [place] [address] DICKS Unavailable [address] [phone] [address] [place] [address] LADRACH, LOUREE Unavailable [address] + [place] [address] DICKS Unavailable [address] [phone] [address] [place] [address] LADRACH, LOUREE Unavailable [address] + [place] [address] DICKS Unavailable [address] [phone] [address] [place] [address] LADRACH, LOUREE Unavailable [address] + [place] [address] LADRACH, LOUREE Unavailable [address] + [place] [address] [employer] Unavailable [address] + [place] [address] LADRACH, LOUREE Unavailable [address] + [place] [address] [employer] Unavailable [address] + [place] [address] LADRACH, LOUREE Unavailable [address] + [place] [address] [employer] Unavailable [address] + [place] [address] LADRACH, LOUREE Unavailable [address] + [place] [address] [employer] Unavailable [address] + [place] [address] LADRACH, LOUREE Unavailable [address] + [place] [address] [employer] Unavailable [address] + [place] [address] LADRACH, LOUREE Unavailable [address] + [place] [address] [employer] Unavailable [address] + [place] [address] LADRATHEA, LOUREE Unavailable [address] + [place] [address] [employer] Unavailable [address] + [place] [address] SUZIE, LOUREE Unavailable [address] + [place] [address] [employer] Unavailable [address] + [place] [address] Care Team Providers Name Role Phone Jose Wolf Attending Unavailable Oleghe, Efewongbe Referring Unavailable Jose Wolf Attending Unavailable Jose Wolf Referring Unavailable Oleghe, Efewongbe Primary Care Unavailable DavisKash SIZE CUTTER-C Consulting Unavailable Robi Chamberlain Attending Unavailable Oleghe, Efewongbe Referring Unavailable Robi Chamberlain Attending Unavailable Robi Chamberlain Referring Unavailable Oleghe, Efewongbe Primary Care Unavailable Oleghe, Efewongbe Primary Care Unavailable White, Marcy Admitting Unavailable White, Marcy Referring Unavailable Paintsil, Simon Attending Unavailable White, Marcy Admitting Unavailable White, Marcy Attending Unavailable White, Marcy Referring Unavailable Oleghe, Efewongbe Primary Care Unavailable White, Marcy Consulting Unavailable DavisKash SIZE CUTTER-C Attending Unavailable DavisKash SIZE CUTTER-C Referring Unavailable Davis, Kash SIZE CUTTER-C Primary Care Unavailable Davis, Kash SIZE CUTTER-C Primary Care Unavailable Gracie Sandoval Attending Unavailable Kash Davis SIZE CUTTER-C Attending Unavailable DavisKash SIZE CUTTER-C Referring Unavailable Davis, Kash SIZE CUTTER-C Primary Care Unavailable DavisKash SIZE CUTTER-C Attending Unavailable DavisKash SIZE CUTTER-C Referring Unavailable Mohinder Nye Attending Unavailable Parris Edward Referring Unavailable Davis, Kash SIZE CUTTER-C Primary Care Unavailable Davis, Kash SIZE CUTTER-C Attending Unavailable DavisKash SIZE CUTTER-C Referring Unavailable White, Marcy Admitting Unavailable Paintsil, Simon Attending Unavailable White, Marcy Referring Unavailable Oleghe, Efewongbe Primary Care Unavailable Paintsil, Simon Consulting Unavailable White, Marcy Admitting Unavailable Paintsil, Simon Attending Unavailable White, Marcy Referring Unavailable Oleghe, Efewongbe Primary Care Unavailable Paintsil, Simon Consulting Unavailable DavisKash SIZE CUTTER-C Attending Unavailable Davis, Kash SIZE CUTTER-C Referring Unavailable Davis, Kash SIZE CUTTER-C Primary Care Unavailable Mohinder Nye Attending Unavailable Parris, Davionward Referring Unavailable Davis, Kash SIZE CUTTER-C Primary Care Unavailable Melany, Gina Attending Unavailable Davis, Kash SIZE CUTTER-C Referring Unavailable Davis, Kash SIZE CUTTER-C Primary Care Unavailable Davis, Kash SIZE CUTTER-C Primary Care Unavailable Melany, Gina Attending Unavailable RafanthonyMontserrat Referring Unavailable Melany, Gina Attending Unavailable Melany, Gina Attending Unavailable Davis, Kash SIZE CUTTER-C Primary Care Unavailable Davis, Kash SIZE CUTTER-C Attending Unavailable Davis, Kash SIZE CUTTER-C Primary Care Unavailable Oleghe, Efewongbe Referring Unavailable Davis, Kash SIZE CUTTER-C Attending Unavailable Oleghe, Efewongbe Referring Unavailable Davis, Kash SIZE CUTTER-C Primary Care Unavailable Vasquez Peres Attending Unavailable Davis, Kash SIZE CUTTER-C Referring Unavailable Davis, Kash SIZE CUTTER-C Primary Care Unavailable Davis, Kash SIZE CUTTER-C Attending Unavailable Oleghe, Efewongbe Referring Unavailable Davis, Kash SIZE CUTTER-C Primary Care Unavailable Oleghe, Efewongbe Attending Unavailable Oleghe, Efewongbe Referring Unavailable Robi Chamberlain Attending Unavailable Oleghe, Efewongbe Referring Unavailable Davis, Kash SIZE CUTTER-C Primary Care Unavailable Davis, Kash SIZE CUTTER-C Attending Unavailable Oleghe, Efewongbe Referring Unavailable Davis, Kash SIZE CUTTER-C Primary Care Unavailable PROBLEMS PROBLEMS DATE TYPE CONDITION / CODE ATTENDING STATUS SOURCE 07/11/2018 Unknown R30.0 - Dysuria / Robi Chamberlain Active [place] R30.0(ICD-10) [facility] 06/21/2018 Unknown A60.00 - Herpesviral Luciano, Jose Active [place] infection of Community urogenital system, Hospital unspecified / Repository A60.00(ICD-10) 03/13/2018 Unknown 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, 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 SIZE CUTTER-C Community system involvement / Hospital B02.29(ICD-10) Repository 01/17/2018 Unknown 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, 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 SIZE CUTTER-C Community diarrhea / Hospital K58.0(ICD-10) Repository 12/04/2017 Unknown F41.1 - Generalized Davis, Kash Active [place] anxiety disorder / SIZE CUTTER-C Community F41.1(ICD-10) Hospital Repository 10/05/2017 Unknown N91.5 - Melrose, Molly Active [place] Oligomenorrhea, Community unspecified / Hospital N91.5(ICD-10) Repository 10/05/2017 Unknown Z12.4 - Encounter MelroseGina douglass Active [place] for screening for Community malignant neoplasm Hospital of cervix / Repository Z12.4(ICD-10) 2017 Unknown Z12.31 - Encounter MelroseGina Active [place] for screening Community mammogram for Hospital malignant neoplasm Repository of breast / Z12.31(ICD-10) 2017 Unknown N85.2 - Hypertrophy Melany, Gina Active [place] of uterus / Community N85.2(ICD-10) Hospital Repository 09/07/2017 Unknown L30.9 - Dermatitis, Kash Davis Active [place] unspecified / SIZE CUTTER-C Community L30.9(ICD-10) Hospital Repository 08/27/2017 Unknown M54.12 - Parris, Edward Active [place] Radiculopathy, Community cervical region / Hospital M54.12(ICD-10) Repository 08/10/2017 Unknown H92.02 - Otalgia, Jaime, Gracie Active [place] left ear / Community H92.02(ICD-10) Hospital Repository 09/04/2017 Unknown H65.192 - Other Davis, Kash Active [place] acute nonsuppurative SIZE CUTTER-C Community otitis media, left Hospital ear / Repository H65.192(ICD-10) 09/04/2017 Unknown J06.9 - Acute upper DavisKash Active [place] respiratory SIZE CUTTER-C Community infection, Hospital unspecified / Repository J06.9(ICD-10) PROCEDURES PROCEDURES No Procedure Records FoundRESULTS RESULTS DISCHARGE SUMMARY Observed: 07/16/2018 Status: F Source: [place] 9:49 AM [facility] REPOSITORY [facility] Medical Records Department [address] [place] [address] Discharge Summary 07/16/18817 MR#: [id number] Acct: [id number] Name: NGUYEN MULLINS Rep #: [id number] : 1975 42 From: Juli Jimenez MD PCP: Kely Hopper MD Status: ADM IN Y Location: MS3 DP330-2 Discharge Date and Diagnosis - Problem List [...] (Acute) Subjective: Patient was seen and examined. [place] improved. Dysuria is improved. No more abdominal [...] applicable Code Visit Inpatient E AND M: 03584 Disch Hosp 07/16/18 0949 <Electronically signed by Juli Jimenez MD> Date Juli Jimenez MD Cosigner Signature (if applicable): Date CC: Juli Jimenez MD; Kely Hopper MD Signed DISCHARGE INSTRUCTION Observed: 07/16/2018 Status: F Source: [place] 8:42 [facility] Medical Records Department [address] [place] [address] Instructions for Home/Discharge Instructions 07/16/18 0812 MR#: [id number] Acct: [id number] Name: NGUYEN MULLINS Rep #: [id number] : 1975 42 From: Juli Jimenez MD [...] Lymph 1.80 Performed By: #### L100.0100 #### [facility] [address] [place], [place], [address] BASIC METABOLIC Collected: 07/16/2018 Status: F Source: [...] Normal 8 Performed By: #### L500.2500 #### [facility] [address] [place], [place], [address] LIVER PROFILE Collected: 07/16/2018 Status: F Source: [place] 5:06 AM [facility] REPOSITORY [...] 0.22 Performed By: #### L500.3400, L501.5200 #### [facility] [address] [place], [address] MAGNESIUM Collected: 07/16/2018 Status: F Source: [place] 5:06 AM [facility] REPOSITORY Order Comment: Comments: as add on test Comments: as add on test TYPE CODE TESTS RESULT OUT OF RANGE REFERENCE UNITS LAB L501.5200 1.6-2.6 mg/dL Low MG 1.5 Performed By: #### L500.3400, L501.5200 #### [facility] [address] [place], [address] KIDNEY AND BLADDER Observed: 07/15/2018 Status: F Source: [place] 12:40 PM [facility] REPOSITORY [facility] Imaging Services [address] [place] [address] Kidney and Bladder MR#: [id number] Acct: [id number] Name: NGUYEN MULLINS Rep #: [id number] : 1975 F 42 From: Kenroy Munguia MD PCP: Kely Hopper MD Status: ADM IN Study: Kidney and Bladder Date of Exam: 07/15/18 Exam# [id number] Ordering Dr: Juli Jimenez MD STUDY: RENAL [...] 15:54 EST , Service support , CC: uJli Jimenez MD; Kely Hopper MD Service Aide: Signed COMPREHENSIVE METABOLIC Collected: 07/15/2018 Status: F [...] Normal 9 Performed By: #### L500.4050 #### [facility] [address] [place], [address] CBC W/DIFF, AUTOMATED Collected: 07/15/2018 Status: F [...] Lymph 0.39 Performed By: #### L100.0100 #### [facility] [address] [place], [place], [address] HEPATITIS ABC PROFILE Collected: 07/15/2018 Status: F Source: [place] 5:16 AM [facility] REPOSITORY TYPE CODE TESTS RESULT OUT OF RANGE REFERENCE UNITS LAB L3100.0200 Negative Normal HEP A Negative IgM 6734 LAB L3100.0300 Negative Normal HEP A Negative AB,T.6726 LAB L3100.0400 Negative Normal HB Negative SURF AG LAB L3100.0440 Negative Normal HB Negative CORE [id number] LAB L3100.0460 Negative Normal HEP B Negative [...] exists to indicate HCV infection. Performed at: [facility] [id number] Quad Stayer: Ilan Choi PhD, Phone: [phone] Performed By: #### L3000.0700 #### [facility] (refer to report for specific site) refer to report for address and phone number Observed: 07/14/2018 Status: F Source: [place] RESPIRATORY PANEL 10:40 PM [facility] acid amplification Performed By: #### M100.638 #### [facility] [place], [place], [address] MAGNESIUM Collected: 07/14/2018 Status: F Source: [place] 9:50 PM [facility] REPOSITORY TYPE CODE TESTS RESULT OUT OF RANGE REFERENCE UNITS LAB L501.5200 1.6-2.6 mg/dL Normal MG 1.8 Performed By: #### L501.5200 #### [facility] [address] [place], [place], [address] PROTHROMBIN TIME W/INR Collected: 07/14/2018 Status: F Source: [place] 9:50 PM [facility] REPOSITORY TYPE CODE TESTS RESULT OUT OF RANGE REFERENCE UNITS LAB L300.4150 11.7-14.9 SECONDS High PROTIME 15.5 LAB L300.4200 Normal INR 1.2 Performed By: #### L300.3900, L300.4310 #### [facility] [address] [facility] [place], [address] PARTIAL THROMBOPLAST Collected: 07/14/2018 Status: F Source: [place] TIME 9:50 PM [facility] REPOSITORY TYPE CODE TESTS RESULT OUT OF RANGE REFERENCE UNITS LAB L300.4310 24.1-36.2 Seconds Normal PTT 34.6 Performed By: #### L300.3900, L300.4310 #### [facility] [address] [facility] [place], [address] EMERGENCY DEPARTMENT Observed: 07/14/2018 Status: F Source: [place] SUMMARY 9:21 PM [facility] REPOSITORY [facility] Medical Records Department [address] [place] [address] Emergency Department Summary 07/14/18 1616 MR#: [id number] Acct: [id number] Name: NGUYEN MULLINS Rep #: [id number] : 1975 42 From: Cuate Naranjo MD [...] the LFTs. This note was generated with [employer] dictation software. It may contain incorrect words, [...] problems, contact your Primary Care Provider. Call [facility] ([phone]) or report to the closest Emergency Room. Call 911 if necessary. 07/14/182120 <Electronically signed by Cuate Naranjo MD> Date Cuate Forresterignleticia Signature (If Indicated): Date CC: Kely Hopper MD HISTORY AND PHYSICAL Observed: 07/14/2018 Status: F Source: [place] EXAM 9:19 PM [facility] REPOSITORY [facility] Medical Records Department [address] [place] [address] History and Physical 07/14/182039 MR#: [id number] Acct: [id number] Name: NGUYEN MULLINS Rep #: [id number] : 1975 42 From: Marcy Pavon PCP: Kely Hopper MD Status: ADM IN [place] [facility] Problem List (1) Urinary tract infection with [...] Depression, Gential Herpes who presents to the [facility] ED on 07/14/18 with history of [...] Psychiatric History: Anxiety, Depression, Post traumatic stress 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 Code Visit Inpatient E AND M: 74271 Init Hosp L3 07/14/182118 <Electronically signed by Marcy Pavon > Date Marcy Pavon Cosigner Signature: Date (if applicable) CC: Marcy Pavon; Kely Hopper MD Signed ABDOMEN/PELVIS W IV CONT Observed: 07/14/2018 Status: F Source: [facility] 5:11 PM [facility] REPOSITORY [facility] Imaging Services [address] [place] [address] Abdomen/Pelvis W IV Cont ONLY MR#: [id number] Acct: [id number] Name: NGUYEN MULLINS Rep #: [id number] : 1975 F 42 From: Kristie Landa MD PCP: Kely Hopper MD Status: REG ER Study: Abdomen/Pelvis W IV Cont ONLY Date of Exam: 07/14/18 Exam# [id number] Ordering Dr: Cuate Naranjo MD STUDY: CT [...] CC: Kely Hopper MD; Cuate Naranjo MD Service Aide: Signed GALLBLADDER Observed: 07/14/2018 Status: F Source: [place] 5:06 PM [facility] REPOSITORY [facility] Imaging Services [address] [place] [address] Gallbladder MR#: [id number] Acct: [id number] Name: NGUYEN MULLINS Rep #: [id number] : 1975 F 42 From: Kristie Landa MD PCP: Kely Hopper MD Status: REG ER Study: Gallbladder Date of Exam: 07/14/18 Exam# [id number] Ordering Dr: Cuate Naranjo MD STUDY: ABDOMINAL [...] CC: Kely Hopper MD; Cuate Naranjo MD Service Aide: Signed CBC W/DIFF, AUTOMATED Collected: 07/14/2018 Status: [...] LYMPHOPENIA NOTED Performed By: #### L100.0100 #### [facility] [address] [place], [place], [address] COMPREHENSIVE METABOLIC Collected: 07/14/2018 Status: F Source: [facility] 4:35 PM [facility] REPOSITORY [...] GAP 8 Performed By: #### L500.4050 #### [facility] [address] [place], [place], [address] URINALYSIS, COMPLETE Collected: 07/14/2018 Status: F Source: [...] URINE 1+ Performed By: #### L400.0001 #### [facility] [address] [facility] [place], [address] LIPASE Collected: 07/14/2018 Status: F Source: [place] 4:35 PM [facility] REPOSITORY TYPE CODE TESTS RESULT OUT OF REFERENCE UNITS RANGE LAB L501.2450 73-393 U/L Low LIPASE 67 Performed By: #### L501.2450 #### [facility] [address] [facility] [place], [address] ,URINE Collected: 07/14/2018 Status: F Source: [place] 4:35 PM [facility] REPOSITORY Order Comment: Order Date: 07/14/18 TYPE CODE TESTS RESULT OUT OF REFERENCE UNITS RANGE LAB L400.8000 Negative Normal HCGUQUAL Negative Result Comment: Very dilute urine specimens, as indicated by a low specific gravity, may not contain rental sales representative levels of hCG. If is still suspected, a first morning urine specimen should be collected 48 hours later and tested. Performed By: #### L400.7600 #### [facility] [address] [facility] [place], [address] Observed: 07/14/2018 Status: F Source: [place] URINE CULTURE 4:02 PM [facility] REPOSITORY Sp. Request/Comment: - Specimen received in preservative Culture Result - No growth (<1,000 CFU/ml) Performed By: #### URCUL #### [facility] [address] [place], [place] [address] PROGRESS Observed: 07/14/2018 Status: COMPLETED Source: [place] 4:[address] [facility] [place] REPOSITORY HNO ID: [id number] Author: Diaz (Sweet Pickle Maker) Service: (none) Author Type: Nurse Practitioner Type: [...] I recommend ER evaluation/treatment Report called to [facility] Patient spouse to drive pov ZEINA Li Observed: 07/14/2018 Status: COMPLETED Source: [place] 3:[address] [facility] REPOSITORY Office Visit (WSTR) NGUYEN MULLINS ([id number]) 1975 F Date Time Provider Department 07/14/18 [...] I recommend ER evaluation/treatment Report called to [facility] Patient spouse to drive pov Diaz Hudson APRN.SAFETY GROOVING MACHINE OPERATOR Referring Provider: SELF [200] Allergies As of [...] vomiting type [R11.11] Order(s):UA DIP, URINE (POC) [3332974] Order #: [id number]. #:[id number] [id number] CULTURE [SQURCUL] Order #: [id number] Prescriptions as of 07/14/2018 Sig: TRAZODONE 50 [...] Normal CRYSTAL Performed By: #### L400.0001 #### [facility] [address] [place], [address] Observed: 07/12/2018 Status: F Source: [place] CULTURE, URINE 3:52 PM [facility] REPOSITORY Urine Culture ORGANISM 1: Presumptive E. coli [place] Count >100,000 Presumptive E. coli: REACTION Ampicillin [...] <=20 S (NF) indicates non-formulary drug at [facility]. Approval by Infectious Disease Specialist required before non-formulary drugs may be ordered and/or dispensed. Performed By: #### M100.0650 #### [facility] [address] [place], [address] URGENT CARE VISIT Observed: 07/11/2018 Status: F Source: [place] REPORT 4:25 PM [facility] REPOSITORY [facility] [address] [place] [address] [address] [place] [address] OFFICE VISIT Date of Service: 07/11/18 MR#: [id number] Acct: [id number] Name: MULLINSNGUYEN PETERSON Scooter Rep #: [id number] : 1975 Provider: Robi FUNG Age/Sex: 42/F Location: [facility] Status: Signed Intake Vital Signs07/11/18 Body Mass [...] engaged- Dieudonne-Work over solutions Patient works at [employer] HPI Chief Complaint: dysuria Details: NGUYEN MULLINS, is a 42 F who presents to the office today for evaluation of recurring dysuria and lower abdominal discomfort and mild low back pain. No complaints of fever, chills, nausea/vomiting, sweats, vaginal/urethral discharge, changes in bowel color or character, chest pressure/shortness of breath. No puft-tmp-qpdpoah products tried to assist with symptoms. No [...] for symptomatic relief. Follow-up with PCP or obstetrics/calculation reviewer in 3-5 days should symptoms not improve, emergency department sooner should symptoms worsen or any other concerns develop. Patient states acknowledging understanding all the above. This note was generated with [employer] dictation software. It may contain incorrect words, spelling, and punctuation that were not noted in checking the note before signing. Orders Orders: Medications New: nitrofurantoin monohyd/m-cryst 100 mg (Macrobid) must ildopa773 mg PO BID 10 caps 0RF ster with a meal/food Coding Level of Care Code Off vis,est,level 3 07/11/18 8585 <Electronically signed by Robi FUNG> Date Robi FUNG Cosigner Signature: Date (if applicable) CC: URGENT CARE VISIT Observed: 06/21/2018 Status: F Source: [place] REPORT 6:32 PM [facility] REPOSITORY [facility] [address] [place] [address] OFFICE VISIT Date of Service: 06/21/18 MR#: [id number] Acct: [id number] Name: NGUYEN MULLINS Rep #: [id number] : 1975 Provider: Jose FUNG Age/Sex: 42/F Location: [facility] Status: Signed Intake Vital Signs06/21/18 Height 5 ft 2 in Intake Visit Reasons: KIDNEY INFECTION Chief Complaint: Kidney pain Inventory Coordinator Required: No Accompanied by: Self Is patient [...] engaged- Dieudonne-Work over solutions Patient works at [employer] [facility] HPI Chief Complaint: Kidney pain Details: NGUYEN [...] URINE SEEN Performed By: #### L400.0001 #### [facility] [address] [place], [place], [address] Observed: 06/21/2018 Status: F Source: MASCOT CULTURE, URINE 3:03 PM [facility] REPOSITORY Urine Culture ORGANISM 1: Presumptive E. coli [place] Count >100,000 Presumptive E. coli: REACTION Amoxacillin/Clavulanic [...] <=20 S (NF) indicates non-formulary drug at [facility]. Approval by Infectious Disease Specialist required before non-formulary drugs may be ordered and/or dispensed. Performed By: #### M100.0650 #### [facility] [address] [place], [place], [id number] WINDOW DECORATOR OFFICE VISIT Observed: 06/12/2018 Status: F Source: YUMIKO REPORT 3:06 PM [facility] REPOSITORY [facility] [address] [place] [address] OFFICE VISIT Date of Service: 10/04/17 MR#: [id number] Acct: [id number] Name: NGUYEN MULLINS Rep #: [id number] : 1975 Provider: LYNN Mosley Age/Sex: 42/F Location[facility] Status: Signed with Addenda ADDENDUM by LYNN [...] 1 year, prn with problems Gina Mosley SAFETY GROOVING MACHINE OPERATOR Orders Orders: Medications New: etonogestrel-ethinyl estradiol 0.12-0.015 mg/241 vag ring Vaginal ONCE 3 weeks 1 ea 11RF hr (NuvaRing) 06/12/18 1506 <Electronically signed by Gina CONKLIN> Date Gina Mosley cc: * Signed Intake Vital Signs10/04/17 Height 5 ft 2 in 10/04/17 Weight: 120 lb 10/04/17 Body Mass Index (BMI) 21.9 10/04/17 Blood Pressure 108/74 Intake Visit Reasons: Annual (ACADEMIC AFFAIRS MANAGER) Inventory Coordinator Required: No Is patient in pain?: Yes [...] social history: Patient is engaged- Dieudonne-Work over [employer] Patient works at [employer] Pregancy History 4 Elective abortions Hx Para 2 Spontaneous abortions Past Pregnancies Del. DatName GA/WeeksOutcome Route [facility] LgAnesthesDel LocaProviderFOB e ht en ia tn Unknown Stanten- 1996 Unknown Tasha- 2010 HPI Annual (ACADEMIC AFFAIRS MANAGER): Details: NGUYEN MULLINS is a 42 year [...] 1 year, prn with problems Gina Mosley SAFETY GROOVING MACHINE OPERATOR Orders Orders: Medications New: etonogestrel-ethinyl estradiol 0.12-0.015 [...] [facility] REPOSITORY [facility] [address] [place] [address] 6 [place] [address] OFFICE VISIT Date of Service: 03/07/18 MR#: [id number] Acct: [id number] Name: NGUYEN MULLINS Rep #: [id number] : 1975 Provider: Robi FUNG Age/Sex: 42/F Location[facility] Status: Signed with Addenda ADDENDUM by Robi FUNG on 03/20/18 at 7307 Addendum entered and electronically signed by KENTON [...] the above. This note was generated with [employer] software. It may contain incorrect words, spelling, [...] engaged- Dieudonne-Work over solutions Patient works at [employer] HPI HPI Chief Complaint: ? shingles Details: [...] the above. This note was generated with [employer] dictation software. It may contain incorrect words, spelling, and punctuation that were not noted in checking the note before signing. Medications New: Coding Level of Care Code Off vis,est,level 3 03/07/18 1505 <Electronically signed by Robi FUNG> Date Robi FUNG Cosigner Signature: Date (if applicable) CC: INTERNAL MEDICINE Observed: 03/14/2018 Status: F Source: YUMIKO OFFICE VISIT 11:18 AM [facility] [address] [place] [address] [address] [place] [address] OFFICE VISIT Date of Service: 03/13/18 MR#: [id number] Acct: [id number] Name: NGUYEN MULLINS Rep #: [id number] : 1975 Provider: Kash Davis NP Age/Sex: 42/F Location: [facility] Status: Signed Intake Vital Signs03/13/18 Height 5 [...] social history: Patient is engaged- Dieudonne-Work over [employer] Patient works at [employer] [facility] 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 Status: Signed Intake Vital Signs01/17/18 Height 5 ft 2 in 01/17/18 Weight: 112 lb Intake Visit Reasons: Irritable bowel syndrome Chief Complaint: stomach problems Inventory Coordinator Required: No Is patient in pain?: No [...] her body feels wore out from it. [facility] Medical History History of marijuana use (Chronic) [...] social history: Patient is engaged- Dieudonne-Work over [employer] Patient works at [employer] [facility] Chief Complaint: stomach problems Details: NGUYEN MULLINS, [...] oriented x3 Limitations: mental status not altered [facility] Head: normal to inspection Ears: hearing [...] 10:31 AM [facility] REPOSITORY [facility] [address] [place] [address] [address] [place] [address] OFFICE VISIT Date of Service: 12/24/17 MR#: [id number] Acct: [id number] Name: NGUYEN MULLINS Rep #: [id number] : 1975 Provider: Vasquez Peres MD Age/Sex: 42/F Location: [facility] Status: Signed Intake Vital Signs12/24/17 Height 5 ft 2 in 12/24/17 Weight: 114 lb Intake Visit Reasons: Gastroesophageal reflux disease (GERD) Chief Complaint: stomach problems Inventory Coordinator Required: No Is patient in pain?: No [...] social history: Patient is engaged- Dieudonne-Work over [employer] Patient works at [employer] HPI HPI HPI: NGUYEN MULLINS, is a [...] proceed with procedure. Vasquez Peres MD Pager: [facility] [address] [place] [address], [address] [place] [address] Office: Coding Level of Care Code Off [...] F Source: YUMIKO OFFICE VISIT 3:46 PM [facility] [address] [place] [address] [place] [address] OFFICE VISIT Date of Service: 12/04/17 MR#: [id number] Acct: [id number] Name: NGUYEN MULLINS Rep #: [id number] : 1975 Provider: Kash Davis NP Age/Sex: 42/F Location: [facility] Status: Signed Intake Vital Signs12/04/17 Height 5 [...] Yes additional social history: Patient is engaged- Diuedonne-Work over solutions Patient works at [employer] [facility] Chief Complaint: stomach problems Details: NGUYEN MULLINS, [...] also. She states that she has taken asul-ell-kmhxrkn Zantac without relief much relief. She currently [...] INTERNAL MEDICINE Observed: 11/13/2017 Status: F Source: UYMIKO OFFICE VISIT 9:12 AM [facility] [address] [place] [address] [place] [address] OFFICE VISIT Date of Service: 11/08/17 MR#: [id number] Acct: [id number] Name: NGUYEN MULLINS Rep #: [id number] : 1975 Provider: Kahs Davis NP Age/Sex: 42/F Location: [facility] Status: Signed Intake Vital Signs11/08/17 Height 5 [...] social history: Patient is engaged- Dieudonne-Work over [employer] Patient works at [employer] [facility] HPI Chief Complaint: 2 mo F/U - [...] oriented x3 Limitations: mental status not altered HENAR Ears: hearing grossly normal bilaterally, TM normal [...] are being treated with her Imitrex and nvtj-hci-nvtrmqh Tylenol and ibuprofen. We will continue to follow in the future. If worsens, may need a referral to neurology 4. Seasonal allergies J30.2 Plan Patient does have seasonal allergies, following up with ENT for deviated septum. Will continue with her Flonase therapy and will also call in [facility] for her to take on a as [...] 12:38 PM [facility] REPOSITORY [facility] Imaging Services [address] [place] [address] Transvaginal Non- MR#: [id number] Acct: [id number] Name: NGUYEN MULLINS Rep #: [id number] : 1975 F 42 From: Ole Thrasher MD PCP: Kash Davis NP Status: REG CLI Study: Transvaginal Non- Date of Exam: 10/12/17 Exam# [id number] Ordering Dr: Gina Mosley STUDY: ULTRASOUND OF [...] Ole Thrasher MD at 14:09 EDT Tel [phone], Service support , CC: LYNN Mosley; Kash Davis NP Service Aide: Signed PELVIC (NON ) Observed: 10/12/2017 Status: F Source: MASCOT 12:38 PM [facility] REPOSITORY [facility] Imaging Services [address] [place] [address] Pelvic (Non ) MR#: [id number] Acct: [id number] Name: NGUYEN MULLINS Rep #: [id number] : 1975 F 42 From: Ole Thrasher MD PCP: Kash Davis NP Status: REG CLI Study: Pelvic (Non ) Date of Exam: 10/12/17 Exam# [id number] Ordering Dr: Gina Mosley SIZE CUTTER-C STUDY: ULTRASOUND OF THE FEMALE PELVIS - [...] Ole Thrasher MD at 14:09 EDT Tel [phone], Service support , CC: LYNN Mosley; Kash Davis NP Service Aide: Signed INITAL EVALUATION (1) Observed: 2017 Status: F Source: MASCOT - PT 2:06 PM [facility] REPOSITORY [facility] [address] [place], [place] [address] Fax REHABILITATION SERVICES INITIAL EVALUATION MR#: [id number] Acct: [id number] Name: NGUYEN MULLINS Rep #: [id number] : 1975 42 From: Jeroniom Roman PT, ATC Referring DrMargie: Mohinder Nye Status: REG R Insurance: [facility] SELF PAY INSURANCE Patient's Visit Information NGUYEN [...] to be FAXED BACK to us at [phone] for Medicare purposes. Please let me know if there are questions or concerns regarding this plan of care. Physician Signature: Date: <Electronically signed by Jeronimo Roman PT, ATC> 10/04/17 1406 CC: Mohinder Nye; Kash Davis SIZE CUTTER [facility] Signed For Medicare only, by signing this [...] 2011 Performed By: #### L3100.5125, L3300.1750 #### [facility] [address] [place], [address] ESTRADIOL Collected: 2017 Status: F Source: MASCOT 9:52 AM [facility] REPOSITORY [...] CONCENTRATION. Performed By: #### L3100.5125, L3300.1750 #### [facility] [address] [place], [address] PAP IG HPV 16/18,45 Collected: 2017 Status: F Source: MASCOT 8:20 AM [facility] REPOSITORY Order Comment: CYTOLOGY INFORMATION: - CLINICAL INFORMATION: HYSTERECTOMY - DATE LMP/MENOPAUSE: LMP - COLLECTION VIAL: Thin Prep Vial - ACADEMIC AFFAIRS MANAGER SOURCE: CERVICAL - COLLECTION TECHNIQUE: BRUSH/SPATULA Specimen Comment: [id number] Specimen Comment: No. of containers..01 ThinPrep Vial [...] Normal PERFORM Comment Result Comment: Sosa Adair, Landscape Specialist (ASCP) LAB L7400.2575 . Normal TEST METHOD [...] (16/18/31/33/35/39/45/ 51/52/56/58/59/66/68) without differentiation. Performed at: - [facility] [id number] Quad Stayer: Christina Faust MD, Phone: [phone] Performed at: = - [facility] [address] [id number] Quad Stayer: Christina Faust MD, Phone: [phone] Performed By: #### L7400.0280 #### [facility] (refer to report for specific site) refer to report for address and phone number INTERNAL MEDICINE Observed: 09/07/2017 Status: F Source: MASCOT OFFICE VISIT 6:00 PM [facility] [address] [place] [address] [address] [place] [address] OFFICE VISIT Date of Service: 09/07/17 MR#: [id number] Acct: [id number] Name: NGUYEN MULLINS Rep #: [id number] : 1975 Provider: Kash Davis NP Age/Sex: 41/F Location[place] [facility] Status: Signed Intake Vital Signs09/07/17 Height 5 ft 2 in Intake Visit Reasons: FU Chief Complaint: left ear pain Inventory Coordinator Required: No Accompanied by: Self Is patient [...] patient states that she has been seen [place] Dr. Kenney for chronic neck pain [...] and is requesting a referral to a dietetic assistant. She was previously treated in our office [...] 2:45 PM [facility] REPOSITORY [facility] Imaging Services [address] [place] [address] Cerv Spine 4 or 5 Views MR#: [id number] Acct: [id number] Name: NGUYEN MULLINS Rep #: [id number] : 1975 F 41 From: Murray De PCP: Kash Davis NP Status: REG CLI Study: Cerv Spine 4 or 5 Views Date of Exam: 08/27/17 Exam# [id number] Ordering Dr: Mohinder Nye STUDY: X-RAY - [...] , CC: Mohinder Nye; Kash Davis NP Service Aide: Signed INTERNAL MEDICINE Observed: 08/14/2017 Status: F Source: MASCOT OFFICE VISIT 5:37 PM [facility] [address] [place] [address] OFFICE VISIT Date of Service: 08/14/17 MR#: [id number] Acct: [id number] Name: NGUYEN MULLINS Rep #: [id number] : 1975 Provider: aKsh Davis NP Age/Sex: 41/F Location: [facility] Status: Signed Intake Vital Signs08/14/17 Height 5 [...] #6 tab 08/10/17 [Rx] Hydrocodone Bitart/Apap 5-325 [Dallas 5MG-325MG] 1 tab PO Q6H PRN PRN [...] She does state that she was given Dallas in the emergency department and this helped [...] with her that I cannot refill her Dallas. Did give her a 5 day prescription [...] EMERGENCY DEPARTMENT Observed: 08/11/2017 Status: F Source: MASCOT SUMMARY 12:28 AM [facility] REPOSITORY [facility] Medical Records Department [address] [facility] [place] [address] Emergency Department Summary 08/10/17 1543 MR#: [id number] Acct: [id number] Name: NGUYEN MULLINS Rep #: [id number] : 1975 41 From: Gracie Sandoval MD [...] severe pain and thus was given a Dallas while in the emergency department and was prescribed a small prescription of Dallas for severe pain, especially at bedtime. She will continue the ibuprofen as prescribed by her doctor. Return precautions given. Follow-up given to an batch dumper. Patient discharged home. Treatment Plan: [] Disposition: [] Impression: Left tympanic membrane perforation, left acute otitis media This note was generated with [employer] dictation software. It may contain incorrect words, spelling, and punctuation that were not noted in review of the chart prior to signing ED Disposition - Plan for ED Patient: Chief Complaint: Ear Problem Prescriptions: Hydrocodone Bitart/Apap 5-325 [D[place] 5MG-325MG] 1 tab PO Q6H PRN PRN [...] your Primary Care Provider. Call [facility] ([phone]) or report to the closest Emergency Room. Call 911 if necessary. 08/11/17 0028 <Electronically signed by Gracie Sandoval MD> Date Gracie Sandoval MD Cosigner Signature (If Indicated): Date CC: Kash Davis NP DISCHARGE INSTRUCTION Observed: 08/11/2017 Status: Source: MASCOT 12:18 AM [facility] Medical Records Department [address] [place] [address] Discharge Instruction 08/10/17 1547 MR#: [id number] Acct: [id number] Name: NGUYEN MULLINS Rep #: [id number] : 1975 41 From: Gracie Sandoval MD PCP: Kash Davis NP Status: DEP ER ED Disposition - Plan for ED Patient: Disposition: Home or Assisted Living Chief Complaint: Ear Problem Instructions: ED Otitis Media Acute Adult, ED Rupture Eardrum Infec Prescriptions: Hydrocodone Bitart/Apap 5-325 [D[place] 5MG-325MG] 1 tab PO Q6H PRN PRN [...] your Primary Care Provider. Call [facility] ([phone]) or report to the closest Emergency Room. Call 911 if necessary. 08/11/17 0018 <Electronically signed by Gracie Sandoval MD> Date Gracie Sandoval MD Cosigner Signature (If Indicated): Date CC: Kash Davis NP INTERNAL MEDICINE Observed: 08/10/2017 Status: F Source: MASCOT OFFICE VISIT 11:42 AM [facility] [address] [place] [address] OFFICE VISIT Date of Service: 08/10/17 MR#: [id number] Acct: [id number] Name: NGUYEN MULLINS Rep #: [id number] : 1975 Provider: Kash Davis NP Age/Sex: 41/F Location: [facility] Status: Signed Intake Vital Signs08/10/17 Height 5 [...] similar symptoms. She has tried taking some bket-niq-tiarcgg flu combinations with mild relief. She did take some dqef-dqy-ppuegdo Aleve which helped some with the ear [...] Appearance: thin Orientation: alert, awake, oriented x3 [facility] Head: atraumatic, normocephalic Ears: TM normal [...] SEVERITY SOURCE 07/11/2018 Drug valacyclovir/F0060 Hives Unknown Ruth Allergy/416 78140(RXNORM) [facility] 830686([facility] ED CT) Repository 02/15/2011 DRUG RIZATRIPTAN SHORTNESS OF [facility] INGREDI/419 BENZOATE [facility] 210473([facility] Repository ED CT) 04/03/2005 DRUG VALACYCLOVIR HCL HIVES [facility]/419 [facility] 236798([facility] Repository ED CT) ENCOUNTERS ENCOUNTERS ADMIT/DISCHARGE ACCOUNT ADMITTING ENCOUNTER LOCATION SOURCE NUMBER CLASS 07/14/2018/07/16/19 [id number] [facility] [address] ing:[place]op: Repository RJ857Kye: 1 07/14/2018 [id number] [facility] Ambulatory BMSBuilding:Manolo Calderon [place] Repository 07/14/2018 [id number] [facility] Ambulatory BMSBuilding:Manolo Calderon [facility] Repository 07/14/2018 [id number] [facility] Ambulatory BMSBuilding:Manolo Calderon [facility] Repository 07/14/2018/07/15/19 [id number] Ambulatory [address] [place] Repository 07/12/2018 [id number] Ambulatory [facility] ing:[facility] Repository 07/11/2018/07/11/19 [id number] Ambulatory BMSBuilding:B Y[facility]iko [facility] Repository 06/21/2018 [id number] [facility] ing:[facility] Repository 06/21/2018/06/21/20 [id number] Ambulatory BMSBuilding:B Ruth 18 [facility] Repository 03/13/2018/03/13/20 [id number] Ambulatory BMSBuilding:B Ruth 18 [facility] Repository 03/07/2018 [id number] Ambulatory BMSBuilding:B Y[place]iko [place] Repository 03/07/2018/03/07/20 [id number] Ambulatory BMSBuilding:B Y[facility] 18 [facility] Repository 01/17/2018/01/18/20 [id number] Ambulatory BMSBuilding:B Ruth 18 [facility] Repository 12/24/2017/12/25/19 [id number] Ambulatory BMSBuilding:B Ruth 18 [facility] Hospital Repository 12/04/2017/12/05/19 [id number] Ambulatory BMSBuilding:B Yumiko 18 [facility] Repository 11/08/2017/11/09/19 [id number] Ambulatory BMSBuilding:B Y[address]iko 18 [facility] Repository 10/12/2017 [id number] [facility] ing:OPUS Repository 2017 [id number] [facility] ing:[facility] Repository 10/04/2017/10/05/19 [id number] Ambulatory Ruth [address] Hospital[facility] Hospital ing:PT Repository 2017 [id number] [facility] ing:POLAB3 Repository 10/04/2017/10/05/19 [id number] Ambulatory BMSBuilding:B Y[place]iko 18 [facility] Hospital Repository 09/07/2017/09/08/19 [id number] Ambulatory BMSBuilding:B Yumiko 18 [facility] Repository 08/31/2017 [id number] Ambulatory BMSBuilding:B Ruth [place].[facility] Repository 08/27/2017 [id number] [facility] Repository 08/14/2017 [id number] Ambulatory BMSBuilding:B Ruth [place].[facility] Repository 08/14/2017/08/14/19 [id number] Ambulatory BMSBuilding:B Y[address]iko 18 [facility] Repository 08/10/2017/08/10/19 [id number] Emergency Yumiko [address] ing:ED Repository 08/10/2017/08/10/19 [id number] Ambulatory BMSBuilding:B Ruth 18 [facility] Repository PAYERS PAYERS ENCOUNTER GUARANTOR PAYER SUBSCRIBER SOURCE 07/14/2018 NGUYEN J Primary NGUYEN J Yumiko [id number] Insurance:[facility]: [facility] Number: [id number] [id number] Repository [address]Vjy: ([phone]) Date:2018-07-14P [phone] () [address]ATTN: [place] [address]QJ: 07/14/2018 Secondary NOT GIVENUNK Yumiko Insurance:SELF PAY [facility] Number: Effective Repository Date:2018-07-14 07/14/2018 NGUYEN J Primary NGUYEN J Ruth [id number] [facility] Number: [id number], [place] [id number] Repository [address]Kgx: [phone]) Date:2018-07-14P O [phone] () [address]ATTN: [place] [address]AT: 07/14/2018 Secondary NOT GIVENUNK Yumiko Insurance:SELF PAY [facility] Number: Effective Repository Date:2018-07-14 07/14/2018 NGUYEN J Primary NGUYEN J Ruth [id number] Insurance:[facility]: [facility] Number: [id number], [place] [id number] Repository [address]Nnt: [phone]) Date:2018-07-14P O [phone] (HP) [address]ATTN: [place] [address]GF: 07/14/2018 Secondary NOT GIVENUNK Ruth Insurance:SELF PAY [facility] Number: Effective Repository Date:2018-07-14 07/14/2018 NGUYEN J Primary NGUYEN J Ruth [id number] Insurance[facility] Number: [id number], [place] [id number] Repository [address]Fff: [phone]) Date:2018-07-14P O [phone] () [address]ATTN: [place] [address]JF: 07/14/2018 Secondary NOT GIVENUNK Ruth Insurance:SELF PAY [facility] Number: Effective Repository Date:2018-07-14 07/12/2018 NGUYEN J Primary NGUYEN J Ruth [id number] Insurance:[facility] [facility] Number: [id number], [place] [id number] Repository [address]Cng: ([phone]) Date:2018-07-12P O [phone] () [address]ATTN: [place] [address]KM: 07/12/2018 Secondary NOT GIVENUNK Ruth Insurance:SELF PAY [facility] Number: Effective Repository Date:2018-07-12 07/11/2018 NGUYEN J Primary NGUYEN J Yumiko [id number] Insurance:[employer] [facility] Number: [id number], [place] [id number] Repository [address]Ikd: ([phone]) Date:2018-07-11P O [phone] () [address]ATTN: [place] [address]OW: 07/11/2018 Secondary NOT GIVENUNK Yumiko Insurance:SELF PAY [facility] Number: Effective Repository Date:2018-07-11 06/21/2018 NGUYEN J Primary NGUYEN J Ruth [id number] Insurance:[facility] [facility] Number: [id number], [place] [id number] Repository [address]Zjn: ([phone]) Date:2018-06-21P O [phone] () [address]ATTN: [place] [address]OY: 06/21/2018 Secondary NOT GIVENUNK Yumiko Insurance:SELF PAY [facility] Number: Effective Repository Date:2018-06-21 06/21/2018 NGUYEN J Primary NGUYEN J Yumiok [id number] Insurance:[facility] Number: [id number], [place] [id number] Repository [address]Qcp: ([phone]) Date:2018-06-21P O [phone] () [address]ATTN: [place] [address]PL: 06/21/2018 Secondary NOT GIVENUNK Yumiko Insurance:SELF PAY [facility] Number: Effective Repository Date:2018-06-21 03/13/2018 NGUYEN J Primary NGUYEN J Ruth [id number] Insurance:CARESOURCEP [facility] Number: [id number], [place] [id number] Repository 67[address]Sqb: (330) Date:2018-01-17P O [phone] () [address]ATTN: [place] [address]WF: 03/13/2018 Secondary NOT GIVENUNK Yumiko Insurance:SELF PAY [facility] Number: Effective Repository Date:2018-03-11 03/07/2018 NGUYEN J Primary NGUYEN J Ruth [id number] Insurance:CARESOURCEP [place]: [facility] Number: [id number], [place] [id number] Repository 477[address]Tth: (330) Date:2018-03-07P O [phone] () [address]ATTN: [place] [address]LK: 03/07/2018 Secondary NOT GIVENUNK Yumiko Insurance:SELF PAY [facility] Number: Effective Repository Date:2018-03-07 03/07/2018 NGUYEN J Primary NGUYEN J Ruth [id number] Insurance:CARESOURCEP [facility]: [facility] Number: [id number], [place] [id number] Repository 29738Swd: (330) Date:2018-03-07P O [phone] () [address]ATTN: [place] [address]MA: 03/07/2018 Secondary NOT GIVENUNK Ruth Insurance:SELF PAY [facility] Number: Effective Repository Date:2018-03-07 01/17/2018 NGUYEN J Primary NGUYEN J Ruth [id number] Insurance:CARESOURCEP [place]: [facility] Number: [id number], [place] [id number] Repository 99[address]Eau: (330) Date:2018-01-15P O [phone] () [address]ATTN: [place] [address]RC: 01/17/2018 Secondary NOT GIVENUNK Ruth Insurance:SELF PAY [facility] Number: Effective Repository Date:2018-01-17 12/24/2017 NGUYEN J Primary NGUYEN J Yumiko [id number] Insurance:CARESOURCEP [facility]: [facility] Number: [id number], [place] [id number] Repository 09898Hzr: (330) Date:2017-12-07P O [phone] () [address]ATTN: [place] [address]TQ: 12/24/2017 Secondary NOT GIVENUNK Yumiko Insurance:SELF PAY [facility] Number: Effective Repository Date:2017-12-07 12/04/2017 NGUYEN J Primary NGUYEN J Yumiko [id number] Insurance:CARESOURCEP [place]: [facility] Number: [id number], [place] [id number] Repository [address]Fjx: (330) Date:2017-12-04 O [phone] () [address]ATTN: [place] [address]KP: 12/04/2017 Secondary NOT GIVENUNK Yumiko Insurance:SELF PAY [facility] Number: Effective Repository Date:2017-12-04 11/08/2017 NGUYEN J Primary NGUYEN J Ruth [id number] Insurance:CARESOURCEP [facility]: [facility] Number: [id number], [place] [id number] Repository 187[address]Goc: (330) Date:2017-09-07P O [phone] () [address]ATTN: [place] [address]EI: 11/08/2017 Secondary NOT GIVENUNK Yumiko Insurance:SELF PAY [facility] Number: Effective Repository Date:2017-11-08 10/12/2017 NGUYEN J Primary NGUYEN J Ruth [id number] Insurance:CARESOURCEP [facility]: [facility] Number: [id number], [place] [id number] Repository 504[address]Rsf: (330) Date:2017-10-08P O [phone] () [address]ATTN: CLAIMS [place] [address]OM: 10/12/2017 Secondary NOT GIVENUNK Yumiko Insurance:SELF PAY [facility] Number: Effective Repository Date:2017-10-08 2017 NGUYEN J Primary NGUYEN J Ruth [id number] Insurance:CARESOURCEP [facility]: [facility] Number: [id number], [place] [id number] Repository 93243Vlw: (330) Date:2017 O [phone] () [address]ATTN: [place] [address]EH: 2017 Secondary NOT GIVENUNK Yumiko Insurance:SELF PAY [facility] Number: Effective Repository Date:2017 2017 NGUYEN J Primary NGUYEN J Ruth [id number] Insurance:[facility]: [facility] Number: [id number], [place] [id number] Repository 04973Tps: (330) Date:2017-06-25 O [phone] () [address]ATTN: [place] [address]CW: 2017 Secondary NOT GIVENUNK Ruth Insurance:SELF PAY [facility] Number: Effective Repository Date:2017-09-12 2017 NGUYEN J Primary NGUYEN J Ruth [id number] Insurance:CARESOURCEP [facility] Number: [id number], [place] [id number] Repository 45634Diq: (330) Date:2017 O [phone] () [address]ATTN: [place] [address]BY: 2017 Secondary NOT GIVENUNK Ruth Insurance:SELF PAY [facility] Number: Effective Repository Date:2017 2017 NGUYEN J Primary NGUYEN J Yumiko [id number] Insurance:CARESOURCEP [facility] Number: [id number], [place] [id number] Repository 00052Zye: (330) Date:2017-10-01P O [phone] () [address]ATTN: [place] [address]TN: 2017 Secondary NOT GIVENUNK Ruth Insurance:SELF PAY [facility] Number: Effective Repository Date:2017 09/07/2017 NGUYEN J Primary NGUYEN J Ruth [id number] Insurance:CARESOURCEP [place]: [facility] Number: [id number], [place] [id number] Repository 51623Nws: (330) Date:2017-08-24P O [phone] () [address]ATTN: [place] [address]FM: 09/07/2017 Secondary NOT GIVENUNK Ruth Insurance:SELF PAY [facility] Number: Effective Repository Date:2017-08-24 08/31/2017 NGUYEN J Primary NGUYEN J Yumiko [id number] Insurance:MEDICAIDPol BUCHANANDOB: [facility] Number: [id number], [place] [id number] Repository 52844Iwx: (330) Date:2017-06-28 [phone] () 08/31/2017 Secondary NOT GIVENUNK Yumiko Insurance:SELF PAY [facility] Number: Effective Repository Date:2017-06-28 08/27/2017 NGUYEN J Primary NGUYEN J Ruth [id number] Insurance:[facility]: [facility] Number: [id number], [place] [id number] Repository 72[address]Mlc: (330) Date:2017-08-27P O [phone] () [address]ATTN: [place] [address]QR: 08/27/2017 Secondary NOT GIVENUNK Ruth Insurance:SELF PAY [facility] Number: Effective Repository Date:2017-08-27 08/14/2017 NGUYEN J Primary NGUYEN J Yumiko [id number] Insurance:CARESOURCEP [facility]: [facility] Number: [id number], [place] [id number] Repository 37401Asp: (330) Date:2017-08-13P O [phone] () [address]ATTN: [place] [address]QG: 08/14/2017 Secondary NOT GIVENUNK Ruth Insurance:SELF PAY [facility] Number: Effective Repository Date:2017-08-13 08/14/2017 NGUYEN J Primary NGUYEN J Yumiko [id number] Insurance:[facility]P [facility]: [facility] Number: [id number], [place] [id number] Repository 99314Wii: (330) Date:2017-08-14P O [phone] () [address]ATTN: [place] [address]DI: 08/14/2017 Secondary NOT GIVENUNK Yumiko Insurance:SELF PAY [facility] Number: Effective Repository Date:2017-08-14 08/10/2017 NGUYEN J Primary NGUYEN J Ruth [id number] Insurance:CAREURCEP [facility]: [facility] Number: [id number], [place] [id number] Repository 01275Qxz: (330) Date:2017-08-10P O [phone] () [address]ATTN: [place] [address]EP: 08/10/2017 Secondary NOT GIVENUNK Ruth Insurance:SELF PAY [facility] Number: Effective Repository Date:2017-08-10 08/10/2017 NGUYEN J Primary NGUYEN J Ruth [id number] Insurance:CARESOURCEP [facility]: [facility] Number: [id number] [place] [address] [id number] Repository 88043Zjw: (330) Date:2017-08-10P O [phone] () [address]ATTN: [place] [address]FO: 08/10/2017 Secondary NOT GIVENUNK Yumiko Insurance:SELF PAY [facility] Effective Repository Date:2017-08-10
== END 2018-07-16 12:15 | disposition home or self-care (01) | DRG 463 ==
LOC: ED 16:30 → MS3 20:57
PROVIDERS: Admitting Provider Family Medicine; Emergency Provider Emergency Medicine; Family Provider Internal Medicine; PCP Internal Medicine; Referring Provider Family Medicine; Visit Provider Internal Medicine
DX: N10 Acute pyelonephritis (principal); B96.20 Unspecified Escherichia coli [E. coli] as the cause of diseases classified elsewhere; E87.6 Hypokalemia; K52.9 Noninfective gastroenteritis and colitis, unspecified; B00.9 Herpesviral infection, unspecified; G47.00 Insomnia, unspecified; F43.10 Post-traumatic stress disorder, unspecified; G43.909 Migraine, unspecified, not intractable, without status migrainosus; I10 Essential (primary) hypertension; F41.1 Generalized anxiety disorder; F32.9 Major depressive disorder, single episode, unspecified; F10.11 Alcohol abuse, in remission; R74.8 Abnormal levels of other serum enzymes; F17.200 Nicotine dependence, unspecified, uncomplicated
CPT/HCPCS: 36415; 74177; 76705; 76770; 80048; 80053; 80076; 81001; 81025; 83690; 83735; 85025; 85610; 85730; 86704; 86705; 86706; 86708; 86709; 86803; 87086; 87088; 87186; 87340; 87633; 97802; 99283; J7030; Q9967; A4216; J2405

== ENCOUNTER → 2018-07-31 16:51 | Outpatient (CLI) | payer MEDICAID, SELFPAY ==
[2018-07-31 16:23] VITALS: BMI 20.4
[2018-07-31 18:17] LABS: ALB/GLOB Ratio 1.1 RATIO (0.9-2.4); AST(SGOT) 16 U/L (15-37); Alanine Aminotransfer ALT/SGPT 25 U/L (13-56); Albumin, Serum 3.9 g/dL (3.2-5.0); Alkaline Phosphatase 86 U/L (45-117); Anion Gap 7 (5-15); BUN 13 mg/dL (7-18); BUN/Creat Ratio 21.2 RATIO (10-20); Calcium,Total 8.4 mg/dL (8.5-10.1); Chloride 107 mmol/L (98-107); Creatinine, Serum 0.61 mg/dL (0.55-1.02); EST Glomerular Filtration Rate 113 mL/min (>60); Est Glom Filt Rate - Afr Amer 137 mL/min (>60); Globulin 3.5 g/dL (2.2-4.2); Glucose 77 mg/dL (74-106); Protein, Total 7.4 g/dL (6.4-8.2); Sodium Level 141 mmol/L (136-145); T4 Free Direct 1.14 ng/dL (0.76-1.46); Thyroid Stim Hormone (TSH) 0.42 uIU/mL (0.358-3.74)
== END ==
PROVIDERS: Family Provider Internal Medicine; PCP Internal Medicine; Referring Provider Internal Medicine; Visit Provider Internal Medicine
DX: L65.9 Nonscarring hair loss, unspecified (principal); R74.8 Abnormal levels of other serum enzymes
CPT/HCPCS: 36415; 80053; 84439; 84443

== ENCOUNTER → 2018-08-15 13:03 | Outpatient (CLI) | payer MEDICAID, SELFPAY ==
[2018-07-31 16:23] VITALS: BMI 20.4
[2018-08-15 14:31] LABS: Anion Gap 10 (5-15); BUN 12 mg/dL (7-18); BUN/Creat Ratio 16.8 RATIO (10-20); Calcium,Total 8.5 mg/dL (8.5-10.1); Chloride 108 mmol/L (98-107); Creatinine, Serum 0.72 mg/dL (0.55-1.02); EST Glomerular Filtration Rate 95 mL/min (>60); Est Glom Filt Rate - Afr Amer 115 mL/min (>60); Glucose 102 mg/dL (74-106); Potassium 3.3 mmol/L (3.5-5.1); Sodium Level 143 mmol/L (136-145)
== END ==
PROVIDERS: Family Provider Internal Medicine; PCP Internal Medicine; Referring Provider Internal Medicine; Visit Provider Internal Medicine
DX: E87.6 Hypokalemia (principal)
CPT/HCPCS: 36415; 80048

== ENCOUNTER 2018-10-09 11:21 | Emergency (ER) | payer MEDICAID, SELFPAY ==
[2018-10-07 16:18] VITALS: BMI 20.4
[2018-10-09 11:23] VITALS: BP 125/91; PULSE 113; RESP 18; TEMP 36.9; O2SAT 98; BMI 19.7
--- NOTE | 2018-10-09 11:33 | ED.VISSUMM ---
- ER Visit Summary Date of Service: 10/09/18 Chief Complaint: UTI, nausea, vomiting History of Present Illness: The patient is a 43 F presents to the emergency department with nausea and vomiting. The patient was diagnosed with urinary tract infection 2 days ago. She is been on Macrobid. She states she is taken 2 doses. Since then, she is been increasingly nauseated. She states that she had a migraine, has had vomiting, and some loose watery diarrhea. The patient has been hospitalized before for pyelonephritis. She states it does not feel as severe. She does not think she had fever. She really denies any pain. She is concerned she may be having a reaction to the antibiotics. Physical Examination: Vital signs reviewed General: Well-nourished, well-developed Head: Normocephalic, atraumatic Eyes: Pupils equal and reactive, extraocular muscles intact Neck, supple, no lymphadenopathy Heart: Regular rate and rhythm Respiratory: No distress, clear bilaterally Abdomen: Soft, nontender, nondistended, no peritoneal signs Back: Nontender Extremities: Nontender, no edema, no cords Skin: Normal color no rash Neuro: Alert and oriented, no focal or lateralizing deficits Test Results: [] Emergency Department Course and Treatment: The patient really has no flank pain. Her abdomen is soft and nontender. IV was established. She was given fluids, antiemetics, and anti-inflammatories. On reevaluation, she is resting comfortably and is feeling markedly improved. Screening labs are unremarkable. Urine does show some evidence of infection and some ketones. I did review the patient's prior cultures and she was pansensitive. I am unsure if she has a partially treated UTI versus an early pyonephritis. Either way, I do not feel that Macrobid is an appropriate antibiotic. Patient was given a dose of IV Rocephin. She is feeling improved. I will change her to Ceftin ear which she has taken without issue. At this time, I do feel that she is safe for outpatient therapy. The patient will be discharged home. Treatment Plan: [] Disposition: Discharge Impression: 1. Pyelonephritis This note was generated with [employer] dictation software. It may contain incorrect words, spelling, and punctuation that were not noted in review of the chart prior to signing ED Disposition - Plan for ED Patient: Instructions: ED Kidney Infec Female Prescriptions: Ondansetron [Zofran Odt] 4 mg PO Q8H PRN PRN #10 tab PRN Reason: Nausea Cefdinir 300 mg PO BID #14 cap Referrals: Kely Hopper MD [Primary Care Provider] -
[2018-10-09] MEDS: Ketorolac 15 MG/ML Vial IV (12:13)
[2018-10-09] MEDS: 0.9% Normal Saline 1,000 ML 1000 ML IV ×2 (12:13→13:59)
[2018-10-09] MEDS: DiphenhydrAMINE 50 MG/ML Syringe 25 MG IV (12:14)
[2018-10-09] MEDS: proCHLORPERazine 10 MG/2 ML Vial IV (12:16)
[2018-10-09 12:31] LABS: ALB/GLOB Ratio 0.8 RATIO (0.9-2.4); AST(SGOT) 38 U/L (15-37); Alanine Aminotransfer ALT/SGPT 51 U/L (13-56); Albumin, Serum 3.9 g/dL (3.2-5.0); Alkaline Phosphatase 111 U/L (45-117); Anion Gap 9 (5-15); BUN 10 mg/dL (7-18); BUN/Creat Ratio 11.4 RATIO (10-20); Calcium,Total 9.2 mg/dL (8.5-10.1); Chloride 102 mmol/L (98-107); Creatinine, Serum 0.88 mg/dL (0.55-1.02); EST Glomerular Filtration Rate 75 mL/min (>60); Est Glom Filt Rate - Afr Amer 90 mL/min (>60); Estimated Creatinine Clearance 63.75 ml/min; Globulin 4.8 g/dL (2.2-4.2); Glucose 114 mg/dL (74-106); Potassium 3.6 mmol/L (3.5-5.1); Protein, Total 8.7 g/dL (6.4-8.2); Sodium Level 137 mmol/L (136-145)
[2018-10-09 12:31] LABS: Bacteria 0 SEEN /hpf (None Seen); Mucous, Urine 0 SEEN /hpf (<or=2+); Red Blood Cells-Urine 0 SEEN /hpf (0-5)
[2018-10-09 12:32] LABS: Platelet Estimate ADEQUATE (ADEQ); Red Cell Morphology NORM C+C NORMAL (NORM C&C)
[2018-10-09 12:33] LABS: Absolute Lymphocyte Count 0.39 X10^3/ul (0.83-4.51); Basophil# 0.01 X10^3/uL; Basophil% 0.1 % (0-1); Differential Indicated SCAN CRITERIA MET; Eosinophil# 0.01 X10^3/uL; Eosinophils% 0.1 % (0-5); Hematocrit 46.4 % (37-47); Hemoglobin 15.9 g/dl (12.0-15.0); Lymphocyte # 0.39 X10^3/ul (4.0); Mean Corp Hgb Conc 34.3 g/gl (32-36); Mean Corpuscular Hgb 30.3 pg (27.0-32.0); Mean Corpuscular Volume 88.4 fL (81-99); Mean Platelet Vol. 10.1 fl (6.2-12.0); Monocyte# 0.37 X10^3/uL; Monocyte% 4.7 % (0-10); Neutrophil # 7.01 X10^3/uL (2.7-7.7); Neutrophil % 90.1 % (47-70); POSITIVE COUNT NO; POSITIVE DIFFERENTIAL YES; POSITIVE MORPHOLOGY NO; Platelet Count 227 K/mm3 (150-450); RBC Distribution Width CV 13.3 % (11.6-14.6); RBC Distribution Width SD 42.7 fl (35.1-43.9); Red Blood Count 5.25 M/mm3 (4.2-5.4); White Blood Count 7.8 K/mm3 (4.4-11.0)
[2018-10-09 12:39] LABS: Glucose, Dipstick Normal (Normal); Ketone-Dipstick 50 mg/dl (Negative); Leukocyte Esterase-Dipstick Negative /ul (Negative); Nitrite-Dipstick Positive (Negative); Occult Blood-Urine 50 /ul (Negative); Protein-Dipstick 100 mg/dl (Negative); Urine Clarity Sl. Cloudy (Clear); Urine Urobilinogen 12 mg/dl (Normal)
[2018-10-09 12:43] LABS: Color, Urine SEE COMMENT BELOW (Yellow)
[2018-10-09 12:44] LABS: Urine Bilirubin Dipstick 6 mg/dL (Negative)
[2018-10-09 13:00] LABS: Squamous Epithelial Cells - UA 0-5 SEEN /hpf (5-10); White Blood Cells 5-10 SEEN /hpf (0-5)
[2018-10-09] MEDS: Ceftriaxone 1 GM/50 ML BAG IV (13:59)
[2018-10-09 14:56] VITALS: RESP 18; TEMP 37.1
== END 2018-10-09 14:58 | disposition home or self-care (01) ==
LOC: ED 11:43
PROVIDERS: Emergency Provider Emergency Medicine; Family Provider Internal Medicine; PCP Internal Medicine
DX: N12 Tubulo-interstitial nephritis, not specified as acute or chronic (principal); Z87.440 Personal history of urinary (tract) infections
CPT/HCPCS: 80053; 81001; 85025; 99283; J7030; A4216

== ENCOUNTER 2018-10-22 11:59 | Emergency (ER) | payer MEDICAID, SELFPAY ==
[2018-10-22 12:00] VITALS: BP 128/66; PULSE 111; RESP 18; TEMP 37.2; O2SAT 96; BMI 21.0
[2018-10-22] MEDS: 0.9% Normal Saline 1,000 ML 1000 ML IV (12:37)
[2018-10-22] MEDS: Morphine 2 MG/ML Syringe IV (12:38)
[2018-10-22] MEDS: Ketorolac 15 MG/ML Vial IV (12:38)
[2018-10-22] MEDS: Ondansetron 4 MG/2 ML Vial IV (12:38)
[2018-10-22 12:53] LABS: Mucous, Urine 0 SEEN /hpf (<or=2+); Red Blood Cells-Urine 0 SEEN /hpf (0-5)
--- NOTE | 2018-10-22 12:57 | ED.VIS.GEN ---
History of Present Illness Chief Complaint: Complaint Detail of Chief Complaint: I have a kidney infection. Informant: Patient Onset: Days Context: Sudden Onset Quality: Fever, right flank pain, urinary symptoms Location: tract Current Severity: Mild Maximum Severity: Moderate Worsened by: Nothing Relieved by: Nothing Associated Symptoms: Constitutional symptoms Narrative: Patient is a 43-year-old woman with recurrent urinary tract infection. Last diagnosed with urinary tract infection 2 weeks ago. She presents with fever, chills, nausea, dysuria, frequency and flank pain. She does report mild bifrontal head pain. She denies ocular, visual auditory symptoms. She denies cardiac or respiratory symptoms. She denies trauma. She denies rash. Prior similar symptoms: Yes Recent Illness/Hospitalization: Yes - Past Medical History (1) Abnormal liver enzymes Status: Acute (2) Elevated random blood glucose level Status: Acute (3) UTI (urinary tract infection) Status: Acute (4) Alcohol abuse Status: Chronic (5) Anxiety and depression Status: Chronic (6) Generalized anxiety disorder with panic attacks Status: Chronic (7) Genital herpes Status: Chronic (8) Hypertension Status: Chronic Past Medical History - Allergies and Home Meds Allergies/Adverse Reactions: Allergies valacyclovir [From Valtrex] Allergy (Verified 10/22/18 12:02) Hives Primary Care Physician: Kely Hopper MD [Primary Care Provider] - Prior records reviewed: Yes Surgical History: noncontributory, - - Ex Lap, x 2. Lives: Alone Smoking Status: Former smoker Alcohol: None - Family History Maternal Family History: Family History (Last Reviewed 10/07/18 @ 16:02 by Narcisa Ricks) Father Hypertension Alcoholism Grandfather Alcoholism Colon cancer Mother Hypertension Depression Brother Depression Grandmother Diabetes Colon cancer Uncle Cancer Family History: Reports: Hypertension Paternal Family History: Family History (Last Reviewed 10/07/18 @ 16:02 by Narcisa Ricks) Father Hypertension Alcoholism Grandfather Alcoholism Colon cancer Mother Hypertension Depression Brother Depression Grandmother Diabetes Colon cancer Uncle Cancer Family History: Reports: Hypertension Review of Systems General: Reports: Chills, Fever, Malaise, Subjective, Sweats. Denies: Weight loss Eyes: Denies: Visual changes - bilaterally, Blurred Vision - bilaterally, Diplopia ENT: Denies: Rhinorrhea, Sore throat Cardiovascular: Denies: Chest pain, Palpitations Respiratory: Denies: Dyspnea, Cough, Dyspnea on exertion Gastrointestinal: Reports: Abdominal pain Genitourinary: Reports: Dysuria, Frequency Musculoskeletal: Reports: Back pain - Right flank. Denies: Myalgias, Arthralgias, Neck pain Skin: Denies: Rash, Wounds Neurological: Denies: Headache, Weakness, Numbness Allergy: Denies: Uticaria, Swelling of the mouth Physical Exam Vital Signs/Narrative: Vital Signs Temp Pulse Resp BP Pulse Ox 10/22/18 12:00 99 F 111 H 18 128/66 H 96 Inital Vital Signs reviewed: Yes General: Well nourished, Well developed, No Acute Distress Head: Normocephalic, Atraumatic Eyes: Perrl, EOMI ENT: Moist mucous membranes, No rhinorrhea Neck: Supple, Nontender Cardiovascular: Regular rate, Regular rhythm, No murmurs Respiratory: No distress, CTA bilaterally, Chest nontender Abdomen: Soft, Nondistended, Normal bowel sounds, No masses, Tender - Suprapubic Back: Nontender, Normal Inspection, CVA tenderness - On the right side Extremities: Nontender, No edema Skin: Normal color, No rash Neurological: Alert, Oriented x3, Cranial nerves II-XII grossly intact, Normal Strength, Normal Sensation Psychological: Normal affect, Normal Mood, Tearful Diagnostic/Tx/Re-eval Laboratory Results 10/22/18 10/22/18 10/22/18 12:30 12:40 12:40 WBC 13.5 H RBC 4.52 Hgb 13.3 Hct 39.1 MCV 86.5 MCH 29.4 MCHC 34.0 RDW 12.9 RDW Differential 40.8 Plt Count 244 MPV 9.3 Immature Gran % (Auto) 0.200 Neut % (Auto) 96.6 H Lymph % (Auto) 2.2 L Lee % (Auto) 0.8 Eos % (Auto) 0.1 Baso % (Auto) 0.1 Absolute Neuts (auto) 13.0 H Absolute Lymphs (auto) 0.29 L Total Counted Not Reportable Sodium 136 Potassium 3.2 L Chloride 104 Carbon Dioxide 26.0 Anion Gap 6 BUN 10 Creatinine 0.74 Estim Creat Clear Calc 77.53 Est GFR (MDRD) Af Amer 110 Est GFR (MDRD) Non-Af 91 BUN/Creatinine Ratio 13.5 Glucose 97 Lactic Acid Calcium 8.2 L Urine Color Yellow Urine Clarity Clear Urine pH 6.5 Ur Specific [place] 1.010 Urine Protein 30 H Urine Glucose (UA) Normal Urine Ketones Negative Urine Occult Blood 10 H Urine Nitrite Negative Urine Bilirubin Negative Urine Urobilinogen 4 H Ur Leukocyte Esterase 25 H Urine RBC 0 SEEN Urine WBC 0-5 SEEN Ur Squamous Epith Cells 0-5 SEEN Urine Bacteria 1+ Urine Mucus 0 SEEN 10/22/18 12:40 WBC RBC Hgb Hct MCV MCH MCHC RDW RDW Differential Plt Count MPV Immature Gran % (Auto) Neut % (Auto) Lymph % (Auto) Lee % (Auto) Eos % (Auto) Baso % (Auto) Absolute Neuts (auto) Absolute Lymphs (auto) Total Counted Sodium Potassium Chloride Carbon Dioxide Anion Gap BUN Creatinine Estim Creat Clear Calc Est GFR (MDRD) Af Amer Est GFR (MDRD) Non-Af BUN/Creatinine Ratio Glucose Lactic Acid 1.9 Calcium Urine Color Urine Clarity Urine pH Ur Specific [place] Urine Protein Urine Glucose (UA) Urine Ketones Urine Occult Blood Urine Nitrite Urine Bilirubin Urine Urobilinogen Ur Leukocyte Esterase Urine RBC Urine WBC Ur Squamous Epith Cells Urine Bacteria Urine Mucus - Medical Decision Making Patient with urinary symptoms and flank pain concern for pyelonephritis. BMP was obtained to assess white count differential. UA to assess for infection. Was obtained to assess electrodes and renal function. CBC she was medicated with 4 mill grams Zofran, 50 mill grams Toradol and 2 mg of morphine. Differential includes renal calculus with infection, ureterolithiasis, urinary tract infection, pyelonephritis With history of recurrent urinary tract infection urine culture was sent. Patient is passed p.o. challenge. Plan is to discharge to home with prescription for Zofran and ciprofloxacin. Ciprofloxacin was chosen based on urine culture sensitivity from prior infections. ED Disposition - Plan for ED Patient: Disposition: Home or Assisted Living Diagnosis: Acute pyelonephritis, Nausea and vomiting, Sepsis Instructions: ED Kidney Infec Female Prescriptions: Ondansetron [Zofran Odt] 4 mg PO Q8H PRN PRN #10 tablet PRN Reason: Nausea Ciprofloxacin [Cipro] 500 mg PO BID #14 tablet Referrals: Kely Hopper MD [Primary Care Provider] - 3-5 Days Additional Instructions: Your prescriptions were sent to [facility] pharmacy located on [address] your designated pharmacy of choice
[2018-10-22 13:00] LABS: Color, Urine Yellow (Yellow); Glucose, Dipstick Normal (Normal); Ketone-Dipstick Negative (Negative); Leukocyte Esterase-Dipstick 25 /ul (Negative); Nitrite-Dipstick Negative (Negative); Occult Blood-Urine 10 /ul (Negative); Protein-Dipstick 30 mg/dl (Negative); Urine Bilirubin Dipstick Negative (Negative); Urine Clarity Clear (Clear); Urine Urobilinogen 4 mg/dl (Normal); Urine pH 6.5 (5.0 - 8.0)
[2018-10-22 13:01] LABS: Absolute Lymphocyte Count 0.29 X10^3/ul (0.83-4.51); Basophil# 0.01 X10^3/uL; Basophil% 0.1 % (0-1); Eosinophil# 0.01 X10^3/uL; Eosinophils% 0.1 % (0-5); Hematocrit 39.1 % (37-47); Hemoglobin 13.3 g/dl (12.0-15.0); Lymphocyte # 0.29 X10^3/ul (4.0); Lymphocyte % 2.2 % (19-41); Mean Corpuscular Hgb 29.4 pg (27.0-32.0); Mean Corpuscular Volume 86.5 fL (81-99); Mean Platelet Vol. 9.3 fl (6.2-12.0); Monocyte# 0.11 X10^3/uL; Monocyte% 0.8 % (0-10); Neutrophil # 13.03 X10^3/uL (2.7-7.7); Neutrophil % 96.6 % (47-70); Platelet Count 244 K/mm3 (150-450); RBC Distribution Width CV 12.9 % (11.6-14.6); RBC Distribution Width SD 40.8 fl (35.1-43.9); Red Blood Count 4.52 M/mm3 (4.2-5.4); White Blood Count 13.5 K/mm3 (4.4-11.0)
[2018-10-22 13:04] LABS: Differential Indicated SCAN CRITERIA MET; POSITIVE COUNT NO; POSITIVE DIFFERENTIAL YES; POSITIVE MORPHOLOGY NO
[2018-10-22 13:07] LABS: Anion Gap 6 (5-15); BUN 10 mg/dL (7-18); BUN/Creat Ratio 13.5 RATIO (10-20); Calcium,Total 8.2 mg/dL (8.5-10.1); Chloride 104 mmol/L (98-107); Creatinine, Serum 0.74 mg/dL (0.55-1.02); EST Glomerular Filtration Rate 91 mL/min (>60); Est Glom Filt Rate - Afr Amer 110 mL/min (>60); Estimated Creatinine Clearance 77.53 ml/min; Glucose 97 mg/dL (74-106); Potassium 3.2 mmol/L (3.5-5.1); Sodium Level 136 mmol/L (136-145)
[2018-10-22 13:07] LABS: White Blood Cells 0-5 SEEN /hpf (0-5)
[2018-10-22 13:08] LABS: Bacteria 1+ /hpf (None Seen); Squamous Epithelial Cells - UA 0-5 SEEN /hpf (5-10)
[2018-10-22 13:33] LABS: Lactic Acid 1.9 mmol/L (0.4-2.0)
[2018-10-22 13:42] VITALS: BP 106/68; PULSE 93; RESP 17; TEMP 38.2; O2SAT 97
[2018-10-22] MEDS: Acetaminophen 325 MG Tablet 650 MG PO (13:59)
[2018-10-22] MEDS: Ceftriaxone 1 GM/50 ML BAG IV (14:05)
[2018-10-22 15:07] VITALS: BP 94/56; PULSE 91; RESP 18; O2SAT 96
== END 2018-10-22 15:09 | disposition home or self-care (01) ==
PROVIDERS: Emergency Provider Emergency Medicine; Family Provider Internal Medicine; PCP Internal Medicine
DX: A41.9 Sepsis, unspecified organism (principal); N10 Acute pyelonephritis; R11.2 Nausea with vomiting, unspecified; F41.1 Generalized anxiety disorder; I10 Essential (primary) hypertension; Z87.440 Personal history of urinary (tract) infections; Z87.891 Personal history of nicotine dependence
CPT/HCPCS: 80048; 81001; 83605; 85025; 87086; 87088; 96361; 96365; 96375; 99283; J7030; J7050; A4216; J2405

== ENCOUNTER 2018-11-01 15:05 | Emergency (ER) | payer MEDICAID, SELFPAY ==
[2018-10-25 14:08] VITALS: BMI 21.0
[2018-11-01] VITALS (9 sets, daily range): BP systolic 97–126; BP diastolic 59–79; PULSE 74–107; RESP 16–18; TEMP 36.8–37.6; O2SAT 97–98; BMI 20.1
--- NOTE | 2018-11-01 15:15 | CT_ITS ---
STUDY: CT ABDOMEN AND PELVIS WITHOUT CONTRAST REASON FOR EXAM: Female, 43 years old. Left flank pain, history of urinary tract infection RADIATION DOSAGE (If Supplied By Facility): CTDIvol = ( 6.04 ) mGy, DLP = ( 271.80 ) mGycm TECHNIQUE: Transaxial images were obtained from the dome of the diaphragm to the symphysis pubis without oral contrast, and without intravenous contrast. Sagittal and coronal images were reconstructed. Individualized dose optimization techniques were used for this CT. COMPARISON: None. FINDINGS: This is a limited non-IV, nonoral contrast study. There is linear bibasilar subsegmental atelectasis and mild linear scarring.. The visualized portions of the heart are within normal limits. Normal liver. Normal gallbladder and extrahepatic biliary system. Normal spleen. Normal pancreas. Normal bilateral adrenal glands. There is bilateral renal nephrolithiasis largest calculus right kidney 4 mm, largest calculus left kidney 4 mm. There is no hydronephrosis or ureteral calculi. There are vascular calcifications within the pelvis. Normal visualized stomach. Normal small intestine. Normal colon. The appendix is visualized and appears normal. Normal abdominal aorta. Normal inferior vena cava. Normal retroperitoneum. Normal urinary bladder. Normal abdominal wall. Normal osseous structures. There is a new low-density ring shaped density in the lower pelvis likely uterine pessary ring. CT/Abdomen/Pelvis without Cont IMPRESSION: Limited non-IV, nonoral contrast study. Bilateral renal nephrolithiasis no ureteral calculi New low density ring structure within the lower pelvis most likely uterine pessary ring, this should be correlated with surgical history Electronically Signed: Rowdy Rios, at 18:33 EDT Tel , Service support ,
--- NOTE | 2018-11-01 15:16 | ED.VISSUMM ---
- ER Visit Summary Date of Service: 11/01/18 Chief Complaint: Flank pain History of Present Illness: The patient is a 43 F who presents for 1 hour of severe flank pain, left greater than right. Patient states for the last 9 days she has been having constant aching in her back that feels like menstrual cramping. She is seeing her urologist and just completed a course of Cipro yesterday. 1 hour prior to presentation, patient had severe sharp pain that is now constant and she feels like she is in labor. She also has associated nausea and vomiting, subjective fever and a headache. Patient has been having dysuria but no hematuria patient states she has had 9 kidney infections in the last year. She denies , denies tobacco use. Physical Examination: Vital signs: afebrile, hemodynamically stable, no hypoxia on room air General: well nourished, well developed, tearful and appears very uncomfortable Skin: warm, dry, no rash, no pallor HEENT: normocephalic and atraumatic; PERRL, EOMI, moist mucous membranes Cardiovascular: Tachycardic rate and rhythm without murmurs, no peripheral edema, 2+ pulses all distal extremities Respiratory: No increased work of breathing, lungs are clear to auscultation bilaterally, no rales, rhonchi or wheezing Abdominal: Abdomen is soft, nontender with hyperactive bowel sounds, no guarding or rebound, no masses, positive CVA tenderness on the left MSK: Moves all extremities, no deformities, normal strength Neuro: Awake and alert, oriented ?4. No facial droop, sensation and motor function intact and symmetric Test Results: Abnormal Lab Results 11/01/18 11/01/18 11/01/18 15:38 15:40 15:40 WBC 3.9 L RBC 4.49 Hgb 13.0 Hct 39.2 MCV 87.3 MCH 29.0 MCHC 33.2 RDW 12.8 RDW Differential 41.0 Plt Count 260 MPV 9.6 Immature Gran % (Auto) 0.000 Neut % (Auto) 87.1 H Lymph % (Auto) 12.1 L [place] % (Auto) 0.3 Eos % (Auto) 0.5 Baso % (Auto) 0.0 Absolute Neuts (auto) 3.4 Absolute Lymphs (auto) 0.47 L Total Counted Not Reportable Differential Comment SCANNED Sodium 138 Potassium 3.1 L Chloride 105 Carbon Dioxide 29.0 Anion Gap 4 L BUN 12 Creatinine 0.87 Estim Creat Clear Calc 65.67 Est GFR (MDRD) Af Amer 91 Est GFR (MDRD) Non-Af 75 BUN/Creatinine Ratio 13.8 Glucose 93 Calcium 8.2 L Serum , Qual Urine Color Yellow Urine Clarity Clear Urine pH 6.0 Ur Specific [place] 1.010 Urine Protein Negative Urine Glucose (UA) Normal Urine Ketones Negative Urine Occult Blood Negative Urine Nitrite Negative Urine Bilirubin Negative Urine Urobilinogen Normal Ur Leukocyte Esterase 25 H Urine RBC 0 SEEN Urine WBC 0-5 SEEN Ur Squamous Epith Cells 0-5 SEEN Urine Bacteria 0 SEEN Urine Mucus 0 SEEN 11/01/18 15:40 WBC RBC Hgb Hct MCV MCH MCHC RDW RDW Differential Plt Count MPV Immature Gran % (Auto) Neut % (Auto) Lymph % (Auto) [place] % (Auto) Eos % (Auto) Baso % (Auto) Absolute Neuts (auto) Absolute Lymphs (auto) Total Counted Differential Comment Sodium Potassium Chloride Carbon Dioxide Anion Gap BUN Creatinine Estim Creat Clear Calc Est GFR (MDRD) Af Amer Est GFR (MDRD) Non-Af BUN/Creatinine Ratio Glucose Calcium Serum , Qual NEGATIVE Urine Color Urine Clarity Urine pH Ur Specific Raven[place] Urine Protein Urine Glucose (UA) Urine Ketones Urine Occult Blood Urine Nitrite Urine Bilirubin Urine Urobilinogen Ur Leukocyte Esterase Urine RBC Urine WBC Ur Squamous Epith Cells Urine Bacteria Urine Mucus Clinical Impression(s) from Imaging Studies Abdomen/Pelvis CT 11/01/18 15:15 IMPRESSION: Limited non-IV, nonoral contrast study. Bilateral renal nephrolithiasis no ureteral calculi New low density ring structure within the lower pelvis most likely uterine pessary ring, this should be correlated with surgical history Electronically Signed: Rowdy Rios at 18:33 EDT Tel , Service support , Abdomen/Pelvis CTA 11/01/18 19:08 IMPRESSION: 1. No abdominal aortic aneurysm or dissection. 2. Nonobstructing renal calculi, similar since earlier today. 3. Dilated left gonadal vein with left pelvic varicosities suggesting possibility of pelvic congestion syndrome. Electronically Signed: Matt Dong MD at 20:12 EDT , Service support , Chest CTA 11/01/18 19:08 IMPRESSION: 1. No abdominal aortic aneurysm or dissection. 2. Nonobstructing renal calculi, similar since earlier today. 3. Dilated left gonadal vein with left pelvic varicosities suggesting possibility of pelvic congestion syndrome. Electronically Signed: Matt Dong MD at 20:12 EDT , Service support , Medications Given Discontinued Medications Hydrocodone Bitart/Acetaminophen (Morris 5mg-325mg) 0 tablet PO TAKE HOME MED ONE Stop: 11/01/18 21:38 Last Admin: 11/01/18 21:44 Dose: 4 tablet Hydromorphone HCl (Dilaudid Inj) 1 mg IV X1 ONE Stop: 11/01/18 19:08 Last Admin: 11/01/18 19:16 Dose: 1 mg Sodium Chloride () 1,000 mls @ 250 mls/hr IV .Q4H LAURA Last Admin: 11/01/18 19:18 Dose: 250 mls/hr Admin: 11/01/18 15:34 Dose: 250 mls/hr Ketorolac Tromethamine (Toradol) 15 mg IV X1 ONE Stop: 11/01/18 15:15 Last Admin: 11/01/18 15:35 Dose: 15 mg Morphine Sulfate () 4 mg IV X1 ONE Stop: 11/01/18 15:15 Last Admin: 11/01/18 15:34 Dose: 4 mg Ondansetron HCl (Zofran) 4 mg IV X1 ONE Stop: 11/01/18 15:15 Last Admin: 11/01/18 15:34 Dose: 4 mg Emergency Department Course and Treatment: Patient presents for severe sharp left-sided flank pain for 1 hour. Patient appears very uncomfortable on exam. She is mildly tachycardic but afebrile and hemodynamically stable. Labs were performed showing no leukocytosis. Urine negative for infection. No renal dysfunction. CT flank showed no ureteral stones. Patient remained very uncomfortable and required pain medication of Toradol, morphine and finally Dilaudid before pain was controlled. Because of her significant discomfort, a CTA of the chest, abdomen and pelvis was performed to look for any vascular concerns that might be contributing to her severe flank pain, including pulmonary embolism, dissection, renal vascular compromise, or intestinal ischemia. CTA showed pelvic congestion syndrome but no other findings. Patient had improvement of the pain after the dose of Dilaudid. She was given a prescription for Morris for further pain control. She was strongly advised to follow-up with her urologist as soon as possible. At this time no findings on patient's exam that would warrant further work-up or admission. Pain is well controlled and thus patient is stable for discharge. Patient given return precautions. She did have incidental finding of pulmonary nodules of the left upper lobe. Patient is unaware of these. We discussed the need for follow-up, and patient will follow-up with her primary care doctor for further work-up of the pulmonary nodules. Treatment Plan: [] Disposition: [] Impression: Flank pain of uncertain cause, left upper lobe pulmonary nodules This note was generated with [employer] dictation software. It may contain incorrect words, spelling, and punctuation that were not noted in review of the chart prior to signing ED Disposition - Plan for ED Patient: Disposition: Home or Assisted Living Instructions: ED Flank Pain Uncertain Cause, ED Nodule Solitary Pulmonary Prescriptions: Hydrocodone Bitart/Apap 5-325 [Morris 5MG-325MG] 1 tab PO Q6H PRN PRN 3 Days #15 tab PRN Reason: Pain Referrals: Kely Hopper MD [Primary Care Provider] - 3-5 Days Syeda Maharaj MD [STAFF PHYSICIAN] - 3-5 Days if not improving Additional Instructions: Please continue using [id number] pain medication for mild to moderate pain. You may use the Morris for severe pain. Use Zofran as needed for nausea. Please follow-up with your urologist for another evaluation and review of your work-up today. Your scan of your chest showed nodules in your left upper lung. Please see your doctor for a follow-up of these nodules so that they can be monitored and further worked up. If you have any worsening of your condition or any new concerning symptoms, please return immediately to the emergency department for another evaluation.
[2018-11-01] MEDS: Morphine 4 MG/ML Syringe IV (15:34)
[2018-11-01] MEDS: Ondansetron 4 MG/2 ML Vial IV (15:34)
[2018-11-01] MEDS: 0.9% Normal Saline 1,000 ML 250 ML IV ×2 (15:34→19:18)
[2018-11-01] MEDS: Ketorolac 30 MG/ML Syringe 15 MG IV (15:35)
[2018-11-01 15:50] LABS: Bacteria 0 SEEN /hpf (None Seen); Mucous, Urine 0 SEEN /hpf (<or=2+); Red Blood Cells-Urine 0 SEEN /hpf (0-5)
[2018-11-01 15:54] LABS: Color, Urine Yellow (Yellow); Glucose, Dipstick Normal (Normal); Ketone-Dipstick Negative (Negative); Leukocyte Esterase-Dipstick 25 /ul (Negative); Nitrite-Dipstick Negative (Negative); Occult Blood-Urine Negative /ul (Negative); Protein-Dipstick Negative (Negative); Urine Bilirubin Dipstick Negative (Negative); Urine Clarity Clear (Clear); Urine Urobilinogen Normal (Normal)
[2018-11-01 15:57] LABS: Absolute Lymphocyte Count 0.47 X10^3/ul (0.83-4.51); Absolute Neutrophil Count 3.4 X10^3/uL (2.0-7.7); Eosinophil# 0.02 X10^3/uL; Eosinophils% 0.5 % (0-5); Hematocrit 39.2 % (37-47); Lymphocyte # 0.47 X10^3/ul (4.0); Lymphocyte % 12.1 % (19-41); Mean Corp Hgb Conc 33.2 g/gl (32-36); Mean Corpuscular Volume 87.3 fL (81-99); Mean Platelet Vol. 9.6 fl (6.2-12.0); Monocyte# 0.01 X10^3/uL; Monocyte% 0.3 % (0-10); Neutrophil # 3.37 X10^3/uL (2.7-7.7); Neutrophil % 87.1 % (47-70); Platelet Count 260 K/mm3 (150-450); RBC Distribution Width CV 12.8 % (11.6-14.6); Red Blood Count 4.49 M/mm3 (4.2-5.4); White Blood Count 3.9 K/mm3 (4.4-11.0)
[2018-11-01 15:58] LABS: Differential Indicated SCAN CRITERIA MET; POSITIVE COUNT NO; POSITIVE DIFFERENTIAL YES; POSITIVE MORPHOLOGY NO
[2018-11-01 16:09] LABS: Anion Gap 4 (5-15); BUN 12 mg/dL (7-18); BUN/Creat Ratio 13.8 RATIO (10-20); Calcium,Total 8.2 mg/dL (8.5-10.1); Chloride 105 mmol/L (98-107); Creatinine, Serum 0.87 mg/dL (0.55-1.02); EST Glomerular Filtration Rate 75 mL/min (>60); Est Glom Filt Rate - Afr Amer 91 mL/min (>60); Estimated Creatinine Clearance 65.67 ml/min; Glucose 93 mg/dL (74-106); Potassium 3.1 mmol/L (3.5-5.1); Sodium Level 138 mmol/L (136-145)
[2018-11-01 16:11] LABS: Squamous Epithelial Cells - UA 0-5 SEEN /hpf (5-10); White Blood Cells 0-5 SEEN /hpf (0-5)
[2018-11-01 16:26] LABS: Differential Comment SCANNED
[2018-11-01 16:37] LABS: Internal QC Validated? YES +Cl - CLEAR BKGD; Pregnancy, Serum, hCG Quali. NEGATIVE Negative
--- NOTE | 2018-11-01 19:08 | CT_ITS ---
STUDY: CTA CHEST REASON FOR EXAM: Female, 43 years old. Chest pain with severe flank pain RADIATION DOSAGE (If Supplied By Facility): CTDIvol = ( 5.53 ) mGy, DLP = ( 343.76 ) mGycm TECHNIQUE: The examination was performed with the intravenous administration of 100ML IV Isovue 370. Post-processing of the angiographic images was performed, with multiplanar reformation and 3D reconstruction. Individualized dose optimization techniques were used for this CT. COMPARISON: None. FINDINGS: Normal enhancement of the main pulmonary artery and right and left pulmonary arteries. Normal enhancement of the bilateral peripheral pulmonary arteries. There is no demonstrated pulmonary embolism. Normal thoracic aorta and visualized great vessels. There is no demonstrated aortic dissection. Normal heart and pericardium. Normal mediastinum. Normal hilar regions. Normal visualized trachea and bronchi. The lungs are well expanded. Bilobed noncalcified nodule in the left upper lobe is evident on image 55 (2 x 7 mm) . Additional, smaller nodules are seen on image [id number] measuring 4 mm or less. Normal pleura. Normal chest wall structures. Normal osseous structures. Upper abdomen demonstrate no CTA abdomen/pelvis. IMPRESSION: 1. Normal CTA chest examination, without a demonstrated pulmonary embolism or arterial dissection. 2. Left upper lobe pulmonary nodules. Follow-up recommended. Electronically Signed: Matt Dong MD at 20:10 EDT , Service support , PROCEDURE: CTA OF THE ABDOMEN AND PELVIS WITH IV CONTRAST REASON FOR EXAM: Chest pain, severe flank pain Patient oriented dose modulation technique utilized. TECHNIQUE: Axial CT angiography multi-detector data acquisition was obtained from the lung bases to the lesser trochanters following intravenous administration of 100 ml of Isovue-370 contrast. Axial images and MIP images were reconstructed from the axial data set. Post-processing of the angiographic images was performed, with multiplanar reformation and 3D reconstruction. TECHNICAL QUALITY: Good COMPARISON: CT from earlier today. FINDINGS: ABDOMINAL AORTA: Normal caliber abdominal aorta without evidence of dissection or aneurysm. CELIAC AND SUPERIOR MESENTERIC ARTERIES: Both are widely patent INFERIOR MESENTERIC ARTERY: The inferior mesenteric artery is patent. RIGHT RENAL ARTERY(ARTERIES): Single artery which is widely patent. LEFT RENAL ARTERY(ARTERIES): Single artery which is widely patent. RIGHT COMMON ILIAC ARTERY: Normal RIGHT EXTERNAL ILIAC ARTERY: Normal RIGHT INTERNAL ILIAC ARTERY: Normal LEFT COMMON ILIAC ARTERY: Normal LEFT EXTERNAL ILIAC ARTERY: Normal LEFT INTERNAL ILIAC ARTERY: Normal The liver, spleen, pancreas and gallbladder are normal. The adrenal glands are not enlarged. The kidneys are symmetric in size, shape and contrast enhancement. Small punctate calcifications of both kidneys are similar since earlier today. Small bowel and colon are unremarkable except for minor diverticular changes. The appendix is unremarkable. No sclerotic or lytic bone lesion. The left gonadal vein is dilated with left periovarian and periuterine varicosities. The urinary bladder is unremarkable. CT/CTA Chest W/WO Contrast IMPRESSION: 1. No abdominal aortic aneurysm or dissection. 2. Nonobstructing renal calculi, similar since earlier today. 3. Dilated left gonadal vein with left pelvic varicosities suggesting possibility of pelvic congestion syndrome. Electronically Signed: Matt Dong MD at 20:12 EDT , Service support ,
--- NOTE | 2018-11-01 19:08 | CT_ITS ---
STUDY: CTA CHEST REASON FOR EXAM: Female, 43 years old. Chest pain with severe flank pain RADIATION DOSAGE (If Supplied By Facility): CTDIvol = ( 5.53 ) mGy, DLP = ( 343.76 ) mGycm TECHNIQUE: The examination was performed with the intravenous administration of 100ML IV Isovue 370. Post-processing of the angiographic images was performed, with multiplanar reformation and 3D reconstruction. Individualized dose optimization techniques were used for this CT. COMPARISON: None. FINDINGS: Normal enhancement of the main pulmonary artery and right and left pulmonary arteries. Normal enhancement of the bilateral peripheral pulmonary arteries. There is no demonstrated pulmonary embolism. Normal thoracic aorta and visualized great vessels. There is no demonstrated aortic dissection. Normal heart and pericardium. Normal mediastinum. Normal hilar regions. Normal visualized trachea and bronchi. The lungs are well expanded. Bilobed noncalcified nodule in the left upper lobe is evident on image 55 (2 x 7 mm) . Additional, smaller nodules are seen on image 3949 measuring 4 mm or less. Normal pleura. Normal chest wall structures. Normal osseous structures. Upper abdomen demonstrate no CTA abdomen/pelvis. IMPRESSION: 1. Normal CTA chest examination, without a demonstrated pulmonary embolism or arterial dissection. 2. Left upper lobe pulmonary nodules. Follow-up recommended. Electronically Signed: Matt Dong MD at 20:10 EDT , Service support , PROCEDURE: CTA OF THE ABDOMEN AND PELVIS WITH IV CONTRAST REASON FOR EXAM: Chest pain, severe flank pain Patient oriented dose modulation technique utilized. TECHNIQUE: Axial CT angiography multi-detector data acquisition was obtained from the lung bases to the lesser trochanters following intravenous administration of 100 ml of Isovue-370 contrast. Axial images and MIP images were reconstructed from the axial data set. Post-processing of the angiographic images was performed, with multiplanar reformation and 3D reconstruction. TECHNICAL QUALITY: Good COMPARISON: CT from earlier today. FINDINGS: ABDOMINAL AORTA: Normal caliber abdominal aorta without evidence of dissection or aneurysm. CELIAC AND SUPERIOR MESENTERIC ARTERIES: Both are widely patent INFERIOR MESENTERIC ARTERY: The inferior mesenteric artery is patent. RIGHT RENAL ARTERY(ARTERIES): Single artery which is widely patent. LEFT RENAL ARTERY(ARTERIES): Single artery which is widely patent. RIGHT COMMON ILIAC ARTERY: Normal RIGHT EXTERNAL ILIAC ARTERY: Normal RIGHT INTERNAL ILIAC ARTERY: Normal LEFT COMMON ILIAC ARTERY: Normal LEFT EXTERNAL ILIAC ARTERY: Normal LEFT INTERNAL ILIAC ARTERY: Normal The liver, spleen, pancreas and gallbladder are normal. The adrenal glands are not enlarged. The kidneys are symmetric in size, shape and contrast enhancement. Small punctate calcifications of both kidneys are similar since earlier today. Small bowel and colon are unremarkable except for minor diverticular changes. The appendix is unremarkable. No sclerotic or lytic bone lesion. The left gonadal vein is dilated with left periovarian and periuterine varicosities. The urinary bladder is unremarkable. CT/CT ANGIO ABD&PEL W/O&W/DYE IMPRESSION: 1. No abdominal aortic aneurysm or dissection. 2. Nonobstructing renal calculi, similar since earlier today. 3. Dilated left gonadal vein with left pelvic varicosities suggesting possibility of pelvic congestion syndrome. Electronically Signed: Matt Dong MD at 20:12 EDT , Service support ,
[2018-11-01] MEDS: HYDROmorphone 1 MG/ML Syringe IV (19:16)
[2018-11-01] MEDS: HYDROcodone Bitartrate/Apap 5/325 Tablet PO (21:44)
--- NOTE | 2018-11-01 21:50 | ED.RN ---
THIS NURSE REVIEWED D/C INSTRUCTIONS WITH PT. PT VERBALIZED UNDERSTANDING OF INSTRUCTIONS. IV D/C. IV CATHETER INTACT. PT TOLERATED WELL. PT DENIES FURTHER NEEDS OR QUESTIONS AT THIS TIME. PT AMBULATES FROM ROOM ON OWN WITHOUT ASSISTANCE FROMBeatris JANSEN
== END 2018-11-01 21:52 | disposition home or self-care (01) ==
PROVIDERS: Emergency Provider Emergency Medicine; Family Provider Internal Medicine; PCP Internal Medicine
DX: R10.9 Unspecified abdominal pain (principal); R91.8 Other nonspecific abnormal finding of lung field; R11.2 Nausea with vomiting, unspecified; R51 Headache; Z87.442 Personal history of urinary calculi; N94.89 Other specified conditions associated with female genital organs and menstrual cycle; I86.2 Pelvic varices; N20.0 Calculus of kidney
CPT/HCPCS: 71275; 74174; 74176; 80048; 81001; 84703; 85025; 96361; 96374; 96375; 99284; J7030; Q9967; A4216; J2405

== ENCOUNTER 2018-11-22 09:33 | Day surgery (SDC) | payer MEDICAID, SELFPAY ==
--- NOTE | 2018-11-14 02:01 | HP_ITS ---
Intake Vital Signs 11/14/18 Height 5 ft 2 in 11/14/18 Weight: 114 lb 11/14/18 Body Mass Index (BMI) 20.8 11/14/18 Respiratory Rate 18 11/14/18 Body Mass Index (BMI) 20.1 Intake Visit Reasons: Est 01/09 Update HP C-SCOPE Chief Complaint: UTI Child Support Case Officer Required: No Is patient in pain?: No Allergies valacyclovir [From Valtrex] Allergy (Verified 11/14/18 13:05) Hives Medications Acetaminophen [Tylenol Tablet] 650 mg PO Q6H PRN PRN tab 07/16/18 [Rx Confirmed 11/14/18] trazodone 50 mg tablet 50 mg PO QHS PRN #90 tab 07/18/18 [Rx Confirmed 11/14/18] acyclovir 400 mg tablet 400 mg PO BID #180 tab 07/31/18 [Rx Confirmed 11/14/18] buspirone 5 mg tablet 5 mg PO PRN PRN 07/31/18 [History Confirmed 11/14/18] potassium chloride ER 20 mEq tablet,extended release 20 meq PO BID #60 tab 08/15/18 [Rx Confirmed 11/14/18] etonogestrel-ethinyl estradiol 0.12 mg -0.015 mg/24 hr vaginal ring 1 vag ring VAGINAL Q4W #1 ea 10/07/18 [Rx Confirmed 11/14/18] Sumatriptan Succinate 25 mg PO ONCE PRN 10/22/18 [History Confirmed 11/14/18] ciprofloxacin 500 mg tablet 500 mg PO BID #6 tab 10/25/18 [Rx Confirmed 11/14/18] PFSH Medical History Shingles (Acute) History of marijuana use (Chronic) Anxiety (Acute) Back pain (Acute) Depression (Acute) Genital herpes (Acute) History of alcohol abuse (Acute) History of marijuana use (Acute) Insomnia (Acute) Migraine (Acute) PTSD (post-traumatic stress disorder) (Acute) history marijuana abuse (Acute) Hypertension (Chronic) Seasonal allergies (Chronic) UTI (urinary tract infection) (Chronic) Surgical History History of exploratory laparotomy (Acute) cesarian times 2 (Acute) Family History Father Hypertension Alcoholism Grandfather Alcoholism Colon cancer Mother Hypertension Depression Brother Depression Grandmother Diabetes Colon cancer Uncle Cancer Social History Smoking Status: Former smoker how long ago did patient quit smokin alcohol intake: former year quit: 2016 details: Currently in outpatient counseling substance use type: marijuana caffeine: Yes what type of physical activity do you participate in: yoga frequency: 1-2 times per week seatbelt use: always do you feel safe at home: Yes additional social history: Patient is engaged- [employer]ud[employer]-Work over [employer] Patient works at [employer] HPI HPI HPI: YVONNE MULLINS, is a 43 F who presents to the office today for HPI HPI Surgical H&P: Yes HPI: YVONNE MULLINS, is a 43 F who presents to the office today for colonoscopy. The patient reports she has been having chronic diarrhea for over a year. She says that at best she goes 4 times a day at work she goes much more. She says her stools are loose. There is no blood in her stool. She has no family history of inflammatory bowel disease but says that her father does have severe diarrhea with irritable bowel syndrome. She reports that her acid reflux has resolved. Her doctors would like her to have a colonoscopy. ROS General General: No weight change, appetite, fatigue, colon cancer, breast cancer or weakness HEENT HEENT: No difficulty swallowing, eye injury, eye surgery, swollen glands or hoarseness Endo Endocrine: No thyroid disease, diabetes mellitus, thyroid cancer, Hair loss, heat intolerance or cold intolerance Skin Skin: No rash or changing moles Breast Breast: No left breast lump, right breast lump, nipple discharge, breast pain, abnormal mammogram, abnormal US or breast enlargement Musc Musculoskeletal: Yes back problems; no arthritis, rheumatoid arthritis, gout or joint pain Cardio Cardiovascular: No murmur, pacemaker, heart disease, atrial fibrillation, high blood pressure, heart attack, heart stent, palpitations, shortness of breat with exertion or chest pain Psych Psychiatric: Yes anxiety; no depression or hearing voices Resp Respiratory: No shortness of breath, No sleep apnea, No cough, No COPD, No asthma, No emphysema, No wheezing Gastro Gastrointestinal: Yes abdominal pain, Yes nausea or vomiting, Yes diarrhea, No constipation, No blood in stool, Yes acid reflux, No hemorrhoids, Yes ulcers, No gallbladder problem, No black,tarry stools [place] Hematologic: No blood thinners, No blood disorders, No bleeding, No anemia, No blood clots Neuro Neurologic: No weakness Exam Const General: cooperative Orientation: alert, oriented x3 Chest Breast Palpation: No nipple discharge Resp Effort & Inspection: normal respiratory effort Auscultation: clear to auscultation bilaterally Cardio Rate: regular rate Rhythm: regular rhythm Heart Sounds: no murmurs GI Inspection: non-distended Palpation: soft, nontender Assessment & Plan Problems 1. Chronic diarrhea K52.9 Plan Patient has chronic diarrhea and possible irritable bowel syndrome versus microscopic colitis. I will perform a colonoscopy with random biopsies and examine her terminal ileum. I explained endoscopy in detail to the patient. I explained the risks including but not limited to stroke or heart attack with anesthesia, perforation of the GI tract, bleeding, infection. I explained that any of these could necessitate further emergency surgery. The patient understands and all questions were answered sufficiently. The patient wishes to proceed with procedure. Vasquez Peres MD Pager: [facility] [address] [place] [address], [address] [place] [address] Office: Orders Orders: Colonoscopy Today R19.7 Coding Level of Care Code Off vis,est,level 3 Diagnoses Chronic diarrhea K52.9 11/14/18 1401 <Electronically signed by Vasquez Peres MD> Date Vasquez Peres MD I have re-examined the patient. There are no clinical changes since date of exam.
[2018-11-14 13:06] VITALS: BMI 20.8
[2018-11-20 09:44] VITALS: BMI 20.8
[2018-11-22] VITALS (7 sets, daily range): BP systolic 100–115; BP diastolic 58–82; PULSE 58–80; RESP 18; TEMP 36.4–36.9; O2SAT 99–100; BMI 19.3
[2018-11-22 09:49] LABS: Internal QC Validated? YES +Cl - CLEAR BKGD
[2018-11-22 09:53] LABS: Pregnancy, Urine Negative Negative
--- NOTE | 2018-11-22 11:15 | COLBX_PTH ---
PATIENT: YVONNE MULLINS LOC: EN U#:[id number] AGE/SX: 43/F ROOM: RE11/22/[address]: Dr. Vasquez Peres MD : 1975 BED: DIS: 11/22/2018 SPEC #: [id number] RECD: 11/22/18 12:16 STATUS: SEKOU PAUL #: [id number] SABRA: 11/22/18 11:[address]: Vasquez Peres DEPT: SURGICAL PATHOLOGY RECD BY: Jacinto Cook ENTERED: 11/22/18 14:48 SP TYPE: COLON BX OTHR DR: Dr. Kely Hopper MD Tissues: COLON BIOPSY Procedures: Surgery Specimen Level IV HEADER OPERATION: Colonoscopy (MAC) PRE-OP DIAGNOSIS: Diarrhea TISSUE SUBMITTED: Random colon biopsies MICROSCOPIC DIAGNOSIS Colon, random biopsy: Mild melanosis coli. AM:thomas 11/25/18 MICROSCOPIC DESCRIPTION Slides are reviewed. GROSS DESCRIPTION Received in fixative is one container labeled with the patient's name and designated random colon biopsy. The specimen consists of multiple irregular fragments of light parker soft tissue that in aggregate measure 1 x 0.6 x 0.1 cm. The specimen is totally submitted in one cassette. / AM:thomas 11/22/18 TC:5 CPT: 12414
--- NOTE | 2018-11-22 11:54 | OP.ENDO_ITS ---
11/22/2018 Kely Hopper MD [address] [place] [address] [place] [address] Re : Colonoscopy procedure for Nguyen Robert Dear Dr. Hopper This procedure was performed on Thursday, November 22, 2018. My impressions and recommendations are as follows: Impressions : - The entire examined colon is normal. - Biopsies were taken with a cold forceps from the entire colon for evaluation of microscopic colitis. Recommendations : - Discharge patient to home. - Resume previous diet. - Continue present medications. - Await pathology results. - Repeat colonoscopy in 10 years for screening purposes. - Return to my office in 2 weeks to discuss anal biopsy under anesthesia. My findings are described in the full procedure note, which is enclosed. If I can be of further assistance, please feel free to contact me at Doctor phone number(s): , Work: . Sincerely, Vasquez Peres MD 11/22/2018 11:53:51 AM This report has been signed electronically.
== END 2018-11-22 12:30 | disposition home or self-care (01) ==
LOC: EN 09:34 → AC 09:35
PROVIDERS: Anesthesiology; Family Provider Internal Medicine; PCP Internal Medicine; Referring Provider Internal Medicine; Visit Provider Surgery
PROC: 0DJD8ZZ Inspection of Lower Intestinal Tract, Via Natural or Artificial Opening Endoscopic (ICD-10-PCS; CPT 45378; principal; 2018-11-22 11:10)
DX: K52.9 Noninfective gastroenteritis and colitis, unspecified (principal); K63.89 Other specified diseases of intestine; Z87.891 Personal history of nicotine dependence
CPT/HCPCS: 45380; 81025; 88305; J7120; J2405

== ENCOUNTER → 2019-02-11 10:18 | Outpatient (CLI) | payer MEDICAID, SELFPAY ==
[2019-02-11 10:00] VITALS: BMI 19.3
[2019-02-11 12:32] LABS: Anion Gap 5 (5-15); BUN 10 mg/dL (7-18); BUN/Creat Ratio 13.2 RATIO (10-20); Calcium,Total 8.5 mg/dL (8.5-10.1); Chloride 109 mmol/L (98-107); Creatinine, Serum 0.76 mg/dL (0.55-1.02); EST Glomerular Filtration Rate 89 mL/min (>60); Est Glom Filt Rate - Afr Amer 107 mL/min (>60); Glucose 89 mg/dL (74-106); Potassium 3.7 mmol/L (3.5-5.1); Sodium Level 141 mmol/L (136-145)
== END ==
PROVIDERS: Family Provider Internal Medicine; PCP Internal Medicine; Visit Provider Internal Medicine
DX: E87.6 Hypokalemia (principal)
CPT/HCPCS: 36415; 80048

== ENCOUNTER 2019-03-25 08:29 | Day surgery (SDC) | payer MEDICAID, SELFPAY ==
[2019-02-11 10:00] VITALS: BMI 19.3
[2019-02-26 10:38] VITALS: BMI 19.3
[2019-03-25 08:51] VITALS: BP 112/71; PULSE 75; RESP 16; TEMP 37.2; O2SAT 99; BMI 20.1
[2019-03-25] MEDS: Lactated Ringers 1,000 ML 100 ML IV ×2 (09:02→11:23)
[2019-03-25 09:38] LABS: Internal QC Validated? YES +Cl - CLEAR BKGD; Pregnancy, Urine Negative Negative
--- NOTE | 2019-03-25 09:39 | PCM.HP.STD ---
Problem List (1) Hemorrhoid Status: Acute Qualifiers: Hemorrhoid type: second degree Qualified Code(s): K64.1 - Second degree hemorrhoids History of Present Illness Date of Admission: 03/25/19 The patient is a 43 year old F who had colonoscopy for diarrhea. Upon retroflexion the patient was noted to have a hemorrhoid with possible dysplastic tissue. She is recommended for hemorrhoidectomy. Past Medical History Past Medical History (Chronic Problems): Chronic Problems (Last Reviewed 02/11/19 @ 09:58 by Daily Stephens) Hypokalemia (Chronic) Genital herpes (Chronic) Insomnia (Chronic) Generalized anxiety disorder with panic attacks (Chronic) Anxiety and depression (Chronic) Alcohol abuse (Chronic) History of marijuana use (Chronic) Hypertension (Chronic) PTSD (post-traumatic stress disorder) (Chronic) Migraine headache (Chronic) Medical History: Medical History (Last Reviewed 02/11/19 @ 09:58 by Daily Stephens) Shingles (Acute) B02.9 History of marijuana use (Chronic) Z87.898 Anxiety F41.9 Back pain M54.9 Depression F32.9 Genital herpes A60.00 History of alcohol abuse Z87.898 History of marijuana use Z87.898 Insomnia G47.00 Migraine G43.909 PTSD (post-traumatic stress disorder) F43.10 history marijuana abuse Hypertension I10 Seasonal allergies J30.2 UTI (urinary tract infection) N39.0 Allergies valacyclovir [From Valtrex] Allergy (Verified 03/25/19 08:47) Hives Home Medications: Ambulatory Orders Medication Instructions Recorded buspirone 5 mg tablet 5 mg PO PRN PRN 07/31/18 etonogestrel-ethinyl estradiol 1 vag ring VAGINAL Q4W #1 ea 10/07/18 0.12 mg -0.015 mg/24 hr vaginal ring Cephalexin [Keflex] 250 mg PO QHS 11/21/18 fluticasone propionate 50 1 spray INTRANASAL DAILY #19.8 g 01/06/19 mcg/actuation nasal spray,suspension loratadine 10 mg tablet 10 mg PO DAILY #90 tab 01/06/19 sumatriptan 25 mg tablet 25 mg PO ONCE PRN #10 tab 01/06/19 acyclovir 400 mg tablet 400 mg PO BID #60 tab 01/16/19 Multivitamin [Daily Multiple 1 ea PO DAILY 03/18/19 Vitamin] Oxybutynin [Ditropan] 10 mg PO DAILY 03/18/19 Trazodone HCl 50 mg PO QHS 03/18/19 Surgical History: Surgical History (Last Reviewed 02/11/19 @ 09:58 by Daily Stephens) History of exploratory laparotomy Z98.890 cesarian times 2 Surgical History: noncontributory, - - Ex Lap, x 2. Psychiatric History: Anxiety, Depression, Post traumatic stress NEGATIVE CUTTER History: No pertinent NEGATIVE CUTTER history Smoking Status: Former smoker Tobacco Use: Non-smoker - *Family History Maternal Family History: Family History (Last Reviewed 02/11/19 @ 09:58 by Daily Stephens) Father Hypertension Alcoholism Grandfather Alcoholism Colon cancer Mother Hypertension Depression Brother Depression Grandmother Diabetes Colon cancer Uncle Cancer History Items: Hypertension Paternal Family History: Family History (Last Reviewed 02/11/19 @ 09:58 by Daily Stephens) Father Hypertension Alcoholism Grandfather Alcoholism Colon cancer Mother Hypertension Depression Brother Depression Grandmother Diabetes Colon cancer Uncle Cancer History Items: Hypertension Review of Systems Constitutional: Denies: Anorexia, Fever Cardiovascular: Denies: Chest Pain Respiratory: Denies: Cough, Shortness of Breath Gastrointestinal: Reports: - - Hemorrhoids. Denies: Abdominal Pain, Hematemesis, Hematochezia, Nausea Genitourinary: Reports: - - Frequent UTIs. Denies: Dysuria Skin: Denies: Dryness, Jaundice Neurological: Denies: Balance problems Psychiatric: Denies: Anxiety Hematologic/ Lymphatic: Denies: Anemia VTE Information - Inpt Only VTE Present on Admission: Yes VTE Mechan Device Prophylaxis: SCD's Patient Problems: Active and Suspected Problems (Last Reviewed 02/11/19 @ 09:58 by Daily Stephens) Hemorrhoid (Acute) - Physical Exam General: Alert, Oriented x3 HEENT: Atraumatic, PERRLA Neck: No JVD Lungs: Normal air movement Cardiovascular: Regular rate, Regular Rhythm Abdomen: Bowel Sounds Present, Soft, Non Tender, Non-Distended Skin: No rashes Musculoskeletal: No Muscle Wasting Neurological: Cranial nerves II-XII grossly intact Psych/Mental Status: Normal Affect Vital Signs Temp Pulse Resp BP Pulse Ox 98.9 F 75 16 112/71 99 03/25/19 08:51 03/25/19 08:51 03/25/19 08:51 03/25/19 08:51 03/25/19 08:51 Oxygen Delivery Method Room Air Weight: 110 lb 0.171 oz Body Mass Index (BMI) 20.1 Laboratory Tests Past 24 Hrs 03/25/19 08:36 Urine Test Negative Assessment/Plan All Active Problems (Last Reviewed 02/11/19 @ 09:58 by Daily Stephens) Hemorrhoid (Acute) UTI (urinary tract infection) (Acute) Gastroenteritis (Acute) Abnormal liver enzymes (Acute) Vaginal candidiasis (Acute) Urinary tract infection with hematuria (Acute) Left flank pain (Acute) Shingles (Acute) Shingles (Acute) Elevated random blood glucose level (Acute) 43-year-old female with possible dysplasia of the anus 1. Patient had secondary hemorrhoids on retroflexion during colonoscopy. The mucosa overlying the hemorrhoid appeared to have possible dysplasia. It was recommended for hemorrhoidectomy and biopsy of this area. Patient understands. I explained the risks of hemorrhoidectomy including but not limited to bleeding, infection, abscess formation, urinary incontinence. The patient understands and is willing to proceed. Vasquez Peres MD Pager: [facility] [address] [place] [address], [address] [place] [address] Office:
--- NOTE | 2019-03-25 10:00 | HEM_PTH ---
PATIENT: YVONNE MULLINS LOC: [facility] U#:[id number] AGE/SX: 43/F ROOM: RE03/25/[address]: Dr. Vasquez Peres MD : 1975 BED: DIS: 03/25/2019 SPEC #: [id number] RECD: 03/25/19 13:54 STATUS: SEKOU RESanto #: [id number] SABRA: 03/25/19 10:[address]: Vasquez Peres DEPT: SURGICAL PATHOLOGY RECD BY: Apollo Mcqueen ENTERED: 03/25/19 14:17 SP TYPE: HEMORRHOID OTHR DR: Dr. Kely Hopper MD Tissues: HEMORRHOIDS Procedures: Surgery Specimen Level III HEADER OPERATION: Hemorrhoidectomy PRE-OP DIAGNOSIS: Hemorrhoids TISSUE SUBMITTED: Hemorrhoids - please check for dysplasia MICROSCOPIC DIAGNOSIS Hemorrhoids, hemorrhoidectomy: Submucosal vascular ectasia and thrombosis consistent with hemorrhoids. No evidence of dysplasia. AM:thomas 03/26/19 MICROSCOPIC DESCRIPTION Slides are reviewed. GROSS DESCRIPTION Received in fixative is one container labeled with the patient's name and designated hemorrhoid - please check for dysplasia. The specimen consists of two fragments of light parker soft tissue measuring 2 x 1.5 x 0.3 cm. The nonmucosal surface is inked. One of the pieces is serially sectioned and submitted in cassette 1. The second piece will be sectioned at the time of embedding. The entire specimen is submitted in two cassettes. / MIRA:thomas 03/25/19 TC: 5 CPT: 02693
[2019-03-25] MEDS: Bupivacaine Mpf 0.5% 30 ML VIAL (10:24)
[2019-03-25] MEDS: Lubricating Jelly 60 GM Tube 30 GM TOPICAL (10:24)
[2019-03-25] MEDS: Dibucaine 30 GM Tube 1 APPLIC (10:42)
--- NOTE | 2019-03-25 11:03 | PCM.DC.REC ---
Discharge Diet: No Restrictions Discharge Activity: Return to Normal Activity, May Not Drive - while you are taking narcotic pain medications. Do not drive, work with heavy equipment or sign legal documents for 24 hours after your surgery., May Shower, May Take a Tub Bath Additional Activity Instructions:: Be aware that pain medications may cause nausea. You should typically eat light foods as you take your pain medications. Pain medications may also cause constipation, if you have difficulty with this please discuss with your doctor. Call your doctor if your incision/area has: Continuous Slow Oozing, Sudden Increased Bleeding, Increased Pain/ Swelling, Increased Redness, Foul Smelling Discharge, Swelling at the incision site Call your doctor if you observe: Fever of 101 or Higher Additional Dressing/Incision Instructions:: Leave the operative bandage on for 2 days. If a local anesthetic plug was placed in the anal area, try not to expel for 24-[address] dibucaine ointment on the perianal area as needed. Sitz baths twice daily and after bowel movements. Allergies/Adverse Reactions: Allergies valacyclovir [From Valtrex] Allergy (Verified 03/25/19 08:47) Hives Medications to take at Discharge buspirone 5 mg tablet 5 mg PO PRN PRN 07/31/18 etonogestrel-ethinyl estradiol 0.12 mg -0.015 mg/24 hr vaginal ring 1 vag ring VAGINAL Q4W #1 ea 10/07/18 Cephalexin [Keflex] 250 mg PO QHS 11/21/18 fluticasone propionate 50 mcg/actuation nasal spray,suspension 1 spray INTRANASAL DAILY #19.8 g 01/06/19 loratadine 10 mg tablet 10 mg PO DAILY #90 tab 01/06/19 sumatriptan 25 mg tablet 25 mg PO ONCE PRN #10 tab 01/06/19 acyclovir 400 mg tablet 400 mg PO BID #60 tab 01/16/19 Multivitamin [Daily Multiple Vitamin] 1 ea PO DAILY 03/18/19 Oxybutynin [Ditropan] 10 mg PO DAILY 03/18/19 Trazodone HCl 50 mg PO QHS 03/18/19 Docusate Sodium [Colace] 100 mg PO BID 10 Days #20 cap 03/25/19 Oxycodone HCl/Acetaminophen [Percocet 5/325] 1 - 2 tablet PO Q4H PRN PRN 5 Days #40 tablet 03/25/19 The following prescriptions were given: Docusate Sodium [Colace] 100 mg PO BID 10 Days #20 cap Transmission Status: Pending to [facility] Oxycodone HCl/Acetaminophen [Percocet 5/325] 1 - 2 tablet PO Q4H PRN PRN 5 Days #40 tablet PRN Reason: Pain Transmission Status: Sent to [facility] Orders to be completed after discharge: ,Urine Time Frame: 03/25/19, Facility: [facility], Location: Laboratory Primary Care Physician: Kely Hopper MD [Primary Care Provider] - Test Results: Test results from this visit will be discussed in further detail at your follow-up appointment, if applicable. Please Follow Up With: Vasquez Peres MD When: Please call to schedule 2 week follow up appointment. [phone]
--- NOTE | 2019-03-25 11:04 | PCM.OPRPT ---
Problem List (1) Hemorrhoid Status: Acute Qualifiers: Hemorrhoid type: second degree Qualified Code(s): K64.1 - Second degree hemorrhoids Report of Operation Date of Procedure: 03/25/19 Pre-Operative Diagnosis: Possible dysplastic tissue on hemorrhoid Post-Operative Diagnosis: Same Surgery/Procedure Performed:: Hemorrhoidectomy Specimen's removed: Hemorrhoid Description of Procedure: The patient was brought to the operating room and general anesthesia was induced. The patient was placed in prone jackknife position. The buttocks were taped in open position and the perineal area was prepped with Betadine. Next after well-lubricated speculum was placed into the anus the dysplastic hemorrhoid was apparent in the right lateral position. The tissue was grasped and medialized. A 3-0 chromic suture was placed at the base. Next using a scalpel the hemorrhoid was dissected free and sent for pathology. The defect was closed with a running locked 3-0 chromic suture. There is still bleeding at the end of the case of the suture was removed and the bleeding was controlled with electrocautery and the mucosa was reapproximated with a running locked 3-0 chromic suture. Next this was observed and there was good hemostasis. A Gelfoam pad was soaked with dibucaine cream and rolled and placed into the anus. Local anesthesia was placed in a four-quadrant position around the anus. Patient tolerated the procedure well was brought to PACU. - Admit VTE Documentation VTE Present on Admission: No VTE Mechan Device Prophylaxis: SCD's
[2019-03-25 11:08] VITALS: BP 112/71; BP 117/84; PULSE 82; RESP 16; TEMP 36.7; O2SAT 96
[2019-03-25 11:15] VITALS: BP 112/71; BP 120/78; PULSE 72; RESP 16; O2SAT 98
[2019-03-25 11:32] VITALS: BP 112/71; BP 115/81; PULSE 87; RESP 16; O2SAT 98
[2019-03-25] MEDS: Acetaminophen 325 MG Tablet 650 MG PO (11:32)
[2019-03-25 11:43] VITALS: BP 109/75; BP 112/71; PULSE 73; RESP 16; TEMP 36.4; O2SAT 100
[2019-03-25] MEDS: oxyCODONE 5 MG Tablet 10 MG PO (12:00)
[2019-03-25 12:25] VITALS: BP 111/73; BP 112/71; PULSE 78; RESP 16; TEMP 36.2; O2SAT 96
== END 2019-03-25 12:31 | disposition home or self-care (01) ==
LOC: SDC 08:29 → AC 08:31
PROVIDERS: Anesthesiology; Family Provider Internal Medicine; PCP Internal Medicine; Referring Provider Surgery; Visit Provider Surgery
PROC: (CPT 46999; principal; 2019-03-25 09:45)
DX: K64.1 Second degree hemorrhoids (principal); G47.00 Insomnia, unspecified; F32.9 Major depressive disorder, single episode, unspecified; F41.9 Anxiety disorder, unspecified; F43.10 Post-traumatic stress disorder, unspecified; I10 Essential (primary) hypertension; F12.10 Cannabis abuse, uncomplicated; N39.0 Urinary tract infection, site not specified; Z87.891 Personal history of nicotine dependence; Z82.49 Family history of ischemic heart disease and other diseases of the circulatory system
CPT/HCPCS: 46999; 81025; 88304; J7120; J2405

== ENCOUNTER 2019-04-19 17:08 | Emergency (ER) | payer MEDICAID, SELFPAY ==
[2019-04-19 17:09] VITALS: BP 159/89; PULSE 115; RESP 20; TEMP 36.8; O2SAT 95
--- NOTE | 2019-04-19 17:55 | ED.VISSUMM ---
- ER Visit Summary Date of Service: 04/19/19 Chief Complaint: Anxiety attack History of Present Illness: The patient is a 43 F hx of anxiety. Patient states she is had family issues lately and she feels her stress. She is not suicidal or homicidal. And said that the anxiety was so bad today it was causing her to have muscle spasms in her jaw. Physical Examination: Vital signs stable afebrile. HEENT exam unremarkable. She is able to open close her mouth any difficulty. Neck nontender. Lungs clear to auscultation. Heart regular rhythm no murmur. Abdomen is soft and nontender. Normal bowel sounds no peritoneal signs. Patient is moving all 4 extremities. Calves are nontender. Neurologically she is awake and alert. Currently he is anxious but very stable. There is a female friend in the room. Test Results: None Emergency Department Course and Treatment: P.o. Ativan 1 mg. Patient has a ride home. Treatment Plan: Prescription for Ativan 1 mg as needed #5 no refill. Follow-up with his doctor. Return if worse. Disposition: Discharge Impression: Acute on chronic anxiety This note was generated with [employer] software. It may contain incorrect words, spelling, and punctuation that were not noted in review of the chart prior to signing ED Disposition - Plan for ED Patient: Referrals: Kely Hopper MD [Primary Care Provider] -
--- NOTE | 2019-04-19 17:57 | ED.DEP ---
ED Disposition - Plan for ED Patient: Disposition: Home or Assisted Living Instructions: Panic Attack Prescriptions: Lorazepam [Ativan] 1 mg PO BID PRN PRN #5 tab PRN Reason: Anxiety Prescription Printed Referrals: Kely Hopper MD [Primary Care Provider] - 3-5 Days if not improving Additional Instructions: Ativan as needed for anxiety. Return if feeling worse or follow-up with your doctor.
[2019-04-19] MEDS: LORazepam 1 MG Tablet PO (18:10)
== END 2019-04-19 18:30 | disposition home or self-care (01) ==
LOC: ED 18:08
PROVIDERS: Emergency Provider Emergency Medicine; Family Provider Internal Medicine; PCP Internal Medicine
DX: F41.9 Anxiety disorder, unspecified (principal); F12.90 Cannabis use, unspecified, uncomplicated
CPT/HCPCS: 99283

== ENCOUNTER 2020-02-17 16:04 | Emergency (ER) | payer MEDICAID, SELFPAY ==
[2020-02-17 16:05] VITALS: BP 112/76; PULSE 100; RESP 18; TEMP 37; O2SAT 97; BMI 19.7
[2020-02-17 16:49] VITALS: BP 112/76; PULSE 100; RESP 18; TEMP 37; O2SAT 97
[2020-02-17] MEDS: 0.9% Normal Saline 1,000 ML 1000 ML IV (17:04)
[2020-02-17] MEDS: Ondansetron 4 MG/2 ML Vial IV (17:05)
[2020-02-17] MEDS: Morphine 4 MG/ML Syringe IV (17:05)
--- NOTE | 2020-02-17 17:09 | ED.VIS.GEN ---
History of Present Illness Chief Complaint: Complaint Narrative: Patient presents with bilateral flank pain and subjective fevers and chills as well as feeling ill. She gets similar symptoms when she gets urinary tract infections and kidney infections. She has multiple kidney infections in fact she used to be on prophylaxis but she is no longer. She denies abdominal pain, she has no nausea or vomiting. She has no diarrhea. Past Medical History - Allergies and Home Meds Allergies/Adverse Reactions: Allergies valacyclovir [From Valtrex] Allergy (Verified 02/17/20 16:09) Hives Primary Care Physician: Kely Hopper MD [Primary Care Provider] - Past Medical History: - - Recurrent urinary tract infections. Surgical History: noncontributory, - Smoking Status: Former smoker - Family History Maternal Family History: Family History (Last Reviewed 12/15/19 @ 17:10 by Marisa Cummings) Father Hypertension Alcoholism Grandfather Alcoholism Colon cancer Mother Hypertension Depression Brother Depression Grandmother Diabetes Colon cancer Uncle Cancer Family History: Reports: Hypertension Paternal Family History: Family History (Last Reviewed 12/15/19 @ 17:10 by Marisa Cummings) Father Hypertension Alcoholism Grandfather Alcoholism Colon cancer Mother Hypertension Depression Brother Depression Grandmother Diabetes Colon cancer Uncle Cancer Family History: Reports: Hypertension Review of Systems All systems negative except as indicated General: Reports: Chills, Fever, Malaise ENT: Denies: Rhinorrhea, Sore throat Cardiovascular: Denies: Chest pain Respiratory: Denies: Dyspnea, Cough Gastrointestinal: Denies: Abdominal pain, Nausea, Vomiting Genitourinary: Denies: - - Denies dysuria or hematuria, she has some frequency and bilateral flank pain Musculoskeletal: Denies: Myalgias Skin: Denies: Rash Neurological: Denies: Headache, Weakness Hematologic: Denies: Easy bruising Physical Exam Vital Signs/Narrative: Vital Signs Temp Pulse Resp BP Pulse Ox 02/17/20 16:49 98.6 F 100 18 112/76 97 02/17/20 16:05 98.6 F 100 18 112/76 97 General: - - Patient does not appear acutely ill, however she appears in some distress. ENT: Moist mucous membranes Cardiovascular: Regular rate Respiratory: No distress, CTA bilaterally Abdomen: Soft, Nontender, Nondistended, No masses Back: Normal Inspection, CVA tenderness Extremities: Nontender, No edema Skin: Normal color Neurological: Normal Strength, Normal Sensation Diagnostic/Tx/Re-eval - Medical Decision Making Patient has a relatively unremarkable work-up she appears well, her vitals are normal. Regardless, she tells me this feels like kidney infection, therefore I will be cautious and treat I will also culture her urine. Because of the fever I will swab her for COVID. At this time she is at home with her daughter and is not working I told her to continue quarantining until she gets results back. She has no respiratory symptoms and normal pulse ox therefore there is no need for admission or further testing. He does understand that if she worsens she is to return. ED Disposition - Plan for ED Patient: Disposition: Psychiatric Hospital or Unit Diagnosis: Fever, UTI (urinary tract infection) Instructions: ED FUO Adult, ED CYSTITIS Female Adult Prescriptions: Ciprofloxacin [Cipro] 500 mg PO BID #14 tab Transmission Status: Pending to [facility] Hydrocodone Bitart/Apap 5-325 [[place] 5MG-325MG] 1 tablet PO Q4H PRN PRN 2 Days #10 tablet PRN Reason: Pain Transmission Status: Sent to [facility] Referrals: Kely Hopper MD [Primary Care Provider] -
[2020-02-17 17:36] LABS: Absolute Lymphocyte Count 0.21 X10^3/uL (0.83-4.51); Absolute Neutrophil Count 11.2 X10^3/uL (2.0-7.7); Basophil# 0.01 X10^3/uL; Basophil% 0.1 % (0-1); Eosinophil# 0.01 X10^3/uL; Eosinophils% 0.1 % (0-5); Hematocrit 39.4 % (37-47); Hemoglobin 13.7 g/dL (12.0-15.0); Lymphocyte # 0.21 X10^3/ul (4.0); Lymphocyte % 1.8 % (19-41); Mean Corp Hgb Conc 34.8 g/dL (32-36); Mean Corpuscular Hgb 30.8 pg (27.0-32.0); Mean Corpuscular Volume 88.5 fL (81-99); Mean Platelet Vol. 10.3 fl (6.2-12.0); Monocyte# 0.47 X10^3/uL; Monocyte% 3.9 % (0-10); NRBC Flagged by Analyzer 0 % (0-5); Neutrophil # 11.21 X10^3/uL (2.7-7.7); Neutrophil % 93.5 % (47-70); POSITIVE DIFFERENTIAL YES; Platelet Count 240 K/mm3 (150-450); RBC Distribution Width CV 12.3 % (11.6-14.6); RBC Distribution Width SD 39.6 fl (35.1-43.9); Red Blood Count 4.45 M/mm3 (4.2-5.4)
[2020-02-17 17:38] LABS: Differential Indicated SCAN CRITERIA MET
[2020-02-17 17:40] LABS: Bacteria 0 SEEN /hpf (None Seen); Color, Urine Yellow (Yellow); Glucose, Dipstick Normal (Normal); Ketone-Dipstick Negative (Negative); Leukocyte Esterase-Dipstick Negative /ul (Negative); Mucous, Urine 0 SEEN /hpf (<or=2+); Nitrite-Dipstick Negative (Negative); Occult Blood-Urine 10 /ul (Negative); Protein-Dipstick Negative (Negative); Urine Bilirubin Dipstick Negative (Negative); Urine Clarity Clear (Clear); Urine Urobilinogen Normal (Normal)
[2020-02-17 17:43] LABS: AST(SGOT) 24 U/L (15-37); Alanine Aminotransfer ALT/SGPT 23 U/L (13-56); Albumin, Serum 3.8 g/dL (3.2-5.0); Alkaline Phosphatase 69 U/L (45-117); Anion Gap 8 (5-15); BUN 8 mg/dL (7-18); BUN/Creat Ratio 9.9 RATIO (10-20); Calcium,Total 8.9 mg/dL (8.5-10.1); Chloride 104 mmol/L (98-107); Creatinine, Serum 0.81 mg/dL (0.55-1.02); EST Glomerular Filtration Rate 82 mL/min (>60); Est Glom Filt Rate - Afr Amer 99 mL/min (>60); Estimated Creatinine Clearance 68.42 ml/min; Globulin 3.8 g/dL (2.2-4.2); Glucose 117 mg/dL (74-106); Potassium 3.1 mmol/L (3.5-5.1); Protein, Total 7.6 g/dL (6.4-8.2); Sodium Level 139 mmol/L (136-145)
[2020-02-17 17:46] LABS: Red Blood Cells-Urine 0-5 SEEN /hpf (0-5); Squamous Epithelial Cells - UA 0-5 SEEN /hpf (5-10); White Blood Cells 0-5 SEEN /hpf (0-5)
[2020-02-17 18:11] VITALS: BP 112/67; RESP 18
[2020-02-17 18:52] VITALS: BP 105/61; PULSE 86; RESP 18
[2020-02-17] MEDS: Ceftriaxone 1 GM/50 ML BAG IV (18:52)
[2020-02-17 20:10] VITALS: RESP 18
[2020-02-17] MEDS: HYDROcodone Bitartrate/Apap 5/325 Tablet PO (20:15)
== END 2020-02-17 20:16 | disposition home or self-care (01) ==
PROVIDERS: Emergency Provider Emergency Medicine; PCP Internal Medicine
DX: N39.0 Urinary tract infection, site not specified (principal); Z87.891 Personal history of nicotine dependence
CPT/HCPCS: 80053; 81001; 85025; 87040; 87086; 87088; 87635; 94799; 96361; 96365; 96375; 99284; J7030; A4216; J2405; U0003

== ENCOUNTER 2020-09-07 13:11 | Emergency (ER) | payer MEDICAID, SELFPAY ==
[2020-03-26 15:51] VITALS: BMI 19.7
[2020-09-07 13:12] VITALS: BP 133/77; PULSE 87; RESP 16; TEMP 36.4; O2SAT 97; BMI 19.0
--- NOTE | 2020-09-07 13:28 | ED.DCSUM_ITS ---
- ER Visit Summary Date of Service: 09/07/20 Chief Complaint: [Rash] History of Present Illness: The patient is a 44 F [does the emergency department with a rash that started on her left wrist approximately 3 days ago. Patient states that she has history of shingles and herpes simplex. She became concerne d when today she noticed increased redness and streaking up the arm. She denies any fevers. Patient states that she called her primary care physician who then started her on gabapentin today. Patient also takes prophylactically acyclovir which she increased her dose over the last couple of days. Patient was concerned about becoming septic and having the wound infected. She denies any breaks in the skin or injury to her wrist.] Physical Examination: [HEENT-PERRLA, EOMI. Cranial nerves II through XII grossly intact. TMs clear. Mucous membranes moist. No adenopathy. Cardiovascular-regular rate and rhythm without murmur or ectopy Lungs-clear to auscultation, chest wall stable without crepitus or subcu emphysema Abdomen-normoactive bowel sounds, soft, nontender, no rebound or rigidity, no peritoneal signs. Skin exam-evaluation of the left wrist volar aspect does reveal small vesicular lesions typical of herpes zoster or herpes simplex. No abscess is noted. She does have surrounding erythema around the lesion with some lymphangitic streaking towards the elbow. Neurovascular intact distally. Patient does not have any adenopathy in the axilla. Extremities-intact ?4, normal range of motion, normal pulses, atraumatic] Test Results: [None indicated] Emergency Department Course and Treatment: [Patient was started on Keflex and Bactrim.] Treatment Plan: [Patient will be given a prescription for Keflex and Bactrim and few [place] for severe pain. She is to continue with her gabapentin.] Disposition: [Discharged home in stable condition] Impression: [Cellulitis/lymphangitis left forearm] This note was generated with [employer] dictation software. It may contain incorrect words, spelling, and punctuation that were not noted in review of the chart prior to signing ED Disposition - Plan for ED Patient: Referrals: Kely Hopper MD [Primary Care Provider] -
--- NOTE | 2020-09-07 13:31 | DCINST.ED_ITS ---
ED Disposition - Plan for ED Patient: Instructions: Cellulitis Prescriptions: Smz/Tmp Ds [Bactrim Ds] 1 tab PO BID #14 tab Prescription Printed Cephalexin [Keflex] 500 mg PO Q6 #40 cap Prescription Printed Hydrocodone Bitart/Apap 5-325 [[place] 5MG-325MG] 1 tab PO Q4H PRN PRN 2 Days #10 tab PRN Reason: Pain Prescription Printed Referrals: Kely Hopper MD [Primary Care Provider] - 3-5 Days
[2020-09-07] MEDS: Cephalexin 250 MG Capsule 500 MG PO (13:39)
[2020-09-07] MEDS: Smz/Tmp Ds Tablet 1 TABLET PO (13:39)
== END 2020-09-07 13:42 | disposition home or self-care (01) ==
LOC: ED 13:36
PROVIDERS: Emergency Provider Emergency Medicine; PCP Internal Medicine
DX: L03.114 Cellulitis of left upper limb (principal)
CPT/HCPCS: 99283

== ENCOUNTER 2020-09-08 21:51 | Emergency (ER) | payer MEDICAID, SELFPAY ==
[2020-09-07 13:12] VITALS: BMI 19.0
[2020-09-08 21:52] VITALS: BP 130/106; PULSE 94; RESP 14; TEMP 36.3; O2SAT 95; BMI 19.3
--- NOTE | 2020-09-08 22:18 | EKG12_ITS ---
Test Reason : ARRHYTHMA Blood Pressure : / mmHG Vent. Rate : 065 BPM Atrial Rate : 065 BPM P-R Int : 116 ms QRS Dur : 070 ms QT Int : 408 ms P-R-T Axes : 041 085 063 degrees QTc Int : 424 ms Normal sinus rhythm Normal ECG Confirmed by MAE CHRISTIANSON, SUZANNE ([id number]), clinical editor MARILYNN BURLESON ([id number]) on 09/09/2020 12:49:37 PM Referred By: RK Confirmed By:SUZANNE WALL MD
--- NOTE | 2020-09-08 22:20 | ED.VISSUMM ---
- ER Visit Summary Date of Service: 09/08/20 Chief Complaint: [Left arm pain] History of Present Illness: The patient is a 44 F [presents to the emergency department complaint of pain in her left arm that started initially 4 days ago. Patient initially started with a rash on her volar aspect of the left wrist with surrounding erythema. Patient has history of shingles and history of herpes simplex. She was seen in the emergency department by myself 2 days ago and started on Keflex and Bactrim for suspected cellulitis. Patient states that now the redness is worse and she started getting some blistering now in her antecubital fossa she is complaining of severe pain radiating up the arm to her chest. She denies any shortness of breath. She denies recent travel or surgery. She denies any trauma to her arm. Patient has been taking her acyclovir. Patient also taking gabapentin.] Physical Examination: [HEENT-PERRLA, EOMI. Cranial nerves II through XII grossly intact. TMs clear. Mucous membranes moist. No adenopathy. Cardiovascular-regular rate and rhythm without murmur or ectopy Lungs-clear to auscultation, chest wall stable without crepitus or subcu emphysema Abdomen-normoactive bowel sounds, soft, nontender, no rebound or rigidity, no peritoneal signs. Extremities-intact ?4, normal range of motion, normal pulses. Left arm-patient has a vesicular rash involving the volar aspect of the wrist and now also involving the antecubital fossa. Patient has diffuse surrounding erythema. At the antecubital fossa with small amount of lymphangitic streaking towards the axilla. No adenopathy palpated in the axilla. She is neurovascular intact.] Test Results: [EKG obtained on arrival shows sinus rhythm with a ventricular rate of 65 bpm with no acute ST segment changes. CBC with differential showed a white count 10.7, hemoglobin 13, hematocrit 39, platelet 275. Chemistries unremarkable. Troponin is less than 0.015. Cultures ordered and pending. Emergency Department Course and Treatment: [The line was established. Patient was given Toradol 30 mg IV and given acyclovir 600 mg IV. Patient also given morphine 4 mg IV and Zofran 4 mg IV.] Treatment Plan: [Discussed options with patient as far as continued treatment with outpatient antivirals and pain medication versus admission for IV antivirals and pain meds for pain control. Patient would prefer to go home and does not want to be admitted. At this point I feel her symptoms are all likely related to shingles or herpes infection of the left arm.] Patient continue with her acyclovir. She is to continue with her Bactrim and Keflex. She is advised to return if condition should worsen anyway. Disposition: [Discharged home in stable condition] Impression: [Left arm pain secondary to herpetic infection] This note was generated with [employer] dictation software. It may contain incorrect words, spelling, and punctuation that were not noted in review of the chart prior to signing ED Disposition - Plan for ED Patient: Referrals: Kely Hopper MD [Primary Care Provider] -
[2020-09-08] MEDS: Ketorolac 30 MG/ML Syringe IV (22:37)
[2020-09-08] MEDS: 0.9% Normal Saline 1,000 ML 150 ML IV (22:37)
[2020-09-08 22:42] LABS: Absolute Lymphocyte Count 2.91 X10^3/uL (0.83-4.51); Absolute Neutrophil Count 6.7 X10^3/uL (2.0-7.7); Basophil# 0.04 X10^3/uL; Basophil% 0.4 % (0-1); Eosinophil# 0.13 X10^3/uL; Eosinophils% 1.2 % (0-5); Hematocrit 38.9 % (37-47); Hemoglobin 13.3 g/dL (12.0-15.0); Lymphocyte # 2.91 X10^3/ul (4.0); Lymphocyte % 27.2 % (19-41); Mean Corp Hgb Conc 34.2 g/dL (32-36); Mean Corpuscular Hgb 30.6 pg (27.0-32.0); Mean Corpuscular Volume 89.4 fL (81-99); Mean Platelet Vol. 10.2 fl (6.2-12.0); Monocyte# 0.93 X10^3/uL; Monocyte% 8.7 % (0-10); NRBC Flagged by Analyzer 0 % (0-5); Neutrophil # 6.66 X10^3/uL (2.7-7.7); Neutrophil % 62.1 % (47-70); Platelet Count 275 K/mm3 (150-450); RBC Distribution Width CV 12.9 % (11.6-14.6); RBC Distribution Width SD 43.1 fl (35.1-43.9); Red Blood Count 4.35 M/mm3 (4.2-5.4); White Blood Count 10.7 K/mm3 (4.4-11.0)
[2020-09-08 23:04] LABS: Anion Gap 3 (5-15); BUN 15 mg/dL (7-18); BUN/Creat Ratio 14.6 RATIO (10-20); Chloride 100 mmol/L (98-107); Creatinine, Serum 1.03 mg/dL (0.55-1.02); EST Glomerular Filtration Rate 62 mL/min (>60); Est Glom Filt Rate - Afr Amer 75 mL/min (>60); Estimated Creatinine Clearance 52.82 ml/min; Glucose 67 mg/dL (74-106); Lactic Acid 0.5 mmol/L (0.4-1.9); Potassium 3.5 mmol/L (3.5-5.1); Sodium Level 136 mmol/L (136-145)
--- NOTE | 2020-09-08 23:14 | ED.DEP ---
ED Disposition - Plan for ED Patient: Instructions: Cellulitis, ED Shingles (Herpes Zoster) Referrals: Kely Hopper MD [Primary Care Provider] - 3-5 Days
[2020-09-08] MEDS: Morphine 4 MG/ML Syringe IV (23:56)
[2020-09-08] MEDS: Ondansetron 4 MG/2 ML Vial IV (23:56)
[2020-09-09 00:20] VITALS: BP 128/61; PULSE 89; RESP 16; O2SAT 95
== END 2020-09-09 00:20 | disposition home or self-care (01) ==
LOC: ED 22:45
PROVIDERS: Emergency Provider Emergency Medicine; PCP Internal Medicine
DX: B00.9 Herpesviral infection, unspecified (principal); I10 Essential (primary) hypertension
CPT/HCPCS: 36415; 80048; 83605; 84484; 85025; 87040; 93005; 96365; 96366; 96375; 99282; J7030; A4216; J2405

== ENCOUNTER 2021-03-11 12:39 | Emergency (ER) | payer MEDICAID, SELFPAY ==
[2021-03-11 12:40] VITALS: BP 109/72; PULSE 91; RESP 16; TEMP 35.9; O2SAT 98; BMI 18.1
--- NOTE | 2021-03-11 13:37 | ED.VIS.BACK ---
HPI History of Present Illness Chief Complaint: Back Informant: patient Onset/Context/Timing Onset: Days (2 days) Context: Gradual Onset Timing: Continuous Quality: Sharp and Aching Location: Lumbar Current Severity: Severe Maximum Severity: Severe Associated Symptoms Associated Symptoms: Radiation to Right Leg Narrative Narrative: Patient present secondary to back pain. She states she woke 2 days ago with low back pain. Yesterday she went on a field trip with her daughter. She states after walking around at the [employer] she had significant low back pain. She is been using heating pads and taking hot baths. She went to her chiropractor this morning who states she had a lot of inflammation. She had trouble getting adjusted because of the inflammation. Patient is scheduled to go back to the chiropractor on Sunday. Patient has not taken anything for pain. She does state that she tried some CBD Gummies without improvement. She reports some mild problems with her back in the past, but no significant problems, surgeries, or injections. She states that her dog sleeps with her in bed and will often lay across her legs. She thinks she may have been twisted wrong while she slept because her dog was lying on her. There was no fall or direct trauma. [facility] Medical History Anxiety Back pain Depression Genital herpes History of alcohol abuse History of marijuana use Hypertension Insomnia Migraine PTSD (post-traumatic stress disorder) Seasonal allergies Shingles UTI (urinary tract infection) Home Medications cyclobenzaprine 10 mg PO BID PRN #10 tab 03/11/21 [Rx Last Taken Unknown] hydrocodone-acetaminophen 1 tab PO Q6H PRN 3 Days #10 tab 03/11/21 [Rx Last Taken Unknown] naproxen [Naprosyn] 500 mg PO BID PRN #20 tab 03/11/21 [Rx Last Taken Unknown] prednisone 40 mg PO DAILY #10 tab 03/11/21 [Rx Last Taken Unknown] Allergy/AdvReac Type Severity Reaction Status Date / Time valacyclovir [From Valtrex] Allergy Hives Verified 03/11/21 12:40 Family History Father Hypertension Alcoholism Grandfather Alcoholism Colon cancer Mother Hypertension Depression Brother Depression Grandmother Diabetes Colon cancer Uncle Cancer Surgical History cesarian times 2 History of exploratory laparotomy Social History Smoking Status: Never smoker how long ago did patient quit smokin alcohol intake: former year quit: 2016 details: Currently in outpatient counseling substance use type: marijuana caffeine: Yes what type of physical activity do you participate in: yoga frequency: 1-2 times per week seatbelt use: always do you feel safe at home: Yes additional social history: Patient is engaged- [employer] Patient works at [employer] ED Constitutional Constitutional ED: Denies chills or fever(s) Eyes Eyes: Denies change in vision ENT ENT ED: Denies sore throat Cardiovascular Cardiovascular: Denies chest pain Respiratory/Chest Respiratory/Chest: Denies cough or dyspnea Gastrointestinal Gastrointestinal: Denies abdominal pain, diarrhea, nausea or vomiting Genitourinary Genitourinary ED: Denies dysuria Musculoskeletal Musculoskeletal: Reports back pain Integumentary Denies rash Neurologic Neurologic: Denies headache(s), paresthesias or weakness Allergic/Immunologic Allergic/Immunologic ED: Denies urticaria EXAM Physical Exam Const Vital Signs: 03/11/21 12:40 Temperature 96.7 F L Temperature Source Temporal Pulse Rate 91 Respiratory Rate 16 Blood Pressure 109/72 Blood Pressure Mean 84 Pulse Ox 98 Oxygen Delivery Method Room Air Positive well nourished and well developed General Appearance ED: well developed Eyes PERRL and EOMs intact bilaterally Neck supple Resp normal respiratory effort and clear to auscultation bilaterally Cardio regular rate and regular rhythm GI normal to inspection, nondistended, normoactive bowel sounds, soft to palpation and non-tender Back/Spine normal to inspection Back/Spine Narrative: No midline tenderness. Reproducible tenderness in the lumbar paraspinal muscles bilaterally. Tenderness over the right sciatic notch. Extremity normal to inspection Neuro oriented x3 Sensorium / Orientation: alert Motor Exam: strength 5/5 throughout Psych Mood & Affect: tearful Skin no rashes or lesions noted MDM MDM MDM Narrative Medical decision making narrative: With no fall or direct trauma do not believe imaging is needed. Patient has reproducible tenderness in the musculature of her back. She will be treated with naproxen, Flexeril, [place]. She is to follow-up with her chiropractor on Sunday as scheduled. Discharge Plan Triage Chief Complaint: Back ED Provider: Ashley Fletcher Dx/Rx/DC Orders Clinical Impression: Back spasm Instructions: ED Back Spasm, No Trauma Prescriptions: New naproxen [Naprosyn] 500 mg tablet 500 mg PO BID PRN (Reason: pain) Qty: 20 RF: 0 cyclobenzaprine 10 mg tablet 10 mg PO BID PRN (Reason: muscle spasm) Qty: 10 RF: 0 hydrocodone-acetaminophen 5-325 mg tablet 1 tab PO Q6H PRN (Reason: pain) 3 Days Qty: 10 RF: 0 prednisone 20 mg tablet 40 mg PO DAILY Qty: 10 RF: 0 Primary Care Provider: Kely Hopper Referrals: Kely Hopper MD [Primary Care Provider] - 1 Week if not improving Disposition Disposition: Home, Self Care
[2021-03-11] MEDS: Naproxen 500 MG Tablet PO (13:46)
[2021-03-11] MEDS: cycloBENZAPRine HCl 10 MG Tablet PO (13:46)
[2021-03-11] MEDS: HYDROcodone Bitartrate/Apap 5/325 Tablet PO (13:46)
[2021-03-11 14:10] VITALS: PULSE 67; RESP 16; O2SAT 97
== END 2021-03-11 14:11 | disposition home or self-care (01) ==
PROVIDERS: Emergency Provider Emergency Medicine; PCP Internal Medicine
DX: M62.830 Muscle spasm of back (principal); F32.9 Major depressive disorder, single episode, unspecified; F43.10 Post-traumatic stress disorder, unspecified; G47.00 Insomnia, unspecified; I10 Essential (primary) hypertension; Z79.1 Long term (current) use of non-steroidal anti-inflammatories (NSAID); Z79.52 Long term (current) use of systemic steroids; Z87.891 Personal history of nicotine dependence
CPT/HCPCS: 99283

== ENCOUNTER 2021-06-30 12:07 | Emergency (ER) | payer MEDICAID, SELFPAY ==
[2021-06-30 12:08] VITALS: BP 116/85; PULSE 80; RESP 16; TEMP 36.2; O2SAT 99; BMI 18.5
--- NOTE | 2021-06-30 13:00 | ED.VIS.BACK ---
HPI History of Present Illness Chief Complaint: Back Detail of Chief Complaint: Back pain that started yesterday Informant: patient Narrative Narrative: Patient presents the emergency department with complaint of back pain that started yesterday. 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 Patient called her chiropractor who saw her yesterday and she did relatively well throughout the day but then had a hard time sleeping last night. Certain movements cause an electrical shock to go down her left side into her left leg at times. She denies weakness of the extremities. She denies change in bowel or bladder function. Patient states she had a similar episode several months ago that resolved with conservative management. Prior similar symptoms: With Prior Back Pain PFSH PFSH Medical History Anxiety Back pain Depression Genital herpes History of alcohol abuse History of marijuana use Hypertension Insomnia Migraine PTSD (post-traumatic stress disorder) Seasonal allergies Shingles UTI (urinary tract infection) Home Medications cyclobenzaprine 10 mg PO TID PRN #20 tablet 06/30/21 [Rx Last Taken Unknown] hydrocodone-acetaminophen 1 tab PO Q4H PRN PRN 3 Days #15 tablet 06/30/21 [Rx Last Taken Unknown] naproxen 500 mg PO BID #14 tab 06/30/21 [Rx Last Taken Unknown] Allergy/AdvReac Type Severity Reaction Status Date / Time valacyclovir [From Valtrex] Allergy Hives Verified 06/30/21 12:10 Family History Father Hypertension Alcoholism Grandfather Alcoholism Colon cancer Mother Hypertension Depression Brother Depression Grandmother Diabetes Colon cancer Uncle Cancer Surgical History cesarian times 2 History of exploratory laparotomy Social History Smoking Status: Never smoker how long ago did patient quit smokin alcohol intake: former year quit: 2016 details: Currently in outpatient counseling substance use type: marijuana caffeine: Yes what type of physical activity do you participate in: yoga frequency: 1-2 times per week seatbelt use: always do you feel safe at home: Yes additional social history: Patient is engaged- [employer] over [employer] Patient works at [employer] [facility] [facility] ED Constitutional Constitutional ED: Reports systems reviewed and no addt'l complaints, except as documented; Denies body ache(s), change in weight or chills Eyes Eyes: Denies acute decrease in peripheral vision, change in vision, double vision or loss of vision ENT ENT ED: Reports none; Denies ear pain, lip swelling, loss taste/smell, neck pain, otalgia or sore throat Cardiovascular Cardiovascular: Reports none; Denies abdominal pain, chest pain with activity, leg edema, lightheadedness, palpitations, rapid heart rate or syncope Respiratory/Chest Respiratory/Chest: Reports none; Denies change in mental status, dry cough, dyspnea, hemoptysis, shortness of breath at rest or shortness of breath with exertion Gastrointestinal Gastrointestinal: Reports none; Denies abdominal pain, change in stool character, diarrhea, hematemesis, hematochezia, melena, rectal bleeding or vomiting Genitourinary Genitourinary ED: Reports none; Denies abdominal discomfort, anuria, dysuria, genital pain or polyuria Musculoskeletal Musculoskeletal: Reports none and back pain; Denies arthralgias, difficulty walking, extremity pain, muscle weakness or myalgias Integumentary Reports none; Denies abscess or rash Neurologic Neurologic: Reports none; Denies abnormal gait, confusion, focal weakness, frequent falls, headache(s), loss of vision, numbness, paresthesias, radicular pain, vertigo or weakness Psychiatric Psychiatric: Reports systems reviewed and no addt'l complaints, except as documented and none; Denies behavioral changes, confusion, difficulty concentrating, hallucinations, suicidal ideation, tactile hallucinations or visual hallucinations Endocrine Endocrinology: Denies none, cold intolerance, excessive sweating, fatigue or heat intolerance Hematologic/Lymphatic Hematologic/Lymphatic: Reports none; Denies anemia, easy bleeding or easy bruising Allergic/Immunologic Allergic/Immunologic ED: Denies as per HPI, none, lip swelling, mouth swelling, throat swelling, tongue swelling or hives EXAM Physical Exam Const Vital Signs: 06/30/21 12:08 Temperature 97.2 F L Temperature Source Temporal Pulse Rate 80 Respiratory Rate 16 Blood Pressure 116/85 H Blood Pressure Mean 95 Pulse Ox 99 Positive well nourished and well developed General Appearance ED: well developed and NAD HEENT Reports TM's clear and moist mucous membranes normocephalic and atraumatic; Negative for trauma or tenderness Tympanic Membrane ED: Yes TM's clear Eyes PERRL and EOMs intact bilaterally General Eye ED: Negative for pale conjunctiva or scleral icterus Neck no lymphadenopathy, supple and no JVD General: Negative for tenderness Chest Wall inspection of chest normal and palpation of chest normal Chest: Negative for tenderness Resp normal respiratory effort and clear to auscultation bilaterally Effort and Inspection: Negative for respiratory distress or pain with movement Auscultation: Negative for rhonchi, wheezes or diminished lung sounds Cardio regular rate, regular rhythm, S1 normal heart sound, S2 normal heart sound and no murmurs Peripheral Pulses: pulses 2+ throughout GI normal to inspection, nondistended, normoactive bowel sounds, soft to palpation, non-tender, non-distended and no masses Back/Spine no CVA tenderness and no thoracic nor lumbar tenderness Back/Spine Narrative: I am unable to reproduce patient's pain with palpation of her thoracic or lumbar spine. She has no tenderness over lumbar paraspinal musculature. She has negative straight leg raises. Deep tendon reflexes are plus 2 out of 4 bilaterally at the patella and Achilles. Patient has normal L5 extension bilaterally. Patient has normal sensation to light touch bilaterally. Extremity normal to inspection General Extremety ED: Negative for edema General Extremity: Negative for edema Neuro oriented x3, CN's II-XII intact bilaterally, no sensory deficits noted and gait normal Sensorium / Orientation: awake, alert, oriented to person, oriented to place and oriented to time Motor Exam: strength 5/5 throughout and strength abnormal Psych mental status grossly normal Skin no rashes or lesions noted and no wounds MDM MDM MDM Narrative Medical decision making narrative: I do not feel any imaging is indicated at this point as she has had no trauma. No red flag symptoms for cauda equina. Patient will be given a prescription for Naprosyn, Flexeril, and [place]. Patient advised to follow-up with primary care physician in 3 to 5 days. Patient to return if worsening pain, weakness in extremities, change in bowel or bladder function, or conditions worsen anyway. Discharge Plan Triage Chief Complaint: Back ED Provider: Liz Suarez Dx/Rx/DC Orders Clinical Impression: Back pain Instructions: ED Back Pain (Acute or Chronic) Prescriptions: New cyclobenzaprine [cyclobenzaprine] 10 MG tablet 10 mg PO TID PRN (Reason: Muscle Spasm) Qty: 20 RF: 0 hydrocodone-acetaminophen [hydrocodone-acetaminophen] 1 TABLET tablet 1 tab PO Q4H PRN PRN (Reason: Pain) 3 Days Qty: 15 RF: 0 naproxen 500 MG tablet 500 mg PO BID Qty: 14 RF: 0 Primary Care Provider: Kely Hopper Referrals: Kely Hopper MD [Primary Care Provider] - 3-5 Days Disposition Disposition: Home, Self Care
[2021-06-30 13:13] VITALS: BP 122/76; PULSE 89; RESP 14; TEMP 36.9; O2SAT 97
== END 2021-06-30 13:17 | disposition home or self-care (01) ==
LOC: ED 13:15
PROVIDERS: Emergency Provider Emergency Medicine; PCP Internal Medicine; Visit Provider Emergency Medicine
DX: M54.9 Dorsalgia, unspecified (principal)
CPT/HCPCS: 99282

== ENCOUNTER 2021-09-08 19:56 | Emergency (ER) | payer MEDICAID, SELFPAY ==
[2021-09-08 19:56] VITALS: BP 105/81; PULSE 82; RESP 18; TEMP 36.3; O2SAT 97; BMI 18.3
--- NOTE | 2021-09-08 21:14 | EDS_ITS ---
HPI <KENTON Alves - Last Filed: 09/08/21 22:18> History of Present Illness Chief Complaint: Back Narrative Narrative: 45-year-old female presents with a migraine and back pain. She has a long history of migraines and states she had 1 3 days ago that lasted all day. It finally did resolve with her Imitrex. The next day she had lower back pressure which she attributed to lying in bed all day after the migraine. She does have a long history of back pain. She went to the chiropractor who adjusted her neck and back but she continues to have bilateral low back pain. Today she was able to go on a short hike this morning but this afternoon developed gradual onset migraine again and continued back pain so she presented for evaluation. She does not take any pain medication at home. She uses homeopathic treatments. She denies radicular pain, weakness, numbness, tingling, saddle anesthesia, or bladder or bowel incontinence. No fever or IV drug use. No trauma. PFSH <KENTON Alves - Last Filed: 09/08/21 22:18> [facility] Medical History Anxiety Back pain Depression Genital herpes History of alcohol abuse History of marijuana use Hypertension Insomnia Migraine PTSD (post-traumatic stress disorder) Seasonal allergies Shingles UTI (urinary tract infection) Home Medications naproxen 500 mg PO BID PRN #20 tab 09/08/21 [Rx Last Taken Unknown] sumatriptan succinate 25 mg PO X1 PRN 09/08/21 [History Last Taken Unknown] Allergy/AdvReac Type Severity Reaction Status Date / Time valacyclovir [From Valtrex] Allergy Hives Verified 09/08/21 19:58 Family History Father Hypertension Alcoholism Grandfather Alcoholism Colon cancer Mother Hypertension Depression Brother Depression Grandmother Diabetes Colon cancer Uncle Cancer Surgical History cesarian times 2 History of exploratory laparotomy Social History Smoking Status: Never smoker how long ago did patient quit smokin alcohol intake: former year quit: 2017 details: Currently in outpatient counseling substance use type: marijuana caffeine: Yes what type of physical activity do you participate in: yoga frequency: 1-2 times per week seatbelt use: always do you feel safe at home: Yes additional social history: Patient is engaged- [employer]Work over [employer] Patient works at [employer] <KENTON Alves - Last Filed: 09/08/21 22:18> ROS ED ROS Narrative Constitutional: Negative for fever, chills, malaise. Eyes: Negative for visual change. ENT: Negative for sore throat, ear pain, rhinorrhea. CVS: Negative for palpitations, chest pain, syncope. Respiratory: Negative for shortness of breath, cough, orthopnea. GI: Negative for abdominal pain, nausea, vomiting, diarrhea, constipation, melena, hematochezia. : Negative for dysuria, hematuria or frequency. Neuro: Positive for headache, negative for motor/sensory dysfunction. Skin: Negative for rash, abscess, or wound. Musc: Negative for joint pain, swelling, trauma. Heme: Negative for easy bruising, bleeding, lymphadenopathy. EXAM <KENTON Alves - Last Filed: 09/08/21 22:18> Physical Exam Narrative Exam Narrative: CONST: Patient sitting in no acute distress. EYES: Normal inspection. ENT: Normal inspection, moist mucous membranes. NECK: Normal inspection. RESP: No respiratory distress, CTAB. CVS: Regular rate and rhythm, no murmur, no gallop. ABD: Soft and nontender, no guarding or rebound, nondistended. Back: Normal inspection, no CVA tenderness. No midline spinal tenderness, no step off or crepitus. SKIN: Color normal, no rash, warm, dry, intact. EXTREMITIES: Normal appearance, no pedal edema. 5/5 bilateral hip flexion, knee flexion/extension, DF/PF. Normal sensation light touch. 2+ radial and PT pulses. NEURO: Oriented x4. Normal gait. PSYCH: Normal affect. Const Vital Signs: 09/08/21 19:56 Temperature 97.4 F L Temperature Source Temporal Pulse Rate 82 Respiratory Rate 18 Blood Pressure 105/81 H Blood Pressure Mean 89 Pulse Ox 97 Oxygen Delivery Method Room Air <Dr. Teodoro Thomason DO - Last Filed: 09/09/21 02:28> Physical Exam Const Vital Signs: 09/08/21 19:56 Temperature 97.4 F L Temperature Source Temporal Pulse Rate 82 Respiratory Rate 18 Blood Pressure 105/81 H Blood Pressure Mean 89 Pulse Ox 97 Oxygen Delivery Method Room Air [facility] <KENTON Alves - Last Filed: 09/08/21 22:18> [facility] Narrative Medical decision making narrative: Patient presents with a migraine as well as low back pain. She has extensive history of migraines and this feels similar to previous. No sudden onset or thunderclap headache. No trauma. Here she appears well and nontoxic. Vital signs within normal limits. Pupils are equal and reactive and extraocular motion intact. She has a normal neurological exam. Regarding her back pain, it is normal on inspection. There is no midline spinal tenderness or reproducible pain. Lower extremity MSPs and reflexes are intact. She has no red flag symptoms concerning for cauda equina syndrome or epidural abscess. She has had intermittent pain for a long time and with no trauma or reproducible tenderness I do not feel emergent imaging is indicated. She was treated for both her migraine and back pain with an IV cocktail of fluids, Toradol, Compazine, and Benadryl. This gave her significant improvement in her headache but with continued back pain she was given a single Percocet. I will prescribe naproxen and recommended she follow-up with her primary care doctor. 1. Acute on chronic low back pain 2. Migraine <Dr. Teodoro Thomason DO - Last Filed: 09/09/21 02:28> [facility] Narrative Medical decision making narrative: HPI: Patient is a 45-year-old female that I saw in conjunction with the physician educational assistant teacher. The patient reports a longstanding history of back pain and headache. She states she developed a headache a few days ago which she says feels similar nature to her previous headaches and she denies any trauma prior to the headache beginning. She states she went and saw her chiropractor and this typically can help but has not done so and therefore she presents to the hospital for evaluation. She also ports a longstanding history of back pain and states the other day she was reaching for just a pencil to help her daughter with schoolwork when she developed a spasm in her mid low back but also is not resolving with [id number] medication. She denies any trauma or excessive activity prior to the pain beginning and she denies any loss of bowel or bladder control or IV drug use PE: General: Awake alert no acute distress Heart: Regular rate and rhythm Lungs: Clear to auscultation Neck: No meningeal signs Neuro: Cranial nerves II through XII are grossly intact no focal neurologic deficit noted. NIH stroke scale score 0 Back: No saddle anesthesia. Negative straight leg raise. No clonus or [place] i. Patellar reflexes are plus 2 out of 4 bilaterally are equal and symmetric. Skin: No overlying soft tissue changes to suggest trauma or infection Patient presented to the ER with stable vitals and a normal neurologic exam and no history or physical exam findings concerning for cauda equina or epidural abscess. Based on her longstanding history of headache and back pain I do not feel there is a need for imaging studies. Patient was treated with a migraine cocktail and did have resolution of her headache. Back pain persisted so she was given a Percocet and this resolved the back pain as well. On reevaluation she is resting comfortably with a normal neuro exam. Therefore with resolution of her symptoms and the fact patient has been maintaining a normal neuro exam and has low risk for cauda equina or epidural abscess I do not feel there is need for further work-up and she is safe for discharge. Discharge Plan Triage Chief Complaint: Back ED Provider: Gracie Gipson Dx/Rx/DC Orders Clinical Impression: Migraine, Low back pain Instructions: ED Back Pain (Acute or Chronic), ED, Migraine (Classical) Prescriptions: New naproxen 500 mg tablet 500 mg PO BID PRN Qty: 20 RF: 0 No Action sumatriptan succinate 25 mg tablet 25 mg PO X1 PRN (Reason: Migraine Headache) RF: 0 Primary Care Provider: Kely Hopper Referrals: Kely Hopper MD [Primary Care Provider] - Activity Restrictions/Additional Instructions: Please take naproxen as needed for your headache or back pain over the next few days. Follow-up with your primary care doctor. Disposition Disposition: Home, Self Care Discharge Date/Time: 09/08/21 22:32
[2021-09-08] MEDS: DiphenhydrAMINE 50 MG/ML Syringe 25 MG IV (21:32)
[2021-09-08] MEDS: Ketorolac 15 MG/ML Vial IV (21:32)
[2021-09-08] MEDS: proCHLORPERazine 10 MG/2 ML Vial IV (21:32)
[2021-09-08] MEDS: 0.9% Normal Saline 1,000 ML 999 ML IV (21:33)
[2021-09-08] MEDS: Ondansetron ODT 4 MG Tablet PO (22:09)
[2021-09-08] MEDS: oxyCODONE 5 MG Tablet PO (22:09)
== END 2021-09-08 22:32 | disposition home or self-care (01) ==
PROVIDERS: Emergency Provider Physician Assistant; PCP Internal Medicine; Visit Provider Physician Assistant
DX: M54.50 Low back pain, unspecified (principal); G89.29 Other chronic pain; G43.909 Migraine, unspecified, not intractable, without status migrainosus; Z87.891 Personal history of nicotine dependence
CPT/HCPCS: 96361; 96374; 96375; 99285; J7030; A4216

== ENCOUNTER → 2025-02-12 | Outpatient (CLI) | payer MEDICAID, SELFPAY ==
[2025-02-17 08:08] LABS: HPV APTIMA, High Risk Negative (Negative)
== END | disposition home or self-care (01) ==
PROVIDERS: PCP Internal Medicine; Referring Provider Nurse Practitioner Family; Visit Provider Nurse Practitioner Family
DX: Z01.419 Encounter for gynecological examination (general) (routine) without abnormal findings (principal)
CPT/HCPCS: 87624; 88175; G0145

== ENCOUNTER → 2025-02-13 | Outpatient (CLI) | payer MEDICAID, SELFPAY ==
[2025-02-13 12:01] LABS: Hematocrit 43.7 % (37-47); Hemoglobin 14.8 g/dL (12.0-15.0); Immature Granulocytes Count 0.010 X10^3/uL (0.0-0.0); Mean Corp Hgb Conc 33.9 g/dL (32-36); Mean Corpuscular Volume 85.2 fL (81-99); Mean Platelet Vol. 10.6 fl (6.2-12.0); NRBC Flagged by Analyzer 0 % (0-5); Platelet Count 301 K/mm3 (150-450); RBC Distribution Width CV 12.5 % (11.6-14.6); RBC Distribution Width SD 39.2 fl (35.1-43.9); Red Blood Count 5.13 M/mm3 (4.2-5.4); White Blood Count 6.1 K/mm3 (4.4-11.0)
[2025-02-13 12:53] LABS: AST(SGOT) 20 U/L (<=31); Alanine Aminotransfer ALT/SGPT 17 U/L (<=34); Albumin, Serum 4.5 g/dL (3.5-5.0); Alkaline Phosphatase 82 U/L (35-104); Anion Gap 13 (5-15); BUN 13 mg/dL (4-19); BUN/Creat Ratio 17.1 RATIO (10-20); Calcium,Total 9.6 mg/dL (7.6-11.0); Carbon Dioxide 25.4 mmol/L (21.0-32.0); Chloride 102 mmol/L (98-108); Globulin 3.2 g/dL (2.2-4.2); Glucose 95 mg/dL (70-99); Potassium 3.9 mmol/L (3.3-5.1)
[2025-02-13 12:56] LABS: Follicle Stimulating Hormone 134.0 mIU/mL
[2025-02-14 04:07] LABS: PROGESTERONE 0.4 ng/mL (.)
[2025-02-19 10:08] LABS: PROLACTIN 17.1 ng/mL (4.8-33.4); Testosterone, % Free 1.33 % (0.50-2.80); Testosterone, Free 0.21 ng/dL (0.10-0.85)
== END | disposition home or self-care (01) ==
LOC: MTLAB 09:08
PROVIDERS: PCP Internal Medicine; Referring Provider Nurse Practitioner Family; Visit Provider Nurse Practitioner Family
DX: R61 Generalized hyperhidrosis (principal); R68.82 Decreased libido
CPT/HCPCS: 36415; 80053; 82670; 83001; 83002; 84144; 84146; 84402; 84403; 84443; 85025